=== PATIENT | male | born 1965 | race African-American/Black ===

== ENCOUNTER 2017-10-30 14:23 | Inpatient (IN) | payer OTHER ==
[2017-10-30 15:54] VITALS: BMI 25.0
--- NOTE | 2017-10-30 17:48 | HP ---
CIWA Score - CIWA Score Nausea/Vomitin-Mild Nausea/No Vomiting Muscle Tremors: 3 Anxiety: 3 Agitation: 1-Slight > Activity Paroxysmal Sweats: 1-Minimal Palms Moist Orientation: 1-Uncertain about Date Tacttile Disturbances: 1-Very Mild Itch/Numbness Auditory Disturbances: 0-None Visual Disturbances: 0-None Headache: 1-Very Mild CIWA-Ar Total Score: 12 Admission ROS BHS - HPI Chief Complaint: WITHDRAWAL SYMPTOMS Allergies/Adverse Reactions: Allergies Allergy/AdvReac Type Severity Reaction Status Date / Time No Known Allergies Allergy Verified 10/30/17 17:16 History of Present Illness: 52 Y.O. MAN WITH A HISTORY OF ALCOHOL AND PCP DEPENDENCE IS HERE SEEKING HIS FIRST ADMISSION TO DETOX. SELF-REFERRED. DOES NOT HAVE A SIGNIFICANT PERIOD OF SOBRIETY. Exam Limitations: No Limitations - Ebola screening Have you traveled outside of the country in the last 21 days: No Have you had contact with anyone from an Ebola affected area: No Have you been sick,other than usual withdrawal symptoms: No Do you have a fever: No - Review of Systems Constitutional: Loss of Appetite, Unintentional Wgt. Loss EENT: reports: Blurred Vision, Nose Congestion Respiratory: reports: No Symptoms reported Cardiac: reports: No Symptoms Reported GI: reports: No Symptoms Reported : reports: Other (Hesitancy) Musculoskeletal: reports: No Symptoms Reported Integumentary: reports: No Symptoms Reported Neuro: reports: Headache Endocrine: reports: No Symptoms Reported Hematology: reports: No Symptoms Reported Psychiatric: reports: Judgement Intact, Mood/Affect Appropiate, Depressed Other Systems: Reviewed and Negative Patient History - Patient Medical History Hx Anemia: No Hx Asthma: No Hx Chronic Obstructive Pulmonary Disease (COPD): No Hx Cancer: No Hx Cardiac Disorders: No Hx Congestive Heart Failure: No Hx Hypertension: Yes Hx Hypercholesterolemia: Yes Hx Pacemaker: No HX Cerebrovascular Accident: No Hx Seizures: No Hx Dementia: No Hx Diabetes: Yes (Type II: uncontrolled) Hx Gastrointestinal Disorders: No Hx Liver Disease: No Hx Genitourinary Disorders: No Hx Sexually Transmitted Disorders: No Hx Renal Disease (ESRD): No Hx Thyroid Disease: No Hx Human Immunodeficiency Virus (HIV): No Hx Hepatitis C: No Hx Depression: No Hx Suicide Attempt: No Hx Bipolar Disorder: Yes Hx Schizophrenia: No - Patient Surgical History Past Surgical History: No Hx Neurologic Surgery: No Hx Cataract Extraction: No Hx Cardiac Surgery: No Hx Lung Surgery: No Hx Breast Surgery: No Hx Breast Biopsy: No Hx Abdominal Surgery: No Hx Appendectomy: No Hx Cholecystectomy: No Hx Genitourinary Surgery: No Hx Section: No Hx Orthopedic Surgery: No Anesthesia Reaction: No - PPD History Previous Implant?: Yes Documented Results: Negative w/o proof PPD to be Administered?: Yes - Reproductive History Patient is a Female of Child Bearing Age (11 -55 yrs old): No - Smoking Cessation Smoking history: Current every day smoker Have you smoked in the past 12 months: Yes Aproximately how many cigarettes per day: 5 Hx Chewing Tobacco Use: No Initiated information on smoking cessation: Yes 'Breaking Loose' booklet given: 10/30/17 - Substance & Tx. History Hx Alcohol Use: Yes Hx Substance Use: Yes (PCP ) Hx Substance Use Treatment: No - Substances Abused Alcohol Route: Oral Frequency: Daily Amount used: liquor- 2 pints, beer- 3, 40 oz Age of first use: 18 Date of Last Use: 10/29/17 PCP Route: Smoking Frequency: Daily Amount used: 3 bags Age of first use: 18 Date of Last Use: 10/29/17 Family Disease History - Family Disease History Family Disease History: Diabetes: Mother Admission Physical Exam S - Vital Signs Vital Signs: Vital Signs - 24 hr 10/30/17 15:51 Temperature 97.9 F Pulse Rate 82 Respiratory 18 Rate Blood Pressure 154/109 - Physical General Appearance: Yes: Disheveled, Anxious HEENTM: Yes: Hearing grossly Normal, Normocephalic, Normal Voice Respiratory: Yes: Chest Non-Tender, Lungs Clear, Normal Breath Sounds, No Respiratory Distress, No Accessory Muscle Use Neck: Yes: No masses,lesions,Nodules, Trachea in good position Breast: Yes: Breast Exam Deferred Cardiology: Yes: Regular Rhythm, Regular Rate Abdominal: Yes: Normal Bowel Sounds, Non Tender Genitourinary: Yes: Hesitency, Other Back: Yes: Normal Inspection Musculoskeletal: Yes: Gait Steady, Pelvis Stable Extremities: Yes: Normal Capillary Refill, Normal Inspection Neurological: Yes: Alert, Motor Strength 5/5, Normal Mood/Affect, Normal Response Integumentary: Yes: Normal Color, Dry, Warm Lymphatic: Yes: Within Normal Limits - Diagnostic (1) Alcohol dependence, uncomplicated Current Visit: Yes Status: Chronic (2) Diabetes type 2, uncontrolled Current Visit: Yes Status: Chronic (3) Nicotine dependence Current Visit: Yes Status: Chronic (4) Hyperlipidemia Current Visit: Yes Status: Chronic (5) PCP dependence Current Visit: Yes Status: Chronic Cleared for Admission [facility] - Detox or Rehab [facility] Level of Care: Medically Managed Detox Regimen/Protocol: Librium BHS Breath Alcohol Content Breath Alcohol Content: 0 Urine Drug Screen - Results Drug Screen Negative: No Urine Drug Screen Results: PCP-Phencyclidine
[2017-10-30] MEDS ORDERED: P-EPHED 60MG/TRIPROLIDI 2.5MG TABLET PO PRN (18:15)
[2017-10-30] MEDS ORDERED: MENTHOL/PHENOL 1 EACH UD MM PRN (18:15)
[2017-10-30] MEDS ORDERED: LOPERAMIDE HCL 2 MG CAPSULE PO PRN (18:15)
[2017-10-30] MEDS ORDERED: MAGNESIUM HYDROX 2400MG/30ML ORAL SUSPENSION 30 ML CUP PO PRN (18:15)
[2017-10-30] MEDS ORDERED: hydrOXYzine PAMOATE 50 MG CAPSULE (FP) PO PRN (18:15)
[2017-10-30] MEDS ORDERED: IBUPROFEN 400 MG TABLET (FP) PO PRN (18:15)
[2017-10-30] MEDS ORDERED: MAGNESIUM CITRATE 300 ML BOTTLE PO PRN (18:15)
[2017-10-30] MEDS ORDERED: chlordiazePOXIDE HCL 25 MG CAPSULE PO PRN (18:15)
[2017-10-30] MEDS ORDERED: MAG HYDROX/AL HYDROX/SIMETH 30 ML UNIT-DOSE CUP PO PRN (18:15)
[2017-10-30] MEDS ORDERED: guaiFENesin/D-METHORPHAN HB 10 ML UNIT-DOSE CUPS PO PRN (18:15)
[2017-10-30] MEDS ORDERED: chlordiazePOXIDE HCL 25 MG CAPSULE PO ONE (19:15)
[2017-10-30] MEDS: amLODIPine BESYLATE 10 MG TABLET (FP) PO SCH (19:42)
--- NOTE | 2017-10-30 19:52 | PN ---
BHS Progress Note Note: Patient with asymptomatic BP 180/111. One time order clonidine 0.1 mg STAT increase fluids continue to monitor
[2017-10-30] MEDS ORDERED: cloNIDine HCL 0.1 MG TABLET PO ONE (20:15)
[2017-10-30] MEDS: INSULIN (LEVEMIR) 100 UNITS/ML UNITS SQ SCH (21:15)
[2017-10-30] MEDS ORDERED: INSULIN (NOVOLOG) ASPART 100 UNITS/ML 10ML VIAL ONE (21:32)
[2017-10-30] MEDS: INSULIN SLIDING SCALE (NOVOLOG) 1 VIAL SQ SCH (21:38)
[2017-10-30] MEDS ORDERED: MELATONIN 5 MG TABLETS PO PRN (22:00)
[2017-10-30] MEDS: THIAMINE HCL 100 MG TABLET (FP) PO SCH (22:29)
[2017-10-30] MEDS: chlordiazePOXIDE HCL 25 MG CAPSULE PO SCH (22:37)
[2017-10-30] MEDS: ATORVASTATIN CA 20 MG TABLET (FP) PO SCH (22:38)
[2017-10-31] MEDS: chlordiazePOXIDE HCL 25 MG CAPSULE PO SCH ×4 (05:49→22:24)
[2017-10-31] MEDS: ACETAMINOPHEN 325 MG TABLET (FP) PO PRN (05:49)
[2017-10-31] MEDS ORDERED: INSULIN (NOVOLOG) ASPART 100 UNITS/ML 10ML VIAL ONE ×4 (06:18→21:06)
[2017-10-31] MEDS ORDERED: INSULIN SLIDING SCALE (NOVOLOG) 1 VIAL SQ SCH (07:00)
[2017-10-31 07:25] LABS: URINE APPEARANCE CLEAR; URINE BILIRUBIN NEGATIVE (<2.0 mg/dL); URINE COLOR STRAW; URINE GLUCOSE (UA) 3+ (NEGATIVE); URINE KETONE TRACE (NEGATIVE); URINE LEUK ESTERASE NEGATIVE (NEGATIVE); URINE NITRITE NEGATIVE (NEGATIVE); URINE PROTEIN NEGATIVE (NEGATIVE); URINE UROBILINOGEN NEGATIVE mg/dL (0.2-1.0)
[2017-10-31] MEDS: INSULIN SLIDING SCALE (NOVOLOG) 1 VIAL SQ SCH ×4 (07:40→21:08)
[2017-10-31] MEDS: metFORMIN HCL 500 MG TABLET (FP) PO SCH ×2 (07:40→17:15)
[2017-10-31] MEDS: amLODIPine BESYLATE 10 MG TABLET (FP) PO SCH (10:11)
[2017-10-31] MEDS: PRENATAL VITAMINS W/ FOLIC ACID TABLET (FP) PO SCH (10:11)
[2017-10-31] MEDS: LISINOPRIL 10 MG TABLET (FP) PO SCH (10:11)
--- NOTE | 2017-10-31 10:47 | EKG ---
Test Reason : Blood Pressure : / mmHG Vent. Rate : 073 BPM Atrial Rate : 073 BPM P-R Int : 156 ms QRS Dur : 072 ms QT Int : 386 ms P-R-T Axes : 072 067 055 degrees QTc Int : 425 ms NORMAL SINUS RHYTHM SEPTAL INFARCT , AGE UNDETERMINED ABNORMAL ECG NO PREVIOUS ECGS AVAILABLE Confirmed by STACI GUY MD ([id number]) on 10/31/2017 10:47:01 AM Referred By: Confirmed By:STACI GUY MD
--- NOTE | 2017-10-31 10:48 | PN ---
[facility] CIWA - CIWA Score Nausea/Vomitin-No Nausea/No Vomiting Muscle Tremors: 4-Moderate,w/Arms Extend Anxiety: 4-Mod. Anxious/Guarded Agitation: 3 Paroxysmal Sweats: 1-Minimal Palms Moist Orientation: 0-Oriented Tacttile Disturbances: 3-Moderate Itch/Numb/Burn Auditory Disturbances: 0-None Visual Disturbances: 0-None Headache: 0-None Present CIWA-Ar Total Score: 15 BHS Progress Note (SOAP) Subjective: ANXIETY,SWEATS,FATIGUE. Objective: 10/31/17 10:48 Vital Signs 10/31/17 10/31/17 10/31/17 03:30 06:24 09:19 Temperature 96.1 F L 97.9 F Pulse Rate 76 89 Respiratory 18 18 18 Rate Blood Pressure 124/88 144/93 Laboratory Tests 10/30/17 10/30/17 10/30/17 16:54 18:52 20:40 POC Glucometer > 600 > 600 Urine Color Straw Urine Appearance Clear Urine pH 5.0 Ur Specific [place] 1.030 Urine Protein Negative Urine Glucose (UA) 3+ H Urine Ketones Trace H Urine Blood Negative Urine Nitrite Negative Urine Bilirubin Negative Urine Urobilinogen Negative Ur Leukocyte Esterase Negative 10/31/17 05:51 POC Glucometer 278 Urine Color Urine Appearance Urine pH Ur Specific [place] Urine Protein Urine Glucose (UA) Urine Ketones Urine Blood Urine Nitrite Urine Bilirubin Urine Urobilinogen Ur Leukocyte Esterase Assessment: 10/31/17 10:49 WITHDRAWAL SX Plan: CONTINUE DETOX
--- NOTE | 2017-10-31 11:00 | CONSULT ---
[facility] Psychiatric Consult - Data Date of interview: 10/31/17 Admission source: [facility] Identifying data: Patient is a 52 year old single male, father of two, unemployed, homeless (living in a intermediate in [facility] [place]), and supported by [facility] benefits. Patient admitted for alcohol and PCP dependence. Substance Abuse History: Smoking Cessation. Smoking history: Current every day smoker. Have you smoked in the past 12 months: Yes. Aproximately how many cigarettes per day: 5. Hx Chewing Tobacco Use: No. Initiated information on smoking cessation: Yes. 'Breaking Loose' booklet given: 10/30/17. - Substance & Tx. History. Hx Alcohol Use: Yes. Hx Substance Use: Yes (PCP ). Hx Substance Use Treatment: No. - Substances Abused. Alcohol. Route: Oral. Frequency: Daily. Amount used: liquor- 2 pints, beer- 3, 40 oz. Age of first use: 18. Date of Last Use: 10/29/17. PCP. Route: Smoking. Frequency: Daily. Amount used: 3 bags. Age of first use: 18. Date of Last Use: 10/29/17 Medical History: hypertension, hypercholesterolemia, diabetes Psychiatric History: Patient denies h/o psychiatric hospitalization and suicide attempt. Pt. reports seeing a psychiatrist at 13 years of age but is unable to recall the medications he was prescribed. Pt. denies OPD as an adult. Pt. currently denies suicidal and homicidal ideation. Physical/Sexual Abuse/Trauma History: Denies. Mental Status Exam - Mental Status Exam Alert and Oriented to: Time, Place, Person Cognitive Function: Good Patient Appearance: Well Groomed Mood: Hopeful, Euthymic Affect: Mood Congruent Patient Behavior: Cooperative Speech Pattern: Appropriate Voice Loudness: Normal Thought Process: Intact, Goal Oriented Thought Disorder: Not Present Hallucinations: Denies Suicidal Ideation: Denies Homicidal Ideation: Denies Insight/Judgement: Poor Sleep: Fair Appetite: Fair Muscle strength/Tone: Normal Gait/Station: Normal Psychiatric Findings - Problem List ([place] 1, 2,3) (1) Nicotine dependence Current Visit: Yes Status: Acute Qualifiers: Nicotine product type: cigarettes Substance use status: in withdrawal Qualified Code(s): F17.213 - Nicotine dependence, cigarettes, with withdrawal (2) PCP dependence Current Visit: Yes Status: Acute (3) Alcohol dependence, uncomplicated Current Visit: Yes Status: Chronic (4) Diabetes type 2, uncontrolled Current Visit: Yes Status: Chronic (5) Hyperlipidemia Current Visit: Yes Status: Chronic (6) Substance induced mood disorder Current Visit: Yes Status: Suspected - Initial Treatment Plan Initial Treatment Plan: Psychoeducation provided. Detoxification in progress. Observation.
[2017-10-31 11:12] LABS: HEMATOCRIT 39.9 % (35.4-49); MCH 32.8 pg (25.7-33.7); MCHC 35.2 g/dl (32.0-35.9); MEAN CELL VOLUME 93.2 fl (80-96); MEAN PLT VOLUME 8.6 fl (7.5-11.1); PLATELET COUNT 197 K/MM3 (134-434); RBC 4.28 M/mm3 (4.00-5.60); WHITE BLOOD COUNT 6.1 K/mm3 (4.0-10.0)
[2017-10-31 11:40] LABS: ALBUMIN 3.8 g/dl (3.4-5.0); ALK PHOS 137 U/L (45-117); ANION GAP 8 (8-16); BILIRUBIN,TOTAL 0.6 mg/dL (0.2-1.0); BLOOD UREA NITROGEN 11 mg/dL (7-18); CHLORIDE 94 mmol/L (98-107); CO2 31 mmol/L (21-32); GLUCOSE,RANDOM 366 mg/dL (74-106); POTASSIUM 3.8 mmol/L (3.5-5.1); SGOT/AST 35 U/L (15-37); SGPT/ALT 44 U/L (12-78); SODIUM 133 mmol/L (136-145)
[2017-10-31] MEDS: INSULIN (LEVEMIR) 100 UNITS/ML UNITS SQ SCH (21:08)
[2017-10-31] MEDS: ATORVASTATIN CA 20 MG TABLET (FP) PO SCH (22:23)
[2017-10-31] MEDS: THIAMINE HCL 100 MG TABLET (FP) PO SCH (22:24)
[2017-11-01] MEDS: chlordiazePOXIDE HCL 25 MG CAPSULE PO SCH ×3 (05:46→17:33)
[2017-11-01] MEDS: INSULIN SLIDING SCALE (NOVOLOG) 1 VIAL SQ SCH ×4 (07:15→22:13)
[2017-11-01] MEDS ORDERED: INSULIN (NOVOLOG) ASPART 100 UNITS/ML 10ML VIAL ONE ×4 (07:17→21:19)
[2017-11-01] MEDS: metFORMIN HCL 500 MG TABLET (FP) PO SCH ×2 (07:18→17:33)
[2017-11-01] MEDS: ACETAMINOPHEN 325 MG TABLET (FP) PO PRN (08:45)
--- NOTE | 2017-11-01 10:12 | PN ---
[facility] CIWA - CIWA Score Nausea/Vomitin-No Nausea/No Vomiting Muscle Tremors: 4-Moderate,w/Arms Extend Anxiety: 4-Mod. Anxious/Guarded Agitation: 4-Moderately Restless Paroxysmal Sweats: 1-Minimal Palms Moist Orientation: 0-Oriented Tacttile Disturbances: 0-None Auditory Disturbances: 0-None Visual Disturbances: 0-None Headache: 0-None Present CIWA-Ar Total Score: 13 S Progress Note (SOAP) Subjective: ANXIETY,SWEATS,FATIGUE/SLIGHTLY SLUGGISH. ALERT O X 3. DENIES ACUTE DISTRESS. Objective: 11/01/17 10:10 Vital Signs 11/01/17 11/01/17 11/01/17 03:30 06:20 09:30 Temperature 97.9 F 97.2 F L Pulse Rate 67 88 Respiratory 16 18 18 Rate Blood Pressure 120/78 127/85 Laboratory Tests 10/30/17 10/30/17 10/30/17 16:54 18:52 20:40 WBC RBC Hgb Hct MCV MCH MCHC RDW Plt Count MPV Sodium Potassium Chloride Carbon Dioxide Anion Gap BUN Creatinine Creat Clearance w eGFR POC Glucometer > 600 > 600 Random Glucose Calcium Total Bilirubin AST ALT Alkaline Phosphatase Total Protein Albumin Urine Color Straw Urine Appearance Clear Urine pH 5.0 Ur Specific [place] 1.030 Urine Protein Negative Urine Glucose (UA) 3+ H Urine Ketones Trace H Urine Blood Negative Urine Nitrite Negative Urine Bilirubin Negative Urine Urobilinogen Negative Ur Leukocyte Esterase Negative RPR Titer 10/31/17 10/31/17 10/31/17 05:51 07:00 07:00 WBC 6.1 RBC 4.28 Hgb 14.0 Hct 39.9 MCV 93.2 MCH 32.8 MCHC 35.2 RDW 13.0 Plt Count 197 MPV 8.6 Sodium 133 L Potassium 3.8 Chloride 94 L Carbon Dioxide 31 Anion Gap 8 BUN 11 Creatinine 1.0 Creat Clearance w eGFR > 60 POC Glucometer 278 Random Glucose 366 H* Calcium 9.0 Total Bilirubin 0.6 AST 35 ALT 44 Alkaline Phosphatase 137 H Total Protein 7.0 Albumin 3.8 Urine Color Urine Appearance Urine pH Ur Specific [place] Urine Protein Urine Glucose (UA) Urine Ketones Urine Blood Urine Nitrite Urine Bilirubin Urine Urobilinogen Ur Leukocyte Esterase RPR Titer 10/31/17 10/31/17 10/31/17 07:00 11:26 16:21 WBC RBC Hgb Hct MCV MCH MCHC RDW Plt Count MPV Sodium Potassium Chloride Carbon Dioxide Anion Gap BUN Creatinine Creat Clearance w eGFR POC Glucometer 422 336 Random Glucose Calcium Total Bilirubin AST ALT Alkaline Phosphatase Total Protein Albumin Urine Color Urine Appearance Urine pH Ur Specific [place] Urine Protein Urine Glucose (UA) Urine Ketones Urine Blood Urine Nitrite Urine Bilirubin Urine Urobilinogen Ur Leukocyte Esterase RPR Titer Nonreactive 10/31/17 11/01/17 20:45 05:45 WBC RBC Hgb Hct MCV MCH MCHC RDW Plt Count MPV Sodium Potassium Chloride Carbon Dioxide Anion Gap BUN Creatinine Creat Clearance w eGFR POC Glucometer 426 262 Random Glucose Calcium Total Bilirubin AST ALT Alkaline Phosphatase Total Protein Albumin Urine Color Urine Appearance Urine pH Ur Specific [place] Urine Protein Urine Glucose (UA) Urine Ketones Urine Blood Urine Nitrite Urine Bilirubin Urine Urobilinogen Ur Leukocyte Esterase RPR Titer Assessment: 11/01/17 10:11 WITHDRAWAL SX Plan: CONTINUE DETOX INCREASE PO FLUIDS
[2017-11-01] MEDS: amLODIPine BESYLATE 10 MG TABLET (FP) PO SCH (10:14)
[2017-11-01] MEDS: PRENATAL VITAMINS W/ FOLIC ACID TABLET (FP) PO SCH (10:14)
[2017-11-01] MEDS: LISINOPRIL 10 MG TABLET (FP) PO SCH (10:14)
--- NOTE | 2017-11-01 12:01 | EKG ---
Test Reason : Blood Pressure : / mmHG Vent. Rate : 087 BPM Atrial Rate : 087 BPM P-R Int : 158 ms QRS Dur : 082 ms QT Int : 358 ms P-R-T Axes : 061 061 034 degrees QTc Int : 430 ms NORMAL SINUS RHYTHM NORMAL ECG WHEN COMPARED WITH ECG OF 30-OCT-2017 19:31, NO SIGNIFICANT CHANGE WAS FOUND Confirmed by MAYRA BOWEN MD ([id number]) on 11/01/2017 12:01:21 PM Referred By: Confirmed By:MAYRA BOWEN MD
[2017-11-01] MEDS ORDERED: INSULIN (NOVOLOG) ASPART 100 UNITS/ML 10ML VIAL SQ ONE (12:03)
[2017-11-01] MEDS: chlordiazePOXIDE 5 MG CAPSULE PO SCH (22:13)
[2017-11-01] MEDS: INSULIN (LEVEMIR) 100 UNITS/ML UNITS SQ SCH (22:13)
[2017-11-01] MEDS: ATORVASTATIN CA 20 MG TABLET (FP) PO SCH (22:13)
[2017-11-01] MEDS: THIAMINE HCL 100 MG TABLET (FP) PO SCH (22:13)
[2017-11-02] MEDS: chlordiazePOXIDE 5 MG CAPSULE PO SCH ×3 (07:12→17:37)
[2017-11-02] MEDS ORDERED: INSULIN (NOVOLOG) ASPART 100 UNITS/ML 10ML VIAL ONE ×4 (07:35→21:48)
[2017-11-02] MEDS: metFORMIN HCL 500 MG TABLET (FP) PO SCH ×2 (07:38→17:36)
[2017-11-02] MEDS: INSULIN SLIDING SCALE (NOVOLOG) 1 VIAL SQ SCH ×4 (07:52→22:33)
[2017-11-02] MEDS: amLODIPine BESYLATE 10 MG TABLET (FP) PO SCH (10:22)
[2017-11-02] MEDS: LISINOPRIL 10 MG TABLET (FP) PO SCH (10:22)
[2017-11-02] MEDS: PRENATAL VITAMINS W/ FOLIC ACID TABLET (FP) PO SCH (10:22)
--- NOTE | 2017-11-02 17:13 | PN ---
S Progress Note (SOAP) Subjective: Tremors, Constipation, Body Aches, Interrupted Sleep. Objective: PATIENT A & O X 2 (UNCERTAIN ABOUT CURRENT DAY / DATE). PATIENT OBSERVED AMBULATING ON UNIT. NO ACUTE DISTRESS. 11/02/17 17:10 Vital Signs Temperature 97.5 F L 11/02/17 13:50 Pulse Rate 92 H 11/02/17 13:50 Respiratory Rate 18 11/02/17 13:50 Blood Pressure 139/90 11/02/17 13:50 O2 Sat by Pulse Oximetry (%) Laboratory Tests 10/30/17 10/30/17 10/30/17 16:54 18:52 20:40 WBC RBC Hgb Hct MCV MCH MCHC RDW Plt Count MPV Sodium Potassium Chloride Carbon Dioxide Anion Gap BUN Creatinine Creat Clearance w eGFR POC Glucometer > 600 > 600 Random Glucose Calcium Total Bilirubin AST ALT Alkaline Phosphatase Total Protein Albumin Urine Color Straw Urine Appearance Clear Urine pH 5.0 Ur Specific [place] 1.030 Urine Protein Negative Urine Glucose (UA) 3+ H Urine Ketones Trace H Urine Blood Negative Urine Nitrite Negative Urine Bilirubin Negative Urine Urobilinogen Negative Ur Leukocyte Esterase Negative RPR Titer 10/31/17 10/31/17 10/31/17 05:51 07:00 07:00 WBC 6.1 RBC 4.28 Hgb 14.0 Hct 39.9 MCV 93.2 MCH 32.8 MCHC 35.2 RDW 13.0 Plt Count 197 MPV 8.6 Sodium 133 L Potassium 3.8 Chloride 94 L Carbon Dioxide 31 Anion Gap 8 BUN 11 Creatinine 1.0 Creat Clearance w eGFR > 60 POC Glucometer 278 Random Glucose 366 H* Calcium 9.0 Total Bilirubin 0.6 AST 35 ALT 44 Alkaline Phosphatase 137 H Total Protein 7.0 Albumin 3.8 Urine Color Urine Appearance Urine pH Ur Specific [place] Urine Protein Urine Glucose (UA) Urine Ketones Urine Blood Urine Nitrite Urine Bilirubin Urine Urobilinogen Ur Leukocyte Esterase RPR Titer 10/31/17 10/31/17 10/31/17 07:00 11:26 16:21 WBC RBC Hgb Hct MCV MCH MCHC RDW Plt Count MPV Sodium Potassium Chloride Carbon Dioxide Anion Gap BUN Creatinine Creat Clearance w eGFR POC Glucometer 422 336 Random Glucose Calcium Total Bilirubin AST ALT Alkaline Phosphatase Total Protein Albumin Urine Color Urine Appearance Urine pH Ur Specific [place] Urine Protein Urine Glucose (UA) Urine Ketones Urine Blood Urine Nitrite Urine Bilirubin Urine Urobilinogen Ur Leukocyte Esterase RPR Titer Nonreactive 10/31/17 11/01/17 11/01/17 20:45 05:45 11:52 WBC RBC Hgb Hct MCV MCH MCHC RDW Plt Count MPV Sodium Potassium Chloride Carbon Dioxide Anion Gap BUN Creatinine Creat Clearance w eGFR POC Glucometer 426 262 511 Random Glucose Calcium Total Bilirubin AST ALT Alkaline Phosphatase Total Protein Albumin Urine Color Urine Appearance Urine pH Ur Specific [place] Urine Protein Urine Glucose (UA) Urine Ketones Urine Blood Urine Nitrite Urine Bilirubin Urine Urobilinogen Ur Leukocyte Esterase RPR Titer 11/01/17 11/01/17 11/01/17 12:00 16:29 20:19 WBC RBC Hgb Hct MCV MCH MCHC RDW Plt Count MPV Sodium Potassium Chloride Carbon Dioxide Anion Gap BUN Creatinine Creat Clearance w eGFR POC Glucometer 335 280 Random Glucose 407 H* Calcium Total Bilirubin AST ALT Alkaline Phosphatase Total Protein Albumin Urine Color Urine Appearance Urine pH Ur Specific [place] Urine Protein Urine Glucose (UA) Urine Ketones Urine Blood Urine Nitrite Urine Bilirubin Urine Urobilinogen Ur Leukocyte Esterase RPR Titer 11/02/17 11/02/17 11/02/17 07:30 11:37 16:34 WBC RBC Hgb Hct MCV MCH MCHC RDW Plt Count MPV Sodium Potassium Chloride Carbon Dioxide Anion Gap BUN Creatinine Creat Clearance w eGFR POC Glucometer 353 346 311 Random Glucose Calcium Total Bilirubin AST ALT Alkaline Phosphatase Total Protein Albumin Urine Color Urine Appearance Urine pH Ur Specific [place] Urine Protein Urine Glucose (UA) Urine Ketones Urine Blood Urine Nitrite Urine Bilirubin Urine Urobilinogen Ur Leukocyte Esterase RPR Titer LABS NOTED. Assessment: 11/02/17 17:11 WITHDRAWAL SYMPTOMS. Plan: CONTINUE DETOX. INCREASE DAILY PO FLUID INTAKE. PRN MOM FOR CONSTIPATION. PATIENT SCHEDULED FOR D/C TOMORROW.
[2017-11-02] MEDS: ATORVASTATIN CA 20 MG TABLET (FP) PO SCH (22:29)
[2017-11-02] MEDS: THIAMINE HCL 100 MG TABLET (FP) PO SCH (22:29)
[2017-11-02] MEDS: chlordiazePOXIDE HCL 10 MG CAPSULE PO SCH (22:29)
[2017-11-02] MEDS: INSULIN (LEVEMIR) 100 UNITS/ML UNITS SQ SCH (22:35)
[2017-11-03] MEDS: metFORMIN HCL 500 MG TABLET (FP) PO SCH (06:15)
[2017-11-03] MEDS: chlordiazePOXIDE HCL 10 MG CAPSULE PO SCH ×2 (06:15→11:04)
[2017-11-03] MEDS ORDERED: INSULIN (NOVOLOG) ASPART 100 UNITS/ML 10ML VIAL ONE (06:17)
[2017-11-03 06:25] VITALS: BP 131/82; PULSE 82; TEMP 97.7
[2017-11-03] MEDS: INSULIN SLIDING SCALE (NOVOLOG) 1 VIAL SQ SCH ×2 (06:38→11:04)
[2017-11-03] MEDS: amLODIPine BESYLATE 10 MG TABLET (FP) PO SCH (11:04)
[2017-11-03] MEDS: LISINOPRIL 10 MG TABLET (FP) PO SCH (11:05)
[2017-11-03] MEDS: PRENATAL VITAMINS W/ FOLIC ACID TABLET (FP) PO SCH (11:05)
--- NOTE | 2017-11-03 18:33 | PN ---
S Progress Note (SOAP) Subjective: Patient denies current Detox symptoms and reports that he feels well overall. Objective: PATIENT A & O X 3, OBSERVED AMBULATING ON UNIT. NO ACUTE DISTRESS. 11/03/17 18:33 Vital Signs Temperature 97.7 F 11/03/17 06:25 Pulse Rate 82 11/03/17 06:25 Respiratory Rate 18 11/03/17 06:25 Blood Pressure 131/82 11/03/17 06:25 O2 Sat by Pulse Oximetry (%) Laboratory Tests 10/30/17 10/30/17 10/30/17 16:54 18:52 20:40 WBC RBC Hgb Hct MCV MCH MCHC RDW Plt Count MPV Sodium Potassium Chloride Carbon Dioxide Anion Gap BUN Creatinine Creat Clearance w eGFR POC Glucometer > 600 > 600 Random Glucose Calcium Total Bilirubin AST ALT Alkaline Phosphatase Total Protein Albumin Urine Color Straw Urine Appearance Clear Urine pH 5.0 Ur Specific [place] 1.030 Urine Protein Negative Urine Glucose (UA) 3+ H Urine Ketones Trace H Urine Blood Negative Urine Nitrite Negative Urine Bilirubin Negative Urine Urobilinogen Negative Ur Leukocyte Esterase Negative RPR Titer 10/31/17 10/31/17 10/31/17 05:51 07:00 07:00 WBC 6.1 RBC 4.28 Hgb 14.0 Hct 39.9 MCV 93.2 MCH 32.8 MCHC 35.2 RDW 13.0 Plt Count 197 MPV 8.6 Sodium 133 L Potassium 3.8 Chloride 94 L Carbon Dioxide 31 Anion Gap 8 BUN 11 Creatinine 1.0 Creat Clearance w eGFR > 60 POC Glucometer 278 Random Glucose 366 H* Calcium 9.0 Total Bilirubin 0.6 AST 35 ALT 44 Alkaline Phosphatase 137 H Total Protein 7.0 Albumin 3.8 Urine Color Urine Appearance Urine pH Ur Specific [place] Urine Protein Urine Glucose (UA) Urine Ketones Urine Blood Urine Nitrite Urine Bilirubin Urine Urobilinogen Ur Leukocyte Esterase RPR Titer 10/31/17 10/31/17 10/31/17 07:00 11:26 16:21 WBC RBC Hgb Hct MCV MCH MCHC RDW Plt Count MPV Sodium Potassium Chloride Carbon Dioxide Anion Gap BUN Creatinine Creat Clearance w eGFR POC Glucometer 422 336 Random Glucose Calcium Total Bilirubin AST ALT Alkaline Phosphatase Total Protein Albumin Urine Color Urine Appearance Urine pH Ur Specific [place] Urine Protein Urine Glucose (UA) Urine Ketones Urine Blood Urine Nitrite Urine Bilirubin Urine Urobilinogen Ur Leukocyte Esterase RPR Titer Nonreactive 10/31/17 11/01/17 11/01/17 20:45 05:45 11:52 WBC RBC Hgb Hct MCV MCH MCHC RDW Plt Count MPV Sodium Potassium Chloride Carbon Dioxide Anion Gap BUN Creatinine Creat Clearance w eGFR POC Glucometer 426 262 511 Random Glucose Calcium Total Bilirubin AST ALT Alkaline Phosphatase Total Protein Albumin Urine Color Urine Appearance Urine pH Ur Specific [place] Urine Protein Urine Glucose (UA) Urine Ketones Urine Blood Urine Nitrite Urine Bilirubin Urine Urobilinogen Ur Leukocyte Esterase RPR Titer 11/01/17 11/01/17 11/01/17 12:00 16:29 20:19 WBC RBC Hgb Hct MCV MCH MCHC RDW Plt Count MPV Sodium Potassium Chloride Carbon Dioxide Anion Gap BUN Creatinine Creat Clearance w eGFR POC Glucometer 335 280 Random Glucose 407 H* Calcium Total Bilirubin AST ALT Alkaline Phosphatase Total Protein Albumin Urine Color Urine Appearance Urine pH Ur Specific [place] Urine Protein Urine Glucose (UA) Urine Ketones Urine Blood Urine Nitrite Urine Bilirubin Urine Urobilinogen Ur Leukocyte Esterase RPR Titer 11/02/17 11/02/17 11/02/17 07:30 11:37 16:34 WBC RBC Hgb Hct MCV MCH MCHC RDW Plt Count MPV Sodium Potassium Chloride Carbon Dioxide Anion Gap BUN Creatinine Creat Clearance w eGFR POC Glucometer 353 346 311 Random Glucose Calcium Total Bilirubin AST ALT Alkaline Phosphatase Total Protein Albumin Urine Color Urine Appearance Urine pH Ur Specific [place] Urine Protein Urine Glucose (UA) Urine Ketones Urine Blood Urine Nitrite Urine Bilirubin Urine Urobilinogen Ur Leukocyte Esterase RPR Titer 11/02/17 11/03/17 21:15 06:14 WBC RBC Hgb Hct MCV MCH MCHC RDW Plt Count MPV Sodium Potassium Chloride Carbon Dioxide Anion Gap BUN Creatinine Creat Clearance w eGFR POC Glucometer 315 208 Random Glucose Calcium Total Bilirubin AST ALT Alkaline Phosphatase Total Protein Albumin Urine Color Urine Appearance Urine pH Ur Specific [place] Urine Protein Urine Glucose (UA) Urine Ketones Urine Blood Urine Nitrite Urine Bilirubin Urine Urobilinogen Ur Leukocyte Esterase RPR Titer LABS NOTED. Assessment: 11/03/17 18:33 COMPLETION OF DETOX REGIMEN. Plan: PATIENT SCHEDULED FOR DISCHARGE FROM DETOX UNIT TODAY.
--- NOTE | 2017-11-03 18:39 | DS ---
[facility] Detox Discharge Summary Admission Date: 10/30/17 Discharge Date: 11/03/17 - History Present History: Alcohol Dependence, Pcp Dependence Additional Comments: PATIENT GOING TO [facility] ([facility] – [place] FOR AFTERCARE. PATIENT ADVISED TO FOLLOW-UP WITH FUNDING SPECIALIST AT [facility] FOR GENERAL MEDICAL ASSESSMENT AND FOR HISTORY OF HTN AND OF TYPE II DM AFTER DISCHARGE FROM DETOX. PATIENT WAS DISCHARGED FROM DETOX UNIT IN STABLE MEDICAL CONDITION. Pertinent Past History: HTN, Hyperlipidemia, Type II DM, Nicotine Dependence. - Physical Exam Results Vital Signs: Vital Signs Temperature 97.7 F 11/03/17 06:25 Pulse Rate 82 11/03/17 06:25 Respiratory Rate 18 11/03/17 06:25 Blood Pressure 131/82 11/03/17 06:25 O2 Sat by Pulse Oximetry (%) Pertinent Admission Physical Exam Findings: WITHDRAWAL SYMPTOMS. Laboratory Tests 10/30/17 10/30/17 10/30/17 16:54 18:52 20:40 WBC RBC Hgb Hct MCV MCH MCHC RDW Plt Count MPV Sodium Potassium Chloride Carbon Dioxide Anion Gap BUN Creatinine Creat Clearance w eGFR POC Glucometer > 600 > 600 Random Glucose Calcium Total Bilirubin AST ALT Alkaline Phosphatase Total Protein Albumin Urine Color Straw Urine Appearance Clear Urine pH 5.0 Ur Specific Howes 1.030 Urine Protein Negative Urine Glucose (UA) 3+ H Urine Ketones Trace H Urine Blood Negative Urine Nitrite Negative Urine Bilirubin Negative Urine Urobilinogen Negative Ur Leukocyte Esterase Negative RPR Titer 10/31/17 10/31/17 10/31/17 05:51 07:00 07:00 WBC 6.1 RBC 4.28 Hgb 14.0 Hct 39.9 MCV 93.2 MCH 32.8 MCHC 35.2 RDW 13.0 Plt Count 197 MPV 8.6 Sodium 133 L Potassium 3.8 Chloride 94 L Carbon Dioxide 31 Anion Gap 8 BUN 11 Creatinine 1.0 Creat Clearance w eGFR > 60 POC Glucometer 278 Random Glucose 366 H* Calcium 9.0 Total Bilirubin 0.6 AST 35 ALT 44 Alkaline Phosphatase 137 H Total Protein 7.0 Albumin 3.8 Urine Color Urine Appearance Urine pH Ur Specific Howes Urine Protein Urine Glucose (UA) Urine Ketones Urine Blood Urine Nitrite Urine Bilirubin Urine Urobilinogen Ur Leukocyte Esterase RPR Titer 10/31/17 10/31/17 10/31/17 07:00 11:26 16:21 WBC RBC Hgb Hct MCV MCH MCHC RDW Plt Count MPV Sodium Potassium Chloride Carbon Dioxide Anion Gap BUN Creatinine Creat Clearance w eGFR POC Glucometer 422 336 Random Glucose Calcium Total Bilirubin AST ALT Alkaline Phosphatase Total Protein Albumin Urine Color Urine Appearance Urine pH Ur Specific Howes Urine Protein Urine Glucose (UA) Urine Ketones Urine Blood Urine Nitrite Urine Bilirubin Urine Urobilinogen Ur Leukocyte Esterase RPR Titer Nonreactive 10/31/17 11/01/17 11/01/17 20:45 05:45 11:52 WBC RBC Hgb Hct MCV MCH MCHC RDW Plt Count MPV Sodium Potassium Chloride Carbon Dioxide Anion Gap BUN Creatinine Creat Clearance w eGFR POC Glucometer 426 262 511 Random Glucose Calcium Total Bilirubin AST ALT Alkaline Phosphatase Total Protein Albumin Urine Color Urine Appearance Urine pH Ur Specific Howes Urine Protein Urine Glucose (UA) Urine Ketones Urine Blood Urine Nitrite Urine Bilirubin Urine Urobilinogen Ur Leukocyte Esterase RPR Titer 11/01/17 11/01/17 11/01/17 12:00 16:29 20:19 WBC RBC Hgb Hct MCV MCH MCHC RDW Plt Count MPV Sodium Potassium Chloride Carbon Dioxide Anion Gap BUN Creatinine Creat Clearance w eGFR POC Glucometer 335 280 Random Glucose 407 H* Calcium Total Bilirubin AST ALT Alkaline Phosphatase Total Protein Albumin Urine Color Urine Appearance Urine pH Ur Specific Howes Urine Protein Urine Glucose (UA) Urine Ketones Urine Blood Urine Nitrite Urine Bilirubin Urine Urobilinogen Ur Leukocyte Esterase RPR Titer 11/02/17 11/02/17 11/02/17 07:30 11:37 16:34 WBC RBC Hgb Hct MCV MCH MCHC RDW Plt Count MPV Sodium Potassium Chloride Carbon Dioxide Anion Gap BUN Creatinine Creat Clearance w eGFR POC Glucometer 353 346 311 Random Glucose Calcium Total Bilirubin AST ALT Alkaline Phosphatase Total Protein Albumin Urine Color Urine Appearance Urine pH Ur Specific Howes Urine Protein Urine Glucose (UA) Urine Ketones Urine Blood Urine Nitrite Urine Bilirubin Urine Urobilinogen Ur Leukocyte Esterase RPR Titer 11/02/17 11/03/17 21:15 06:14 WBC RBC Hgb Hct MCV MCH MCHC RDW Plt Count MPV Sodium Potassium Chloride Carbon Dioxide Anion Gap BUN Creatinine Creat Clearance w eGFR POC Glucometer 315 208 Random Glucose Calcium Total Bilirubin AST ALT Alkaline Phosphatase Total Protein Albumin Urine Color Urine Appearance Urine pH Ur Specific Howes Urine Protein Urine Glucose (UA) Urine Ketones Urine Blood Urine Nitrite Urine Bilirubin Urine Urobilinogen Ur Leukocyte Esterase RPR Titer LABS NOTED. - Treatment Hospital Course: Detox Protocol Followed, Detoxed Safely, Responded well, Discharged Condition Good Patient has Accepted a Rehab Referral to: SUE ALVARADO TO [facility] ( [facility] [place] FOR [place]CARE. - Medication Discharge Medications: Ambulatory Orders Amlodipine Besylate [Norvasc -] 10 mg PO DAILY 10/30/17 Atorvastatin Ca [Lipitor] 20 mg PO HS 10/30/17 Insulin (Novolog) [Novolog] 10 units SQ TID 10/30/17 Insulin Glargine,Hum.rec.anlog [Lantus Solostar PEN (NF)] 20 units SQ HS Lisinopril [Prinivil -] 10 mg PO DAILY 10/30/17 metFORMIN HCL [Glucophage -] 500 mg PO BID 10/30/17 - Diagnosis (1) Nicotine dependence Status: Acute Qualifiers: Nicotine product type: cigarettes Substance use status: in withdrawal Qualified Code(s): F17.213 - Nicotine dependence, cigarettes, with withdrawal (2) PCP dependence Status: Acute (3) Alcohol dependence, uncomplicated Status: Acute (4) Diabetes type 2, uncontrolled Status: Chronic Qualifiers: Diabetes mellitus termite technician insulin use: with termite technician use Diabetes mellitus complication status: with unspecified complications Qualified Code(s) : E11.8 - Type 2 diabetes mellitus with unspecified complications; E11.65 - Type 2 diabetes mellitus with hyperglycemia; Z79.4 - jail (current) use of insulin (5) Hyperlipidemia Status: Chronic Qualifiers: Hyperlipidemia type: unspecified Qualified Code(s): E78.5 - Hyperlipidemia , unspecified (6) Substance induced mood disorder Status: Suspected - AMA Did Patient Leave Against Medical Advice: No
== END 2017-11-03 11:05 | disposition home or self-care (01) | DRG 775 ==
LOC: YASAS 14:23 → Y3N 18:41
PROVIDERS: ADMIT Family Medicine Addiction Medicine; ATTEND Family Medicine Addiction Medicine
PROC: HZ2ZZZZ Detoxification Services for Substance Abuse Treatment (ICD-10-PCS; principal; 2017-10-30)
DX: F10.20 Alcohol dependence, uncomplicated (principal); F16.20 Hallucinogen dependence, uncomplicated; F17.213 Nicotine dependence, cigarettes, with withdrawal; F19.24 Other psychoactive substance dependence with psychoactive substance-induced mood disorder; F31.9 Bipolar disorder, unspecified; E11.9 Type 2 diabetes mellitus without complications; E11.65 Type 2 diabetes mellitus with hyperglycemia; Z79.4 Long term (current) use of insulin; E78.00 Pure hypercholesterolemia, unspecified
CPT/HCPCS: 36415; 80053; 81003; 82947; 82962; 85027; 86593; 93005; 93010; J0735

== ENCOUNTER 2018-11-08 19:43 | Inpatient (IN) | payer OTHER ==
[2018-11-08 23:34] VITALS: BMI 21.9
--- NOTE | 2018-11-09 01:52 | HP ---
CIWA Score Nausea/Vomitin Muscle Tremors: 1-None Visible, but [place] Anxiety: 1-Mildly Anxious Agitation: 1-Slight > Activity Paroxysmal Sweats: 3 Orientation: 1-Uncertain about Date Tacttile Disturbances: 3-Moderate Itch/Numb/Burn Auditory Disturbances: 0-None Visual Disturbances: 2-Mild Sensitivity Headache: 0-None Present CIWA-Ar Total Score: 17 - Admission Criteria OASAS Guidelines: Admission for Medically Managed Detox: Requires at least one of the followin. CIWA greater than 12 2. Seizures within the past 24 hours 3. Delirium tremens within the past 24 hours 4. Hallucinations within the past 24 hours 5. Acute intervention needed for co occurring medical disorder 6. Acute intervention needed for co occurring psychiatric disorder 7. Severe withdrawal that cannot be handled at a lower level of care (continued vomiting, continued diarrhea, abnormal vital signs) requiring intravenous medication and/or fluids 8. Admission ROS [facility] - [facility] Chief Complaint: SEEKING DETOX W/ C/O WITHDRAWAL SX'S Allergies/Adverse Reactions: Allergies Allergy/AdvReac Type Severity Reaction Status Date / Time No Known Allergies Allergy Verified 11/08/18 23:24 History of Present Illness: 53 Y.O. MALE WITH ALCOHOLISM HERE FOR DETOX. CLIENT IS SELF REFERRED. LAST ADMIT 1 YEAR AGO. PRESENTS WITH C/O WITHDRAWAL SX'S. CIWA 17. HE REPORTS DRINK BEER DAILY. LAST USE EARLIER TODAY. DENIES ANY SIGNIFICANT PERIOD OF CLEAN TIME IN THE PAST 1 YEAR. DENIES HX/O SZ. DENIES BLACKOUTS. HOMELESS, UNEMPLOYED, DENIES LEGALS Exam Limitations: No Limitations - Ebola screening Have you traveled outside of the country in the last 21 days: No (N) Have you had contact with anyone from an Ebola affected area: No Do you have a fever: No - Review of Systems Constitutional: Chills, Loss of Appetite, Malaise, Night Sweats, Changes in sleep EENT: reports: Dental Problems (MISSING TEETH) Respiratory: reports: No Symptoms reported Cardiac: reports: No Symptoms Reported GI: reports: Nausea, Poor Appetite, Poor Fluid Intake : reports: Dysuria Musculoskeletal: reports: No Symptoms Reported Integumentary: reports: No Symptoms Reported Neuro: reports: Numbness Endocrine: reports: Other (HX/O DM) Hematology: reports: No Symptoms Reported Psychiatric: reports: Orientated x3, Agitated (IRRITABLE), Depressed (DENIES SI) Other Systems: Reviewed and Negative Patient History - Patient Medical History Hx Anemia: No Hx Asthma: No Hx Chronic Obstructive Pulmonary Disease (COPD): No Hx Cancer: No Hx Cardiac Disorders: No Hx Congestive Heart Failure: No Hx Hypertension: Yes Hx Hypercholesterolemia: Yes Hx Pacemaker: No HX Cerebrovascular Accident: No Hx Seizures: No Hx Dementia: No Hx Diabetes: Yes (Type II: uncontrolled) Hx Gastrointestinal Disorders: No Hx Liver Disease: No Hx Genitourinary Disorders: No Hx Sexually Transmitted Disorders: No Hx Renal Disease (ESRD): No Hx Thyroid Disease: No Hx Human Immunodeficiency Virus (HIV): No Hx Hepatitis C: No Hx Depression: No Hx Suicide Attempt: No Hx Bipolar Disorder: Yes Hx Schizophrenia: No - Patient Surgical History Past Surgical History: No Hx Neurologic Surgery: No Hx Cataract Extraction: No Hx Cardiac Surgery: No Hx Lung Surgery: No Hx Breast Surgery: No Hx Breast Biopsy: No Hx Abdominal Surgery: No Hx Appendectomy: No Hx Cholecystectomy: No Hx Genitourinary Surgery: No Hx Section: No Hx Orthopedic Surgery: No Anesthesia Reaction: No - PPD History Previous Implant?: Yes Documented Results: Negative w/proof Implanted On Prior [facility] Admission?: Yes Date: 11/01/17 Results: 0MM PPD to be Administered?: Yes - Smoking Cessation Smoking history: Current every day smoker Have you smoked in the past 12 months: Yes Aproximately how many cigarettes per day: 5 Cigars Per Day: 0 Hx Chewing Tobacco Use: No Initiated information on smoking cessation: Yes 'Breaking Loose' booklet given: 11/09/18 - Substance & Tx. History Hx Alcohol Use: Yes Hx Substance Use: Yes Substance Use Type: Alcohol Hx Substance Use Treatment: Yes ([facility]) - Substances abused Alcohol Substance route: Oral Frequency: Daily Amount used: 4 cans of beer/ 24 OZ Age of first use: 13 Date of last use: 11/08/18 Family Disease History - Family Disease History Family Disease History: Diabetes: Mother Admission Physical Exam BHS - Vital Signs Vital Signs: Vital Signs - 24 hr 11/08/18 23:21 Temperature 98.9 F Pulse Rate 102 H Respiratory 18 Rate Blood Pressure 165/116 H - Physical General Appearance: Yes: Mild Distress, Tremorous (felt), Irritable, Sweating, Anxious HEENTM: Yes: EOMI, Normocephalic, Normal Voice, CHRISTINE, Pharynx Normal, Other ( missing teeth) Respiratory: Yes: Chest Non-Tender, Lungs Clear, Normal Breath Sounds, No Respiratory Distress, No Accessory Muscle Use Neck: Yes: No masses,lesions,Nodules, Supple, Trachea in good position Breast: Yes: Breast Exam Deferred Cardiology: Yes: Regular Rhythm, Regular Rate, S1, S2 Abdominal: Yes: Normal Bowel Sounds, Non Tender, Soft Genitourinary: Yes: Within Normal Limits Musculoskeletal: Yes: Within Normal Limits Extremities: Yes: Normal Capillary Refill, Normal Range of Motion, Non-Tender, Tremors Neurological: Yes: Fully Oriented, Alert, Motor Strength 5/5, Depressed Affect ( denies si) Integumentary: Yes: Cold, Clammy Lymphatic: Yes: Within Normal Limits - Diagnostic (1) Hypertension Current Visit: Yes Status: Chronic Qualifiers: Hypertension type: essential hypertension Qualified Code(s): I10 - Essential (primary) hypertension (2) Nicotine dependence Current Visit: Yes Status: Chronic Qualifiers: Nicotine product type: cigarettes Substance use status: in withdrawal Qualified Code(s): F17.213 - Nicotine dependence, cigarettes, with withdrawal (3) Diabetes type 2, uncontrolled Current Visit: Yes Status: Chronic (4) Hyperlipidemia Current Visit: Yes Status: Chronic Qualifiers: Hyperlipidemia type: unspecified Qualified Code(s): E78.5 - Hyperlipidemia , unspecified (5) Substance induced mood disorder Current Visit: Yes Status: Suspected Cleared for Admission [facility] - Detox or Rehab [facility] Level of Care: Medically Managed Detox Regimen/Protocol: Librium Claeared for Rehab Admission: No Breathalyzer - Breathalyzer Breathalyzer: 0 Urine Drug Screen - Test Device Lot number: [id number] Expiration date: 07/11/20 - Control Is test valid?: Yes - Results Drug screen NEGATIVE: Yes Inpatient Rehab Admission - Rehab Decision to Admit Inpatient rehab admission?: No
[2018-11-09] MEDS ORDERED: INSULIN (LEVEMIR) 100 UNITS/ML UNITS SQ ONE (02:02)
[2018-11-09] MEDS ORDERED: ONDANSETRON *ODT* 4 MG TABLET SL PRN (02:05)
[2018-11-09] MEDS ORDERED: MAGNESIUM CITRATE 300 ML BOTTLE PO PRN (02:05)
[2018-11-09] MEDS ORDERED: MAG HYDROX/AL HYDROX/SIMETH 30 ML UNIT-DOSE CUP PO PRN (02:05)
[2018-11-09] MEDS ORDERED: hydrOXYzine PAMOATE 25 MG CAPSULE (FP) PO PRN (02:05)
[2018-11-09] MEDS ORDERED: METHOCARBAMOL 500 MG TABLET PO PRN (02:05)
[2018-11-09] MEDS ORDERED: chlordiazePOXIDE HCL 25 MG CAPSULE PO PRN (02:05)
[2018-11-09] MEDS ORDERED: ACETAMINOPHEN 325 MG TABLET (FP) PO PRN ×2 (02:05)
[2018-11-09] MEDS ORDERED: DICYCLOMINE HCL 10 MG CAPSULE PO PRN (02:05)
[2018-11-09] MEDS ORDERED: guaiFENesin 200 MG/10 ML 10 ML UNIT-DOSE CUPS PO PRN (02:05)
[2018-11-09] MEDS ORDERED: MENTHOL/PHENOL 1 EACH UD MM PRN (02:05)
[2018-11-09] MEDS ORDERED: P-EPHED 60MG/TRIPROLIDI 2.5MG TABLET PO PRN (02:05)
[2018-11-09] MEDS ORDERED: BISMUTH SUBSALICYLATE 524 MG/30 ML UD PO PRN (02:05)
[2018-11-09] MEDS ORDERED: chlordiazePOXIDE HCL 25 MG CAPSULE PO ONE (02:05)
[2018-11-09] MEDS ORDERED: MAGNESIUM HYDROX 2400MG/30ML ORAL SUSPENSION 30 ML CUP PO PRN (02:05)
[2018-11-09] MEDS: chlordiazePOXIDE HCL 25 MG CAPSULE PO SCH ×4 (06:32→22:26)
[2018-11-09] MEDS: INSULIN SLIDING SCALE (NOVOLOG) 1 VIAL SQ SCH ×3 (06:34→18:09)
[2018-11-09] MEDS: metFORMIN HCL 500 MG TABLET (FP) PO SCH ×2 (08:11→18:05)
[2018-11-09] MEDS ORDERED: LISINOPRIL 10 MG TABLET (FP) PO SCH (10:00)
[2018-11-09 10:29] LABS: HEMATOCRIT 40.2 % (35.4-49); MCH 32.7 pg (25.7-33.7); MCHC 34.8 g/dl (32.0-35.9); MEAN CELL VOLUME 93.9 fl (80-96); MEAN PLT VOLUME 7.9 fl (7.5-11.1); RBC 4.28 M/mm3 (4.00-5.60); RDW 14.2 % (11.9-15.9); WHITE BLOOD COUNT 8.1 K/mm3 (4.0-10.0)
[2018-11-09 10:30] LABS: ALBUMIN 3.8 g/dl (3.4-5.0); BILIRUBIN,TOTAL 0.8 mg/dL (0.2-1); BLOOD UREA NITROGEN 17.1 mg/dL (7-18); CALCIUM 9.6 mg/dL (8.5-10.1); POTASSIUM 3.9 mmol/L (3.5-5.1); TOT PROT 7.7 g/dl (6.4-8.2)
[2018-11-09] MEDS: amLODIPine BESYLATE 10 MG TABLET (FP) PO SCH (10:37)
[2018-11-09] MEDS: PRENATAL VITAMINS W/ FOLIC ACID TABLET (FP) PO SCH (10:37)
[2018-11-09 11:21] LABS: PLATELET COUNT 305 K/MM3 (134-434)
[2018-11-09] MEDS ORDERED: LISINOPRIL 10 MG TABLET (FP) PO ONE (14:42)
--- NOTE | 2018-11-09 14:45 | PN ---
S CIWA - CIWA Score Nausea/Vomitin-Int. Nausea w/Dry Heave Muscle Tremors: None Anxiety: 2 Agitation: 1-Slight > Activity Paroxysmal Sweats: No Perspiration Orientation: 2-Disoriented Date<2 days Tacttile Disturbances: 2-Mild Itch/Numbness/Burn Auditory Disturbances: 0-None Visual Disturbances: 2-Mild Sensitivity Headache: 0-None Present CIWA-Ar Total Score: 13 S Progress Note (SOAP) Subjective: Anxious, Fatigue, Nausea. Objective: PATIENT A & O X 2 (UNCERTAIN ABOUT CURRENT DAY / DATE). PATIENT OBSERVED AMBULATING ON UNIT UNASSISTED. IN NO ACUTE DISTRESS. 11/09/18 14:41 Vital Signs Temperature 96.7 F L 11/09/18 13:29 Pulse Rate 107 H 11/09/18 13:29 Respiratory Rate 18 11/09/18 13:29 Blood Pressure 155/101 H 11/09/18 13:29 O2 Sat by Pulse Oximetry (%) Laboratory Tests 11/09/18 11/09/18 11/09/18 00:14 03:09 06:18 WBC RBC Hgb Hct MCV MCH MCHC RDW Plt Count MPV Sodium Potassium Chloride Carbon Dioxide Anion Gap BUN Creatinine Est GFR (CKD-EPI)AfAm Est GFR (CKD-EPI)NonAf POC Glucometer 335 296 128 Random Glucose Calcium Total Bilirubin AST ALT Alkaline Phosphatase Total Protein Albumin RPR Titer 11/09/18 11/09/18 11/09/18 06:31 07:50 07:50 WBC 8.1 RBC 4.28 Hgb 14.0 Hct 40.2 MCV 93.9 MCH 32.7 MCHC 34.8 RDW 14.2 Plt Count 305 D MPV 7.9 Sodium 133 L Potassium 3.9 Chloride 96 L Carbon Dioxide 29 Anion Gap 7 L BUN 17.1 Creatinine 1.0 Est GFR (CKD-EPI)AfAm 99.15 Est GFR (CKD-EPI)NonAf 85.55 POC Glucometer 307 Random Glucose 298 H Calcium 9.6 Total Bilirubin 0.8 AST 13 L ALT 18 Alkaline Phosphatase 138 H Total Protein 7.7 Albumin 3.8 RPR Titer 11/09/18 11/09/18 07:50 11:16 WBC RBC Hgb Hct MCV MCH MCHC RDW Plt Count MPV Sodium Potassium Chloride Carbon Dioxide Anion Gap BUN Creatinine Est GFR (CKD-EPI)AfAm Est GFR (CKD-EPI)NonAf POC Glucometer 146 Random Glucose Calcium Total Bilirubin AST ALT Alkaline Phosphatase Total Protein Albumin RPR Titer Nonreactive LABS NOTED. Assessment: 11/09/18 14:44 WITHDRAWAL SYMPTOMS. HYPERTENSION. ELEVATED ALKALINE PHOSPHATASE LEVEL. Plan: CONTINUE DETOX. INCREASE DAILY DOSE OF LISINOPRIL TO 20 MG PO DAILY FOR PERSISTENTLY ELEVATED BP DESPITE TREATMENT.
[2018-11-09] MEDS: THIAMINE HCL 100 MG TABLET (FP) PO SCH (22:26)
[2018-11-09] MEDS: ATORVASTATIN CA 20 MG TABLET (FP) PO SCH (22:26)
[2018-11-09] MEDS: INSULIN (LEVEMIR) 100 UNITS/ML UNITS SQ SCH (22:31)
[2018-11-09] MEDS: MELATONIN 5 MG TABLETS PO PRN (23:17)
[2018-11-09] MEDS: IBUPROFEN 400 MG TABLET (FP) PO PRN (23:18)
[2018-11-10] MEDS: chlordiazePOXIDE HCL 25 MG CAPSULE PO SCH ×4 (06:14→22:15)
[2018-11-10] MEDS: metFORMIN HCL 500 MG TABLET (FP) PO SCH ×2 (06:14→17:41)
[2018-11-10] MEDS: INSULIN SLIDING SCALE (NOVOLOG) 1 VIAL SQ SCH ×3 (06:15→16:57)
[2018-11-10] MEDS: LISINOPRIL 20 MG TABLET (FP) PO SCH (10:29)
[2018-11-10] MEDS: amLODIPine BESYLATE 10 MG TABLET (FP) PO SCH (10:29)
[2018-11-10] MEDS: PRENATAL VITAMINS W/ FOLIC ACID TABLET (FP) PO SCH (10:29)
--- NOTE | 2018-11-10 11:47 | PN ---
S CIWA - CIWA Score Nausea/Vomitin-No Nausea/No Vomiting Muscle Tremors: 3 Anxiety: 3 Agitation: 3 Paroxysmal Sweats: 1-Minimal Palms Moist Orientation: 0-Oriented Tacttile Disturbances: 0-None Auditory Disturbances: 0-None Visual Disturbances: 0-None Headache: 0-None Present CIWA-Ar Total Score: 10 S Progress Note (SOAP) Subjective: reports detox proceeding well per protocol. Slight anxiety,fatigue. Objective: 11/10/18 11:46 Vital Signs - 24 hr 11/09/18 11/09/18 11/09/18 13:29 18:07 23:08 Temperature 96.7 F L 98.5 F 97.1 F L Pulse Rate 107 H 98 H 97 H Respiratory 18 18 16 Rate Blood Pressure 155/101 H 124/77 111/74 11/10/18 11/10/18 11/10/18 00:30 03:30 06:16 Temperature 96.9 F L Pulse Rate 83 Respiratory 18 18 18 Rate Blood Pressure 122/80 11/10/18 09:39 Temperature 96.7 F L Pulse Rate 105 H Respiratory 20 Rate Blood Pressure 109/75 Laboratory Tests 11/09/18 11/09/18 11/09/18 00:14 03:09 06:18 WBC RBC Hgb Hct MCV MCH MCHC RDW Plt Count MPV Sodium Potassium Chloride Carbon Dioxide Anion Gap BUN Creatinine Est GFR (CKD-EPI)AfAm Est GFR (CKD-EPI)NonAf POC Glucometer 335 296 128 Random Glucose Calcium Total Bilirubin AST ALT Alkaline Phosphatase Total Protein Albumin RPR Titer 11/09/18 11/09/18 11/09/18 06:31 07:50 07:50 WBC 8.1 RBC 4.28 Hgb 14.0 Hct 40.2 MCV 93.9 MCH 32.7 MCHC 34.8 RDW 14.2 Plt Count 305 D MPV 7.9 Sodium 133 L Potassium 3.9 Chloride 96 L Carbon Dioxide 29 Anion Gap 7 L BUN 17.1 Creatinine 1.0 Est GFR (CKD-EPI)AfAm 99.15 Est GFR (CKD-EPI)NonAf 85.55 POC Glucometer 307 Random Glucose 298 H Calcium 9.6 Total Bilirubin 0.8 AST 13 L ALT 18 Alkaline Phosphatase 138 H Total Protein 7.7 Albumin 3.8 RPR Titer 11/09/18 11/09/18 11/09/18 07:50 11:16 16:56 WBC RBC Hgb Hct MCV MCH MCHC RDW Plt Count MPV Sodium Potassium Chloride Carbon Dioxide Anion Gap BUN Creatinine Est GFR (CKD-EPI)AfAm Est GFR (CKD-EPI)NonAf POC Glucometer 146 374 Random Glucose Calcium Total Bilirubin AST ALT Alkaline Phosphatase Total Protein Albumin RPR Titer Nonreactive 11/09/18 11/10/18 11/10/18 20:55 06:14 11:36 WBC RBC Hgb Hct MCV MCH MCHC RDW Plt Count MPV Sodium Potassium Chloride Carbon Dioxide Anion Gap BUN Creatinine Est GFR (CKD-EPI)AfAm Est GFR (CKD-EPI)NonAf POC Glucometer 129 174 484 Random Glucose Calcium Total Bilirubin AST ALT Alkaline Phosphatase Total Protein Albumin RPR Titer Assessment: 11/10/18 11:47 withdrawal sx Plan: continue detox
[2018-11-10] MEDS: IBUPROFEN 400 MG TABLET (FP) PO PRN (12:34)
[2018-11-10] MEDS: LIDOCAINE VISCOUS 2% ORAL/TOP 20 ML UNIT-DOSE CUP MM PRN (14:35)
[2018-11-10] MEDS: INSULIN (LEVEMIR) 100 UNITS/ML UNITS SQ SCH (22:15)
[2018-11-10] MEDS: THIAMINE HCL 100 MG TABLET (FP) PO SCH (22:15)
[2018-11-10] MEDS: ATORVASTATIN CA 20 MG TABLET (FP) PO SCH (22:15)
[2018-11-10] MEDS: MELATONIN 5 MG TABLETS PO PRN (22:15)
[2018-11-11] MEDS ORDERED: chlordiazePOXIDE HCL 10 MG CAPSULE PO PRN (05:00)
[2018-11-11] MEDS: metFORMIN HCL 500 MG TABLET (FP) PO SCH ×2 (06:08→17:17)
[2018-11-11] MEDS: chlordiazePOXIDE HCL 10 MG CAPSULE PO SCH ×4 (06:09→22:35)
[2018-11-11] MEDS: INSULIN SLIDING SCALE (NOVOLOG) 1 VIAL SQ SCH ×3 (06:43→16:46)
[2018-11-11] MEDS ORDERED: INSULIN (NOVOLOG) ASPART 100 UNITS/ML 10ML VIAL ONE (06:55)
[2018-11-11] MEDS: LIDOCAINE VISCOUS 2% ORAL/TOP 20 ML UNIT-DOSE CUP MM PRN (09:39)
[2018-11-11] MEDS: IBUPROFEN 400 MG TABLET (FP) PO PRN ×2 (10:25→22:23)
[2018-11-11] MEDS: LISINOPRIL 20 MG TABLET (FP) PO SCH (10:25)
[2018-11-11] MEDS: PRENATAL VITAMINS W/ FOLIC ACID TABLET (FP) PO SCH (10:25)
[2018-11-11] MEDS: amLODIPine BESYLATE 10 MG TABLET (FP) PO SCH (10:25)
--- NOTE | 2018-11-11 13:47 | PN ---
S CIWA - CIWA Score Nausea/Vomitin-No Nausea/No Vomiting Muscle Tremors: None Anxiety: 3 Agitation: 1-Slight > Activity Paroxysmal Sweats: No Perspiration Orientation: 2-Disoriented Date<2 days Tacttile Disturbances: 0-None Auditory Disturbances: 0-None Visual Disturbances: 0-None Headache: 3-Moderate CIWA-Ar Total Score: 9 BHS Progress Note (SOAP) Subjective: Fatigue, Headache, Anxious. Objective: PATIENT A & O X 2 (DISORIENTED ABOUT CURRENT DAY / DATE). PATIENT OBSERVED AMBULATING ON DETOX UNIT IN NO ACUTE DISTRESS. 11/11/18 13:45 Vital Signs Temperature 97.0 F L 11/11/18 13:14 Pulse Rate 62 11/11/18 13:14 Respiratory Rate 18 11/11/18 13:14 Blood Pressure 133/86 11/11/18 13:14 O2 Sat by Pulse Oximetry (%) Laboratory Tests 11/09/18 11/09/18 11/09/18 00:14 03:09 06:18 WBC RBC Hgb Hct MCV MCH MCHC RDW Plt Count MPV Sodium Potassium Chloride Carbon Dioxide Anion Gap BUN Creatinine Est GFR (CKD-EPI)AfAm Est GFR (CKD-EPI)NonAf POC Glucometer 335 296 128 Random Glucose Calcium Total Bilirubin AST ALT Alkaline Phosphatase Total Protein Albumin RPR Titer 11/09/18 11/09/18 11/09/18 06:31 07:50 07:50 WBC 8.1 RBC 4.28 Hgb 14.0 Hct 40.2 MCV 93.9 MCH 32.7 MCHC 34.8 RDW 14.2 Plt Count 305 D MPV 7.9 Sodium 133 L Potassium 3.9 Chloride 96 L Carbon Dioxide 29 Anion Gap 7 L BUN 17.1 Creatinine 1.0 Est GFR (CKD-EPI)AfAm 99.15 Est GFR (CKD-EPI)NonAf 85.55 POC Glucometer 307 Random Glucose 298 H Calcium 9.6 Total Bilirubin 0.8 AST 13 L ALT 18 Alkaline Phosphatase 138 H Total Protein 7.7 Albumin 3.8 RPR Titer 11/09/18 11/09/18 11/09/18 07:50 11:16 16:56 WBC RBC Hgb Hct MCV MCH MCHC RDW Plt Count MPV Sodium Potassium Chloride Carbon Dioxide Anion Gap BUN Creatinine Est GFR (CKD-EPI)AfAm Est GFR (CKD-EPI)NonAf POC Glucometer 146 374 Random Glucose Calcium Total Bilirubin AST ALT Alkaline Phosphatase Total Protein Albumin RPR Titer Nonreactive 11/09/18 11/10/18 11/10/18 20:55 06:14 11:36 WBC RBC Hgb Hct MCV MCH MCHC RDW Plt Count MPV Sodium Potassium Chloride Carbon Dioxide Anion Gap BUN Creatinine Est GFR (CKD-EPI)AfAm Est GFR (CKD-EPI)NonAf POC Glucometer 129 174 484 Random Glucose Calcium Total Bilirubin AST ALT Alkaline Phosphatase Total Protein Albumin RPR Titer 11/10/18 11/10/18 11/11/18 16:46 22:13 06:07 WBC RBC Hgb Hct MCV MCH MCHC RDW Plt Count MPV Sodium Potassium Chloride Carbon Dioxide Anion Gap BUN Creatinine Est GFR (CKD-EPI)AfAm Est GFR (CKD-EPI)NonAf POC Glucometer 158 314 209 Random Glucose Calcium Total Bilirubin AST ALT Alkaline Phosphatase Total Protein Albumin RPR Titer 11/11/18 11:57 WBC RBC Hgb Hct MCV MCH MCHC RDW Plt Count MPV Sodium Potassium Chloride Carbon Dioxide Anion Gap BUN Creatinine Est GFR (CKD-EPI)AfAm Est GFR (CKD-EPI)NonAf POC Glucometer 312 Random Glucose Calcium Total Bilirubin AST ALT Alkaline Phosphatase Total Protein Albumin RPR Titer LABS NOTED. Assessment: 11/11/18 13:46 WITHDRAWAL SYMPTOMS. ELEVATED ALKALINE PHOSPHATASE LEVEL. Plan: CONTINUE DETOX.
[2018-11-11] MEDS: INSULIN (LEVEMIR) 100 UNITS/ML UNITS SQ SCH (22:21)
[2018-11-11] MEDS: ATORVASTATIN CA 20 MG TABLET (FP) PO SCH (22:26)
[2018-11-11] MEDS: BENZOCAINE 20 % GEL TUBE MM PRN (22:26)
[2018-11-11] MEDS: MELATONIN 5 MG TABLETS PO PRN (22:26)
[2018-11-11] MEDS: THIAMINE HCL 100 MG TABLET (FP) PO SCH (22:27)
[2018-11-12] MEDS ORDERED: chlordiazePOXIDE HCL 10 MG CAPSULE PO SCH (05:00)
[2018-11-12] MEDS: metFORMIN HCL 500 MG TABLET (FP) PO SCH (06:12)
[2018-11-12] MEDS: INSULIN SLIDING SCALE (NOVOLOG) 1 VIAL SQ SCH ×2 (06:19→11:39)
--- NOTE | 2018-11-12 09:03 | PN ---
[facility] CIWA - CIWA Score Nausea/Vomitin-Mild Nausea/No Vomiting Muscle Tremors: 1-None Visible, but [place] Anxiety: 1-Mildly Anxious Agitation: 1-Slight > Activity Paroxysmal Sweats: No Perspiration Orientation: 0-Oriented Tacttile Disturbances: 0-None Auditory Disturbances: 0-None Visual Disturbances: 0-None Headache: 1-Very Mild CIWA-Ar Total Score: 5 BHS Progress Note (SOAP) Subjective: alert,pain in the right lower gum gingivitis Objective: 11/12/18 09:01 Vital Signs Temperature 96.7 F L 11/12/18 05:59 Pulse Rate 90 11/12/18 05:59 Respiratory Rate 18 11/12/18 05:59 Blood Pressure 142/92 11/12/18 05:59 O2 Sat by Pulse Oximetry (%) Assessment: 11/12/18 09:01 detox completed,no withdrawal symptom Plan: stable to be discharged to go to rehab today,amoxicillin 500 mgs po tid f or 7 days,to rehab as arrangement
--- NOTE | 2018-11-12 09:09 | DS ---
[facility] Detox Discharge Summary Admission Date: 11/09/18 Discharge Date: 11/12/18 - History Present History: Alcohol Dependence Additional Comments: follow up with rehab as protocol Pertinent Past History: hypertension hypercholesterolemia type 2 dm gingivitis right lower gum - Physical Exam Results Vital Signs: Vital Signs Temperature 96.7 F L 11/12/18 05:59 Pulse Rate 90 11/12/18 05:59 Respiratory Rate 18 11/12/18 05:59 Blood Pressure 142/92 11/12/18 05:59 O2 Sat by Pulse Oximetry (%) Pertinent Admission Physical Exam Findings: withdrawal signs and symptom Laboratory Last Values WBC 8.1 K/mm3 (4.0-10.0) 11/09/18 07:50 RBC 4.28 M/mm3 (4.00-5.60) 11/09/18 07:50 Hgb 14.0 GM/dL (11.7-16.9) 11/09/18 07:50 Hct 40.2 % (35.4-49) 11/09/18 07:50 MCV 93.9 fl (80-96) 11/09/18 07:50 MCH 32.7 pg (25.7-33.7) 11/09/18 07:50 MCHC 34.8 g/dl (32.0-35.9) 11/09/18 07:50 RDW 14.2 % (11.9-15.9) 11/09/18 07:50 Plt Count 305 K/MM3 (134-434) D 11/09/18 07:50 MPV 7.9 fl (7.5-11.1) 11/09/18 07:50 Sodium 133 mmol/L (136-145) L 11/09/18 07:50 Potassium 3.9 mmol/L (3.5-5.1) 11/09/18 07:50 Chloride 96 mmol/L (98-107) L 11/09/18 07:50 Carbon Dioxide 29 mmol/L (21-32) 11/09/18 07:50 Anion Gap 7 MMOL/L (8-16) L 11/09/18 07:50 BUN 17.1 mg/dL (7-18) 11/09/18 07:50 Creatinine 1.0 mg/dL (0.55-1.3) 11/09/18 07:50 Est GFR (CKD-EPI)AfAm 99.15 11/09/18 07:50 Est GFR (CKD-EPI)NonAf 85.55 11/09/18 07:50 POC Glucometer 227 UNITS (80-120) 11/12/18 06:11 Random Glucose 298 mg/dL (74-106) H 11/09/18 07:50 Calcium 9.6 mg/dL (8.5-10.1) 11/09/18 07:50 Total Bilirubin 0.8 mg/dL (0.2-1) 11/09/18 07:50 AST 13 U/L (15-37) L 11/09/18 07:50 ALT 18 U/L (13-61) 11/09/18 07:50 Alkaline Phosphatase 138 U/L (45-117) H 11/09/18 07:50 Total Protein 7.7 g/dl (6.4-8.2) 11/09/18 07:50 Albumin 3.8 g/dl (3.4-5.0) 11/09/18 07:50 RPR Titer Nonreactive (NONREACTIVE) 11/09/18 07:50 Vital Signs Temperature 96.7 F L 11/12/18 05:59 Pulse Rate 90 11/12/18 05:59 Respiratory Rate 18 11/12/18 05:59 Blood Pressure 142/92 11/12/18 05:59 O2 Sat by Pulse Oximetry (%) - Treatment Hospital Course: Detox Protocol Followed, Detoxed Safely, Responded well, Discharged Condition Good, Rehab Referral Accepted Patient has Accepted [facility] - Medication Discharge Medications: Ambulatory Orders Amlodipine Besylate [Norvasc -] 10 mg PO DAILY 10/30/17 Atorvastatin Ca [Lipitor] 20 mg PO HS 10/30/17 Insulin (Novolog) [Novolog] 10 units SQ TID 10/30/17 Insulin Glargine,Hum.rec.anlog [Lantus Solostar PEN -] 20 units SQ HS 10/30/17 metFORMIN HCL [Glucophage -] 500 mg PO BID 10/30/17 Lisinopril [Prinivil] 10 mg PO DAILY 11/08/18 Amoxicillin - [Amoxicillin 500mg Capsule -] 500 mg PO TID capsule 11/12/18 Ibuprofen [Motrin -] 400 mg PO Q6H PRN tablet 11/12/18 Insulin (Levemir) [Levemir Vial] 20 units SQ HS units 11/12/18 - AMA Did Patient Leave Against Medical Advice: No
[2018-11-12 09:12] VITALS: BP 141/100; PULSE 101; TEMP 99
[2018-11-12] MEDS: PRENATAL VITAMINS W/ FOLIC ACID TABLET (FP) PO SCH (10:09)
[2018-11-12] MEDS: amLODIPine BESYLATE 10 MG TABLET (FP) PO SCH (10:10)
[2018-11-12] MEDS: LISINOPRIL 20 MG TABLET (FP) PO SCH (10:10)
[2018-11-12] MEDS: BENZOCAINE 20 % GEL TUBE MM PRN (10:11)
[2018-11-12] MEDS ORDERED: AMOXICILLIN 500 MG CAPSULE (FP) PO SCH (14:00)
[2018-11-12] MEDS ORDERED: ACETAMINOPHEN 325 MG TABLET (FP) PO PRN (14:11)
[2018-11-12] MEDS ORDERED: IBUPROFEN 400 MG TABLET (FP) PO PRN (14:11)
[2018-11-12] MEDS ORDERED: hydrOXYzine PAMOATE 50 MG CAPSULE (FP) PO PRN (14:11)
[2018-11-12] MEDS ORDERED: MAG HYDROX/AL HYDROX/SIMETH 30 ML UNIT-DOSE CUP PO PRN (14:11)
[2018-11-12] MEDS ORDERED: guaiFENesin 200 MG/10 ML 10 ML UNIT-DOSE CUPS PO PRN (14:11)
[2018-11-12] MEDS ORDERED: MAGNESIUM HYDROX 2400MG/30ML ORAL SUSPENSION 30 ML CUP PO PRN (14:11)
[2018-11-12] MEDS ORDERED: MENTHOL/PHENOL 1 EACH UD MM PRN (14:11)
[2018-11-12] MEDS ORDERED: P-EPHED 60MG/TRIPROLIDI 2.5MG TABLET PO PRN (14:11)
[2018-11-12] MEDS ORDERED: MAGNESIUM CITRATE 300 ML BOTTLE PO PRN (14:11)
[2018-11-12] MEDS ORDERED: LOPERAMIDE HCL 2 MG CAPSULE PO PRN (14:11)
--- NOTE | 2018-11-12 14:11 | HP ---
STE[facility] GARCIA Rehab Assess/Revision - Admission History Admitted to Rehab from: [facility] [place] - Vital signs Vital Signs: Vital Signs Period Temp Pulse Resp BP Sys/Mcdowell Pulse Ox Last 24 Hr 96.7 F-99.6 F 90-101 18-20 130-142/90-100 - Findings Detox History & Physical reviewed: Yes Concur with findings: Yes Inpatient Rehab Admission - Rehab Decision to Admit Inpatient rehab admission?: Yes - Initial Determination Are CD services needed?: Yes Free of communicable disease: Yes Not in need of hospitalization: Yes - Rehab Admission Criteria Previous failed treatment: Yes Poor recovery environment: Yes Comorbidities: Yes Lacks judgement: Yes Patient is meeting Inpatient Rehab admission criteria:: Yes (pt here for alcohol detox/rehab, multiple med problems)
[2018-11-12] MEDS ORDERED: MELATONIN 5 MG TABLETS PO PRN (22:00)
[2018-11-12] MEDS ORDERED: THIAMINE HCL 100 MG TABLET (FP) PO SCH (22:00)
[2018-11-13] MEDS ORDERED: PRENATAL VITAMINS W/ FOLIC ACID TABLET (FP) PO SCH (10:00)
[2018-11-13] MEDS ORDERED: NICOTINE 14 MG/24 HOURS TOPICAL PATCH TD SCH (10:00)
== END 2018-11-12 01:00 | disposition other institution (70) | DRG 775 ==
LOC: YASAS 19:43 → Y3N 11-09 02:21
PROVIDERS: ADMIT Surgery; ATTEND Surgery
PROC: HZ2ZZZZ Detoxification Services for Substance Abuse Treatment (ICD-10-PCS; principal; 2018-11-09)
DX: F10.230 Alcohol dependence with withdrawal, uncomplicated (principal); F17.210 Nicotine dependence, cigarettes, uncomplicated; F19.24 Other psychoactive substance dependence with psychoactive substance-induced mood disorder; I10 Essential (primary) hypertension; E11.65 Type 2 diabetes mellitus with hyperglycemia; Z79.4 Long term (current) use of insulin; E78.5 Hyperlipidemia, unspecified; E78.00 Pure hypercholesterolemia, unspecified
CPT/HCPCS: 36415; 80053; 82962; 85027; 86593

== ENCOUNTER 2018-11-12 13:23 | Inpatient (IN) | payer OTHER ==
[2018-11-12] MEDS ORDERED: MAGNESIUM HYDROX 2400MG/30ML ORAL SUSPENSION 30 ML CUP PO PRN (14:31)
[2018-11-12] MEDS ORDERED: MENTHOL/PHENOL 1 EACH UD MM PRN (14:31)
[2018-11-12] MEDS ORDERED: P-EPHED 60MG/TRIPROLIDI 2.5MG TABLET PO PRN (14:31)
[2018-11-12] MEDS ORDERED: MAG HYDROX/AL HYDROX/SIMETH 30 ML UNIT-DOSE CUP PO PRN (14:31)
[2018-11-12] MEDS ORDERED: MAGNESIUM CITRATE 300 ML BOTTLE PO PRN (14:31)
[2018-11-12] MEDS ORDERED: LOPERAMIDE HCL 2 MG CAPSULE PO PRN (14:31)
[2018-11-12] MEDS ORDERED: guaiFENesin 200 MG/10 ML 10 ML UNIT-DOSE CUPS PO PRN (14:31)
--- NOTE | 2018-11-12 14:31 | HP ---
STEPHY GARCIA Rehab Assess/Revision - Admission History Admitted to Rehab from: [facility] Date of Admission to Rehab: 11/12/18 - Findings Detox History & Physical reviewed: Yes Concur with findings: Yes Comments/Additional Findings: for rehab as protocol Inpatient Rehab Admission - Rehab Decision to Admit Inpatient rehab admission?: Yes - Initial Determination Are CD services needed?: Yes Free of communicable disease: Yes Not in need of hospitalization: Yes - Rehab Admission Criteria Previous failed treatment: Yes Poor recovery environment: Yes Comorbidities: Yes Lacks judgement: No Patient is meeting Inpatient Rehab admission criteria:: Yes
[2018-11-12] MEDS: IBUPROFEN 400 MG TABLET (FP) PO PRN (15:49)
[2018-11-12] MEDS: metFORMIN HCL 500 MG TABLET (FP) PO SCH (16:58)
[2018-11-12] MEDS: INSULIN (NOVOLOG) ASPART 100 UNITS/ML 10ML VIAL SQ SCH ×2 (18:00→21:32)
[2018-11-12] MEDS: INSULIN (LEVEMIR) 100 UNITS/ML UNITS SQ SCH (21:29)
[2018-11-12] MEDS: AMOXICILLIN 500 MG CAPSULE (FP) PO SCH (21:30)
[2018-11-12] MEDS: MELATONIN 5 MG TABLETS PO PRN (21:30)
[2018-11-12] MEDS: ACETAMINOPHEN 325 MG TABLET (FP) PO PRN (21:30)
[2018-11-12] MEDS: ATORVASTATIN CA 20 MG TABLET (FP) PO SCH (21:30)
[2018-11-12] MEDS: THIAMINE HCL 100 MG TABLET (FP) PO SCH (21:31)
[2018-11-12] MEDS ORDERED: INSULIN (NOVOLOG) ASPART 100 UNITS/ML 10ML VIAL ONE (21:55)
[2018-11-13] MEDS: AMOXICILLIN 500 MG CAPSULE (FP) PO SCH ×3 (06:31→21:05)
[2018-11-13] MEDS: metFORMIN HCL 500 MG TABLET (FP) PO SCH ×2 (06:31→16:58)
[2018-11-13] MEDS: IBUPROFEN 400 MG TABLET (FP) PO PRN ×2 (06:35→12:01)
[2018-11-13] MEDS: INSULIN (NOVOLOG) ASPART 100 UNITS/ML 10ML VIAL SQ SCH ×4 (07:03→21:01)
[2018-11-13] MEDS ORDERED: INSULIN (NOVOLOG) ASPART 100 UNITS/ML 10ML VIAL ONE ×4 (07:04→21:02)
[2018-11-13] MEDS: LISINOPRIL 10 MG TABLET (FP) PO SCH (09:49)
[2018-11-13] MEDS: PRENATAL VITAMINS W/ FOLIC ACID TABLET (FP) PO SCH (09:49)
[2018-11-13] MEDS: amLODIPine BESYLATE 10 MG TABLET (FP) PO SCH (09:50)
[2018-11-13] MEDS: BENZOCAINE 20 % GEL TUBE MM PRN ×2 (09:50→17:00)
[2018-11-13] MEDS: ACETAMINOPHEN 325 MG TABLET (FP) PO PRN (09:51)
[2018-11-13] MEDS: INSULIN (LEVEMIR) 100 UNITS/ML UNITS SQ SCH (21:03)
[2018-11-13] MEDS: THIAMINE HCL 100 MG TABLET (FP) PO SCH (21:05)
[2018-11-13] MEDS: ATORVASTATIN CA 20 MG TABLET (FP) PO SCH (21:05)
[2018-11-13] MEDS: MELATONIN 5 MG TABLETS PO PRN (21:06)
[2018-11-14] MEDS: AMOXICILLIN 500 MG CAPSULE (FP) PO SCH ×3 (06:26→21:13)
[2018-11-14] MEDS: metFORMIN HCL 500 MG TABLET (FP) PO SCH ×2 (06:26→16:46)
[2018-11-14] MEDS: INSULIN (NOVOLOG) ASPART 100 UNITS/ML 10ML VIAL SQ SCH ×4 (06:27→21:12)
[2018-11-14] MEDS: BENZOCAINE 20 % GEL TUBE MM PRN ×2 (06:30→13:08)
[2018-11-14] MEDS: IBUPROFEN 400 MG TABLET (FP) PO PRN (07:29)
[2018-11-14] MEDS: amLODIPine BESYLATE 10 MG TABLET (FP) PO SCH (09:35)
[2018-11-14] MEDS: PRENATAL VITAMINS W/ FOLIC ACID TABLET (FP) PO SCH (09:35)
[2018-11-14] MEDS: LISINOPRIL 10 MG TABLET (FP) PO SCH (09:35)
[2018-11-14] MEDS: ACETAMINOPHEN 325 MG TABLET (FP) PO PRN ×2 (09:36→21:13)
[2018-11-14] MEDS: hydrOXYzine PAMOATE 50 MG CAPSULE (FP) PO PRN (09:37)
[2018-11-14] MEDS ORDERED: INSULIN (NOVOLOG) ASPART 100 UNITS/ML 10ML VIAL ONE ×3 (11:56→21:48)
[2018-11-14] MEDS: IBUPROFEN 600 MG TABLET (FP) PO PRN ×2 (13:04→17:38)
[2018-11-14] MEDS ORDERED: HYDROCHLOROTHIAZIDE 25 MG TABLET (FP) PO ONE (13:47)
--- NOTE | 2018-11-14 13:50 | PN ---
[facility] Progress Note (SOAP) Subjective: Patient hypertensive. Denies headache, dizziness, or other s/s of hypertension Objective: A+O x3, heart rate regular, lungs clear, 11/14/18 13:49 Assessment: Hypertension 11/14/18 13:49 Plan: HCTZ 25 mg ordered, will continue to monitor.
[2018-11-14] MEDS ORDERED: PT OWN MED DRAWER 7, Y5N ONE (14:15)
[2018-11-14] MEDS: INSULIN (LEVEMIR) 100 UNITS/ML UNITS SQ SCH (21:12)
[2018-11-14] MEDS: THIAMINE HCL 100 MG TABLET (FP) PO SCH (21:13)
[2018-11-14] MEDS: ATORVASTATIN CA 20 MG TABLET (FP) PO SCH (21:13)
[2018-11-14] MEDS: MELATONIN 5 MG TABLETS PO PRN (21:13)
[2018-11-15] MEDS: AMOXICILLIN 500 MG CAPSULE (FP) PO SCH ×3 (06:48→21:47)
[2018-11-15] MEDS: IBUPROFEN 600 MG TABLET (FP) PO PRN ×4 (06:48→21:47)
[2018-11-15] MEDS: INSULIN (NOVOLOG) ASPART 100 UNITS/ML 10ML VIAL SQ SCH ×4 (06:54→21:49)
[2018-11-15] MEDS: metFORMIN HCL 500 MG TABLET (FP) PO SCH ×2 (07:38→17:03)
[2018-11-15] MEDS: LISINOPRIL 10 MG TABLET (FP) PO SCH (10:06)
[2018-11-15] MEDS: PRENATAL VITAMINS W/ FOLIC ACID TABLET (FP) PO SCH (10:06)
[2018-11-15] MEDS: amLODIPine BESYLATE 10 MG TABLET (FP) PO SCH (10:06)
[2018-11-15] MEDS ORDERED: PT OWN MED DRAWER 7, Y5N ONE (10:11)
[2018-11-15] MEDS: BENZOCAINE 20 % GEL TUBE MM PRN ×2 (10:11→17:06)
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
[2018-11-15] MEDS ORDERED: INSULIN (NOVOLOG) ASPART 100 UNITS/ML 10ML VIAL ONE ×3 (11:56→22:15)
[2018-11-15] MEDS: hydrOXYzine PAMOATE 50 MG CAPSULE (FP) PO PRN (21:47)
[2018-11-15] MEDS: ATORVASTATIN CA 20 MG TABLET (FP) PO SCH (21:47)
[2018-11-15] MEDS: MELATONIN 5 MG TABLETS PO PRN (21:47)
[2018-11-15] MEDS: THIAMINE HCL 100 MG TABLET (FP) PO SCH (21:48)
[2018-11-15] MEDS: INSULIN (LEVEMIR) 100 UNITS/ML UNITS SQ SCH (21:49)
[2018-11-16] MEDS: IBUPROFEN 600 MG TABLET (FP) PO PRN ×4 (06:17→21:16)
[2018-11-16] MEDS: AMOXICILLIN 500 MG CAPSULE (FP) PO SCH ×3 (06:18→21:16)
[2018-11-16] MEDS: LISINOPRIL 10 MG TABLET (FP) PO SCH (06:18)
[2018-11-16] MEDS: amLODIPine BESYLATE 10 MG TABLET (FP) PO SCH (06:18)
[2018-11-16] MEDS: INSULIN (NOVOLOG) ASPART 100 UNITS/ML 10ML VIAL SQ SCH ×4 (07:09→21:21)
[2018-11-16] MEDS: metFORMIN HCL 500 MG TABLET (FP) PO SCH ×2 (07:12→17:05)
[2018-11-16] MEDS: PRENATAL VITAMINS W/ FOLIC ACID TABLET (FP) PO SCH (09:52)
[2018-11-16] MEDS ORDERED: INSULIN (NOVOLOG) ASPART 100 UNITS/ML 10ML VIAL ONE ×3 (12:06→22:03)
[2018-11-16] MEDS: BENZOCAINE 20 % GEL TUBE MM PRN (21:16)
[2018-11-16] MEDS: THIAMINE HCL 100 MG TABLET (FP) PO SCH (21:16)
[2018-11-16] MEDS: hydrOXYzine PAMOATE 50 MG CAPSULE (FP) PO PRN (21:16)
[2018-11-16] MEDS: ATORVASTATIN CA 20 MG TABLET (FP) PO SCH (21:17)
[2018-11-16] MEDS: MELATONIN 5 MG TABLETS PO PRN (21:17)
[2018-11-16] MEDS: INSULIN (LEVEMIR) 100 UNITS/ML UNITS SQ SCH (21:20)
[2018-11-17] MEDS: IBUPROFEN 600 MG TABLET (FP) PO PRN ×3 (06:17→21:43)
[2018-11-17] MEDS: amLODIPine BESYLATE 10 MG TABLET (FP) PO SCH (06:18)
[2018-11-17] MEDS: AMOXICILLIN 500 MG CAPSULE (FP) PO SCH ×3 (06:18→21:44)
[2018-11-17] MEDS: LISINOPRIL 10 MG TABLET (FP) PO SCH (06:18)
[2018-11-17] MEDS: metFORMIN HCL 500 MG TABLET (FP) PO SCH ×2 (07:28→16:57)
[2018-11-17] MEDS: INSULIN (NOVOLOG) ASPART 100 UNITS/ML 10ML VIAL SQ SCH ×4 (07:28→21:46)
[2018-11-17] MEDS ORDERED: INSULIN (NOVOLOG) ASPART 100 UNITS/ML 10ML VIAL ONE ×3 (09:30→22:01)
[2018-11-17] MEDS: PRENATAL VITAMINS W/ FOLIC ACID TABLET (FP) PO SCH (10:31)
[2018-11-17] MEDS: ACETAMINOPHEN 325 MG TABLET (FP) PO PRN (10:36)
[2018-11-17] MEDS: BENZOCAINE 20 % GEL TUBE MM PRN (10:37)
[2018-11-17] MEDS: MELATONIN 5 MG TABLETS PO PRN (21:44)
[2018-11-17] MEDS: THIAMINE HCL 100 MG TABLET (FP) PO SCH (21:44)
[2018-11-17] MEDS: hydrOXYzine PAMOATE 50 MG CAPSULE (FP) PO PRN (21:44)
[2018-11-17] MEDS: ATORVASTATIN CA 20 MG TABLET (FP) PO SCH (21:44)
[2018-11-17] MEDS: INSULIN (LEVEMIR) 100 UNITS/ML UNITS SQ SCH (21:46)
[2018-11-18] MEDS: LISINOPRIL 10 MG TABLET (FP) PO SCH (06:29)
[2018-11-18] MEDS: amLODIPine BESYLATE 10 MG TABLET (FP) PO SCH (06:29)
[2018-11-18] MEDS: AMOXICILLIN 500 MG CAPSULE (FP) PO SCH ×3 (06:29→21:47)
[2018-11-18] MEDS: INSULIN (NOVOLOG) ASPART 100 UNITS/ML 10ML VIAL SQ SCH ×4 (06:36→21:46)
[2018-11-18] MEDS: metFORMIN HCL 500 MG TABLET (FP) PO SCH ×2 (07:40→17:18)
[2018-11-18] MEDS: PRENATAL VITAMINS W/ FOLIC ACID TABLET (FP) PO SCH (09:45)
[2018-11-18] MEDS: IBUPROFEN 600 MG TABLET (FP) PO PRN ×2 (09:46→13:51)
[2018-11-18] MEDS ORDERED: INSULIN (NOVOLOG) ASPART 100 UNITS/ML 10ML VIAL ONE ×2 (12:02→21:46)
[2018-11-18] MEDS: BENZOCAINE 20 % GEL TUBE MM PRN (17:21)
[2018-11-18] MEDS: hydrOXYzine PAMOATE 50 MG CAPSULE (FP) PO PRN (21:47)
[2018-11-18] MEDS: THIAMINE HCL 100 MG TABLET (FP) PO SCH (21:47)
[2018-11-18] MEDS: INSULIN (LEVEMIR) 100 UNITS/ML UNITS SQ SCH (21:47)
[2018-11-18] MEDS: ATORVASTATIN CA 20 MG TABLET (FP) PO SCH (21:47)
[2018-11-18] MEDS: MELATONIN 5 MG TABLETS PO PRN (21:47)
[2018-11-19] MEDS: AMOXICILLIN 500 MG CAPSULE (FP) PO SCH ×2 (06:13→13:55)
[2018-11-19] MEDS: amLODIPine BESYLATE 10 MG TABLET (FP) PO SCH (06:13)
[2018-11-19] MEDS: LISINOPRIL 10 MG TABLET (FP) PO SCH (06:13)
[2018-11-19] MEDS: IBUPROFEN 600 MG TABLET (FP) PO PRN ×2 (06:14→21:41)
[2018-11-19] MEDS: INSULIN (NOVOLOG) ASPART 100 UNITS/ML 10ML VIAL SQ SCH ×4 (06:28→21:43)
[2018-11-19] MEDS: metFORMIN HCL 500 MG TABLET (FP) PO SCH ×2 (06:28→16:52)
[2018-11-19] MEDS: PRENATAL VITAMINS W/ FOLIC ACID TABLET (FP) PO SCH (10:10)
[2018-11-19] MEDS: BENZOCAINE 20 % GEL TUBE MM PRN ×2 (10:11→17:03)
[2018-11-19] MEDS ORDERED: INSULIN (NOVOLOG) ASPART 100 UNITS/ML 10ML VIAL ONE (12:02)
[2018-11-19] MEDS: ACETAMINOPHEN 325 MG TABLET (FP) PO PRN (17:05)
[2018-11-19] MEDS: MELATONIN 5 MG TABLETS PO PRN (21:40)
[2018-11-19] MEDS: ATORVASTATIN CA 20 MG TABLET (FP) PO SCH (21:40)
[2018-11-19] MEDS: THIAMINE HCL 100 MG TABLET (FP) PO SCH (21:40)
[2018-11-19] MEDS: INSULIN (LEVEMIR) 100 UNITS/ML UNITS SQ SCH (21:45)
[2018-11-20] MEDS: IBUPROFEN 600 MG TABLET (FP) PO PRN (06:24)
[2018-11-20] MEDS: LISINOPRIL 10 MG TABLET (FP) PO SCH (06:24)
[2018-11-20] MEDS: amLODIPine BESYLATE 10 MG TABLET (FP) PO SCH (06:24)
[2018-11-20] MEDS: metFORMIN HCL 500 MG TABLET (FP) PO SCH ×2 (06:24→17:03)
[2018-11-20] MEDS: INSULIN (NOVOLOG) ASPART 100 UNITS/ML 10ML VIAL SQ SCH ×4 (06:32→21:30)
[2018-11-20] MEDS: PRENATAL VITAMINS W/ FOLIC ACID TABLET (FP) PO SCH (10:10)
[2018-11-20] MEDS: BENZOCAINE 20 % GEL TUBE MM PRN ×2 (10:11→21:31)
[2018-11-20] MEDS ORDERED: INSULIN (NOVOLOG) ASPART 100 UNITS/ML 10ML VIAL ONE ×4 (11:53→22:36)
[2018-11-20] MEDS: INSULIN (LEVEMIR) 100 UNITS/ML UNITS SQ SCH (21:31)
[2018-11-20] MEDS: hydrOXYzine PAMOATE 50 MG CAPSULE (FP) PO PRN (21:32)
[2018-11-20] MEDS: ATORVASTATIN CA 20 MG TABLET (FP) PO SCH (21:32)
[2018-11-20] MEDS: THIAMINE HCL 100 MG TABLET (FP) PO SCH (21:32)
[2018-11-21] MEDS: LISINOPRIL 10 MG TABLET (FP) PO SCH ×2 (06:32→21:55)
[2018-11-21] MEDS: amLODIPine BESYLATE 10 MG TABLET (FP) PO SCH (06:32)
[2018-11-21] MEDS: INSULIN (NOVOLOG) ASPART 100 UNITS/ML 10ML VIAL SQ SCH ×4 (06:59→21:55)
[2018-11-21] MEDS: metFORMIN HCL 500 MG TABLET (FP) PO SCH ×2 (06:59→16:58)
--- NOTE | 2018-11-21 10:13 | PN ---
[facility] Progress Note (SOAP) Subjective: Elevated BP, but denies s/s- no headaches, dizziness. States he always has high BP that he has difficulty controlling. BP appears to be elevated more often in the AM. Objective: A+O x3, no neurological deficits noted, PERRLA, heart sounds regular, lungs clear. BP taken during this examination: 135/78, one hour after medication administration, 11/21/18 10:09 Vital Signs (72 hours) 11/18/18 11/19/18 11/19/18 20:52 00:30 03:30 Temperature Pulse Rate 102 H Respiratory 18 18 18 Rate Blood Pressure 153/96 11/19/18 11/20/18 11/20/18 06:46 00:30 03:30 Temperature 98.4 F Pulse Rate 99 H Respiratory 18 18 18 Rate Blood Pressure 159/112 H 11/20/18 11/20/18 11/21/18 06:40 20:19 00:30 Temperature 97.2 F L Pulse Rate 101 H 99 H Respiratory 16 18 18 Rate Blood Pressure 159/104 H 133/89 11/21/18 11/21/18 03:30 06:41 Temperature 98.6 F Pulse Rate 103 H Respiratory 18 18 Rate Blood Pressure 170/112 H 11/21/18 10:11 Assessment: HTN 11/21/18 10:10 Plan: Increased dosing of lisinopril from 10 mg once a day to 10 mg twice a day. Will continue to monitor.
[2018-11-21] MEDS: PRENATAL VITAMINS W/ FOLIC ACID TABLET (FP) PO SCH (10:18)
[2018-11-21] MEDS: IBUPROFEN 600 MG TABLET (FP) PO PRN (10:19)
[2018-11-21] MEDS: THIAMINE HCL 100 MG TABLET (FP) PO SCH (21:55)
[2018-11-21] MEDS: hydrOXYzine PAMOATE 50 MG CAPSULE (FP) PO PRN (21:55)
[2018-11-21] MEDS: ATORVASTATIN CA 20 MG TABLET (FP) PO SCH (21:55)
[2018-11-21] MEDS: BENZOCAINE 20 % GEL TUBE MM PRN (21:56)
[2018-11-21] MEDS: MELATONIN 5 MG TABLETS PO PRN (21:56)
[2018-11-21] MEDS: INSULIN (LEVEMIR) 100 UNITS/ML UNITS SQ SCH (21:56)
[2018-11-22] MEDS: amLODIPine BESYLATE 10 MG TABLET (FP) PO SCH (06:33)
[2018-11-22] MEDS: INSULIN (NOVOLOG) ASPART 100 UNITS/ML 10ML VIAL SQ SCH ×4 (06:34→21:27)
[2018-11-22] MEDS: metFORMIN HCL 500 MG TABLET (FP) PO SCH ×2 (08:08→17:33)
[2018-11-22] MEDS: PRENATAL VITAMINS W/ FOLIC ACID TABLET (FP) PO SCH (10:08)
[2018-11-22] MEDS: LISINOPRIL 10 MG TABLET (FP) PO SCH ×2 (10:08→21:24)
[2018-11-22] MEDS ORDERED: INSULIN (NOVOLOG) ASPART 100 UNITS/ML 10ML VIAL ONE ×2 (12:38→19:25)
[2018-11-22] MEDS ORDERED: PT OWN MED DRAWER 7, Y5N ONE (12:54)
[2018-11-22] MEDS: THIAMINE HCL 100 MG TABLET (FP) PO SCH (21:24)
[2018-11-22] MEDS: ATORVASTATIN CA 20 MG TABLET (FP) PO SCH (21:24)
[2018-11-22] MEDS: MELATONIN 5 MG TABLETS PO PRN (21:27)
[2018-11-22] MEDS: INSULIN (LEVEMIR) 100 UNITS/ML UNITS SQ SCH (21:27)
[2018-11-22] MEDS: IBUPROFEN 600 MG TABLET (FP) PO PRN (21:28)
[2018-11-23] MEDS: amLODIPine BESYLATE 10 MG TABLET (FP) PO SCH (06:18)
[2018-11-23] MEDS: INSULIN (NOVOLOG) ASPART 100 UNITS/ML 10ML VIAL SQ SCH ×4 (06:18→22:23)
[2018-11-23] MEDS: metFORMIN HCL 500 MG TABLET (FP) PO SCH ×2 (06:18→17:13)
[2018-11-23] MEDS: LISINOPRIL 10 MG TABLET (FP) PO SCH ×2 (10:03→22:19)
[2018-11-23] MEDS: PRENATAL VITAMINS W/ FOLIC ACID TABLET (FP) PO SCH (10:03)
[2018-11-23] MEDS ORDERED: INSULIN (NOVOLOG) ASPART 100 UNITS/ML 10ML VIAL ONE ×3 (12:08→22:23)
[2018-11-23] MEDS: THIAMINE HCL 100 MG TABLET (FP) PO SCH (22:19)
[2018-11-23] MEDS: ATORVASTATIN CA 20 MG TABLET (FP) PO SCH (22:19)
[2018-11-23] MEDS: INSULIN (LEVEMIR) 100 UNITS/ML UNITS SQ SCH (22:21)
[2018-11-23] MEDS: TOLNAFTATE 1% CREAM 15 GM TUBE TP SCH (22:24)
[2018-11-23] MEDS: hydrOXYzine PAMOATE 50 MG CAPSULE (FP) PO PRN (22:24)
[2018-11-24] MEDS: amLODIPine BESYLATE 10 MG TABLET (FP) PO SCH (06:25)
[2018-11-24] MEDS: metFORMIN HCL 500 MG TABLET (FP) PO SCH ×2 (06:26→16:50)
[2018-11-24] MEDS: INSULIN (NOVOLOG) ASPART 100 UNITS/ML 10ML VIAL SQ SCH ×4 (06:26→21:27)
[2018-11-24] MEDS: PRENATAL VITAMINS W/ FOLIC ACID TABLET (FP) PO SCH (10:07)
[2018-11-24] MEDS: LISINOPRIL 10 MG TABLET (FP) PO SCH ×2 (10:08→21:27)
[2018-11-24] MEDS: TOLNAFTATE 1% CREAM 15 GM TUBE TP SCH ×2 (10:08→21:28)
[2018-11-24] MEDS ORDERED: INSULIN (NOVOLOG) ASPART 100 UNITS/ML 10ML VIAL ONE (17:36)
[2018-11-24] MEDS: BENZOCAINE 20 % GEL TUBE MM PRN (17:39)
[2018-11-24] MEDS: INSULIN (LEVEMIR) 100 UNITS/ML UNITS SQ SCH (21:25)
[2018-11-24] MEDS: ATORVASTATIN CA 20 MG TABLET (FP) PO SCH (21:27)
[2018-11-24] MEDS: IBUPROFEN 600 MG TABLET (FP) PO PRN (21:30)
[2018-11-24] MEDS: THIAMINE HCL 100 MG TABLET (FP) PO SCH (22:56)
[2018-11-25] MEDS: amLODIPine BESYLATE 10 MG TABLET (FP) PO SCH (06:39)
[2018-11-25] MEDS: metFORMIN HCL 500 MG TABLET (FP) PO SCH ×2 (06:39→17:08)
[2018-11-25] MEDS: INSULIN (NOVOLOG) ASPART 100 UNITS/ML 10ML VIAL SQ SCH ×4 (06:40→23:59)
[2018-11-25] MEDS: TOLNAFTATE 1% CREAM 15 GM TUBE TP SCH ×2 (09:56→22:04)
[2018-11-25] MEDS: PRENATAL VITAMINS W/ FOLIC ACID TABLET (FP) PO SCH (09:56)
[2018-11-25] MEDS: LISINOPRIL 10 MG TABLET (FP) PO SCH ×2 (09:56→22:00)
[2018-11-25] MEDS: IBUPROFEN 600 MG TABLET (FP) PO PRN ×2 (09:57→22:02)
[2018-11-25] MEDS ORDERED: INSULIN (NOVOLOG) ASPART 100 UNITS/ML 10ML VIAL ONE ×2 (12:04→17:08)
[2018-11-25] MEDS: ATORVASTATIN CA 20 MG TABLET (FP) PO SCH (22:00)
[2018-11-25] MEDS: THIAMINE HCL 100 MG TABLET (FP) PO SCH (22:00)
[2018-11-25] MEDS: MELATONIN 5 MG TABLETS PO PRN (22:02)
[2018-11-25] MEDS: INSULIN (LEVEMIR) 100 UNITS/ML UNITS SQ SCH (23:58)
[2018-11-26] MEDS: amLODIPine BESYLATE 10 MG TABLET (FP) PO SCH (06:48)
[2018-11-26] MEDS: metFORMIN HCL 500 MG TABLET (FP) PO SCH ×2 (07:00→17:16)
[2018-11-26] MEDS: INSULIN (NOVOLOG) ASPART 100 UNITS/ML 10ML VIAL SQ SCH ×4 (07:02→21:27)
[2018-11-26] MEDS: LISINOPRIL 10 MG TABLET (FP) PO SCH ×2 (10:20→21:27)
[2018-11-26] MEDS: PRENATAL VITAMINS W/ FOLIC ACID TABLET (FP) PO SCH (10:20)
[2018-11-26] MEDS: TOLNAFTATE 1% CREAM 15 GM TUBE TP SCH ×2 (10:21→23:01)
[2018-11-26] MEDS: IBUPROFEN 600 MG TABLET (FP) PO PRN (10:21)
[2018-11-26] MEDS ORDERED: INSULIN (NOVOLOG) ASPART 100 UNITS/ML 10ML VIAL ONE (12:02)
--- NOTE | 2018-11-26 14:06 | PN ---
[facility] Progress Note Note: Admission staff at [facility] requested to speak to a medical provider about the patient's prescriptions. This provider called and left a message at 9: 30 AM. At 1:50 Pm called again and was placed on hold for 10 minutes and disconnected. Will continue to attempt to reach the [facility]
[2018-11-26] MEDS: INSULIN (LEVEMIR) 100 UNITS/ML UNITS SQ SCH (21:22)
[2018-11-26] MEDS: MELATONIN 5 MG TABLETS PO PRN (21:27)
[2018-11-26] MEDS: ATORVASTATIN CA 20 MG TABLET (FP) PO SCH (21:27)
[2018-11-26] MEDS: THIAMINE HCL 100 MG TABLET (FP) PO SCH (21:28)
[2018-11-27] MEDS: IBUPROFEN 600 MG TABLET (FP) PO PRN ×2 (01:03→22:09)
[2018-11-27] MEDS: BENZOCAINE 20 % GEL TUBE MM PRN (01:04)
[2018-11-27] MEDS: amLODIPine BESYLATE 10 MG TABLET (FP) PO SCH (06:40)
[2018-11-27] MEDS: INSULIN (NOVOLOG) ASPART 100 UNITS/ML 10ML VIAL SQ SCH ×4 (06:40→22:07)
[2018-11-27] MEDS: metFORMIN HCL 500 MG TABLET (FP) PO SCH ×2 (07:09→16:53)
[2018-11-27] MEDS: LISINOPRIL 10 MG TABLET (FP) PO SCH ×2 (09:59→22:06)
[2018-11-27] MEDS: PRENATAL VITAMINS W/ FOLIC ACID TABLET (FP) PO SCH (09:59)
[2018-11-27] MEDS: TOLNAFTATE 1% CREAM 15 GM TUBE TP SCH ×2 (10:00→22:09)
[2018-11-27] MEDS ORDERED: INSULIN (NOVOLOG) ASPART 100 UNITS/ML 10ML VIAL ONE ×2 (11:35→16:55)
[2018-11-27] MEDS: INSULIN (LEVEMIR) 100 UNITS/ML UNITS SQ SCH (22:06)
[2018-11-27] MEDS: ATORVASTATIN CA 20 MG TABLET (FP) PO SCH (22:06)
[2018-11-27] MEDS: THIAMINE HCL 100 MG TABLET (FP) PO SCH (22:06)
[2018-11-27] MEDS: MELATONIN 5 MG TABLETS PO PRN (22:08)
[2018-11-28] MEDS: metFORMIN HCL 500 MG TABLET (FP) PO SCH ×2 (06:38→17:06)
[2018-11-28] MEDS: amLODIPine BESYLATE 10 MG TABLET (FP) PO SCH (06:38)
[2018-11-28] MEDS: INSULIN (NOVOLOG) ASPART 100 UNITS/ML 10ML VIAL SQ SCH ×4 (06:40→22:42)
[2018-11-28] MEDS: PRENATAL VITAMINS W/ FOLIC ACID TABLET (FP) PO SCH (10:21)
[2018-11-28] MEDS: LISINOPRIL 10 MG TABLET (FP) PO SCH ×2 (10:21→21:26)
[2018-11-28] MEDS: TOLNAFTATE 1% CREAM 15 GM TUBE TP SCH ×2 (10:22→22:42)
[2018-11-28] MEDS: IBUPROFEN 600 MG TABLET (FP) PO PRN ×2 (10:23→21:28)
--- NOTE | 2018-11-28 11:43 | PN ---
[facility] Progress Note (SOAP) Subjective: Patient to be discharged tomorrow. Hospital Course: Attended groups as appropriate, had one session with the psychiatrist, and several 1:1 sessions with counselor. Was hypertensive during his stay in rehab and medications were adjusted with good effect; also had a tooth infection treated with amoxicillin and resolved. Adherent to treatment plan and medication regimen. Objective: - Physical General Appearance: appropriate, resting comfortably HEENTM: Normocephalic, PERRLA, missing teeth, poor dentition Respiratory: Lungs Clear, No Respiratory Distress, No Accessory Muscle Use Neck: Trachea midline Cardiology: Regular Rate, S1, S2 Abdominal: +Bowel Sounds, Non Tender, Soft Musculoskeletal: Full Range of Motion, weight bearing, gait steady Neurological: Fully Oriented, Alert, Motor Strength 5/5 Integumentary: dry, clear, Lymphatic: non palpable 11/28/18 11:44 Assessment: medically stable for discharge Discharge Dx HTN ETOH dependence DM2 PCP dependence 11/28/18 11:58 Plan: On-going continuation of care: patient will go to [facility] and receive aftercare and medical care. Prescriptions were transmitted to patient's pharmacy for a 30 day supply of medications for inpatient rehab care.
[2018-11-28] MEDS ORDERED: INSULIN (NOVOLOG) ASPART 100 UNITS/ML 10ML VIAL ONE (21:24)
[2018-11-28] MEDS: THIAMINE HCL 100 MG TABLET (FP) PO SCH (21:26)
[2018-11-28] MEDS: ATORVASTATIN CA 20 MG TABLET (FP) PO SCH (21:26)
[2018-11-28] MEDS: INSULIN (LEVEMIR) 100 UNITS/ML UNITS SQ SCH (21:29)
[2018-11-29] MEDS: MELATONIN 5 MG TABLETS PO PRN (01:52)
[2018-11-29] MEDS: amLODIPine BESYLATE 10 MG TABLET (FP) PO SCH (06:58)
[2018-11-29 07:02] VITALS: TEMP 97
[2018-11-29] MEDS: metFORMIN HCL 500 MG TABLET (FP) PO SCH (07:06)
[2018-11-29] MEDS: INSULIN (NOVOLOG) ASPART 100 UNITS/ML 10ML VIAL SQ SCH ×2 (07:06→07:23)
[2018-11-29] MEDS: LISINOPRIL 10 MG TABLET (FP) PO SCH (09:17)
[2018-11-29] MEDS: PRENATAL VITAMINS W/ FOLIC ACID TABLET (FP) PO SCH (09:17)
[2018-11-29 09:18] VITALS: BP 152/80; PULSE 109
[2018-11-29] MEDS: IBUPROFEN 600 MG TABLET (FP) PO PRN (09:19)
== END 2018-11-29 09:20 | disposition home or self-care (01) | DRG 772 ==
LOC: YASAS 13:23 → Y3W 13:27
PROVIDERS: ADMIT Neuromusculoskeletal Medicine & OMM; ATTEND Neuromusculoskeletal Medicine & OMM
PROC: HZ42ZZZ Group Counseling for Substance Abuse Treatment, Cognitive-Behavioral (ICD-10-PCS; principal; 2018-11-12)
DX: F10.20 Alcohol dependence, uncomplicated (principal); F16.20 Hallucinogen dependence, uncomplicated; F10.24 Alcohol dependence with alcohol-induced mood disorder; F10.982 Alcohol use, unspecified with alcohol-induced sleep disorder; I10 Essential (primary) hypertension; E78.5 Hyperlipidemia, unspecified; E11.9 Type 2 diabetes mellitus without complications; Z79.4 Long term (current) use of insulin
CPT/HCPCS: 82962

== ENCOUNTER 2020-02-24 08:54 | Inpatient (IN) | payer OTHER ==
--- OUTSIDE RECORDS SUMMARY | 2020-02-24 09:01 | XMS ---
:1965 Author Organization [facility] Care Team Providers Name Role Phone Jet El Unavailable Unavailable ED STAFF PHYSICIAN, STAFF Unavailable Unavailable Michael Jacobs Unavailable Unavailable ED STAFF PHYSICIANMARIAH Unavailable Unavailable Other, Doctor Unavailable Unavailable Lila Cordova MD Unavailable Unavailable Re-disclosure Warning The records that you are about to access may contain information from federally- assisted alcohol or drug abuse programs. If such information is present, then the following federally mandated warning applies: This information has been disclosed to you from records protected by federal confidentiality rules (42 CFR part 2). The federal rules prohibit you from making any further disclosure of this information unless further disclosure is expressly permitted by the written consent of the person to whom it pertains or as otherwise permitted by 42 CFR part 2. A general authorization for the release of medical or other information is NOT sufficient for this purpose. The Federal rules restrict any use of the information to criminally investigate or prosecute any alcohol or drug abuse patient.The records that you are about to access may contain highly sensitive health information, the redisclosure of which is protected by Article 27-F of the [facility] Public Health law. If you continue you may haveaccess to information: Regarding HIV / AIDS; Provided by facilities licensed or operated by the [facility] Office of Mental Health; or Provided by the [facility] Office for People With Developmental Disabilities. If such information is present, then the following [facility] mandated warning applies: This information has been disclosed to you from confidential records which are protected by state law. State law prohibits you from making any further disclosure of this information without the specific written consent of the person to whom it pertains, or as otherwise permitted by law. Any unauthorized further disclosure in violation of state law may result in a fine or detention sentence or both. A general authorization for the release of medical or other information is NOT sufficient authorization for further disclosure. Encounters Encounter Providers Location Date Indications Data Source(s ) Emergency Attender: Michael 5T-EMERG 02/17/2020 INTOX [facility] Jim DysonAttender: 01:30:00 AM EDT Hospi steve Doctor Other - 02/17/2020 06:57:00 AM EDT INTOX Patient discharged. Emergency Attender: El 5T-EMERG 01/15/2020 SUBSTANCE ABUSE S - [facility] RuvoAttender: Doctor 05:13:00 PM EDT - Jim Other 01/15/2020 Hospital 08:24:00 PM EDT SUBSTANCE ABUSE Patient discharged. Emergency Attender: MARIAH ED STAFF H 12/30/2019 04:53:00 PM [facility] PHYSICIANAttender: STAFF ED EDT - 12/30/2019 [facility] STAFF PHYSICIANAdmitter: MARIAH 10:09:00 PM EDT ED STAFF PHYSICIAN Patient discharged. Inpatient Attender: Lila Cordova [id number] 12/10/2019 06:14:00 [facility] MDAttender: STAFF ED STAFF AM EDT - 12/15/2019 [facility] PHYSICIANAdmitter: Lila 06:30:00 PM EDT Art MDReferrer: Lila Cordova MD Patient discharged. Insurance Providers Payer name Policy type Policy ID Covered Covered republican's Policy P azalea / Coverage republican ID relationship to [place] ormation type mcdonnell BEACON [id number] SP [id number] [employer] [id number] 1 [id number] Medicaid [place] W [id number] 01 [id number] [employer] W [id number] 01 [id number] [place] W [id number] 01 [id number] W [id number] 01 [id number] [facility] [id number] 01 [id number] ACUTE Problems, Conditions, and Diagnoses Code Display Name Description Problem Type Effective Data Sour ce(s) Dates F10.10 Alcohol abuse Alcohol abuse 57643-8 02/17/2020 [facility] re 12:00:00 AM [facility] EDT 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 PCP abuse 75309-6 01/15/2020 [place] 12:00:00 AM [facility] EDT R73.9 Hyperglycemia Hyperglycemia 33522-2 01/15/2020 [facility] re 12:00:00 AM [facility] EDT I95.9 Hypotension, Hypotension, 27879-8 [facility] hypotension type hypotension type EDT INTOX INTOX Diagnosis 02/17/2020 [facility] - [facility] 01:30:00 AM [facility] F10.10 Alcohol abuse, Alcohol abuse Diagnosis 02/17/2020 S - [facility] uncomplicated 01:30:00 AM [facility] E11.65 Type 2 diabetes Type 2 diabetes Diagnosis 01/15/2020 [facility] mellitus with mellitus with 05:13:00 PM [facility] hyperglycemia hyperglycemia EDT Hospital SUBSTANCE ABUSE SUBSTANCE ABUSE Diagnosis 01/15/2020 S - [facility] 05:13:00 PM [facility] I95.9 Hypotension, Hypotension, Diagnosis 01/15/2020 [facility] - M[facility] t unspecified unspecified 05:13:00 PM [facility] hypotension type T Hospital R73.9 Hyperglycemia, Hyperglycemia Diagnosis 01/15/2020 S - [facility] unspecified 05:13:00 PM [facility] 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 0 [place] [facility] substance abuse, SUBSTANCE ABUSE, 04:53:00 PM edical Center uncomplicated UNCOMPLICATED EDT F16.129 Hallucinogen abuse HALLUCINOGEN ABUSE Diagnosis 0 [place] with intoxication, WITH INTOXICATION, 06:30:00 PM Medical Center unspecified UNSPECIFIED EDT I10 Essential ESSENTIAL Diagnosis 12/15/2019 [place] (primary) (PRIMARY) 06:30:00 PM Medical [facility] nathalia hypertension HYPERTENSION EDT K21.9 Gastro-esophageal GASTRO-ESOPHAGEAL Diagnosis 12/15/2019 [place] reflux disease REFLUX DISEASE 06:30:00 PM Medic al Center without WITHOUT EDT esophagitis ESOPHAGITIS N17.9 Acute kidney ACUTE KIDNEY Diagnosis 12/15/2019 [facility] failure, FAILURE, [facility]30:[facility] UNSPEC[facility]IED EDT J69.0 Pneumonitis due to PNEUMONITIS DUE TO Diagnosis 0 [place] inhalation of food INHALATION OF FOOD 06:30:00 PM Medical Center and vomit AND VOMIT EDT Z91.14 Patient's other PATIENT'S OTHER Diagnosis 12/15/2019 [place] [facility] noncompliance with NONCOMPLIANCE WITH 06:30:00 PM Medical Center medication regimen MEDICATION REGIMEN EDT E11.10 Type 2 diabetes TYPE 2 DIABETES Diagnosis 12/10/2019 [facility] mellitus with MELLITUS WITH 06:14:00 AM Medical Center ketoacidosis KETOACIDOSIS EDT without coma WITHOUT COMA Surgeries/Procedures Procedure Description Date Indications Data Source(s) XR Chest Single AP view XR 01/15/2020 [facility] Chest Single AP view 06:04:00 PM System EDT - 01/15/2020 06:04:00 PM EDT Electrocardiographic 01/15/2020 [facility] procedure (procedure) 05:39:10 PM System EDT - 01/15/2020 06:11:00 PM EDT Salicylate Level, Serum 01/15/2020 [facility] 05:39:10 PM System EDT - 01/15/2020 06:03:00 PM EDT Acetaminophen Level, Serum 01/15/2020 [facility] 05:39:10 PM System EDT - 01/15/2020 06:03:00 PM EDT Results ID Date Data Source [id number] 02/19/2020 12:00:00 AM EDT [facility] Name Value Range Interpretation Code Description Data Kamala rce(s) Supporting Document(s ) 2019-nCoV [facility] RNA XXX CINDY+probe- Imp This lab was ordered by PRISCA victoria nd reported by [facility]. ID Date Data Source [id number] 09/11/2013 12:07:17 AM EDT [facility] System Name Value Range Interpretation Description Data Sup porting Code Source(s) Document(s ) Barbiturates Negative Normal (applies Barbiturate [facility] [Mass/volume] to non-numeric Screen, Urine Health in Urine by results) System Screen method Cut-off = 200 ng/mL Amphetamine Negative Normal (applies to Amphetamine Level, [facility] [Mass/volume] in non-numeric Urine Health Syst em Urine results) Cut-off = 1000 ng/mL Methadone Negative Normal (applies to Methadone Level, [facility] [Mass/volume] in non-numeric Urine System Urine results) Cut-off = 300 ng/mL Cocaine Negative Normal (applies Cocaine [facility] metabolites.other to non-numeric Met[facility]ite [facility] System [Mass/volume] in Urine results) Screen, Urine Cut-off = 300 ng/mL Benzodiazepines Negative Normal (applies Benzodiazepines, [facility] [Mass/volume] in to non-numeric Urine Health S ystem Urine results) Cut-off = 200 ng/mL [id number],Urine Negative Normal (applies to Opiate 300, [facility] non-numeric results) Urine System Cut-off = 300 ng/mL Phencyclidine Positive Abnormal (applies Phencyclidine, Uri ne [facility] [Mass/volume] in to non-numeric Health S ystem Urine results) Cut-off = 25 ng/mL THC Positive Abnormal (applies to non-numeric THC [facility] results) These results are for medical treatment only. The positive findings are unconfirmed. Request confirmatory/quantitative test i f needed. ID Date Data Source [id number] 09/11/2013 10:19:45 PM EDT [facility] System Name Value Range Interpretation Description Data Sup porting Code Source(s) Document(s ) Leukocytes 7.6 Normal (applies WBC Count [facility] [#/volume] in {10^3_uL to non-numeric Health Unspecified } results) System specimen by Automated count Hemoglobin 14.7 Normal (applies Hemoglobin, [facility] [Mass/volume] in {gm/dL} to non-numeric Whole Blood Health Blood results) System Erythrocytes 4.58 Normal (applies RBC Count [facility] [#/volume] in {10^6_uL to non-numeric Health Blood by } results) System Automated count Erythrocyte mean 87.8 fl Normal (applies MCV [facility] corpuscular to non-numeric Health volume [Entitic results) System volume] by Automated count Hematocrit 40.2 % Below low normal Hematocrit, [facility] [Volume Whole Blood Health Fraction] of System Blood Erythrocyte mean 32.1 pg Normal (applies MCH [facility] corpuscular to non-numeric Health hemoglobin results) System [Entitic mass] by Automated count Erythrocyte 13.4 % Normal (applies RDW [facility] distribution to non-numeric Health width [Entitic results) System volume] by Automated count Erythrocyte mean 36.6 Normal (applies MCHC [facility] corpuscular {gm/dL} to non-numeric Health hemoglobin results) System concentration [Mass/volume] by Automated count Platelets 236 Normal (applies Platelet [facility] [#/volume] in {10^3_uL to non-numeric Count Health Plasma by } results) System Automated count Platelet mean 9.9 fl Normal (applies MPV [facility] volume [Entitic to non-numeric Health volume] in Blood results) System by Automated count Basophils 0.0 Normal (applies Basophil [facility] [#/volume] in {10^3_uL to non-numeric Count Health Blood by } results) System Automated count Eosinophils 0.1 Normal (applies Eosinophil [facility] [#/volume] in {10^3_uL to non-numeric Count Blood Health Blood } results) System Monocytes 0.5 Normal (applies Monocyte [facility] [#/volume] in {10^3_uL to non-numeric Count Health Blood by Manual } results) System count Neutrophils/100 64.0 % Normal (applies Neutrophil % [facility] leukocytes in to non-numeric Health Blood by results) System Automated count Lymphocyte 2.1 Normal (applies Lymphocyte [facility] percent {10^3_uL to non-numeric Absolute Health differential } results) System count (procedure) Neutrophils 4.9 Normal (applies Absolute [facility] [#/volume] in {10^3_uL to non-numeric Neutrophil Health Body fluid } results) Count System Monocytes/100 6.1 % Normal (applies Monocyte % [facility] leukocytes in to non-numeric Health Blood results) System Eosinophils/100 1.6 % Normal (applies Eosinophil % [facility] leukocytes in to non-numeric Health Unspecified results) System specimen Basophils/100 0.4 % Normal (applies Basophil % [facility] leukocytes in to non-numeric Health Unspecified results) System specimen by Manual count Lymphocytes 27.9 % Normal (applies Lymphocyte % [facility] [#/volume] in to non-numeric Health Blood by results) System Automated count ID Date Data Source [id number] 09/11/2013 10:19:45 PM EDT [facility] Name Value Range Interpretation Description Data Sup porting Code Source(s) Document(s ) Potassium 4.2 Normal (applies Potassium, [facility] [Mass/volume] in mmol/L to non-numeric Serum Health Serum or Plasma results) System Sodium 143 Normal (applies Sodium, Serum [facility] [Moles/volume] in mmol/L to non-numeric Health Serum or Plasma results) System Carbon dioxide, 24.0 Normal (applies CO2, Serum [facility] total mmol/L to non-numeric Health [Moles/volume] in results) System Serum or Plasma Chloride 108 Above high Chloride, [facility] [Moles/volume] in mmol/L normal Serum Health Serum or Plasma System Glucose 198 Above high Glucose, [facility] [Mass/volume] in mg/dL normal Serum Health Serum or Plasma System TotalProtein 7.0 Normal (applies Total Protein [facility] mg/dl to non-numeric Health results) System Creatinine 1.40 Normal (applies Creatinine, [facility] [Mass/volume] in mg/dl to non-numeric Serum Health Serum or Plasma results) System Alkaline 100 Normal (applies Alkaline [facility] phosphatase {IU/L} to non-numeric Phosphatase, Health isoenzymes results) Serum System [Enzymatic activity/volume] in Serum or Plasma by Heat stability Urea nitrogen 9 mg/dl Normal (applies Blood Urea [facility] [Mass/volume] in to non-numeric Nitrogen, Health Serum or Plasma results) Serum System Bilirubin.total 0.6 Normal (applies Bilirubin, [facility] [Mass/volume] in mg/dl to non-numeric Serum Total Health Serum or Plasma results) System Aspartate 37 Normal (applies Aspartate [facility] aminotransferase {IU/L} to non-numeric Transaminase, Heal th [Enzymatic results) Serum System activity/volume] in Serum or Plasma by With P-5'-P Albumin 4.2 Normal (applies Albumin, [facility] [Mass/volume] in {gm/dl} to non-numeric Serum Health Serum or Plasma results) System I.Phosphorus 3.4 Normal (applies I. Phosphorus [facility] mg/dl to non-numeric Health results) System Alanine 73 Above high Alanine [facility] aminotransferase {IU/L} normal Aminotransfer Health [Enzymatic ase, Serum System activity/volume] in Serum or Plasma A/GRatio 1.50 Normal (applies A/G Ratio [facility] to non-numeric Health results) System Calcium 9.5 Normal (applies Calcium, [facility] [Mass/volume] in mg/dl to non-numeric Total Serum Health Serum or Plasma results) System Glomerular 54.00 Normal (applies GFR [facility] filtration to non-numeric Health rate/1.73 sq results) System M.predicted [Volume Rate/Area] in Serum or Plasma by Creatinine-based formula (CKD-EPI) eGFR will provide clinicians with a more accurate indicator of renal function then the serum creatinine. The eGFR is automa tically calculated from an empiric formula (endorsed by the National Kid[employer] ion) which incorporates age, sex, and race.Clinicians may notice surprisingly low GFR's with serum creatinine valueswithin normal range- particularly in elderly wo men (with low muscle mass).In the hospital setting, the eGFR should add an element of safety in drug dosing, in assessing the risk of IV contrast administration, and in assessing vascular risk.The NKF staging system is as follows:Normal: eGFR >90 with no kidney markersStage 1: eGFR >90 with kidney markers*Stage 2: eGFR 60- 89Stage 3: eGFR 30-59Stage 4: eGFR 15-29Stage 5: eGFR <15 (usually requir ing dialysis)*Markers include: Proteinuria, Hematuria, abnormal imaging-studies, or other blood or urine test abnormalities Anion gap in 11.00 mmol/L Normal (applies to Anion Gap [facility] Serum or Plasma non-numeric results) Sys tem Urate 6.8 mg/dl Normal (applies to Uric Acid, [facility] [Mass/volume] non-numeric results) Serum Syste m in Serum or Plasma ID Date Data Source [id number] 09/11/2013 10:19:45 PM EDT [facility] Name Value Range Interpretation Description Data Sup porting Code Source(s) Document(s ) AlcoholE non detected Normal (applies to Alcohol Ethyl, [facility] thyl,Blo None non-numeric Blood Health System od Detected results) ID Date Data Source [id number] 04/26/2018 05:34:00 PM EST [facility] Name Value Range Interpretation Description Data Sup porting Code Source(s) Document(s ) Leukocytes 8.4 Normal (applies WBC Count [facility] [#/volume] in {10^3_uL to non-numeric Health Unspecified } results) System specimen by Automated count Erythrocytes 4.34 Below low normal RBC Count [facility] [#/volume] in {10^6_uL Health Blood by } System Automated count Hemoglobin 13.4 Below low normal Hemoglobin [facility] [Mass/volume] in {gm/dL} Health Blood System Erythrocyte mean 87.8 fl Normal (applies MCV [facility] corpuscular to non-numeric Health volume [Entitic results) System volume] by Automated count Hematocrit 38.1 % Below low normal Hematocrit [facility] [Volume Health Fraction] of System Blood Erythrocyte mean 30.9 pg Normal (applies MCH [facility] [facility] corpuscular to non-numeric Health hemoglobin results) System [Entitic mass] by Automated count Erythrocyte mean 35.2 Normal (applies MCHC [facility] [facility] corpuscular {gm/dL} to non-numeric Health hemoglobin results) System concentration [Mass/volume] by Automated count Erythrocyte 13.5 % Normal (applies RDW-CV [facility] distribution to non-numeric Health width [Entitic results) System volume] by Automated count Platelet mean 9.6 fl Normal (applies MPV [facility] volume [Entitic to non-numeric Health volume] in Blood results) System by Automated count Platelets 229 Normal (applies Platelet Count [facility] [#/volume] in {10^3_uL to non-numeric Health Plasma by } results) System Automated count Monocytes 0.6 Normal (applies Monocyte # [facility] [#/volume] in {10^3_uL to non-numeric Health Blood by Manual } results) System count Eosinophils 0.12 Normal (applies Eosinophil # [facility] [#/volume] in {10^3_uL to non-numeric Health Blood } results) System Neutrophils 4.6 Normal (applies Neutrophil # [facility] [#/volume] in {10^3_uL to non-numeric Health Body fluid } results) System Lymphocyte 3.0 Normal (applies Lymphocyte # [facility] percent {10^3_uL to non-numeric Health differential } results) System count (procedure) Basophils 0.05 Normal (applies Basophil # [facility] [#/volume] in {10^3_uL to non-numeric Health Blood by } results) System Automated count Neutrophils/100 55.4 % Normal (applies Neutrophil % [facility] leukocytes in to non-numeric Health Blood by results) System Automated count Monocytes/100 7.2 % Normal (applies Monocyte % [facility] leukocytes in to non-numeric Health Blood results) System Eosinophils/100 1.4 % Normal (applies Eosinophil % [facility] leukocytes in to non-numeric Health Unspecified results) System specimen Basophils/100 0.6 % Normal (applies Basophil % [facility] leukocytes in to non-numeric Health Unspecified results) System specimen by Manual count Lymphocytes 35.2 % Normal (applies Lymphocyte % [facility] [#/volume] in to non-numeric Health Blood by results) System Automated count ImmatureGranuloc 0.2 % Normal (applies Immature [facility] ytes% to non-numeric Granulocytes % Health results) System NRBC# 0.00 Below low normal NRBC # [facility] {10^3_uL Health } System Nucleated 0.0 Normal (applies NRBC % [facility] erythrocytes {/100_WB to non-numeric Health [#/volume] in C} results) System Body fluid ImmatureGranuloc 0.02 Normal (applies Immature [facility] ytes# {10^3_uL to non-numeric Granulocytes # Health } results) System ID Date Data Source [id number] 04/26/2018 05:34:00 PM EST [facility] Name Value Range Interpretation Description Data Sup porting Code Source(s) Document(s ) Sodium 141 Normal (applies Sodium, Serum [facility] [Moles/volume mmol/L to non-numeric Health Syst em ] in Serum or results) Plasma Potassium 5.4 Above high normal Potassium, [facility] [Mass/volume] mmol/L Serum Health System in Serum or Plasma No hemolysis Chloride [Moles/volume] 108 mmol/L Above high Chloride, Seru m [facility] in Serum or Plasma normal Health Syst em Glucose [Mass/volume] 322 mg/dL Above high Glucose, Serum [facility] in Serum or Plasma normal Health Syst em TotalProtein 7.7 mg/dl Normal Total Protein [facility] (applies to Health System non-numeric results) Carbon dioxide, total 16.0 mmol/L Below low CO2, Serum [facility] [Moles/volume] in Serum normal Health System or Plasma Urea nitrogen 10 mg/dl Normal Blood Urea [facility] [Mass/volume] in Serum (applies to Nitrogen, Serum Health System or Plasma non-numeric results) Creatinine 1.10 mg/dl Normal Creatinine, [facility] [Mass/volume] in Serum (applies to Serum [facility] or Plasma non-numeric results) DirectBilirubin 0.1 mg/dl Normal Direct Bilirubin [facility] (applies to Health System non-numeric results) Alkaline phosphatase 106 {IU/L} Normal Alkaline [facility] isoenzymes [Enzymatic (applies to Phosphatase, [facility] activity/volume] in non-numeric Serum Serum or Plasma by Heat results) stability Bilirubin.total 0.3 mg/dl Normal Bilirubin, Serum [facility] [Mass/volume] in Serum (applies to Total [facility] System or Plasma non-numeric results) Albumin [Mass/volume] 4.5 {gm/dl} Normal Albumin, Serum [facility] in Serum or Plasma (applies to Health stem non-numeric results) Aspartate 33 {IU/L} Normal Aspartate [facility] aminotransferase (applies to Transaminase, [facility] [Enzymatic non-numeric Serum activity/volume] in results) Serum or Plasma by With P-5'-P Alanine 44 {IU/L} Normal Alanine [facility] aminotransferase (applies to Aminotransferase [facility] [Enzymatic non-numeric , Serum activity/volume] in results) Serum or Plasma I.Phosphorus 3.7 mg/dl Normal I. Phosphorus [facility] (applies to Health System non-numeric results) A/GRatio 1.41 Normal A/G Ratio [facility] (applies to Health System non-numeric results) Calcium [Mass/volume] 9.7 mg/dl Normal Calcium, Total [facility] in Serum or Plasma (applies to Serum [facility] stem non-numeric results) Urate [Mass/volume] in 5.0 mg/dl Normal Uric Acid, Serum [facility] Serum or Plasma (applies to Health Syste m non-numeric results) Anion gap in Serum or 17.00 mmol/L Above high Anion Gap [facility] Plasma normal Health System Glomerular filtration 70.00 Normal GFR [facility] rate/1.73 sq (applies to Health System M.predicted [Volume non-numeric Rate/Area] in Serum or results) Plasma by Creatinine-based formula (CKD-EPI) eGFR will provide clinicians with a more accurate indicator of renal function then the serum creatinine. The eGFR is automa tically calculated from an empiric formula (endorsed by the National Kid[employer] ion) which incorporates age, sex, and race.Clinicians may notice surprisingly low GFR's with serum creatinine valueswithin normal range- particularly in elderly wo men (with low muscle mass).In the hospital setting, the eGFR should add an element of safety in drug dosing, in assessing the risk of IV contrast administration, and in assessing vascular risk.The NKF staging system is as follows:Normal: eGFR >90 with no kidney markersStage 1: eGFR >90 with kidney markers*Stage 2: eGFR 60- 89Stage 3: eGFR 30-59Stage 4: eGFR 15-29Stage 5: eGFR <15 (usually requir ing dialysis)*Markers include: Proteinuria, Hematuria, abnormal imaging-studies, or other blood or urine test abnormalities ID Date Data Source [id number] 04/26/2018 05:34:00 PM EST Chris Pinedo alth System Name Value Range Interpretation Description Data Source(s ) Supporting Code Document(s ) AlcoholE 217.7 Normal (applies to Alcohol Ethyl, [facility] thyl,Blo mg/dl non-numeric Blood Health System od results) None Detected ID Date Data Source [id number] 05/13/2018 06:18:00 PM EST [facility] Name Value Range Interpretation Description Data Sup porting Code Source(s) Document(s ) Leukocytes 6.1 Normal (applies WBC Count [facility] [#/volume] in {10^3_uL to non-numeric Health Unspecified } results) System specimen by Automated count Erythrocytes 4.39 Below low normal RBC Count [facility] [#/volume] in {10^6_uL Health Blood by } System Automated count Hematocrit 37.8 % Below low normal Hematocrit [facility] [Volume Health Fraction] of System Blood Hemoglobin 13.8 Below low normal Hemoglobin [facility] [Mass/volume] in {gm/dL} Health Blood System Erythrocyte mean 86.1 fl Normal (applies MCV [facility] corpuscular to non-numeric Health volume [Entitic results) System volume] by Automated count Erythrocyte mean 31.4 pg Normal (applies MCH [facility] corpuscular to non-numeric Health hemoglobin results) System [Entitic mass] by Automated count Erythrocyte 12.6 % Normal (applies RDW-CV [facility] distribution to non-numeric Health width [Entitic results) System volume] by Automated count Erythrocyte mean 36.5 Normal (applies MCHC [facility] corpuscular {gm/dL} to non-numeric Health hemoglobin results) System concentration [Mass/volume] by Automated count Monocytes 0.5 Normal (applies Monocyte # [facility] [#/volume] in {10^3_uL to non-numeric Health Blood by Manual } results) System count Platelets 237 Normal (applies Platelet Count [facility] [#/volume] in {10^3_uL to non-numeric Health Plasma by } results) System Automated count Platelet mean 10.0 fl Normal (applies MPV [facility] volume [Entitic to non-numeric Health volume] in Blood results) System by Automated count Neutrophils 3.5 Normal (applies Neutrophil # [facility] [#/volume] in {10^3_uL to non-numeric Health Body fluid } results) System Eosinophils 0.06 Normal (applies Eosinophil # [facility] [#/volume] in {10^3_uL to non-numeric Health Blood } results) System Basophils 0.06 Normal (applies Basophil # [facility] [#/volume] in {10^3_uL to non-numeric Health Blood by } results) System Automated count Lymphocyte 2.0 Normal (applies Lymphocyte # [facility] percent {10^3_uL to non-numeric Health differential } results) System count (procedure) Neutrophils/100 57.1 % Normal (applies Neutrophil % [facility] leukocytes in to non-numeric Health Blood by results) System Automated count Monocytes/100 7.5 % Normal (applies Monocyte % [facility] leukocytes in to non-numeric Health Blood results) System Eosinophils/100 1.0 % Normal (applies Eosinophil % [facility] leukocytes in to non-numeric Health Unspecified results) System specimen Basophils/100 1.0 % Normal (applies Basophil % [facility] leukocytes in to non-numeric Health Unspecified results) System specimen by Manual count Lymphocytes 33.2 % Normal (applies Lymphocyte % [facility] [#/volume] in to non-numeric Health Blood by results) System Automated count ImmatureGranuloc 0.2 % Normal (applies Immature [facility] ytes% to non-numeric Granulocytes % Health results) System Nucleated 0.0 Normal (applies NRBC % [facility] erythrocytes {/100_WB to non-numeric Health [#/volume] in C} results) System Body fluid ImmatureGranuloc 0.01 Normal (applies Immature [facility] ytes# {10^3_uL to non-numeric Granulocytes # Health } results) System NRBC# 0.00 Below low normal NRBC # [facility] {10^3_uL Health } System ID Date Data Source [id number] 05/13/2018 06:18:00 PM EST [facility] Name Value Range Interpretation Description Data Sup porting Code Source(s) Document(s ) Potassium 4.0 Normal (applies Potassium, [facility] [Mass/volume] mmol/L to non-numeric Serum Health in Serum or results) System Plasma Sodium 138 Normal (applies Sodium, Serum [facility] [Moles/volume] mmol/L to non-numeric Health in Serum or results) System Plasma Chloride 102 Normal (applies Chloride, [facility] [Moles/volume] mmol/L to non-numeric Serum Health in Serum or results) System Plasma Carbon dioxide, 19.0 Below low normal CO2, Serum [facility] total mmol/L Health [Moles/volume] System in Serum or Plasma TotalProtein 7.2 Normal (applies Total Protein [facility] mg/dl to non-numeric Health results) System Glucose 519 Above upper panic Glucose, Serum [facility] [Mass/volume] mg/dL limits Health in Serum or System Plasma Result Reporting|Telephone|MARCIE MENESES|04/15 at 8:03 PMCalled to:MARCIE Hutchinson Name:TBReadback by:MARCIE MENESES05/13/2018 / 8:03 PM Creatinine 1.30 mg/dl Normal (applies Creatinine, [facility] [Mass/volume] in Serum to non-numeric Serum He alth System or Plasma results) Urea nitrogen 8 mg/dl Below low normal Blood Urea [facility] [Mass/volume] in Serum Nitrogen, Serum H ealt System or Plasma Alkaline phosphatase 108 {IU/L} Normal (applies Alkaline [facility] isoenzymes [Enzymatic to non-numeric Phosphatase, [facility] System activity/volume] in results) Serum Serum or Plasma by Heat stability Bilirubin.total 0.4 mg/dl Normal (applies Bilirubin, Serum [facility] [Mass/volume] in Serum to non-numeric Total [facility] System or Plasma results) DirectBilirubin 0.2 mg/dl Normal (applies Direct Bilirubin [facility] to non-numeric Health System results) Aspartate 17 {IU/L} Normal (applies Aspartate [facility] aminotransferase to non-numeric Transaminase, [facility] System [Enzymatic results) Serum activity/volume] in Serum or Plasma by With P-5'-P I.Phosphorus 3.4 mg/dl Normal (applies I. Phosphorus [facility] to non-numeric Health System results) Albumin [Mass/volume] 4.5 {gm/dl} Normal (applies Albumin, S ruben [facility] in Serum or Plasma to non-numeric Health System results) Calcium [Mass/volume] 9.8 mg/dl Normal (applies Calcium, Tot al [facility] in Serum or Plasma to non-numeric Serum Health System results) Alanine 28 {IU/L} Normal (applies Alanine [facility] aminotransferase to non-numeric Aminotransferase [facility] System [Enzymatic results) , Serum activity/volume] in Serum or Plasma A/GRatio 1.67 Normal (applies A/G Ratio [facility] to non-numeric Health System results) Urate [Mass/volume] in 6.4 mg/dl Normal (applies Uric Acid, Serum [facility] Serum or Plasma to non-numeric Health Sy stem results) Anion gap in Serum or 17.00 Above high normal Anion Gap [facility] Plasma mmol/L [facility] System Glomerular filtration 58.00 Normal (applies GFR [facility] rate/1.73 sq to non-numeric Health Syste m M.predicted [Volume results) Rate/Area] in Serum or Plasma by Creatinine-based formula (CKD-EPI) eGFR will provide clinicians with a more accurate indicator of renal function then the serum creatinine. The eGFR is automa tically calculated from an empiric formula (endorsed by the National Kid[employer] ion) which incorporates age, sex, and race.Clinicians may notice surprisingly low GFR's with serum creatinine valueswithin normal range- particularly in elderly wo men (with low muscle mass).In the hospital setting, the eGFR should add an element of safety in drug dosing, in assessing the risk of IV contrast administration, and in assessing vascular risk.The NKF staging system is as follows:Normal: eGFR >90 with no kidney markersStage 1: eGFR >90 with kidney markers*Stage 2: eGFR 60- 89Stage 3: eGFR 30-59Stage 4: eGFR 15-29Stage 5: eGFR <15 (usually requir ing dialysis)*Markers include: Proteinuria, Hematuria, abnormal imaging-studies, or other blood or urine test abnormalities ID Date Data Source [id number] 05/13/2018 06:18:00 PM EST [facility] System Name Value Range Interpretation Description Data Source(s ) Supporting Code Document(s ) AlcoholE 234.8 Normal (applies to Alcohol Ethyl, [facility] thyl,Blo mg/dl non-numeric Blood Health System od results) None Detected ID Date Data Source [id number] 05/13/2018 06:18:00 PM EST [facility] System Name Value Range Interpretation Description Data Sup porting Code Source(s) Document(s ) Acetaminophen < 4 Below low normal Acetaminophen [facility] [Mass/volume] in Level, Serum Health Serum or Plasma System ID Date Data Source [id number] 05/13/2018 06:18:00 PM EST [facility] Name Value Range Interpretation Description Data Sup porting Code Source(s) Document(s ) Acetylsalicylate < 4.0 Normal (applies Salicylate [facility] [Mass/volume] in to non-numeric Level, Serum Healt h Serum or Plasma results) System ID Date Data Source [id number] 05/13/2018 08:05:00 PM EST [facility] Name Value Range Interpretation Description Data Source(s ) Supporting Code Document(s ) PH* 7.316 Normal (applies to PH* [facility] {pH_units} non-numeric Health System results) PCO2* 52.2 Above high normal PCO2* [facility] {mm_Hg} Health System BaseExces 0.50 Normal (applies to Base Excess* [facility] s* {mEq/L} non-numeric Health System results) HCO3* 26.6 Normal (applies to HCO3* [facility] mmol/L non-numeric Health System results) Chloride, 103 mmol/L Normal (applies to Chloride, VB [facility] VB non-numeric Health System results) Lactate. 3.5 mmol/L Above upper panic Lactate. [facility] limits Health System Result Reporting|Telephone|MARCIE MENESES|04/15 at 8:57 PMCalled to:MARCIE MENESESTech Name:TBReadback by:MARCIE MENESES05/13/2018 / 8:56 PM Glucose,VB 359 mg/dL Above high Glucose, VB [facility] normal System Potassium,VB 4.2 mmol/L Normal (applies Potassium, VB [facility] to non-numeric System results) Sodium,VB 141 mmol/L Normal (applies Sodium, VB [facility] H ealth to non-numeric System results) IonizedCalcium,VB 1.24 mmol/L Normal (applies Ionized Calc ium, [facility] to non-numeric VB System results) [id number]* 54.90 % Normal (applies O2 Saturation* [facility] to non-numeric System results) ID Date Data Source [id number] 05/22/2018 08:44:00 PM EST [facility] Name Value Range Interpretation Description Data Sup porting Code Source(s) Document(s ) BetaHydroxybutyrate 0.37 Above high Beta [facility] mg/dL normal Hydroxybutyrate Health System ID Date Data Source [id number] 05/22/2018 08:44:00 PM EST [facility] Name Value Range Interpretation Description Data Sup porting Code Source(s) Document(s ) Leukocytes 6.3 Normal (applies WBC Count [facility] [#/volume] in {10^3_uL to non-numeric Health Unspecified } results) System specimen by Automated count Erythrocytes 4.66 Normal (applies RBC Count [facility] [#/volume] in {10^6_uL to non-numeric Health Blood by } results) System Automated count Hemoglobin 14.6 Normal (applies Hemoglobin [facility] [Mass/volume] in {gm/dL} to non-numeric Health Blood results) System Hematocrit 40.2 % Below low normal Hematocrit [facility] [Volume Health Fraction] of System Blood Erythrocyte mean 86.3 fl Normal (applies MCV [facility] corpuscular to non-numeric Health volume [Entitic results) System volume] by Automated count Erythrocyte mean 31.3 pg Normal (applies MCH [facility] corpuscular to non-numeric Health hemoglobin results) System [Entitic mass] by Automated count Erythrocyte mean 36.3 Normal (applies MCHC [facility] corpuscular {gm/dL} to non-numeric Health hemoglobin results) System concentration [Mass/volume] by Automated count Erythrocyte 12.3 % Normal (applies RDW-CV [facility] distribution to non-numeric Health width [Entitic results) System volume] by Automated count Platelets 284 Normal (applies Platelet Count [facility] [#/volume] in {10^3_uL to non-numeric Health Plasma by } results) System Automated count Platelet mean 10.2 fl Normal (applies MPV [facility] volume [Entitic to non-numeric Health volume] in Blood results) System by Automated count Monocytes 0.3 Normal (applies Monocyte # [facility] [#/volume] in {10^3_uL to non-numeric Health Blood by Manual } results) System count Eosinophils 0.05 Normal (applies Eosinophil # [facility] [#/volume] in {10^3_uL to non-numeric Health Blood } results) System Neutrophils 4.3 Normal (applies Neutrophil # [facility] [#/volume] in {10^3_uL to non-numeric Health Body fluid } results) System Basophils 0.06 Normal (applies Basophil # [facility] [#/volume] in {10^3_uL to non-numeric Health Blood by } results) System Automated count Lymphocyte 1.5 Normal (applies Lymphocyte # [facility] percent {10^3_uL to non-numeric Health differential } results) System count (procedure) Neutrophils/100 69.1 % Normal (applies Neutrophil % [facility] leukocytes in to non-numeric Health Blood by results) System Automated count Monocytes/100 5.0 % Below low normal Monocyte % [facility] leukocytes in Health Blood System Eosinophils/100 0.8 % Normal (applies Eosinophil % [facility] leukocytes in to non-numeric Health Unspecified results) System specimen Basophils/100 1.0 % Normal (applies Basophil % [facility] leukocytes in to non-numeric Health Unspecified results) System specimen by Manual count Lymphocytes 23.8 % Normal (applies Lymphocyte % [facility] [#/volume] in to non-numeric Health Blood by results) System Automated count ImmatureGranuloc 0.3 % Normal (applies Immature [facility] ytes% to non-numeric Granulocytes % Health results) System Nucleated 0.0 Normal (applies NRBC % [facility] erythrocytes {/100_WB to non-numeric Health [#/volume] in C} results) System Body fluid ImmatureGranuloc 0.02 Normal (applies Immature [facility] ytes# {10^3_uL to non-numeric Granulocytes # Health } results) System NRBC# 0.00 Below low normal NRBC # [facility] {10^3_uL Health } System ID Date Data Source [id number] 05/22/2018 08:44:00 PM EST [facility] Name Value Range Interpretation Description Data Sup porting Code Source(s) Document(s ) Sodium 138 Normal (applies Sodium, Serum [facility] [Moles/volume] mmol/L to non-numeric Health in Serum or results) System Plasma Potassium 4.2 Normal (applies Potassium, [facility] [Mass/volume] mmol/L to non-numeric Serum Health in Serum or results) System Plasma Chloride 98 Normal (applies Chloride, [facility] [Moles/volume] mmol/L to non-numeric Serum Health in Serum or results) System Plasma Carbon dioxide, 25.0 Normal (applies CO2, Serum [facility] total mmol/L to non-numeric Health [Moles/volume] results) System in Serum or Plasma TotalProtein 8.0 Normal (applies Total Protein [facility] mg/dl to non-numeric Health results) System Glucose 649 Above upper panic Glucose, Serum [facility] [Mass/volume] mg/dL limits Health in Serum or System Plasma Result Reporting|Telephone|CALL & READ B ACK BY [place]| 05/22/2018 at 9:20 PMCalled to:Tech Name:Readback by: 2018 / 9:20 PM Urea nitrogen 13 mg/dl Normal (applies Blood Urea [facility] [Mass/volume] in Serum to non-numeric Nitrogen, Se rum Health System or Plasma results) Creatinine 1.70 mg/dl Above high normal Creatinine, [facility] [Mass/volume] in Serum Serum Health System or Plasma Alkaline phosphatase 123 {IU/L} Normal (applies Alkaline [facility] isoenzymes [Enzymatic to non-numeric Phosphatase, Health System activity/volume] in results) Serum Serum or Plasma by Heat stability Bilirubin.total 0.4 mg/dl Normal (applies Bilirubin, Serum [facility] [Mass/volume] in Serum to non-numeric Total He alth System or Plasma results) DirectBilirubin 0.2 mg/dl Normal (applies Direct Bilirubin [facility] to non-numeric Health System results) Aspartate 17 {IU/L} Normal (applies Aspartate [facility] aminotransferase to non-numeric Transaminase, [facility] System [Enzymatic results) Serum activity/volume] in Serum or Plasma by With P-5'-P Albumin [Mass/volume] 5.1 {gm/dl} Above high normal Albumin, Serum [facility] in Serum or Plasma Health Syst em I.Phosphorus 3.8 mg/dl Normal (applies I. Phosphorus [facility] to non-numeric Health System results) Alanine 21 {IU/L} Normal (applies Alanine [facility] aminotransferase to non-numeric [facility] [Enzymatic results) , Serum activity/volume] in Serum or Plasma Calcium [Mass/volume] 10.7 mg/dl Above high normal Calcium, Total [facility] in Serum or Plasma Serum Health Syst em A/GRatio 1.76 Normal (applies A/G Ratio [facility] to non-numeric Health System results) Urate [Mass/volume] in 4.8 mg/dl Normal (applies Uric Acid, Serum [facility] Serum or Plasma to non-numeric Health Sy stem results) Anion gap in Serum or 15.00 Above high normal Anion Gap [facility] Plasma mmol/L Health System Glomerular filtration 42.00 Normal (applies GFR [facility] rate/1.73 sq to non-numeric Health Syste m M.predicted [Volume results) Rate/Area] in Serum or Plasma by Creatinine-based formula (CKD-EPI) eGFR will provide clinicians with a more accurate indicator of renal function then the serum creatinine. The eGFR is automa tically calculated from an empiric formula (endorsed by the National Kidney [employer] ion) which incorporates age, sex, and race.Clinicians may notice surprisingly low GFR's with serum creatinine valueswithin normal range- particularly in elderly wo men (with low muscle mass).In the hospital setting, the eGFR should add an element of safety in drug dosing, in assessing the risk of IV contrast administration, and in assessing vascular risk.The NKF staging system is as follows:Normal: eGFR >90 with no kidney markersStage 1: eGFR >90 with kidney markers*Stage 2: eGFR 60- 89Stage 3: eGFR 30-59Stage 4: eGFR 15-29Stage 5: eGFR <15 (usually requir ing dialysis)*Markers include: Proteinuria, Hematuria, abnormal imaging-studies, or other blood or urine test abnormalities ID Date Data Source [id number] 05/22/2018 08:44:00 PM EST [facility] Name Value Range Interpretation Description Data Source(s ) Supporting Code Document(s ) PH* 7.319 Normal (applies to PH* [facility] {pH_units} non-numeric Health System results) PCO2* 53.9 Above high normal PCO2* [facility] {mm_Hg} Health System BaseExces 1.60 Normal (applies to Base Excess* [facility]* {mEq/L} non-numeric Health System results) HCO3* 27.7 Above high normal HCO3* [facility] mmol/L Health System Chloride, 99 mmol/L Normal (applies to Chloride, VB [facility] VB non-numeric Health System results) Lactate. 3.2 mmol/L Above upper panic Lactate. [facility] limits Health System Result Reporting|Telephone|CALL & READ B ACK BY DR LEVY| 05/22/2018 at 9:07 PMCalled to:Tech Name:Readback by: 2018 / 9:07 PM Glucose,VB 594 mg/dL Above upper panic Glucose, VB [facility] limits Result Reporting|Telephone|CALL & READ B ACK BY DR LEVY| 05/22/2018 at 9:07 PMCalled to:Tech Name:Readback by: 2018 / 9:07 PM Potassium,VB 4.0 mmol/L Normal (applies to Potassium, VB [facility] non-numeric [facility] System results) Sodium,VB 142 mmol/L Normal (applies to Sodium, VB [facility] non-numeric [facility] System results) IonizedCalcium,VB 1.29 mmol/L Normal (applies to Ionized [place] cium, [facility] non-numeric Health System results) [id number]* 49.20 % Normal (applies to O2 Saturation* [facility] non-numeric Health System results) ID Date Data Source [id number] 02/17/2020 07:58:53 AM EDT [facility] alth System Name Value Range Interpretation Description Data Source(s ) Supporting Code Document(s ) PH* 7.384 Normal (applies to PH* [facility] {pH_units} non-numeric Health System results) PCO2* 38.1 Below low normal PCO2* [facility] {mm_Hg} Health System BaseExces -2.30 Normal (applies to Base Excess* [facility]* {mEq/L} non-numeric Health System results) HCO3* 22.7 Normal (applies to HCO3* [facility] mmol/L non-numeric Health System results) Chloride, 105 mmol/L Normal (applies to Chloride, VB [facility] VB non-numeric Health System results) Lactate. 5.8 mmol/L Above upper panic [facility]. [facility] Result Reporting|Telephone|ALEKSANDR MENESES| 01/15/2020 at 6:44 PMCalled to:ALEKSANDR MENESES Name:DAYAN Hu ck by:ALEKSANDR MENESES 01/15/2020 / 6:44 PM Glucose,VB 368 mg/dL Above high Glucose, VB [facility] normal System Potassium,VB 3.6 mmol/L Normal (applies Potassium, VB [facility] to non-numeric System results) Sodium,VB 141 mmol/L Normal (applies Sodium, VB [facility] e[facility] to non-numeric System results) IonizedCalcium,VB 1.21 mmol/L Normal (applies Ionized [facility]c ium, [facility] to non-numeric VB System results) [id number]* 87.00 % Normal (applies O2 Saturation* [facility] to non-numeric System results) ID Date Data Source [id number] 02/17/2020 07:58:53 AM EDT [facility] System Name Value Range Interpretation Description Data Sup porting Code Source(s) Document(s ) Leukocytes 6.9 Normal (applies WBC Count [facility] [#/volume] in {10^3_uL to non-numeric Health Unspecified } results) System specimen by Automated count Erythrocytes 3.92 Below low normal RBC Count [facility] [#/volume] in {10^6_uL Health Blood by } System Automated count Hemoglobin 11.7 Below low normal Hemoglobin [facility] [Mass/volume] in {gm/dL} Health Blood System Hematocrit 33.2 % Below low normal Hematocrit [facility] [Volume Health Fraction] of System Blood Erythrocyte mean 84.7 fl Normal (applies MCV [facility] corpuscular to non-numeric Health volume [Entitic results) System volume] by Automated count Erythrocyte mean 29.8 pg Normal (applies MCH [facility] corpuscular to non-numeric Health hemoglobin results) System [Entitic mass] by Automated count Erythrocyte mean 35.2 Normal (applies MCHC [facility] corpuscular {gm/dL} to non-numeric Health hemoglobin results) System concentration [Mass/volume] by Automated count Erythrocyte 13.5 % Normal (applies RDW-CV [facility] distribution to non-numeric Health width [Entitic results) System volume] by Automated count Platelets 268 Normal (applies Platelet Count [facility] [#/volume] in {10^3_uL to non-numeric Health Plasma by } results) System Automated count Platelet mean 10.0 fl Normal (applies MPV [facility] volume [Entitic to non-numeric Health volume] in Blood results) System by Automated count Monocytes 0.4 Normal (applies Monocyte # [facility] [#/volume] in {10^3_uL to non-numeric Health Blood by Manual } results) System count Eosinophils 0.03 Below low normal Eosinophil # [facility] [#/volume] in {10^3_uL Health Blood } System Neutrophils 5.4 Normal (applies Neutrophil # [facility] [#/volume] in {10^3_uL to non-numeric Health Body fluid } results) System Basophils 0.03 Normal (applies Basophil # [facility] [#/volume] in {10^3_uL to non-numeric Health Blood by } results) System Automated count Lymphocyte 1.0 Below low normal Lymphocyte # [facility] percent {10^3_uL Health differential } System count (procedure) Neutrophils/100 78.8 % Above high Neutrophil % [facility] leukocytes in normal Health Blood by System Automated count Eosinophils/100 0.4 % Normal (applies Eosinophil % [facility] leukocytes in to non-numeric Health Unspecified results) System specimen Monocytes/100 5.8 % Below low normal Monocyte % [facility] leukocytes in Health Blood System Basophils/100 0.4 % Normal (applies Basophil % [facility] leukocytes in to non-numeric Health Unspecified results) System specimen by Manual count ImmatureGranuloc 0.3 % Normal (applies Immature [facility] ytes% to non-numeric Granulocytes % Health results) System Lymphocytes 14.3 % Below low normal Lymphocyte % [facility] [#/volume] in Health Blood by System Automated count Nucleated 0.0 Normal (applies NRBC % [facility] erythrocytes {/100_WB to non-numeric Health [#/volume] in C} results) System Body fluid ImmatureGranuloc 0.02 Normal (applies Immature [facility] ytes# {10^3_uL to non-numeric Granulocytes # Health } results) System NRBC# 0.00 Below low normal NRBC # [facility] {10^3_uL Health } System ID Date Data Source [id number] 02/17/2020 07:58:53 AM EDT [facility] System Name Value Range Interpretation Description Data Source(s ) Supporting Code Document(s ) Lipase 30 U/L Normal (applies to Lipase, Serum [place] [Enzymatic non-numeric Health System activity/vo results) lume] in Serum or Plasma ID Date Data Source [id number] 02/17/2020 07:58:53 AM EDT [facility] Name Value Range Interpretation Description Data Sup porting Code Source(s) Document(s ) Alcohol NONDETECTED Normal (applies Alcohol Ethyl, [place] Ethyl,B None Detected to non-numeric Blood Health Syst em lood results) ID Date Data Source [id number] 02/17/2020 07:58:53 AM EDT [facility] Name Value Range Interpretation Description Data Sup porting Code Source(s) Document(s ) Sodium 139 Normal (applies Sodium, Serum [facility] [Moles/volume] in mmol/L to non-numeric Health Serum or Plasma results) System Potassium 4.0 Normal (applies Potassium, [facility] [Mass/volume] in mmol/L to non-numeric Serum Health Serum or Plasma results) System Chloride 105 Normal (applies Chloride, [facility] [Moles/volume] in mmol/L to non-numeric Serum Health Serum or Plasma results) System Carbon dioxide, 20.0 Below low normal CO2, Serum [place] total mmol/L [facility] [Moles/volume] in System Serum or Plasma TotalProtein 6.1 Below low normal Total Protein [place] mg/dl [facility] Glucose 394 Above high Glucose, [facility] [Mass/volume] in mg/dL normal Serum Health Serum or Plasma System Urea nitrogen 9 mg/dl Normal (applies Blood Urea [place] [Mass/volume] in to non-numeric Nitrogen, Health Serum or Plasma results) Serum System Creatinine 1.50 Normal (applies Creatinine, [facility] [Mass/volume] in mg/dl to non-numeric Serum Health Serum or Plasma results) System Alkaline 139 Above high Alkaline [facility] phosphatase {IU/L} normal Phosphatase, Health isoenzymes Serum System [Enzymatic activity/volume] in Serum or Plasma by Heat stability Bilirubin.total 0.4 Normal (applies Bilirubin, [place] [Mass/volume] in mg/dl to non-numeric Serum Total Health Serum or Plasma results) System DirectBilirubin 0.2 Normal (applies Direct [place] mg/dl to non-numeric Bilirubin Health results) System Aspartate 34 Normal (applies Aspartate [facility] aminotransferase {IU/L} to non-numeric Transaminase, Heal th [Enzymatic results) Serum System activity/volume] in Serum or Plasma by With P-5'-P Albumin 3.8 Below low normal Albumin, [facility] [Mass/volume] in {gm/dl} Serum Health Serum or Plasma System I.Phosphorus 2.7 Normal (applies I. Phosphorus [place] mg/dl to non-numeric Health results) System Alanine 57 Above high Alanine [facility] aminotransferase {IU/L} normal Aminotransfer [facility] [Enzymatic ase, Serum System activity/volume] in Serum or Plasma Calcium 9.3 Normal (applies Calcium, [facility] [Mass/volume] in mg/dl to non-numeric Total Serum Health Serum or Plasma results) System A/GRatio 1.65 Normal (applies A/G Ratio [facility] to non-numeric Health results) System Urate 5.0 Normal (applies Uric Acid, [facility] [Mass/volume] in mg/dl to non-numeric Serum Health Serum or Plasma results) System Anion gap in Serum 14.00 Above high Anion Gap [place] or Plasma mmol/L normal Health System Glomerular 49.00 Normal (applies GFR [place] filtration to non-numeric Health rate/1.73 sq results) System M.predicted [Volume Rate/Area] in Serum or Plasma by Creatinine-based formula (CKD-EPI) eGFR will provide clinicians with a more accurate indicator of renal function then the serum creatinine. The eGFR is automa tically calculated from an empiric formula (endorsed by the National [employer] ion) which incorporates age, sex, and race.Clinicians may notice surprisingly low GFR's with serum creatinine valueswithin normal range- particularly in elderly wo men (with low muscle mass).In the hospital setting, the eGFR should add an element of safety in drug dosing, in assessing the risk of IV contrast administration, and in assessing vascular risk.The NKF staging system is as follows:Normal: eGFR >90 with no kidney markersStage 1: eGFR >90 with kidney markers*Stage 2: eGFR 60- 89Stage 3: eGFR 30-59Stage 4: eGFR 15-29Stage 5: eGFR <15 (usually requir ing dialysis)*Markers include: Proteinuria, Hematuria, abnormal imaging-studies, or other blood or urine test abnormalities ID Date Data Source [id number] 02/17/2020 07:58:53 AM EDT [facility] Name Value Range Interpretation Description Data Source(s ) Supporting Code Document(s ) Troponin 0.02 Normal (applies to Troponin I [facility] IQuantit ng/mL non-numeric Quantitative - Health System ative-MV results) MV Only Only ID Date Data Source [id number] 01/15/2020 06:04:00 PM EDT [facility] - [facility] HISTORY: Drug Over Dose;Chest X-ray:Comp arison: None available at this timeTechnique: Portable AP view is provided.Findings: T he heart and pulmonary vessels are normal in size.The mediastinalcontour is normal. T he lungs are clear. Noeffusion or pneumothorax. No healing or displaced fr acture ofthevisualized ribs.IMPRESSION:1. Negative chest exam. Electronically Si gned by Kiko Betancourt M.D. on 01/15/2020 at 0824 Reported and signed by: Kiko Betancourt M.D.[facility]SN[facility] [phone] nically Signed:Kiko Betancourt MD at 18:23 EDTT , Service sup port , [phone] Name Value Range Interpretation Code Description Data Kamala rce(s) Supporting Document(s ) ID Date Data Source Liver 12/15/2019 06:55:00 AM EDT [facility] Profile.[id number] Name Value Range Interpretation Description Data Sup porting Code Source(s) Document(s ) Aspartate 17-59 <content [facility] aminotransferase styleCode="Bold"> [place] [facility] [Enzymatic Aspartate Medical activity/volume] Aminotransferase Center in Serum or Plasma (AST) </content>29 IU/L<content styleCode="Italic s"> (17-59 IU/L)</content> Alanine 7-50 <content [facility] aminotransferase styleCode="Bold"> [place] [facility] [Enzymatic Alanine Medical activity/volume] Aminotransferase Center in Serum or Plasma (ALT) </content>25 IU/L<content styleCode="Italic s"> (7-50 IU/L)</content> Bilirubin.total 0.2-1.3 <content [facility] [Mass/volume] in styleCode="Bold"> [place] [facility] Serum or Plasma Bilirubin Total Medical </content>0.3 Center MG/DL<content styleCode="Italic s"> (0.2-1.3 MG/DL)</content> Albumin 3.5-5.0 Below low <content [facility] [Mass/volume] in normal styleCode="Bold"> [place] hs Serum or Plasma Albumin Medical </content>2.8 Center G/DL L<content styleCode="Italic s"> (3.5-5.0 G/DL)</content> Alkaline 38-126 <content [facility] phosphatase styleCode="Bold"> Jil [Enzymatic Alkaline Medical activity/volume] Phosphatase (ALP) Cente r in Serum or Plasma </content>91 IU/L<content styleCode="Italic s"> (38-126 IU/L)</content> ID Date Data Source HematologyRou.[id number] 12/15/2019 06:55:00 AM EDT [facility] 0400 Name Value Range Interpretation Description Data Sup porting Code Source(s) Document(s ) Leukocytes 4.4-11.0 <content [facility] [#/volume] in styleCode="Bold Jil Blood by ">White Blood Medical Automated count Cell Count Center </content>6.12 KCUMM<content styleCode="Ital ics"> (4.4-11.0 KCUMM)</content > Erythrocytes 4.4-5.9 Below low normal <content [facility] [#/volume] in styleCode="Bold Jil Blood by ">Red Blood Medical Automated count Cell Count Center </content>3.87 MCUMM L<content styleCode="Ital ics"> (4.4-5.9 MCUMM)</content > Hemoglobin 13.5-17. Below low normal <content [facility] [Mass/volume] in 5 styleCode="Bold Jil Blood ">Hemoglobin Medical </content>11.6 Center G/DL L<content styleCode="Ital ics"> (13.5-17.5 G/DL)</content> Hematocrit 41.0-53. Below low normal <content [facility] [Volume 0 styleCode="Bold Jil Fraction] of ">Hematocrit Medical Blood by </content>32.5 Center Automated count % L<content styleCode="Ital ics"> (41.0-53.0 %)</content> Erythrocyte mean 80.0-100 <content [facility] corpuscular .0 styleCode="Bold Jil volume [Entitic ">Mean Medical volume] by Corpuscular Center Automated count Volume </content>84.0 FL<content styleCode="Ital ics"> (80.0-100.0 FL)</content> Erythrocyte mean 32.0-37. <content [facility] corpuscular 0 styleCode="Bold Jil hemoglobin ">Mean Corpus. Medical concentration Hgb Center [Mass/volume] by Concentration Automated count (MCHC) </content>35.7 G/DL<content styleCode="Ital ics"> (32.0-37.0 G/DL)</content> Erythrocyte mean 26.0-34. <content [facility] corpuscular 0 styleCode="Bold Jil hemoglobin ">Mean Medical [Entitic mass] Corposcular Center by Automated Hemoglobin count </content>30.0 PG<content styleCode="Ital ics"> (26.0-34.0 PG)</content> Platelet mean 8.0-11.0 <content [facility] volume [Entitic styleCode="Bold Jil volume] in Blood ">Mean Platelet Medical by Automated Volume Center count </content>10.1 FL<content styleCode="Ital ics"> (8.0-11.0 FL)</content> Erythrocyte 11.5-14. <content [facility] distribution 5 styleCode="Bold Jil width [Ratio] by ">Red Cell Medical Automated count Distribution Center Width </content>13.1 %<content styleCode="Ital ics"> (11.5-14.5 %)</content> Platelets 130-400 <content [facility] [#/volume] in styleCode="Bold Jil Blood by ">Platelet Medical Automated count Count Center </content>255 KCUMM<content styleCode="Ital ics"> (130-400 KCUMM)</content > UNK 1.6-7.3 <content [facility] styleCode="Bold Jil ">Neutrophil Medical Count Center </content>3.34 KCUMM<content styleCode="Ital ics"> (1.6-7.3 KCUMM)</content > Neutrophils 36-66 <content [facility] [#/volume] in styleCode="Bold Jil Blood by ">Neutrophil Medical Automated count </content>54.5 Center %<content styleCode="Ital ics"> (36-66 %)</content> Lymphocytes 24.0-44. <content [facility] [#/volume] in 0 styleCode="Bold Jil Blood by ">Lymphocyte Medical Automated count </content>26.0 Center %<content styleCode="Ital ics"> (24.0-44.0 %)</content> UNK 1.0-4.8 <content [facility] styleCode="Bold Jil ">Lymphocyte Medical Count Center </content>1.59 KCUMM<content styleCode="Ital ics"> (1.0-4.8 KCUMM)</content > Monocytes 3.0-10.0 Above high <content [facility] [#/volume] in normal styleCode="Bold Jil Blood by ">Monocyte Medical Automated count </content>14.4 Center % H<content styleCode="Ital ics"> (3.0-10.0 %)</content> UNK 0.2-0.9 <content Saint styleCode="Bold Jil ">Monocyte Medical Count Center </content>0.88 KCUMM<content styleCode="Ital ics"> (0.2-0.9 KCUMM)</content > Basophils 0.0-1.0 <content [facility] [#/volume] in styleCode="Bold Jil Blood by ">Basophil Medical Automated count </content>0.5 Center %<content styleCode="Ital ics"> (0.0-1.0 %)</content> UNK 0.0-0.6 <content [facility] styleCode="Bold Jil ">Eosinophil Medical Count Center </content>0.24 KCUMM<content styleCode="Ital ics"> (0.0-0.6 KCUMM)</content > Eosinophils 0-5.0 <content [facility] [#/volume] in styleCode="Bold Jil Blood by ">Eosinophil Medical Automated count </content>3.9 Center %<content styleCode="Ital ics"> (0-5.0 %)</content> UNK 0 <content Saint styleCode="Bold Jil ">Nucleated Red Medical Blood Cell Center </content>0.0 /100<content styleCode="Ital ics"> (0 /100)</content> UNK 0.0 <content Saint styleCode="Bold Jil ">Nucleated Red Medical Blood Cell Center Count </content>0.00 KCUMM<content styleCode="Ital ics"> (0.0 KCUMM)</content > UNK 0.0-0.3 <content Saint styleCode="Bold Jil ">Basophil Medical Count Center </content>0.03 KCUMM<content styleCode="Ital ics"> (0.0-0.3 KCUMM)</content > UNK 0-0.1 <content [facility] styleCode="Bold Jil ">Immature Medical Granulocyte Center Count </content>0.04 KCUMM<content styleCode="Ital ics"> (0-0.1 KCUMM)</content > UNK < 1 <content Saint styleCode="Bold Jil ">Immature Medical Granulocyte Center Ratio </content>0.7 %<content styleCode="Ital ics"> (< 1 %)</content> ID Date Data Source GFR(Creatinine).[id number] 12/15/2019 06:55:00 AM EDT [facility] 0-0400 Name Value Range Interpretation Code Description Data Kamala rce(s) Supporting Document(s ) UNK > 60 <content [facility] styleCode="Bold"> Medical Cent er EGFR </content>100 GFR<content styleCode="Italic s"> (> 60 GFR)</content> ID Date Data Source Coagulation 12/15/2019 06:55:00 AM [facility] ical Center Rout.[id number] EDT Name Value Range Interpretation Description Data Sup porting Code Source(s) Document(s ) UNK 9.0-13.0 <content [facility] styleCode="Bold" Jil >Protime Medical </content>11.9 Center SEC<content styleCode="Itali cs"> (9.0-13.0 SEC)</content> aPTT in 25.1-36. <content [facility] Platelet poor 5 styleCode="Bold" Jil plasma by >Partial Medical Coagulation Thromboplastin Center assay Time </content>29.3 SEC<content styleCode="Itali cs"> (25.1-36.5 SEC)</content> INR in 0.80-1.2 <content [facility] Platelet poor 0 styleCode="Bold" Jil plasma by >INR Medical Coagulation </content>1.07 Center assay #<content styleCode="Itali cs"> (0.80-1.20 #)</content> ID Date Data Source CHMROUTINECCDA.[id number] 12/15/2019 06:55:00 AM EDT [facility] -0400 Name Value Range Interpretation Description Data Sup porting Code Source(s) Document(s ) Magnesium 1.6-2.3 <content [facility] [Mass/volume] styleCode="Freddy Jil in Serum or d">Magnesium Medical Plasma </content>1.6 Center MG/DL<content styleCode="Lia lics"> (1.6-2.3 MG/DL)</conten t> UNK 2.3-3.5 <content [facility] styleCode="Freddy Jil d">Globulin Medical </content>2.6 Center G/DL<content styleCode="Lia lics"> (2.3-3.5 G/DL)</content > Phosphate 2.5-4.5 <content [facility] [Mass/volume] styleCode="Freddy Jil in Serum or d">Phosphorus Medical Plasma </content>3.5 Center MG/DL<content styleCode="Lia lics"> (2.5-4.5 MG/DL)</conten t> UNK >= 1.0 <content [facility] styleCode="Freddy Jil d">AG Ratio Medical </content>1.1 Center <content styleCode="Lia lics"> (>= 1.0 )</content> Protein 6.3-8.2 Below low normal <content [facility] [Mass/volume] styleCode="Freddy Jil in Serum or d">Total Medical Plasma Protein Center </content>5.4 G/DL L<content styleCode="Lia lics"> (6.3-8.2 G/DL)</content > ID Date Data Source CardiacMarkers.[id number] 12/15/2019 06:55:00 AM EDT [facility] -0400 Name Value Range Interpretation Description Data Sup porting Code Source(s) Document(s ) Creatine 55-170 <content [facility] kinase styleCode="Bold Medical [Enzymatic ">CK Center activity/vol </content>68 ume] in IU/L<content Serum or styleCode="Ital Plasma ics"> (55-170 IU/L)</content> ID Date Data Source BMP.[id number] 12/15/2019 06:55:00 AM EDT [place] [facility] Name Value Range Interpretation Description Data Sup porting Code Source(s) Document(s ) Sodium 137-145 Below low <content [facility] [Moles/volume] in normal styleCode="Bold"> Jose Alejandro phs Serum or Plasma Sodium Medical </content>135 Center MEQ/L L<content styleCode="Italic s"> (137-145 MEQ/L)</content> Potassium 3.5-5.3 <content [facility] [Moles/volume] in styleCode="Bold"> Jose Alejandro phs Serum or Plasma Potassium Medical </content>4.0 Center MEQ/L<content styleCode="Italic s"> (3.5-5.3 MEQ/L)</content> Chloride 98-107 <content [facility] [Moles/volume] in styleCode="Bold"> Jose Alejandro phs Serum or Plasma Chloride Medical </content>103 Center MEQ/L<content styleCode="Italic s"> (98-107 MEQ/L)</content> UNK 9-20 Below low <content [facility] normal styleCode="Bold"> Jil BUN </content>6 Medical MG/DL L<content Center styleCode="Italic s"> (9-20 MG/DL)</content> Carbon dioxide, 22-30 <content [facility] total styleCode="Bold"> Jil [Moles/volume] in Carbon Dioxide Medical Serum or Plasma </content>25 Center MEQ/L<content styleCode="Italic s"> (22-30 MEQ/L)</content> Creatinine 0.5-1.3 <content [facility] [Mass/volume] in styleCode="Bold"> [place] hs Serum or Plasma Creatinine Medical </content>1.0 Center MG/DL<content styleCode="Italic s"> (0.5-1.3 MG/DL)</content> Glucose 74-106 Above high <content [facility] [Mass/volume] in normal styleCode="Bold"> [place] [facility] Serum or Plasma Glucose Medical </content>214 Center MG/DL H<content styleCode="Italic s"> (74-106 MG/DL)</content> Aspartate 17-59 <content [facility] aminotransferase styleCode="Bold"> [place] [facility] [Enzymatic Aspartate Medical activity/volume] Aminotransferase Center in Serum or Plasma (AST) </content>29 IU/L<content styleCode="Italic s"> (17-59 IU/L)</content> UNK > 60 <content [facility] styleCode="Bold"> Jil EGFR Medical </content>100 Center GFR<content styleCode="Italic s"> (> 60 GFR)</content> Calcium 8.4-10. <content [facility] [Mass/volume] in 2 styleCode="Bold"> [place] [facility] Serum or Plasma Calcium Medical </content>9.1 Center MG/DL<content styleCode="Italic s"> (8.4-10.2 MG/DL)</content> Alanine 7-50 <content [facility] aminotransferase styleCode="Bold"> [place] [facility] [Enzymatic Alanine Medical activity/volume] Aminotransferase Center in Serum or Plasma (ALT) </content>25 IU/L<content styleCode="Italic s"> (7-50 IU/L)</content> Albumin 3.5-5.0 Below low <content [facility] [Mass/volume] in normal styleCode="Bold"> [place] [facility] Serum or Plasma Albumin Medical </content>2.8 Center G/DL L<content styleCode="Italic s"> (3.5-5.0 G/DL)</content> Alkaline 38-126 <content [facility] phosphatase styleCode="Bold"> [facility] [Enzymatic Alkaline Medical activity/volume] Phosphatase (ALP) Cente r in Serum or Plasma </content>91 IU/L<content styleCode="Italic s"> (38-126 IU/L)</content> Bilirubin.total 0.2-1.3 <content [facility] [Mass/volume] in styleCode="Bold"> [place] [facility] Serum or Plasma Bilirubin Total Medical </content>0.3 Center MG/DL<content styleCode="Italic s"> (0.2-1.3 MG/DL)</content> ID Date Data Source Liver 12/14/2019 06:14:00 AM EDT [facility] Profile.[id number] Name Value Range Interpretation Description Data Sup porting Code Source(s) Document(s ) Aspartate 17-59 <content [facility] aminotransferase styleCode="Bold"> [place] [facility] [Enzymatic Aspartate Medical activity/volume] Aminotransferase Center in Serum or Plasma (AST) </content>24 IU/L<content styleCode="Italic s"> (17-59 IU/L)</content> Alanine 7-50 <content [facility] aminotransferase styleCode="Bold"> [place] [facility] [Enzymatic Alanine Medical activity/volume] Aminotransferase Center in Serum or Plasma (ALT) </content>20 IU/L<content styleCode="Italic s"> (7-50 IU/L)</content> Bilirubin.total 0.2-1.3 <content [facility] [Mass/volume] in styleCode="Bold"> [place] [facility] Serum or Plasma Bilirubin Total Medical </content>0.4 Center MG/DL<content styleCode="Italic s"> (0.2-1.3 MG/DL)</content> Alkaline 38-126 <content [facility] phosphatase styleCode="Bold"> [facility] [Enzymatic Alkaline Medical activity/volume] Phosphatase (ALP) Cente r in Serum or Plasma </content>106 IU/L<content styleCode="Italic s"> (38-126 IU/L)</content> Albumin 3.5-5.0 Below low <content [facility] [Mass/volume] in normal styleCode="Bold"> [place] [facility] Serum or Plasma Albumin Medical </content>3.0 Center G/DL L<content styleCode="Italic s"> (3.5-5.0 G/DL)</content> ID Date Data Source LIPID.[id number] 12/14/2019 06:14:00 AM EDT [facility] Name Value Range Interpretation Description Data Sup porting Code Source(s) Document(s ) Triglyceride < 150 <content [facility] [Mass/volume] in styleCode="Freddy Jil Serum or Plasma d">Triglycerid Medical Center </content>126 MG/DL<content styleCode="Lia lics"> (< 150 MG/DL)</conten t> Cholesterol -<200 <content [facility] [Mass/volume] in styleCode="Freddy Jil Serum or Plasma d">Cholesterol Medical </content>116 Center MG/DL<content styleCode="Lia lics"> (-<200 MG/DL)</conten t> UNK > 60 Below low normal <content Saint styleCode="[facility] d">HDL- Medical Cholesterol Center </content>36 MG/DL L<content styleCode="Lia lics"> (> 60 MG/DL)</conten t> UNK < 100 <content [facility] styleCode="Freddy Jil d">LDL-Cholest Medical rabia Center </content>55 MG/DL<content styleCode="Lia lics"> (< 100 MG/DL)</conten t> ID Date Data Source HematologyRou.[id number] 12/14/2019 06:14:00 AM EDT [facility] 0400 Name Value Range Interpretation Description Data Sup porting Code Source(s) Document(s ) Leukocytes 4.4-11.0 <content [facility] [#/volume] in styleCode="Bold Jil Blood by ">White Blood Medical Automated count Cell Count Center </content>5.74 KCUMM<content styleCode="Ital ics"> (4.4-11.0 KCUMM)</content > Erythrocytes 4.4-5.9 Below low normal <content [facility] [#/volume] in styleCode="Bold Jil Blood by ">Red Blood Medical Automated count Cell Count Center </content>3.94 MCUMM L<content styleCode="Ital ics"> (4.4-5.9 MCUMM)</content > Hematocrit 41.0-53. Below low normal <content [facility] [Volume 0 styleCode="Bold Jil Fraction] of ">Hematocrit Medical Blood by </content>32.9 Center Automated count % L<content styleCode="Ital ics"> (41.0-53.0 %)</content> Hemoglobin 13.5-17. Below low normal <content [facility] [Mass/volume] in 5 styleCode="Bold Jil Blood ">Hemoglobin Medical </content>11.8 Center G/DL L<content styleCode="Ital ics"> (13.5-17.5 G/DL)</content> Erythrocyte mean 32.0-37. <content [facility] corpuscular 0 styleCode="Bold Jil hemoglobin ">Mean Corpus. Medical concentration Hgb Center [Mass/volume] by Concentration Automated count (MCHC) </content>35.9 G/DL<content styleCode="Ital ics"> (32.0-37.0 G/DL)</content> Erythrocyte mean 26.0-34. <content [facility] corpuscular 0 styleCode="Bold Jil hemoglobin ">Mean Medical [Entitic mass] Corposcular Center by Automated Hemoglobin count </content>29.9 PG<content styleCode="Ital ics"> (26.0-34.0 PG)</content> Erythrocyte mean 80.0-100 <content [facility] corpuscular .0 styleCode="Bold Jil volume [Entitic ">Mean Medical volume] by Corpuscular Center Automated count Volume </content>83.5 FL<content styleCode="Ital ics"> (80.0-100.0 FL)</content> Erythrocyte 11.5-14. <content [facility] distribution 5 styleCode="Bold Jil width [Ratio] by ">Red Cell Medical Automated count Distribution Center Width </content>13.0 %<content styleCode="Ital ics"> (11.5-14.5 %)</content> Platelets 130-400 <content [facility] [#/volume] in styleCode="Bold Jil Blood by ">Platelet Medical Automated count Count Center </content>233 KCUMM<content styleCode="Ital ics"> (130-400 KCUMM)</content > Platelet mean 8.0-11.0 <content [facility] volume [Entitic styleCode="Bold Jil volume] in Blood ">Mean Platelet Medical by Automated Volume Center count </content>10.4 FL<content styleCode="Ital ics"> (8.0-11.0 FL)</content> UNK 1.6-7.3 <content [facility] styleCode="Bold Jil ">Neutrophil Medical Count Center </content>3.16 KCUMM<content styleCode="Ital ics"> (1.6-7.3 KCUMM)</content > Lymphocytes 24.0-44. <content [facility] [#/volume] in 0 styleCode="Bold Jil Blood by ">Lymphocyte Medical Automated count </content>29.1 Center %<content styleCode="Ital ics"> (24.0-44.0 %)</content> Neutrophils 36-66 <content [facility] [#/volume] in styleCode="Bold Jil Blood by ">Neutrophil Medical Automated count </content>55.0 Center %<content styleCode="Ital ics"> (36-66 %)</content> UNK 0.2-0.9 <content [facility] styleCode="Bold Jil ">Monocyte Medical Count Center </content>0.67 KCUMM<content styleCode="Ital ics"> (0.2-0.9 KCUMM)</content > UNK 1.0-4.8 <content [facility] styleCode="Bold Jil ">Lymphocyte Medical Count Center </content>1.67 KCUMM<content styleCode="Ital ics"> (1.0-4.8 KCUMM)</content > Monocytes 3.0-10.0 Above high <content [facility] [#/volume] in normal styleCode="Bold Jil Blood by ">Monocyte Medical Automated count </content>11.7 Center % H<content styleCode="Ital ics"> (3.0-10.0 %)</content> Basophils 0.0-1.0 <content [facility] [#/volume] in styleCode="Bold Jil Blood by ">Basophil Medical Automated count </content>0.5 Center %<content styleCode="Ital ics"> (0.0-1.0 %)</content> Eosinophils 0-5.0 <content [facility] [#/volume] in styleCode="Bold Jil Blood by ">Eosinophil Medical Automated count </content>3.0 Center %<content styleCode="Ital ics"> (0-5.0 %)</content> UNK 0.0-0.6 <content [facility] styleCode="Bold Jil ">Eosinophil Medical Count Center </content>0.17 KCUMM<content styleCode="Ital ics"> (0.0-0.6 KCUMM)</content > UNK 0.0 <content Saint styleCode="Bold Jil ">Nucleated Red Medical Blood Cell Center Count </content>0.00 KCUMM<content styleCode="Ital ics"> (0.0 KCUMM)</content > UNK 0.0-0.3 <content [facility] styleCode="Bold Jil ">Basophil Medical Count Center </content>0.03 KCUMM<content styleCode="Ital ics"> (0.0-0.3 KCUMM)</content > UNK 0 <content Saint styleCode="Bold Jil ">Nucleated Red Medical Blood Cell Center </content>0.0 /100<content styleCode="Ital ics"> (0 /100)</content> UNK < 1 <content [facility] styleCode="Bold Jil ">[facility] Granulocyte Center Ratio </content>0.7 %<content styleCode="Ital ics"> (< 1 %)</content> UNK 0-0.1 <content [facility] styleCode="Bold Jil ">Immature Medical Granulocyte Center Count </content>0.04 KCUMM<content styleCode="Ital ics"> (0-0.1 KCUMM)</content > ID Date Data Source GFR(Creatinine).[id number] 12/14/2019 06:14:00 AM EDT [facility] 0-0400 Name Value Range Interpretation Code Description Data Kamala rce(s) Supporting Document(s ) UNK > 60 <content [facility] styleCode="Bold"> Medical Cent er EGFR </content>113 GFR<content styleCode="Italic s"> (> 60 GFR)</content> ID Date Data Source Coagulation 12/14/2019 06:14:00 AM [facility] Rout.[id number] EDT Name Value Range Interpretation Description Data Sup porting Code Source(s) Document(s ) UNK 9.0-13.0 <content [facility] styleCode="Bold" Jil >Protime Medical </content>11.3 Center SEC<content styleCode="Itali cs"> (9.0-13.0 SEC)</content> INR in 0.80-1.2 <content [facility] Platelet poor 0 styleCode="Bold" Jil plasma by >INR Medical Coagulation </content>1.02 Center assay #<content styleCode="Itali cs"> (0.80-1.20 #)</content> aPTT in 25.1-36. <content [facility] Platelet poor 5 styleCode="Bold" Jil plasma by >Partial Medical Coagulation Thromboplastin Center assay Time </content>29.0 SEC<content styleCode="Itali cs"> (25.1-36.5 SEC)</content> ID Date Data Source CHMROUTINECCDA.[id number] 12/14/2019 06:14:00 AM EDT [facility] -0400 Name Value Range Interpretation Description Data Sup porting Code Source(s) Document(s ) UNK >= 1.0 <content [facility] styleCode="Freddy Jil d">AG Ratio Medical </content>1.2 Center <content styleCode="Lia lics"> (>= 1.0 )</content> UNK 2.3-3.5 <content [facility] styleCode="Freddy Jil d">Globulin Medical </content>2.6 Center G/DL<content styleCode="Lia lics"> (2.3-3.5 G/DL)</content > Magnesium 1.6-2.3 <content [facility] [Mass/volume] styleCode="Freddy Jil in Serum or d">Magnesium Medical Plasma </content>1.8 Center MG/DL<content styleCode="Lia lics"> (1.6-2.3 MG/DL)</conten t> Phosphate 2.5-4.5 <content [facility] [Mass/volume] styleCode="Freddy Jil in Serum or d">Phosphorus Medical Plasma </content>3.0 Center MG/DL<content styleCode="Lia lics"> (2.5-4.5 MG/DL)</conten t> Protein 6.3-8.2 Below low normal <content [facility] [Mass/volume] styleCode="Freddy Jil in Serum or d">Total Medical Plasma Protein Center </content>5.6 G/DL L<content styleCode="Lia lics"> (6.3-8.2 G/DL)</content > ID Date Data Source CardiacMarkers.[id number] 12/14/2019 06:14:00 AM EDT [facility] -0400 Name Value Range Interpretation Description Data Sup porting Code Source(s) Document(s ) Troponin < 0.034 <content [facility] I.cardiac styleCode="Bold Jil [Mass/volume ">Troponin I Medical ] in Serum </content>< Center or Plasma 0.012 NG/ML<content styleCode="Ital ics"> (< 0.034 NG/ML)</content > ID Date Data Source BMP.[id number] 12/14/2019 06:14:00 AM EDT [facility] Name Value Range Interpretation Description Data Sup porting Code Source(s) Document(s ) Sodium 137-145 Below low <content [facility] [Moles/volume] in normal styleCode="Bold"> Jose Alejandro phs Serum or Plasma Sodium Medical </content>133 Center MEQ/L L<content styleCode="Italic s"> (137-145 MEQ/L)</content> Potassium 3.5-5.3 <content [facility] [Moles/volume] in styleCode="Bold"> Jose Alejandro phs Serum or Plasma Potassium Medical </content>3.8 Center MEQ/L<content styleCode="Italic s"> (3.5-5.3 MEQ/L)</content> Carbon dioxide, 22-30 <content [facility] total styleCode="Bold"> Jil [Moles/volume] in Carbon Dioxide Medical Serum or Plasma </content>23 Center MEQ/L<content styleCode="Italic s"> (22-30 MEQ/L)</content> Creatinine 0.5-1.3 <content [facility] [Mass/volume] in styleCode="Bold"> Chilo hs Serum or Plasma Creatinine Medical </content>0.9 Center MG/DL<content styleCode="Italic s"> (0.5-1.3 MG/DL)</content> Chloride 98-107 <content [facility] [Moles/volume] in styleCode="Bold"> Jose Alejandro phs Serum or Plasma Chloride Medical </content>102 Center MEQ/L<content styleCode="Italic s"> (98-107 MEQ/L)</content> UNK 9-20 Below low <content [facility] normal styleCode="Bold"> Jil BUN </content>7 Medical MG/DL L<content Center styleCode="Italic s"> (9-20 MG/DL)</content> Glucose 74-106 Above high <content [facility] [Mass/volume] in normal styleCode="Bold"> Chilo hs Serum or Plasma Glucose Medical </content>193 Center MG/DL H<content styleCode="Italic s"> (74-106 MG/DL)</content> Calcium 8.4-10. <content [facility] [Mass/volume] in 2 styleCode="Bold"> Chilo hs Serum or Plasma Calcium Medical </content>9.0 Center MG/DL<content styleCode="Italic s"> (8.4-10.2 MG/DL)</content> UNK > 60 <content [facility] styleCode="Bold"> Jil EGFR Medical </content>113 Center GFR<content styleCode="Italic s"> (> 60 GFR)</content> Alkaline 38-126 <content [facility] phosphatase styleCode="Bold"> Jil [Enzymatic Alkaline Medical activity/volume] Phosphatase (ALP) Cente r in Serum or Plasma </content>106 IU/L<content styleCode="Italic s"> (38-126 IU/L)</content> Aspartate 17-59 <content [facility] aminotransferase styleCode="Bold"> Chilo hs [Enzymatic Aspartate Medical activity/volume] Aminotransferase Center in Serum or Plasma (AST) </content>24 IU/L<content styleCode="Italic s"> (17-59 IU/L)</content> Alanine 7-50 <content [facility] aminotransferase styleCode="Bold"> [facility]ilo hs [Enzymatic Alanine Medical activity/volume] Aminotransferase Center in Serum or Plasma (ALT) </content>20 IU/L<content styleCode="Italic s"> (7-50 IU/L)</content> Albumin 3.5-5.0 Below low <content [facility] [Mass/volume] in normal styleCode="Bold"> Chilo hs Serum or Plasma Albumin Medical </content>3.0 Center G/DL L<content styleCode="Italic s"> (3.5-5.0 G/DL)</content> Bilirubin.total 0.2-1.3 <content [facility] [Mass/volume] in styleCode="Bold"> Chilo hs Serum or Plasma Bilirubin Total Medical </content>0.4 Center MG/DL<content styleCode="Italic s"> (0.2-1.3 MG/DL)</content> ID Date Data Source Liver 12/13/2019 06:50:00 AM EDT [facility] Profile.[id number] Name Value Range Interpretation Description Data Sup porting Code Source(s) Document(s ) Aspartate 17-59 <content [facility] aminotransferase styleCode="Bold"> Chilo hs [Enzymatic Aspartate Medical activity/volume] Aminotransferase Center in Serum or Plasma (AST) </content>22 IU/L<content styleCode="Italic s"> (17-59 IU/L)</content> Alanine 7-50 <content [facility] aminotransferase styleCode="Bold"> Chilo hs [Enzymatic Alanine Medical activity/volume] Aminotransferase Center in Serum or Plasma (ALT) </content>19 IU/L<content styleCode="Italic s"> (7-50 IU/L)</content> Alkaline 38-126 <content [facility] phosphatase styleCode="Bold"> [facility] [Enzymatic Alkaline Medical activity/volume] Phosphatase (ALP) Cente r in Serum or Plasma </content>104 IU/L<content styleCode="Italic s"> (38-126 IU/L)</content> Bilirubin.total 0.2-1.3 <content [facility] [Mass/volume] in styleCode="Bold"> Chilo hs Serum or Plasma Bilirubin Total Medical </content>0.4 Center MG/DL<content styleCode="Italic s"> (0.2-1.3 MG/DL)</content> Albumin 3.5-5.0 Below low <content [facility] [Mass/volume] in normal styleCode="Bold"> Chilo hs Serum or Plasma Albumin Medical </content>2.8 Center G/DL L<content styleCode="Italic s"> (3.5-5.0 G/DL)</content> ID Date Data Source HematologyRou.[id number] 12/13/2019 06:50:00 AM EDT [facility] 0400 Name Value Range Interpretation Description Data Sup porting Code Source(s) Document(s ) Leukocytes 4.4-11.0 <content [facility] [#/volume] in styleCode="Bold Jil Blood by ">White Blood Medical Automated count Cell Count Center </content>6.23 KCUMM<content styleCode="Ital ics"> (4.4-11.0 KCUMM)</content > Erythrocytes 4.4-5.9 Below low normal <content [facility] [#/volume] in styleCode="Bold Jil Blood by ">Red Blood Medical Automated count Cell Count Center </content>3.61 MCUMM L<content styleCode="Ital ics"> (4.4-5.9 MCUMM)</content > Hemoglobin 13.5-17. Below low normal <content [facility] [Mass/volume] in 5 styleCode="Bold Jil Blood ">Hemoglobin Medical </content>10.8 Center G/DL L<content styleCode="Ital ics"> (13.5-17.5 G/DL)</content> Hematocrit 41.0-53. Below low normal <content [facility] [Volume 0 styleCode="Bold [facility] Fraction] of ">Hematocrit Medical Blood by </content>30.1 Center Automated count % L<content styleCode="Ital ics"> (41.0-53.0 %)</content> Erythrocyte mean 26.0-34. <content [facility] corpuscular 0 styleCode="Bold Jil hemoglobin ">Mean Medical [Entitic mass] Corposcular Center by Automated Hemoglobin count </content>29.9 PG<content styleCode="Ital ics"> (26.0-34.0 PG)</content> Erythrocyte mean 32.0-37. <content [facility] corpuscular 0 styleCode="Bold Jil hemoglobin ">Mean Corpus. Medical concentration Hgb Center [Mass/volume] by Concentration Automated count (MCHC) </content>35.9 G/DL<content styleCode="Ital ics"> (32.0-37.0 G/DL)</content> Erythrocyte mean 80.0-100 <content [facility] corpuscular .0 styleCode="Bold Jil volume [Entitic ">Mean Medical volume] by Corpuscular Center Automated count Volume </content>83.4 FL<content styleCode="Ital ics"> (80.0-100.0 FL)</content> Erythrocyte 11.5-14. <content [facility] distribution 5 styleCode="Bold Jil width [Ratio] by ">Red Cell Medical Automated count Distribution Center Width </content>13.2 %<content styleCode="Ital ics"> (11.5-14.5 %)</content> Platelet mean 8.0-11.0 <content [facility] volume [Entitic styleCode="Bold Jil volume] in Blood ">Mean Platelet Medical by Automated Volume Center count </content>9.8 FL<content styleCode="Ital ics"> (8.0-11.0 FL)</content> Platelets 130-400 <content [facility] [#/volume] in styleCode="Bold Jil Blood by ">Platelet Medical Automated count Count Center </content>185 KCUMM<content styleCode="Ital ics"> (130-400 KCUMM)</content > Neutrophils 36-66 <content [facility] [#/volume] in styleCode="Bold Jil Blood by ">Neutrophil Medical Automated count </content>60.3 Center %<content styleCode="Ital ics"> (36-66 %)</content> UNK 1.6-7.3 <content [facility] styleCode="Bold Jil ">Neutrophil Medical Count Center </content>3.75 KCUMM<content styleCode="Ital ics"> (1.6-7.3 KCUMM)</content > UNK 1.0-4.8 <content [facility] styleCode="Bold Jil ">Lymphocyte Medical Count Center </content>1.62 KCUMM<content styleCode="Ital ics"> (1.0-4.8 KCUMM)</content > Lymphocytes 24.0-44. <content [facility] [#/volume] in 0 styleCode="Bold Jil Blood by ">Lymphocyte Medical Automated count </content>26.0 Center %<content styleCode="Ital ics"> (24.0-44.0 %)</content> Monocytes 3.0-10.0 Above high <content [facility] [#/volume] in normal styleCode="Bold Jil Blood by ">Monocyte Medical Automated count </content>10.4 Center % H<content styleCode="Ital ics"> (3.0-10.0 %)</content> UNK 0.0-0.6 <content [facility] styleCode="Bold Jil ">Eosinophil Medical Count Center </content>0.17 KCUMM<content styleCode="Ital ics"> (0.0-0.6 KCUMM)</content > Eosinophils 0-5.0 <content [facility] [#/volume] in styleCode="Bold Jil Blood by ">Eosinophil Medical Automated count </content>2.7 Center %<content styleCode="Ital ics"> (0-5.0 %)</content> UNK 0.2-0.9 <content [facility] styleCode="Bold Jil ">Monocyte Medical Count Center </content>0.65 KCUMM<content styleCode="Ital ics"> (0.2-0.9 KCUMM)</content > UNK 0.0-0.3 <content [facility] styleCode="Bold Jil ">Basophil Medical Count Center </content>0.02 KCUMM<content styleCode="Ital ics"> (0.0-0.3 KCUMM)</content > Basophils 0.0-1.0 <content [facility] [#/volume] in styleCode="Bold Jil Blood by ">Basophil Medical Automated count </content>0.3 Center %<content styleCode="Ital ics"> (0.0-1.0 %)</content> UNK 0 <content [facility] styleCode="Bold Jil ">Nucleated Red Medical Blood Cell Center </content>0.0 /100<content styleCode="Ital ics"> (0 /100)</content> UNK 0-0.1 <content [facility] styleCode="Bold Jil ">Immature Medical Granulocyte Center Count </content>0.02 KCUMM<content styleCode="Ital ics"> (0-0.1 KCUMM)</content > UNK < 1 <content [facility] styleCode="Bold Jil ">Immature Medical Granulocyte Center Ratio </content>0.3 %<content styleCode="Ital ics"> (< 1 %)</content> UNK 0.0 <content [facility] styleCode="Bold Jil ">Nucleated Red Medical Blood Cell Center Count </content>0.00 KCUMM<content styleCode="Ital ics"> (0.0 KCUMM)</content > ID Date Data Source GFR(Creatinine).[id number] 12/13/2019 06:50:00 AM EDT [facility] 0-0400 Name Value Range Interpretation Code Description Data Kamala rce(s) Supporting Document(s ) UNK > 60 <content [facility] styleCode="Bold"> Medical Cent er EGFR </content>130 GFR<content styleCode="Italic s"> (> 60 GFR)</content> ID Date Data Source Coagulation 12/13/2019 06:50:00 AM [facility] ical Center Rout.[id number] EDT Name Value Range Interpretation Description Data Sup porting Code Source(s) Document(s ) UNK 9.0-13.0 <content [facility] styleCode="Bold" Jil >Protime Medical </content>11.1 Center SEC<content styleCode="Itali cs"> (9.0-13.0 SEC)</content> aPTT in 25.1-36. <content [facility] Platelet poor 5 styleCode="Bold" Jil plasma by >Partial Medical Coagulation Thromboplastin Center assay Time </content>26.0 SEC<content styleCode="Itali cs"> (25.1-36.5 SEC)</content> INR in 0.80-1.2 <content [facility] Platelet poor 0 styleCode="Bold" Jil plasma by >INR Medical Coagulation </content>1.00 Center assay #<content styleCode="Itali cs"> (0.80-1.20 #)</content> ID Date Data Source CHMROUTINECCDA.[id number] 12/13/2019 06:50:00 AM EDT [facility] -0400 Name Value Range Interpretation Description Data Sup porting Code Source(s) Document(s ) UNK 2.3-3.5 <content [facility] styleCode="Freddy Jil d">Globulin Medical </content>2.6 Center G/DL<content styleCode="Lia lics"> (2.3-3.5 G/DL)</content > UNK >= 1.0 <content [facility] styleCode="Freddy Jil d">AG Ratio Medical </content>1.1 Center <content styleCode="Lia lics"> (>= 1.0 )</content> Magnesium 1.6-2.3 <content [facility] [Mass/volume] styleCode="Freddy Jil in Serum or d">Magnesium Medical Plasma </content>1.9 Center MG/DL<content styleCode="Lia lics"> (1.6-2.3 MG/DL)</conten t> Phosphate 2.5-4.5 Below low normal <content [facility] [Mass/volume] styleCode="Freddy Jil in Serum or d">Phosphorus Medical Plasma </content>2.2 Center MG/DL L<content styleCode="Lia lics"> (2.5-4.5 MG/DL)</conten t> Protein 6.3-8.2 Below low normal <content [facility] [Mass/volume] styleCode="Freddy Jil in Serum or d">Total Medical Plasma Protein Center </content>5.4 G/DL L<content styleCode="Lia lics"> (6.3-8.2 G/DL)</content > ID Date Data Source CardiacMarkers.[id number] 12/13/2019 06:50:00 AM EDT [facility] -0400 Name Value Range Interpretation Description Data Sup porting Code Source(s) Document(s ) Troponin < 0.034 <content [facility] I.cardiac styleCode="Bold Jil [Mass/volume ">Troponin I Medical ] in Serum </content>0.017 Center or Plasma NG/ML<content styleCode="Ital ics"> (< 0.034 NG/ML)</content > ID Date Data Source BMP.[id number] 12/13/2019 06:50:00 AM EDT [facility] Name Value Range Interpretation Description Data Sup porting Code Source(s) Document(s ) Sodium 137-145 Below low <content [facility] [Moles/volume] in normal styleCode="Bold"> Jose Alejandro phs Serum or Plasma Sodium Medical </content>133 Center MEQ/L L<content styleCode="Italic s"> (137-145 MEQ/L)</content> Potassium 3.5-5.3 <content [facility] [Moles/volume] in styleCode="Bold"> Jose Alejandro phs Serum or Plasma Potassium Medical </content>3.6 Center MEQ/L<content styleCode="Italic s"> (3.5-5.3 MEQ/L)</content> Chloride 98-107 <content [facility] [Moles/volume] in styleCode="Bold"> Jose Alejandro phs Serum or Plasma Chloride Medical </content>104 Center MEQ/L<content styleCode="Italic s"> (98-107 MEQ/L)</content> Glucose 74-106 Above high <content [facility] [Mass/volume] in normal styleCode="Bold"> Chilo hs Serum or Plasma Glucose Medical </content>199 Center MG/DL H<content styleCode="Italic s"> (74-106 MG/DL)</content> Carbon dioxide, 22-30 <content [facility] total styleCode="Bold"> Jil [Moles/volume] in Carbon Dioxide Medical Serum or Plasma </content>22 Center MEQ/L<content styleCode="Italic s"> (22-30 MEQ/L)</content> UNK 9-20 Below low <content [facility] normal styleCode="Bold"> Jil BUN </content>7 Medical MG/DL L<content Center styleCode="Italic s"> (9-20 MG/DL)</content> Creatinine 0.5-1.3 <content [facility] [Mass/volume] in styleCode="Bold"> Chilo hs Serum or Plasma Creatinine Medical </content>0.8 Center MG/DL<content styleCode="Italic s"> (0.5-1.3 MG/DL)</content> UNK > 60 <content [facility] styleCode="Bold"> Jil EGFR Medical </content>130 Center GFR<content styleCode="Italic s"> (> 60 GFR)</content> Aspartate 17-59 <content [facility] aminotransferase styleCode="Bold"> Chilo hs [Enzymatic Aspartate Medical activity/volume] Aminotransferase Center in Serum or Plasma (AST) </content>22 IU/L<content styleCode="Italic s"> (17-59 IU/L)</content> Calcium 8.4-10. <content [facility] [Mass/volume] in 2 styleCode="Bold"> Chilo hs Serum or Plasma Calcium Medical </content>8.7 Center MG/DL<content styleCode="Italic s"> (8.4-10.2 MG/DL)</content> Albumin 3.5-5.0 Below low <content [facility] [Mass/volume] in normal styleCode="Bold"> Chilo hs Serum or Plasma Albumin Medical </content>2.8 Center G/DL L<content styleCode="Italic s"> (3.5-5.0 G/DL)</content> Alkaline 38-126 <content [facility] phosphatase styleCode="Bold"> Jil [Enzymatic Alkaline Medical activity/volume] Phosphatase (ALP) Cente r in Serum or Plasma </content>104 IU/L<content styleCode="Italic s"> (38-126 IU/L)</content> Alanine 7-50 <content [facility] aminotransferase styleCode="Bold"> [place]ilo hs [Enzymatic Alanine Medical activity/volume] Aminotransferase Center in Serum or Plasma (ALT) </content>19 IU/L<content styleCode="Italic s"> (7-50 IU/L)</content> Bilirubin.total 0.2-1.3 <content [facility] [Mass/volume] in styleCode="Bold"> Chilo hs Serum or Plasma Bilirubin Total Medical </content>0.4 Center MG/DL<content styleCode="Italic s"> (0.2-1.3 MG/DL)</content> ID Date Data Source CardiacMarkers.[id number] 12/12/2019 01:50:00 PM EDT [facility] -0400 Name Value Range Interpretation Description Data Sup porting Code Source(s) Document(s ) Troponin < 0.034 <content [facility] I.cardiac styleCode="Bold Jil [Mass/volume ">Troponin I Medical ] in Serum </content>0.030 Center or Plasma NG/ML<content styleCode="Ital ics"> (< 0.034 NG/ML)</content > ID Date Data Source Liver 12/12/2019 06:25:00 AM EDT [facility] Profile.[id number] Name Value Range Interpretation Description Data Sup porting Code Source(s) Document(s ) Aspartate 17-59 <content [facility] aminotransferase styleCode="Bold"> Chilo hs [Enzymatic Aspartate Medical activity/volume] Aminotransferase Center in Serum or Plasma (AST) </content>28 IU/L<content styleCode="Italic s"> (17-59 IU/L)</content> Alanine 7-50 <content [facility] aminotransferase styleCode="Bold"> [place] hs [Enzymatic Alanine Medical activity/volume] Aminotransferase Center in Serum or Plasma (ALT) </content>21 IU/L<content styleCode="Italic s"> (7-50 IU/L)</content> Bilirubin.total 0.2-1.3 <content [facility] [Mass/volume] in styleCode="Bold"> Chilo hs Serum or Plasma Bilirubin Total Medical </content>0.6 Center MG/DL<content styleCode="Italic s"> (0.2-1.3 MG/DL)</content> Alkaline 38-126 <content [facility] phosphatase styleCode="Bold"> Jil [Enzymatic Alkaline Medical activity/volume] Phosphatase (ALP) Cente r in Serum or Plasma </content>116 IU/L<content styleCode="Italic s"> (38-126 IU/L)</content> Albumin 3.5-5.0 Below low <content [facility] [Mass/volume] in normal styleCode="Bold"> Chilo hs Serum or Plasma Albumin Medical </content>3.0 Center G/DL L<content styleCode="Italic s"> (3.5-5.0 G/DL)</content> ID Date Data Source HematologyRou.[id number] 12/12/2019 06:25:00 AM EDT [facility] 0400 Name Value Range Interpretation Description Data Sup porting Code Source(s) Document(s ) Leukocytes 4.4-11.0 <content [facility] [#/volume] in styleCode="Bold Jil Blood by ">White Blood Medical Automated count Cell Count Center </content>8.36 KCUMM<content styleCode="Ital ics"> (4.4-11.0 KCUMM)</content > Hemoglobin 13.5-17. Below low normal <content [facility] [Mass/volume] in 5 styleCode="Bold Jil Blood ">Hemoglobin Medical </content>10.9 Center G/DL L<content styleCode="Ital ics"> (13.5-17.5 G/DL)</content> Erythrocytes 4.4-5.9 Below low normal <content [facility] [#/volume] in styleCode="Bold Jil Blood by ">Red Blood Medical Automated count Cell Count Center </content>3.58 MCUMM L<content styleCode="Ital ics"> (4.4-5.9 MCUMM)</content > Erythrocyte mean 80.0-100 <content [facility] corpuscular .0 styleCode="Bold Jil volume [Entitic ">Mean Medical volume] by Corpuscular Center Automated count Volume </content>83.5 FL<content styleCode="Ital ics"> (80.0-100.0 FL)</content> Hematocrit 41.0-53. Below low normal <content [facility] [Volume 0 styleCode="Bold Jil Fraction] of ">Hematocrit Medical Blood by </content>29.9 Center Automated count % L<content styleCode="Ital ics"> (41.0-53.0 %)</content> Erythrocyte mean 26.0-34. <content [facility] corpuscular 0 styleCode="Bold Jil hemoglobin ">Mean Medical [Entitic mass] Corposcular Center by Automated Hemoglobin count </content>30.4 PG<content styleCode="Ital ics"> (26.0-34.0 PG)</content> Erythrocyte 11.5-14. <content [facility] distribution 5 styleCode="Bold Jil width [Ratio] by ">Red Cell Medical Automated count Distribution Center Width </content>13.4 %<content styleCode="Ital ics"> (11.5-14.5 %)</content> Erythrocyte mean 32.0-37. <content [facility] corpuscular 0 styleCode="Bold Jil hemoglobin ">Mean Corpus. Medical concentration Hgb Center [Mass/volume] by Concentration Automated count (MCHC) </content>36.5 G/DL<content styleCode="Ital ics"> (32.0-37.0 G/DL)</content> Platelets 130-400 <content [facility] [#/volume] in styleCode="Bold Jil Blood by ">Platelet Medical Automated count Count Center </content>190 KCUMM<content styleCode="Ital ics"> (130-400 KCUMM)</content > Neutrophils 36-66 Above high <content [facility] [#/volume] in normal styleCode="Bold Jil Blood by ">Neutrophil Medical Automated count </content>68.2 Center % H<content styleCode="Ital ics"> (36-66 %)</content> Platelet mean 8.0-11.0 <content [facility] volume [Entitic styleCode="Bold Jil volume] in Blood ">Mean Platelet Medical by Automated Volume Center count </content>10.9 FL<content styleCode="Ital ics"> (8.0-11.0 FL)</content> UNK 1.0-4.8 <content [facility] styleCode="Bold Jil ">Lymphocyte Medical Count Center </content>1.73 KCUMM<content styleCode="Ital ics"> (1.0-4.8 KCUMM)</content > Lymphocytes 24.0-44. Below low normal <content [facility] [#/volume] in 0 styleCode="Bold Jil Blood by ">Lymphocyte Medical Automated count </content>20.7 Center % L<content styleCode="Ital ics"> (24.0-44.0 %)</content> UNK 1.6-7.3 <content [facility] styleCode="Bold Jil ">Neutrophil Medical Count Center </content>5.69 KCUMM<content styleCode="Ital ics"> (1.6-7.3 KCUMM)</content > Monocytes 3.0-10.0 <content [facility] [#/volume] in styleCode="Bold Jil Blood by ">Monocyte Medical Automated count </content>9.4 Center %<content styleCode="Ital ics"> (3.0-10.0 %)</content> Eosinophils 0-5.0 <content [facility] [#/volume] in styleCode="Bold Jil Blood by ">Eosinophil Medical Automated count </content>1.3 Center %<content styleCode="Ital ics"> (0-5.0 %)</content> UNK 0.2-0.9 <content [facility] styleCode="Bold Jil ">Monocyte Medical Count Center </content>0.79 KCUMM<content styleCode="Ital ics"> (0.2-0.9 KCUMM)</content > Basophils 0.0-1.0 <content [facility] [#/volume] in styleCode="Bold Jil Blood by ">Basophil Medical Automated count </content>0.2 Center %<content styleCode="Ital ics"> (0.0-1.0 %)</content> UNK 0.0-0.6 <content [facility] styleCode="Bold Jil ">Eosinophil Medical Count Center </content>0.11 KCUMM<content styleCode="Ital ics"> (0.0-0.6 KCUMM)</content > UNK 0 <content [facility] styleCode="Bold Jil ">Nucleated Red Medical Blood Cell Center </content>0.0 /100<content styleCode="Ital ics"> (0 /100)</content> UNK 0.0 <content [facility] styleCode="Bold Jil ">Nucleated Red Medical Blood Cell Center Count </content>0.00 KCUMM<content styleCode="Ital ics"> (0.0 KCUMM)</content > UNK 0.0-0.3 <content [facility] styleCode="Bold Jil ">[facility] </content>0.02 KCUMM<content styleCode="Ital ics"> (0.0-0.3 KCUMM)</content > UNK 0-0.1 <content [facility] styleCode="Bold Jil ">Immature Medical Granulocyte Center Count </content>0.02 KCUMM<content styleCode="Ital ics"> (0-0.1 KCUMM)</content > UNK < 1 <content [facility] styleCode="Bold Jli ">Immature Medical Granulocyte Center Ratio </content>0.2 %<content styleCode="Ital ics"> (< 1 %)</content> ID Date Data Source GFR(Creatinine).[id number] 12/12/2019 06:25:00 AM EDT [facility] 0-0400 Name Value Range Interpretation Code Description Data Kamala rce(s) Supporting Document(s ) UNK > 60 <content [facility] styleCode="Bold"> Medical Cent er EGFR </content>130 GFR<content styleCode="Italic s"> (> 60 GFR)</content> ID Date Data Source Coagulation 12/12/2019 06:25:00 AM [facility] Rout.[id number] EDT Name Value Range Interpretation Description Data Sup porting Code Source(s) Document(s ) INR in 0.80-1.2 <content [facility] Platelet poor 0 styleCode="Bold" [facility] plasma by >INR Medical Coagulation </content>1.04 Center assay #<content styleCode="Itali cs"> (0.80-1.20 #)</content> UNK 9.0-13.0 <content [facility] styleCode="Bold" Jil >Protime Medical </content>11.5 Center SEC<content styleCode="Itali cs"> (9.0-13.0 SEC)</content> aPTT in 25.1-36. <content [facility] Platelet poor 5 styleCode="Bold" Jil plasma by >Partial Medical Coagulation Thromboplastin Center assay Time </content>26.0 SEC<content styleCode="Itali cs"> (25.1-36.5 SEC)</content> ID Date Data Source CHMROUTINECCDA.[id number] 12/12/2019 06:25:00 AM [facility] Name Value Range Interpretation Description Data Sup porting Code Source(s) Document(s ) Magnesium 1.6-2.3 <content [facility] [Mass/volume] styleCode="Freddy Chaos in Serum or d">Magnesium Medical Plasma </content>2.2 Center MG/DL<content styleCode="Lia lics"> (1.6-2.3 MG/DL)</conten t> UNK >= 1.0 <content [facility] styleCode="Freddy Jil d">AG Ratio Medical </content>1.1 Center <content styleCode="Lia lics"> (>= 1.0 )</content> UNK 2.3-3.5 <content [facility] styleCode="Freddy Jil d">Globulin Medical </content>2.7 Center G/DL<content styleCode="Lia lics"> (2.3-3.5 G/DL)</content > Protein 6.3-8.2 Below low normal <content [facility] [Mass/volume] styleCode="Freddy Chaos in Serum or d">Total Medical Plasma Protein Center </content>5.7 G/DL L<content styleCode="Lia lics"> (6.3-8.2 G/DL)</content > Phosphate 2.5-4.5 Below low normal <content [facility] [Mass/volume] styleCode="Freddy Jil in Serum or d">Phosphorus Medical Plasma </content>1.4 Center MG/DL L<content styleCode="Lia lics"> (2.5-4.5 MG/DL)</conten t> ID Date Data Source CardiacMarkers.[id number] 12/12/2019 06:25:00 AM [facility] Name Value Range Interpretation Description Data Sup porting Code Source(s) Document(s ) Troponin < 0.034 Above upper panic <content [facility] I.cardiac limits styleCode="Bold Jil [Mass/volume ">Troponin I Medical ] in Serum </content><cont Center or Plasma ent styleCode="Bold ">0.055 NG/ML HH</content><co ntent styleCode="Ital ics"> (< 0.034 NG/ML)</content > ID Date Data Source [facility].[id number] 12/12/2019 06:25:00 AM EDT [facility] Name Value Range Interpretation Description Data Sup porting Code Source(s) Document(s ) Potassium 3.5-5.3 <content [facility] [Moles/volume] in styleCode="Bold"> Jose Alej[facility] Serum or Plasma Potassium Medical </content>3.8 Center MEQ/L<content styleCode="Italic s"> (3.5-5.3 MEQ/L)</content> Sodium 137-145 Below low <content [facility] [Moles/volume] in normal styleCode="Bold"> Jose Alejandro phs Serum or Plasma Sodium Medical </content>135 Center MEQ/L L<content styleCode="Italic s"> (137-145 MEQ/L)</content> Chloride 98-107 <content [facility] [Moles/volume] in styleCode="Bold"> Jose Alej[facility] Serum or Plasma Chloride Medical </content>104 Center MEQ/L<content styleCode="Italic s"> (98-107 MEQ/L)</content> UNK 9-20 <content [facility] styleCode="Bold"> Jil BUN </content>12 Medical MG/DL<content Center styleCode="Italic s"> (9-20 MG/DL)</content> Carbon dioxide, 22-30 <content [facility] total styleCode="Bold"> Jil [Moles/volume] in Carbon Dioxide Medical Serum or Plasma </content>22 Center MEQ/L<content styleCode="Italic s"> (22-30 MEQ/L)</content> Glucose 74-106 Above high <content [facility] [Mass/volume] in normal styleCode="Bold"> Chilo hs Serum or Plasma Glucose Medical </content>202 Center MG/DL H<content styleCode="Italic s"> (74-106 MG/DL)</content> Creatinine 0.5-1.3 <content [facility] [Mass/volume] in styleCode="Bold"> Chilo hs Serum or Plasma Creatinine Medical </content>0.8 Center MG/DL<content styleCode="Italic s"> (0.5-1.3 MG/DL)</content> Calcium 8.4-10. <content [facility] [Mass/volume] in 2 styleCode="Bold"> Chilo hs Serum or Plasma Calcium Medical </content>8.4 Center MG/DL<content styleCode="Italic s"> (8.4-10.2 MG/DL)</content> UNK > 60 <content [facility] styleCode="Bold"> Jil EGFR Medical </content>130 Center GFR<content styleCode="Italic s"> (> 60 GFR)</content> Aspartate 17-59 <content [facility] aminotransferase styleCode="Bold"> Chilo hs [Enzymatic Aspartate Medical activity/volume] Aminotransferase Center in Serum or Plasma (AST) </content>28 IU/L<content styleCode="Italic s"> (17-59 IU/L)</content> Alkaline 38-126 <content [facility] phosphatase styleCode="Bold"> Jil [Enzymatic Alkaline Medical activity/volume] Phosphatase (ALP) Cente r in Serum or Plasma </content>116 IU/L<content styleCode="Italic s"> (38-126 IU/L)</content> Alanine 7-50 <content [facility] aminotransferase styleCode="Bold"> Chilo hs [Enzymatic Alanine Medical activity/volume] Aminotransferase Center in Serum or Plasma (ALT) </content>21 IU/L<content styleCode="Italic s"> (7-50 IU/L)</content> Bilirubin.total 0.2-1.3 <content [facility] [Mass/volume] in styleCode="Bold"> Chilo hs Serum or Plasma Bilirubin Total Medical </content>0.6 Center MG/DL<content styleCode="Italic s"> (0.2-1.3 MG/DL)</content> Albumin 3.5-5.0 Below low <content [facility] [Mass/volume] in normal styleCode="Bold"> Chilo hs Serum or Plasma Albumin Medical </content>3.0 Center G/DL L<content styleCode="Italic s"> (3.5-5.0 G/DL)</content> ID Date Data Source Stools.[id number] 12/12/2019 01:54:00 AM EDT [facility] Name Value Range Interpretation Code Description Data Kamala rce(s) Supporting Document(s ) UNK NEGATIVE <content [facility] styleCode="Bold" Medical Cente r >Guaiac, Occult Blood </content>POSITI VE <content styleCode="Itali cs"> (NEGATIVE )</content> ID Date Data Source GFR(Creatinine).[id number] 12/11/2019 04:25:00 PM EDT [facility] 0-0400 Name Value Range Interpretation Code Description Data Kamala rce(s) Supporting Document(s ) UNK > 60 <content [facility] styleCode="Bold"> Medical Cent er EGFR </content>90 GFR<content styleCode="Italic s"> (> 60 GFR)</content> ID Date Data Source BMP.[id number] 12/11/2019 04:25:00 PM EDT [facility] Name Value Range Interpretation Description Data Sup porting Code Source(s) Document(s ) Chloride 98-107 <content [facility] [Moles/volume] styleCode="Freddy Jil in Serum or d">Chloride Medical Plasma </content>103 Center MEQ/L<content styleCode="Lia lics"> (98-107 MEQ/L)</conten t> Potassium 3.5-5.3 <content [facility] [Moles/volume] styleCode="Freddy Jil in Serum or d">Potassium Medical Plasma </content>3.5 Center MEQ/L<content styleCode="Lia lics"> (3.5-5.3 MEQ/L)</conten t> Sodium 137-145 Below low normal <content [facility] [Moles/volume] styleCode="Freddy Jil in Serum or d">Sodium Medical Plasma </content>135 Center MEQ/L L<content styleCode="Lia lics"> (137-145 MEQ/L)</conten t> Glucose 74-106 Above high normal <content [facility] [Mass/volume] styleCode="Freddy Jil in Serum or d">Glucose Medical Plasma </content>202 Center MG/DL H<content styleCode="Lia lics"> (74-106 MG/DL)</conten t> Carbon 22-30 <content [facility] dioxide, total styleCode="Freddy Jil [Moles/volume] d">Carbon Medical in Serum or Dioxide Center Plasma </content>25 MEQ/L<content styleCode="Lia lics"> (22-30 MEQ/L)</conten t> UNK 9-20 <content [facility] styleCode="Freddy Jil d">BUN Medical </content>20 Center MG/DL<content styleCode="Lia lics"> (9-20 MG/DL)</conten t> Creatinine 0.5-1.3 <content [facility] [Mass/volume] styleCode="Freddy Jil in Serum or d">Creatinine Medical Plasma </content>1.1 Center MG/DL<content styleCode="Lia lics"> (0.5-1.3 MG/DL)</conten t> Calcium 8.4-10.2 <content [facility] [Mass/volume] styleCode="Freddy Jil in Serum or d">Calcium Medical Plasma </content>8.7 Center MG/DL<content styleCode="Lia lics"> (8.4-10.2 MG/DL)</conten t> UNK > 60 <content [facility] styleCode="Freddy Jil d">EGFR Medical </content>90 Center GFR<content styleCode="Lia lics"> (> 60 GFR)</content> ID Date Data Source CHANTALMROUTINECCDA.[id number] 12/11/2019 01:55:00 PM EDT [facility] -0400 Name Value Range Interpretation Description Data Sup porting Code Source(s) Document(s ) Lactate 0.7-2.0 <content [facility] [Mass/volum styleCode="Bold Medical e] in Serum ">Lactic Acid Center or Plasma </content>1.2 MMOLL<content styleCode="Ital ics"> (0.7-2.0 MMOLL)</content > ID Date Data Source Stools.[id number] 12/11/2019 10:25:00 AM EDT [facility] Name Value Range Interpretation Code Description Data Kamala rce(s) Supporting Document(s ) UNK <content [facility] styleCode="Bold"> Medical Cent er Guaiac, Occult Blood </content>TNP (Reference Range: not available)
ID Date Data Source Liver 12/11/2019 06:15:00 AM EDT [facility] Profile.[id number] Name Value Range Interpretation Description Data Sup porting Code Source(s) Document(s ) Aspartate 17-59 <content [facility] aminotransferase styleCode="Bold"> Chilo hs [Enzymatic Aspartate Medical activity/volume] Aminotransferase Center in Serum or Plasma (AST) </content>28 IU/L<content styleCode="Italic s"> (17-59 IU/L)</content> Alanine 7-50 <content [facility] aminotransferase styleCode="Bold"> Chilo hs [Enzymatic Alanine Medical activity/volume] Aminotransferase Center in Serum or Plasma (ALT) </content>23 IU/L<content styleCode="Italic s"> (7-50 IU/L)</content> Alkaline 38-126 Above high <content [facility] phosphatase normal styleCode="Bold"> Jil [Enzymatic Alkaline Medical activity/volume] Phosphatase (ALP) Cente r in Serum or Plasma </content>142 IU/L H<content styleCode="Italic s"> (38-126 IU/L)</content> Bilirubin.total 0.2-1.3 <content [facility] [Mass/volume] in styleCode="Bold"> Chilo hs Serum or Plasma Bilirubin Total Medical </content>0.8 Center MG/DL<content styleCode="Italic s"> (0.2-1.3 MG/DL)</content> Albumin 3.5-5.0 Below low <content [facility] [Mass/volume] in normal styleCode="Bold"> Chilo hs Serum or Plasma Albumin Medical </content>3.4 Center G/DL L<content styleCode="Italic s"> (3.5-5.0 G/DL)</content> ID Date Data Source HematologyRou.[id number] 12/11/2019 06:15:00 AM EDT [facility] 0400 Name Value Range Interpretation Description Data Sup porting Code Source(s) Document(s ) Leukocytes 4.4-11.0 Above high <content [facility] [#/volume] in normal styleCode="Bold Jil Blood by ">White Blood Medical Automated count Cell Count Center </content>12.13 KCUMM H<content styleCode="Ital ics"> (4.4-11.0 KCUMM)</content > Erythrocytes 4.4-5.9 Below low normal <content [facility] [#/volume] in styleCode="Bold Jil Blood by ">Red Blood Medical Automated count Cell Count Center </content>3.81 MCUMM L<content styleCode="Ital ics"> (4.4-5.9 MCUMM)</content > Hemoglobin 13.5-17. Below low normal <content [facility] [Mass/volume] in 5 styleCode="Bold Jil Blood ">Hemoglobin Medical </content>11.5 Center G/DL L<content styleCode="Ital ics"> (13.5-17.5 G/DL)</content> Hematocrit 41.0-53. Below low normal <content [facility] [Volume 0 styleCode="Bold Jil Fraction] of ">Hematocrit Medical Blood by </content>31.6 Center Automated count % L<content styleCode="Ital ics"> (41.0-53.0 %)</content> Erythrocyte mean 80.0-100 <content [facility] corpuscular .0 styleCode="Bold Jil volume [Entitic ">Mean Medical volume] by Corpuscular Center Automated count Volume </content>82.9 FL<content styleCode="Ital ics"> (80.0-100.0 FL)</content> Erythrocyte mean 32.0-37. <content [facility] corpuscular 0 styleCode="Bold Jil hemoglobin ">Mean Corpus. Medical concentration Hgb Center [Mass/volume] by Concentration Automated count (MCHC) </content>36.4 G/DL<content styleCode="Ital ics"> (32.0-37.0 G/DL)</content> Erythrocyte mean 26.0-34. <content [facility] corpuscular 0 styleCode="Bold Jil hemoglobin ">Mean Medical [Entitic mass] Corposcular Center by Automated Hemoglobin count </content>30.2 PG<content styleCode="Ital ics"> (26.0-34.0 PG)</content> Erythrocyte 11.5-14. <content [facility] distribution 5 styleCode="Bold Jil width [Ratio] by ">Red Cell Medical Automated count Distribution Center Width </content>13.0 %<content styleCode="Ital ics"> (11.5-14.5 %)</content> Platelets 130-400 <content [facility] [#/volume] in styleCode="Bold Jil Blood by ">Platelet Medical Automated count Count Center </content>203 KCUMM<content styleCode="Ital ics"> (130-400 KCUMM)</content > Platelet mean 8.0-11.0 <content [facility] volume [Entitic styleCode="Bold Jil volume] in Blood ">Mean Platelet Medical by Automated Volume Center count </content>10.4 FL<content styleCode="Ital ics"> (8.0-11.0 FL)</content> Lymphocytes 24.0-44. Below low normal <content [facility] [#/volume] in 0 styleCode="Bold Jil Blood by ">Lymphocyte Medical Automated count </content>9.3 % Center L<content styleCode="Ital ics"> (24.0-44.0 %)</content> Neutrophils 36-66 Above high <content [facility] [#/volume] in normal styleCode="Bold Jil Blood by ">Neutrophil Medical Automated count </content>82.7 Center % H<content styleCode="Ital ics"> (36-66 %)</content> UNK 1.6-7.3 Above high <content [facility] normal styleCode="Bold Jil ">Neutrophil Medical Count Center </content>10.03 KCUMM H<content styleCode="Ital ics"> (1.6-7.3 KCUMM)</content > UNK 1.0-4.8 <content [facility] styleCode="Bold Jil ">Lymphocyte Medical Count Center </content>1.13 KCUMM<content styleCode="Ital ics"> (1.0-4.8 KCUMM)</content > Monocytes 3.0-10.0 <content [facility] [#/volume] in styleCode="Bold Jil Blood by ">Monocyte Medical Automated count </content>7.4 Center %<content styleCode="Ital ics"> (3.0-10.0 %)</content> UNK 0.0-0.6 <content [facility] styleCode="Bold Jil ">Eosinophil Medical Count Center </content>0.01 KCUMM<content styleCode="Ital ics"> (0.0-0.6 KCUMM)</content > UNK 0.2-0.9 <content [facility] styleCode="Bold Jil ">Monocyte Medical Count Center </content>0.90 KCUMM<content styleCode="Ital ics"> (0.2-0.9 KCUMM)</content > Eosinophils 0-5.0 <content [facility] [#/volume] in styleCode="Bold Jil Blood by ">Eosinophil Medical Automated count </content>0.1 Center %<content styleCode="Ital ics"> (0-5.0 %)</content> UNK 0 <content [facility] styleCode="Bold Jil ">Nucleated Red Medical Blood Cell Center </content>0.0 /100<content styleCode="Ital ics"> (0 /100)</content> UNK 0.0-0.3 <content [facility] styleCode="Bold Jil ">Basophil Medical Count Center </content>0.02 KCUMM<content styleCode="Ital ics"> (0.0-0.3 KCUMM)</content > Basophils 0.0-1.0 <content [facility] [#/volume] in styleCode="Bold Jil Blood by ">Basophil Medical Automated count </content>0.2 Center %<content styleCode="Ital ics"> (0.0-1.0 %)</content> UNK 0.0 <content [facility] styleCode="Bold Jil ">Nucleated Red Medical Blood Cell Center Count </content>0.00 KCUMM<content styleCode="Ital ics"> (0.0 KCUMM)</content > UNK < 1 <content [facility] styleCode="Bold Jil ">Immature Medical Granulocyte Center Ratio </content>0.3 %<content styleCode="Ital ics"> (< 1 %)</content> UNK 0-0.1 <content [facility] styleCode="Bold Jil ">Immature Medical Granulocyte Center Count </content>0.04 KCUMM<content styleCode="Ital ics"> (0-0.1 KCUMM)</content > ID Date Data Source Coagulation 12/11/2019 06:15:00 AM [facility] Rout.[id number] EDT Name Value Range Interpretation Description Data Sup porting Code Source(s) Document(s ) UNK 9.0-13.0 <content [facility] styleCode="Bold" Jil >Protime Medical </content>11.2 Center SEC<content styleCode="Itali cs"> (9.0-13.0 SEC)</content> INR in 0.80-1.2 <content [facility] Platelet poor 0 styleCode="Bold" Jil plasma by >INR Medical Coagulation </content>1.01 Center assay #<content styleCode="Itali cs"> (0.80-1.20 #)</content> aPTT in 25.1-36. Below low normal <content [facility] Platelet poor 5 styleCode="Bold" Jil plasma by >Partial Medical Coagulation Thromboplastin Center assay Time </content>23.9 SEC L<content styleCode="Itali cs"> (25.1-36.5 SEC)</content> ID Date Data Source GFR(Creatinine).[id number] 12/10/2019 10:30:00 PM EDT [facility] 0-0400 Name Value Range Interpretation Code Description Data Kamala rce(s) Supporting Document(s ) UNK > 60 <content [facility] styleCode="Bold"> Medical Cent er EGFR </content>74 GFR<content styleCode="Italic s"> (> 60 GFR)</content> ID Date Data Source CardiacMarkers.[id number] 12/10/2019 10:30:00 PM EDT [facility] -0400 Name Value Range Interpretation Description Data Sup porting Code Source(s) Document(s ) Troponin < 0.034 <content [facility] I.cardiac styleCode="Bold Jil [Mass/volume ">Troponin I Medical ] in Serum </content>0.022 Center or Plasma NG/ML<content styleCode="Ital ics"> (< 0.034 NG/ML)</content > ID Date Data Source BMP.[id number] 12/10/2019 10:30:00 PM EDT [facility] Name Value Range Interpretation Description Data Sup porting Code Source(s) Document(s ) Sodium 137-145 <content [facility] [Moles/volume] styleCode="Freddy Jil in Serum or d">Sodium Medical Plasma </content>143 Center MEQ/L<content styleCode="Lia lics"> (137-145 MEQ/L)</conten t> Chloride 98-107 Above high normal <content [facility] [Moles/volume] styleCode="Freddy Jil in Serum or d">Chloride Medical Plasma </content>108 Center MEQ/L H<content styleCode="Lia lics"> (98-107 MEQ/L)</conten t> Potassium 3.5-5.3 <content [facility] [Moles/volume] styleCode="Freddy Jil in Serum or d">Potassium Medical Plasma </content>3.7 Center MEQ/L<content styleCode="Lia lics"> (3.5-5.3 MEQ/L)</conten t> Carbon 22-30 <content [facility] dioxide, total styleCode="Freddy Jil [Moles/volume] d">Carbon Medical in Serum or Dioxide Center Plasma </content>29 MEQ/L<content styleCode="Lia lics"> (22-30 MEQ/L)</conten t> UNK 9-20 Above high normal <content [facility] styleCode="Freddy Jil d">BUN Medical </content>43 Center MG/DL H<content styleCode="Lia lics"> (9-20 MG/DL)</conten t> Glucose 74-106 Above high normal <content [facility] [Mass/volume] styleCode="Freddy Jil in Serum or d">Glucose Medical Plasma </content>132 Center MG/DL H<content styleCode="Lia lics"> (74-106 MG/DL)</conten t> Creatinine 0.5-1.3 <content [facility] [Mass/volume] styleCode="Freddy Jil in Serum or d">Creatinine Medical Plasma </content>1.3 Center MG/DL<content styleCode="Lia lics"> (0.5-1.3 MG/DL)</conten t> Calcium 8.4-10.2 <content [facility] [Mass/volume] styleCode="Freddy Jil in Serum or d">Calcium Medical Plasma </content>9.0 Center MG/DL<content styleCode="Lia lics"> (8.4-10.2 MG/DL)</conten t> UNK > 60 <content [facility] styleCode="Freddy Jil d">EGFR Medical </content>74 Center GFR<content styleCode="Lia lics"> (> 60 GFR)</content> ID Date Data Source GFR(Creatinine).[id number] 12/10/2019 06:25:00 PM EDT [facility] 0-0400 Name Value Range Interpretation Code Description Data Kamala rce(s) Supporting Document(s ) UNK > 60 Below low normal <content [facility] styleCode="Bold"> Medical Cent er EGFR </content>54 GFR L<content styleCode="Italic s"> (> 60 GFR)</content> ID Date Data Source BMP.[id number] 12/10/2019 06:25:00 PM EDT [facility] Name Value Range Interpretation Description Data Sup porting Code Source(s) Document(s ) Carbon 22-30 <content [facility] dioxide, total styleCode="Freddy Jil [Moles/volume] d">Carbon Medical in Serum or Dioxide Center Plasma </content>24 MEQ/L<content styleCode="Lia lics"> (22-30 MEQ/L)</conten t> Chloride 98-107 <content [facility] [Moles/volume] styleCode="Freddy Jil in Serum or d">Chloride Medical Plasma </content>103 Center MEQ/L<content styleCode="Lia lics"> (98-107 MEQ/L)</conten t> Sodium 137-145 <content [facility] [Moles/volume] styleCode="Freddy Jil in Serum or d">Sodium Medical Plasma </content>140 Center MEQ/L<content styleCode="Lia lics"> (137-145 MEQ/L)</conten t> Potassium 3.5-5.3 <content [facility] [Moles/volume] styleCode="Freddy Jil in Serum or d">Potassium Medical Plasma </content>3.6 Center MEQ/L<content styleCode="Lia lics"> (3.5-5.3 MEQ/L)</conten t> Creatinine 0.5-1.3 Above high normal <content [facility] [Mass/volume] styleCode="Freddy Jil in Serum or d">Creatinine Medical Plasma </content>1.7 Center MG/DL H<content styleCode="Lia lics"> (0.5-1.3 MG/DL)</conten t> UNK 9-20 Above high normal <content [facility] styleCode="Freddy Chaos d">BUN Medical </content>46 Center MG/DL H<content styleCode="Lia lics"> (9-20 MG/DL)</conten t> Glucose 74-106 Above high normal <content [facility] [Mass/volume] styleCode="Freddy Jil in Serum or d">Glucose Medical Plasma </content>297 Center MG/DL H<content styleCode="Lia lics"> (74-106 MG/DL)</conten t> Calcium 8.4-10.2 <content [facility] [Mass/volume] styleCode="Freddy Jil in Serum or d">Calcium Medical Plasma </content>8.7 Center MG/DL<content styleCode="Lia lics"> (8.4-10.2 MG/DL)</conten t> UNK > 60 Below low normal <content [facility] styleCode="Freddy Chaos d">EGFR Medical </content>54 Center GFR L<content styleCode="Lia lics"> (> 60 GFR)</content> ID Date Data Source GFR(Creatinine).[id number] 12/10/2019 04:15:00 PM EDT [facility] 0-0400 Name Value Range Interpretation Code Description Data Kamala rce(s) Supporting Document(s ) UNK > 60 Below low normal <content [facility] styleCode="Bold"> Medical Cent er EGFR </content>48 GFR L<content styleCode="Italic s"> (> 60 GFR)</content> ID Date Data Source BMP.[id number] 12/10/2019 04:15:00 PM EDT [facility] Name Value Range Interpretation Description Data Sup porting Code Source(s) Document(s ) Chloride 98-107 <content [facility] [Moles/volume] styleCode="Freddy Chaos in Serum or d">Chloride Medical Plasma </content>101 Center MEQ/L<content styleCode="Lia lics"> (98-107 MEQ/L)</conten t> Potassium 3.5-5.3 <content [facility] [Moles/volume] styleCode="Freddy Jil in Serum or d">Potassium Medical Plasma </content>4.0 Center MEQ/L<content styleCode="Lia lics"> (3.5-5.3 MEQ/L)</conten t> Sodium 137-145 <content [facility] [Moles/volume] styleCode="Freddy Jil in Serum or d">Sodium Medical Plasma </content>138 Center MEQ/L<content styleCode="Lia lics"> (137-145 MEQ/L)</conten t> Glucose 74-106 Above upper panic <content [facility] [Mass/volume] limits styleCode="Freddy Jil in Serum or d">Glucose Medical Plasma </content><con Center tent styleCode="Freddy d">411 MG/DL HH</content><c ontent styleCode="Lia lics"> (74-106 MG/DL)</conten t> Creatinine 0.5-1.3 Above high normal <content [facility] [Mass/volume] styleCode="Freddy Jil in Serum or d">Creatinine Medical Plasma </content>1.9 Center MG/DL H<content styleCode="Lia lics"> (0.5-1.3 MG/DL)</conten t> Carbon 22-30 Below low normal <content [facility] dioxide, total styleCode="Freddy Jil [Moles/volume] d">Carbon Medical in Serum or Dioxide Center Plasma </content>20 MEQ/L L<content styleCode="Lia lics"> (22-30 MEQ/L)</conten t> UNK 9-20 Above high normal <content [facility] styleCode="Freddy Jil d">BUN Medical </content>51 Center MG/DL H<content styleCode="Lia lics"> (9-20 MG/DL)</conten t> Calcium 8.4-10.2 <content [facility] [Mass/volume] styleCode="Freddy Jil in Serum or d">Calcium Medical Plasma </content>8.7 Center MG/DL<content styleCode="Lia lics"> (8.4-10.2 MG/DL)</conten t> UNK > 60 Below low normal <content [facility] styleCode="Freddy Jil d">EGFR Medical </content>48 Center GFR L<content styleCode="Lia lics"> (> 60 GFR)</content> ID Date Data Source GFR(Creatinine).[id number] 12/10/2019 01:58:00 PM EDT [facility] 0-0400 Name Value Range Interpretation Code Description Data Kamala rce(s) Supporting Document(s ) UNK > 60 Below low normal <content [facility] styleCode="Bold"> Medical Cent er EGFR </content>45 GFR L<content styleCode="Italic s"> (> 60 GFR)</content> ID Date Data Source CHMROUTINECCDA.[id number] 12/10/2019 01:58:00 PM EDT [facility] -0400 Name Value Range Interpretation Code Description Data Kamala rce(s) Supporting Document(s ) UNK 0.7-2.0 Above upper panic <content [place] [facility] limits styleCode="Bold" Medical Cente r >Lactic Acid 4hr </content><magdy nt styleCode="Bold" >3.2 MMOLL HH</content><con tent styleCode="Itali cs"> (0.7-2.0 MMOLL)</content> ID Date Data Source BMP.[id number] 12/10/2019 01:58:00 PM EDT [facility] Name Value Range Interpretation Description Data Sup porting Code Source(s) Document(s ) Sodium 137-145 <content [facility] [Moles/volume] styleCode="Freddy Jil in Serum or d">Sodium Medical Plasma </content>141 Center MEQ/L<content styleCode="Lia lics"> (137-145 MEQ/L)</conten t> Chloride 98-107 <content [facility] [Moles/volume] styleCode="Freddy Jil in Serum or d">Chloride Medical Plasma </content>100 Center MEQ/L<content styleCode="Lia lics"> (98-107 MEQ/L)</conten t> Potassium <content [facility] [Moles/volume] styleCode="Freddy Chaos in Serum or d">Potassium Medical Plasma </content>Test Center not performed. MEQ/L (Reference Range: not available)<br/ > Glucose 74-106 Above upper panic <content [facility] [Mass/volume] limits styleCode="Freddy Jil in Serum or d">Glucose Medical Plasma </content><con Center tent styleCode="Freddy d">591 MG/DL HH</content><c ontent styleCode="Lia lics"> (74-106 MG/DL)</conten t> Carbon 22-30 Below low normal <content [facility] dioxide, total styleCode="Freddy Jil [Moles/volume] d">Carbon Medical in Serum or Dioxide Center Plasma </content>15 MEQ/L L<content styleCode="Lia lics"> (22-30 MEQ/L)</conten t> UNK 9-20 Above high normal <content [facility] styleCode="Freddy Jil d">BUN Medical </content>53 Center MG/DL H<content styleCode="Lia lics"> (9-20 MG/DL)</conten t> Creatinine 0.5-1.3 Above high normal <content [facility] [Mass/volume] styleCode="Freddy Jil in Serum or d">Creatinine Medical Plasma </content>2.0 Center MG/DL H<content styleCode="Lia lics"> (0.5-1.3 MG/DL)</conten t> UNK > 60 Below low normal <content [facility] styleCode="Freddy Jil d">EGFR Medical </content>45 Center GFR L<content styleCode="Lia lics"> (> 60 GFR)</content> Calcium 8.4-10.2 <content [facility] [Mass/volume] styleCode="Freddy Jil in Serum or d">Calcium Medical Plasma </content>8.7 Center MG/DL<content styleCode="Lia lics"> (8.4-10.2 MG/DL)</conten t> ID Date Data Source Liver 12/10/2019 11:00:00 AM EDT [facility] Profile.[id number] Name Value Range Interpretation Description Data Sup porting Code Source(s) Document(s ) Aspartate 17-59 <content [facility] aminotransferase styleCode="Bold"> [facility] hs [Enzymatic Aspartate Medical activity/volume] Aminotransferase Center in Serum or Plasma (AST) </content>27 IU/L<content styleCode="Italic s"> (17-59 IU/L)</content> Bilirubin.total 0.2-1.3 <content [facility] [Mass/volume] in styleCode="Bold"> Chilo hs Serum or Plasma Bilirubin Total Medical </content>0.8 Center MG/DL<content styleCode="Italic s"> (0.2-1.3 MG/DL)</content> Alkaline 38-126 Above high <content [facility] phosphatase normal styleCode="Bold"> Jil [Enzymatic Alkaline Medical activity/volume] Phosphatase (ALP) Cente r in Serum or Plasma </content>209 IU/L H<content styleCode="Italic s"> (38-126 IU/L)</content> Alanine 7-50 <content [facility] aminotransferase styleCode="Bold"> [place]ilo hs [Enzymatic Alanine Medical activity/volume] Aminotransferase Center in Serum or Plasma (ALT) </content>30 IU/L<content styleCode="Italic s"> (7-50 IU/L)</content> Albumin 3.5-5.0 <content [facility] [Mass/volume] in styleCode="Bold"> Chilo hs Serum or Plasma Albumin Medical </content>4.8 Center G/DL<content styleCode="Italic s"> (3.5-5.0 G/DL)</content> ID Date Data Source GFR(Creatinine).[id number] 12/10/2019 11:00:00 AM EDT [facility] 0-0400 Name Value Range Interpretation Code Description Data Kamala rce(s) Supporting Document(s ) UNK > 60 Below low normal <content [facility] styleCode="Bold"> Medical Cent er EGFR </content>36 GFR L<content styleCode="Italic s"> (> 60 GFR)</content> ID Date Data Source CHMROUTINECCDA.[id number] 12/10/2019 11:00:00 AM EDT [facility] -0400 Name Value Range Interpretation Description Data Sup porting Code Source(s) Document(s ) UNK 2.3-3.5 <content [facility] styleCode="Bold Medical ">Globulin Center </content>2.7 G/DL<content styleCode="Ital ics"> (2.3-3.5 G/DL)</content> UNK >= 1.0 <content [facility] styleCode="Bold Medical ">AG Ratio Center </content>1.8 <content styleCode="Ital ics"> (>= 1.0 )</content> Protein 6.3-8.2 <content [facility] [Mass/volum styleCode="Bold Medical e] in Serum ">Total Protein Center or Plasma </content>7.5 G/DL<content styleCode="Ital ics"> (6.3-8.2 G/DL)</content> ID Date Data Source [facility].[id number] 12/10/2019 11:00:00 AM EDT [facility] Name Value Range Interpretation Description Data Sup porting Code Source(s) Document(s ) Potassium 3.5-5.3 <content [facility] [Moles/volume] in styleCode="Bold"> [facility] Serum or Plasma Potassium Medical </content>4.7 Center MEQ/L<content styleCode="Italic s"> (3.5-5.3 MEQ/L)</content> Sodium 137-145 Below low <content [facility] [Moles/volume] in normal styleCode="Bold"> [facility] Serum or Plasma Sodium Medical </content>136 Center MEQ/L L<content styleCode="Italic s"> (137-145 MEQ/L)</content> Chloride 98-107 Below low <content [facility] [Moles/volume] in normal styleCode="Bold"> Jose [facility] Serum or Plasma Chloride Medical </content>88 Center MEQ/L L<content styleCode="Italic s"> (98-107 MEQ/L)</content> Carbon dioxide, 22-30 Below low <content [facility] total normal styleCode="Bold"> Jil [Moles/volume] in Carbon Dioxide Medical Serum or Plasma </content>11 Center MEQ/L L<content styleCode="Italic s"> (22-30 MEQ/L)</content> Creatinine 0.5-1.3 Above high <content [facility] [Mass/volume] in normal styleCode="Bold"> Chilo hs Serum or Plasma Creatinine Medical </content>2.4 Center MG/DL H<content styleCode="Italic s"> (0.5-1.3 MG/DL)</content> UNK 9-20 Above high <content [facility] normal styleCode="Bold"> Jil BUN </content>53 Medical MG/DL H<content Center styleCode="Italic s"> (9-20 MG/DL)</content> Glucose 74-106 Above upper <content [facility] [Mass/volume] in panic limits styleCode="Bold"> Isi sephs Serum or Plasma Glucose Medical </content><conten Center t styleCode="Bold"> 885 MG/DL HH</content><cont ent styleCode="Italic s"> (74-106 MG/DL)</content> Calcium 8.4-10. <content [facility] [Mass/volume] in 2 styleCode="Bold"> Chilo hs Serum or Plasma Calcium Medical </content>8.8 Center MG/DL<content styleCode="Italic s"> (8.4-10.2 MG/DL)</content> Aspartate 17-59 <content [facility] aminotransferase styleCode="Bold"> [place]ilo hs [Enzymatic Aspartate Medical activity/volume] Aminotransferase Center in Serum or Plasma (AST) </content>27 IU/L<content styleCode="Italic s"> (17-59 IU/L)</content> UNK > 60 Below low <content [facility] normal styleCode="Bold"> Jil EGFR </content>36 Medical GFR L<content Center styleCode="Italic s"> (> 60 GFR)</content> Alkaline 38-126 Above high <content [facility] phosphatase normal styleCode="Bold"> [facility] [Enzymatic Alkaline Medical activity/volume] Phosphatase (ALP) Cente r in Serum or Plasma </content>209 IU/L H<content styleCode="Italic s"> (38-126 IU/L)</content> Albumin 3.5-5.0 <content [facility] [Mass/volume] in styleCode="Bold"> Chilo hs Serum or Plasma Albumin Medical </content>4.8 Center G/DL<content styleCode="Italic s"> (3.5-5.0 G/DL)</content> Bilirubin.total 0.2-1.3 <content [facility] [Mass/volume] in styleCode="Bold"> Chilo hs Serum or Plasma Bilirubin Total Medical </content>0.8 Center MG/DL<content styleCode="Italic s"> (0.2-1.3 MG/DL)</content> Alanine 7-50 <content [facility] aminotransferase styleCode="Bold"> [place] hs [Enzymatic Alanine Medical activity/volume] Aminotransferase Center in Serum or Plasma (ALT) </content>30 IU/L<content styleCode="Italic s"> (7-50 IU/L)</content> ID Date Data Source Microbiology.[id number] 12/10/2019 08:02:00 AM EDT [facility] nt [facility] 400 Name Value Range Interpretation Code Description Data Kamala rce(s) Supporting Document(s ) UNK <item><content [facility] styleCode="Bold"> Medical Cent er Culture Report </content>
<t able><tbody><tr>< td>Specimen Number:</td><td>[id number]</td></tr ><tr><td>Sample Collection Date/Time: </td><td> 0 8:02 AM</td></tr><tr>< td>Specimen Source:</td><td>B LOOD</td></tr><tr ><td>Culture Report:</td><td>N O GROWTH 5 DAYS </td></tr><tr><td >Blood Culture:</td><td> Collection Plate Date: 12/10/2019 08:16 </td></tr><tr><td >Culture Status:</td><td>F inal </td></tr></tbody ></table></item> UNK <item><content [facility] styleCode="Bold"> Medical [facility] er Culture Report </content>
<t able><tbody><tr>< td>Specimen Number:</td><td>[id number]</td></tr ><tr><td>Sample Collection Date/Time: </td><td> 0 8:02 AM</td></tr><tr>< td>Specimen Source:</td><td>B LOOD</td></tr><tr ><td>Blood Culture:</td><td> Collection Plate Date: 12/10/2019 08:17 </td></tr><tr><td >Culture Status:</td><td>F inal </td></tr><tr><td >Culture Report:</td><td>N O GROWTH 5 DAYS </td></tr></tbody ></table></item> UNK <item><content [facility] styleCode="Bold"> Medical [facility] er Culture Status </content>
<t able><tbody><tr>< td>Specimen Number:</td><td>[id number]</td></tr ><tr><td>Sample Collection Date/Time: </td><td> 0 8:02 AM</td></tr><tr>< td>Specimen Source:</td><td>B LOOD</td></tr><tr ><td>Culture Report:</td><td>N O GROWTH 5 DAYS </td></tr><tr><td >Culture Status:</td><td>F inal </td></tr><tr><td >Blood Culture:</td><td> Collection Plate Date: 12/10/2019 08:16 </td></tr></tbody ></table></item> UNK <item><content [facility] styleCode="Bold"> Medical Cent er Culture Status </content>
<t able><tbody><tr>< td>Specimen Number:</td><td>[id number]</td></tr ><tr><td>Sample Collection Date/Time: </td><td> 0 8:02 AM</td></tr><tr>< td>Specimen Source:</td><td>B LOOD</td></tr><tr ><td>Blood Culture:</td><td> Collection Plate Date: 12/10/2019 08:17 </td></tr><tr><td >Culture Report:</td><td>N O GROWTH 5 DAYS </td></tr><tr><td >Culture Status:</td><td>F inal </td></tr></tbody ></table></item> ID Date Data Source CHMROUTINECCDA.[id number] 12/10/2019 08:01:00 AM EDT [facility] -0400 Name Value Range Interpretation Code Description Data Kamala rce(s) Supporting Document(s ) UNK NEGATIVE <content [facility] styleCode="Bold" Medical Cente r >Acetone </content>SMALL <content styleCode="Itali cs"> (NEGATIVE )</content> ID Date Data Source Urinalysis.[id number] 12/10/2019 07:45:00 AM EDT [facility] 0 Name Value Range Interpretation Description Data Sup porting Code Source(s) Document(s ) Color of Urine YELLOW <content [facility] styleCode="Freddy Jil d">Color, [facility] Urine Center </content>YELL OW <content styleCode="Lia lics"> (YELLOW )</content> UNK CLEAR <content [facility] styleCode="Freddy Jil d">Urine Medical Clarity Center </content>CELINA R <content styleCode="Lia lics"> (CLEAR )</content> Glucose NEGATIVE <content [facility] [Mass/volume] styleCode="Freddy Chaos in Urine by d">Urine Medical Test strip Glucose Center </content>>=10 00 MG/DL<content styleCode="Ila lics"> (NEGATIVE MG/DL)</conten t> UNK NEGATIVE <content [facility] styleCode="Freddy Jil d">Urine Medical Bilirubin Center </content>SMAL L <content styleCode="Lia lics"> (NEGATIVE )</content> Ketones NEGATIVE <content [facility] [Mass/volume] styleCode="Freddy Chaos in Urine by d">Urine Medical Test strip Ketone Center </content>40 MG/DL<content styleCode="Lia lics"> (NEGATIVE MG/DL)</conten t> Hemoglobin NEGATIVE <content [facility] [Presence] in styleCode="Freddy Chaos Urine by Test d">Urine Blood Medical strip </content>NEGA Center TIVE <content styleCode="Lia lics"> (NEGATIVE )</content> pH of Urine by 4.5-8.0 <content [facility] Test strip styleCode="Freddy Jil d">Urine pH Medical </content>5.5 Center <content styleCode="Lia lics"> (4.5-8.0 )</content> Specific 1.015-1.02 <content [facility] gravity of 5 styleCode="Freddy Chaos Urine by Test d">Urine Medical strip Specific Center [place] </content>1.02 0 <content styleCode="Lia lics"> (1.015-1.025 )</content> Protein NEGATIVE <content [facility] [Mass/volume] styleCode="Freddy Chaos in Urine by d">Urine Medical Test strip Protein Center </content>NEGA TIVE MG/DL<content styleCode="Lia lics"> (NEGATIVE MG/DL)</conten t> Urobilinogen 0.2-1.0 <content [facility] [Units/volume] styleCode="Freddy Ley in Urine by d">Urine Medical Test strip Urobilinogen Center </content>0.2 MG/DL<content styleCode="Lia lics"> (0.2-1.0 MG/DL)</conten t> Leukocyte NEGATIVE <content [facility] esterase styleCode="Freddy Jil [Presence] in d">Urine Medical Urine by Test Leukocyte Center strip </content>NEGA TIVE <content styleCode="Lia lics"> (NEGATIVE )</content> Nitrite NEGATIVE <content [facility] [Presence] in styleCode="Freddy Ley Urine by Test d">Urine Medical strip Nitrite Center </content>NEGA TIVE <content styleCode="Lia lics"> (NEGATIVE )</content> ID Date Data Source CHMROUTINECCDA.[id number] 12/10/2019 07:45:00 AM EDT [facility] -0400 Name Value Range Interpretation Description Data Sup porting Code Source(s) Document(s ) Cannabinoids <content [facility] [Presence] in styleCode="Freddy Ley Urine by Screen d">Cannabinoid Medical method >50 ng/mL s Center </content>NEGA TIVE NG/ML (Reference Range: not available)<br/ > ID Date Data Source Liver 12/10/2019 07:05:00 AM EDT [facility] Profile.[id number] Name Value Range Interpretation Description Data Sup porting Code Source(s) Document(s ) Aspartate 17-59 <content [facility] aminotransferase styleCode="Bold"> [facility] hs [Enzymatic Aspartate Medical activity/volume] Aminotransferase Center in Serum or Plasma (AST) </content>27 IU/L<content styleCode="Italic s"> (17-59 IU/L)</content> Alanine 7-50 <content [facility] aminotransferase styleCode="Bold"> [facility] hs [Enzymatic Alanine Medical activity/volume] Aminotransferase Center in Serum or Plasma (ALT) </content>32 IU/L<content styleCode="Italic s"> (7-50 IU/L)</content> Albumin 3.5-5.0 Above high <content [facility] [Mass/volume] in normal styleCode="Bold"> Chilo hs Serum or Plasma Albumin Medical </content>5.2 Center G/DL H<content styleCode="Italic s"> (3.5-5.0 G/DL)</content> Bilirubin.total 0.2-1.3 <content [facility] [Mass/volume] in styleCode="Bold"> Chilo hs Serum or Plasma Bilirubin Total Medical </content>0.9 Center MG/DL<content styleCode="Italic s"> (0.2-1.3 MG/DL)</content> Alkaline 38-126 Above high <content [facility] phosphatase normal styleCode="Bold"> Jil [Enzymatic Alkaline Medical activity/volume] Phosphatase (ALP) Cente r in Serum or Plasma </content>237 IU/L H<content styleCode="Italic s"> (38-126 IU/L)</content> UNK 0.0-0.3 <content [facility] styleCode="Bold"> Jil Bilirubin, Direct Medical </content>< 0.2 Center MG/DL<content styleCode="Italic s"> (0.0-0.3 MG/DL)</content> ID Date Data Source HematologyRou.[id number] 12/10/2019 07:05:00 AM EDT [facility] nt [facility] 0400 Name Value Range Interpretation Description Data Sup porting Code Source(s) Document(s ) Leukocytes 4.4-11.0 Above high <content [facility] [#/volume] in normal styleCode="Bold Jil Blood by ">White Blood Medical Automated count Cell Count Center </content>15.59 KCUMM H<content styleCode="Ital ics"> (4.4-11.0 KCUMM)</content > Erythrocytes 4.4-5.9 <content Saint [#/volume] in styleCode="Bold Jil Blood by ">Red Blood Medical Automated count Cell Count Center </content>4.92 MCUMM<content styleCode="Ital ics"> (4.4-5.9 MCUMM)</content > Erythrocyte mean 80.0-100 <content [facility] corpuscular .0 styleCode="Bold Jil volume [Entitic ">Mean Medical volume] by Corpuscular Center Automated count Volume </content>84.6 FL<content styleCode="Ital ics"> (80.0-100.0 FL)</content> Hematocrit 41.0-53. <content [facility] [Volume 0 styleCode="Bold Jil Fraction] of ">Hematocrit Medical Blood by </content>41.6 Center Automated count %<content styleCode="Ital ics"> (41.0-53.0 %)</content> Hemoglobin 13.5-17. <content [facility] [Mass/volume] in 5 styleCode="Bold Jil Blood ">Hemoglobin Medical </content>14.9 Center G/DL<content styleCode="Ital ics"> (13.5-17.5 G/DL)</content> Platelets 130-400 <content Saint [#/volume] in styleCode="Bold Jil Blood by ">Platelet Medical Automated count Count Center </content>274 KCUMM<content styleCode="Ital ics"> (130-400 KCUMM)</content > Erythrocyte 11.5-14. <content [facility] distribution 5 styleCode="Bold Jil width [Ratio] by ">Red Cell Medical Automated count Distribution Center Width </content>13.4 %<content styleCode="Ital ics"> (11.5-14.5 %)</content> Erythrocyte mean 32.0-37. <content [facility] corpuscular 0 styleCode="Bold Jil hemoglobin ">Mean Corpus. Medical concentration Hgb Center [Mass/volume] by Concentration Automated count (MCHC) </content>35.8 G/DL<content styleCode="Ital ics"> (32.0-37.0 G/DL)</content> Erythrocyte mean 26.0-34. <content [facility] corpuscular 0 styleCode="Bold Jil hemoglobin ">Mean Medical [Entitic mass] Corposcular Center by Automated Hemoglobin count </content>30.3 PG<content styleCode="Ital ics"> (26.0-34.0 PG)</content> UNK 0 <content [facility] styleCode="Bold Jil ">Nucleated Red Medical Blood Cell Center </content>0.0 /100<content styleCode="Ital ics"> (0 /100)</content> UNK 0.0 <content [facility] styleCode="Bold Jil ">Nucleated Red Medical Blood Cell Center Count </content>0.00 KCUMM<content styleCode="Ital ics"> (0.0 KCUMM)</content > Platelet mean 8.0-11.0 Above high <content [facility] volume [Entitic normal styleCode="Bold Jil volume] in Blood ">Mean Platelet Medical by Automated Volume Center count </content>11.2 FL H<content styleCode="Ital ics"> (8.0-11.0 FL)</content> ID Date Data Source CHMROUTINECCDA.[id number] 12/10/2019 07:05:00 AM EDT [facility] -0400 Name Value Range Interpretation Description Data Sup porting Code Source(s) Document(s ) Lactate 0.7-2.0 Above upper panic <content [facility] [Mass/volume] limits styleCode="Freddy Jil in Serum or d">Lactic Acid Medical Plasma </content><con Center tent styleCode="Freddy d">5.4 MMOLL HH</content><c ontent styleCode="Lia lics"> (0.7-2.0 MMOLL)</conten t> Lipase 23-300 <content [facility] [Enzymatic styleCode="Freddy Jil activity/volu d">Lipase Medical me] in Serum </content>101 Center or Plasma IU/L<content styleCode="Lia lics"> (23-300 IU/L)</content > Magnesium 1.6-2.3 Above high normal <content [facility] [Mass/volume] styleCode="Freddy Jil in Serum or d">Magnesium Medical Plasma </content>3.1 Center MG/DL H<content styleCode="Lia lics"> (1.6-2.3 MG/DL)</conten t> Phosphate 2.5-4.5 Above high normal <content [facility] [Mass/volume] styleCode="Freddy Jil in Serum or d">Phosphorus Medical Plasma </content>9.3 Center MG/DL H<content styleCode="Lia lics"> (2.5-4.5 MG/DL)</conten t> ID Date Data Source [employer].[id number] 12/10/2019 07:05:00 AM EDT [facility]ac[facility] -0400 Name Value Range Interpretation Description Data Sup porting Code Source(s) Document(s ) Troponin < 0.034 <content [facility] I.cardiac styleCode="Bold Jil [Mass/volume ">Troponin I Medical ] in Serum </content>< Center or Plasma 0.012 NG/ML<content styleCode="Ital ics"> (< 0.034 NG/ML)</content > ID Date Data Source [id number] 12/10/2019 12:00:00 AM EDT [facility] Name Value Range Interpretation Code Description Data Kamala rce(s) Supporting Document(s ) 2019-nCoV [facility] RNA XXX CINDY+probe- Imp This lab was ordered by [facility] and reported by [employer]. Procedure Social History Code Duration Value Status Description Data Source(s ) Smoking 12/10/2019 02:35:00 Daily Smoker completed Daily Smoker S [facility] EDT Center Smoking 12/10/2019 11:13:00 Daily Smoker completed Daily Smoker S [facility] AM EDT Center Smoking 12/10/2019 08:37:00 Daily Smoker completed Daily Smoker S [facility] EDT Center Vital Signs ID Date Data Source UNK Name Value Range Interpretation Code Description Data Source(s) Body surface area 1.9 m2 1.9 m2 [place] Derived from [facility] m formula Body mass index 28.1 kg/m2 28.1 kg/m2 [place] (BMI) [Ratio] [facility] em Body weight 81.64 kg 81.64 kg [facility] Body height 170.18 cm 170.18 cm [facility] Body temperature 97.8 [degF] 0 - 200 Normal (applies to 97.8 [degF ] [facility] non-numeric Health System results) Body temperature 36.5 Samantha 0 - 99.9 Normal (applies to 36.5 Samantha [facility] non-numeric Health System results) Diastolic blood 90 mm[Hg] 0 - 999 Above high normal 90 mm[Hg] [facility] pressure Health System Systolic blood 130 mm[Hg] 0 - 999 Normal (applies to 130 mm[Hg] [facility] pressure non-numeric Health System results) Oxygen saturation 96 % 0 - 999 Normal (applies to 96 % [facility] Health System by Pulse oximetry results) Respiratory rate 17 0 - 999 Normal (applies to 17 [facility] non-numeric Health System results) Heart rate 87 0 - 999 Normal (applies to 87 [facility] io non-numeric Health System results) Body temperature 97.5 [degF] 0 - 200 Normal (applies to 97.5 [degF ] [facility] non-numeric Health System results) Body temperature 36.3 Samantha 0 - 99.9 Below low normal 36.3 Samantha [facility] System Diastolic blood 71 mm[Hg] 0 - 999 Normal (applies to 71 mm[Hg] [facility] pressure non-numeric Health System results) Systolic blood 107 mm[Hg] 0 - 999 Below low normal 107 mm[Hg] [facility] System Oxygen saturation 97 % 0 - 999 Normal (applies to 97 % [facility] blood [facility] Health System by Pulse oximetry results) Respiratory rate 18 0 - 999 Above high normal 18 [facility] Heart rate 83 0 - 999 Normal (applies to 83 [facility] non-numeric Health System results) Body surface area 1.9 m2 1.9 m2 [facility] ore Derived from Health Syste m formula Body mass index 29.5 kg/m2 29.5 [facility]m2 [facility] [Ratio] [facility] Syst em Body weight 85.72 kg 85.72 kg [facility] Body height 170.18 cm 170.18 cm [facility] Body temperature 36.353851 36.252189 Samantha [facility] Respiratory rate 20 /min 20 /min [facility] Oxygen saturation 97 % 97 % [facility] osep in Arterial blood [facility] Center by Pulse oximetry Heart rate 102 /min 102 /min [facility] Diastolic blood 80 mm[Hg] 80 mm[Hg] [facility] Center Systolic blood 145 mm[Hg] 145 mm[Hg] [facility] Body temperature 36.293261 [id number] [facility] Respiratory rate 20 /min 20 /min [facility] Heart rate 76 /min 76 /min [facility] Diastolic blood 84 mm[Hg] 84 mm[Hg] [facility] Systolic blood 129 mm[Hg] 129 mm[Hg] [facility] Body weight 77.342176 77.864072 kg [facility] Measured kg Medical Center Body height 170.626292 170.968365 cm [facility] Body mass index 26.62 kg/m2 26.62 kg/m2 [facility] (BMI) [Ratio] Medical [facility] ter Body temperature 36.764565 36.405335 [facility] Respiratory rate 20 /min 20 /min [facility] Heart rate 84 /min 84 /min [facility] Diastolic blood 72 mm[Hg] 72 mm[Hg] [facility] Systolic blood 118 mm[Hg] 118 mm[Hg] [facility] Body temperature 36.886481 [id number] [facility] Respiratory rate 19 /min 19 /min [facility] Heart rate 77 /min 77 /min [facility] Diastolic blood 80 mm[Hg] 80 mm[Hg] [facility] Systolic blood 140 mm[Hg] 140 mm[Hg] [facility] Respiratory rate 20 /min 20 /min [facility] Heart rate 74 /min 74 /min [facility] Diastolic blood 82 mm[Hg] 82 mm[Hg] [facility] Systolic blood 130 mm[Hg] 130 mm[Hg] [facility] Body temperature 37.277676 37.855717 [facility] Respiratory rate 20 /min 20 /min [facility] Heart rate 86 /min 86 /min [facility] Diastolic blood 79 mm[Hg] 79 mm[Hg] [facility] Systolic blood 130 mm[Hg] 130 mm[Hg] [facility] Body temperature 36.372689 36.345611 [facility] Body weight 84.603303 84.738134 kg [facility] Body weight 83.735288 83.206118 kg [facility] Body weight 77.111780 77.555926 kg [facility] Me[facility] Body temperature 36.395372 36.789797 [facility] Respiratory rate 18 /min 18 /min [facility] Heart rate 98 /min 98 /min [facility] Diastolic blood 83 mm[Hg] 83 mm[Hg] [facility] pressure [facility] Systolic blood 125 mm[Hg] 125 mm[Hg] [facility] Respiratory rate 20 /min 20 /min [facility] Heart rate 96 /min 96 /min [facility] Diastolic blood 84 mm[Hg] 84 mm[Hg] [facility] Systolic blood 139 mm[Hg] 139 mm[Hg] [facility] Body temperature 36.098200 [id number] [facility] Respiratory rate 12 /min 12 /min [facility] Heart rate 105 /min 105 /min [facility] Diastolic blood 85 mm[Hg] 85 mm[Hg] [facility] Systolic blood 129 mm[Hg] 129 mm[Hg] [facility] [place] Body temperature 36.437612 [id number] [facility] Respiratory rate 20 /min 20 /min [facility] Heart rate 105 /min 105 /min [facility] Diastolic blood 78 mm[Hg] 78 mm[Hg] [facility] Systolic blood 129 mm[Hg] 129 mm[Hg] [facility] Body temperature 36.955791 36.155232 [facility] Respiratory rate 18 /min 18 /min [facility] Heart rate 108 /min 108 /min [facility] Diastolic blood 78 mm[Hg] 78 mm[Hg] [facility] Systolic blood 122 mm[Hg] 122 mm[Hg] [facility] Body temperature 36.384242 36.449301 [facility] Body weight 77.660441 77.361210 [facility] Body height 170.776376 170.993326 cm [facility] Body mass index 26.90 kg/m2 26.90 kg/m2 [facility] (BMI) [Ratio] [facility] Oxygen saturation 100 % 100 % [facility] in Arterial blood [facility] by Pulse oximetry Oxygen saturation 99 % 99 % [facility] in Arterial blood [facility] by Pulse oximetry Oxygen saturation 98 % 98 % [facility] in Arterial blood [facility] by Pulse oximetry
--- NOTE | 2020-02-24 09:09 | BHS.RME ---
Substance Use & Tx History - Substance Use History Alcohol Substance amount: 3-4 cans of beer 24 ounce each Frequency of use: Daily Substance route: Oral Date of Last Use: 02/23/20 Marijuana/Hashish Substance amount: 3 bags Frequency of use: Daily Substance route: Smoking Date of Last Use: 02/23/20 PCP Substance amount: 2 bags Frequency of use: Daily Substance route: Smoking Date of Last Use: 02/22/20 - Last Treatment Date of last treatment: October to November 2018, detox and rehab here Physical/Psych/Mental Status - Behavior General Behavior: Decreased activity Eye Contact: Normal - Cooperativeness Cooperativeness: Cooperative - Thinking Thought Processes: Tight Thought content: Future oriented - Physical Health Problems Is patient presently having any pain?: No Does patient presently have any injuries (include location): No Does patient currently have a fever: No CIWA Nausea/Vomitin-No Nausea/No Vomiting Muscle Tremors: 3 Anxiety: 3 Agitation: 3 Paroxysmal Sweats: 1-Minimal Palms Moist Orientation: 1-Uncertain about Date Tacttile Disturbances: 0-None Auditory Disturbances: 0-None Visual Disturbances: 0-None Headache: 0-None Present (meets criteria, untreated medical/noncompliant with meds: HTN, DM) CIWA-Ar Total Score: 11
[2020-02-24 09:30] VITALS: BMI 28.1
--- NOTE | 2020-02-24 09:46 | HP ---
CIWA Score Nausea/Vomitin-No Nausea/No Vomiting Muscle Tremors: 3 Anxiety: 3 Agitation: 3 Paroxysmal Sweats: 1-Minimal Palms Moist Orientation: 1-Uncertain about Date Tacttile Disturbances: 0-None Auditory Disturbances: 0-None Visual Disturbances: 0-None Headache: 0-None Present (meets criteria, untreated medical/noncompliant with meds: HTN, DM) CIWA-Ar Total Score: 11 - Admission Criteria OASAS Guidelines: Admission for Medically Managed Detox: Requires at least one of the followin. CIWA greater than 12 2. Seizures within the past 24 hours 3. Delirium tremens within the past 24 hours 4. Hallucinations within the past 24 hours 5. Acute intervention needed for co occurring medical disorder 6. Acute intervention needed for co occurring psychiatric disorder 7. Severe withdrawal that cannot be handled at a lower level of care (continued vomiting, continued diarrhea, abnormal vital signs) requiring intravenous medication and/or fluids 8. Admitting History and Physical - Admission Chief Complaint: Mr. Turner presents to [facility] requesting detox admission for alcohol use disorder. History of Present Illness: Mr. Turner is a 55 yo man who presents to [facility] requesting admission to detox for alcohol use disorder. He completed detox and rehab here in the summer. PMH: HTN and DM, no meds in 2 weeks, on insulin, does not recall name of antihypertensive, HLD PSH; none Psych: none Legal: none SoC: with friends Substance Use History Alcohol Substance amount: 3-4 cans of beer 24 ounce each Frequency of use: Daily Substance route: Oral Date of Last Use: 02/23/20 No seizures Yes blackouts, few mos ago Eye bicycle messenger: yes Marijuana/Hashish Substance amount: 3 bags Frequency of use: Daily Substance route: Smoking Date of Last Use: 02/23/20 PCP Substance amount: 2 bags Frequency of use: Daily Substance route: Smoking Date of Last Use: 02/22/20 - Last Treatment Date of last treatment: October to November 2018, detox and rehab here Pt meets admission critereia: untreated/comorbid medical conditions: HTN, DM, no medication in 2 weeks and currently hypertensive History Source: Patient Limitations to Obtaining History: No Limitations - Smoking History Smoking history: Current every day smoker Have you smoked in the past 12 months: Yes Aproximately how many cigarettes per day: 5 - Alcohol/Substance Use Hx Alcohol Use: Yes Admission ROS BHS - HPI Allergies/Adverse Reactions: Allergies Allergy/AdvReac Type Severity Reaction Status Date / Time No Known Allergies Allergy Verified 02/24/20 09:44 Exam Limitations: No Limitations - Ebola screening Have you traveled outside of the country in the last 21 days: No Have you been sick,other than usual withdrawal symptoms: No Do you have a fever: No - Review of Systems Constitutional: No Symptoms Reported EENT: reports: No Symptoms Reported Respiratory: reports: No Symptoms reported Cardiac: reports: No Symptoms Reported GI: reports: Nausea : reports: No Symptoms Reported Musculoskeletal: reports: No Symptoms Reported Integumentary: reports: No Symptoms Reported Neuro: reports: No Symptoms reported Endocrine: reports: Other (DM, off insulin, none in 2 weeks) Hematology: reports: No Symptoms Reported Psychiatric: reports: No Sypmtoms Reported Patient History - Patient Medical History Hx Anemia: No Hx Asthma: No Hx Chronic Obstructive Pulmonary Disease (COPD): No Hx Cancer: No Hx Cardiac Disorders: No Hx Congestive Heart Failure: No Hx Hypertension: Yes Hx Hypercholesterolemia: Yes Hx Pacemaker: No HX Cerebrovascular Accident: No Hx Seizures: No Hx Dementia: No Hx Diabetes: Yes Hx Gastrointestinal Disorders: No Hx Liver Disease: No Hx Genitourinary Disorders: No Hx Sexually Transmitted Disorders: Yes (completed tx for gonorrhea last 10 yrs ago.) Hx Renal Disease (ESRD): No Hx Thyroid Disease: No Hx Human Immunodeficiency Virus (HIV): No Hx Hepatitis C: No Hx Depression: Yes Hx Suicide Attempt: No Hx Bipolar Disorder: Yes Hx Schizophrenia: No - Patient Surgical History Past Surgical History: No Hx Neurologic Surgery: No Hx Cataract Extraction: No Hx Cardiac Surgery: No Hx Lung Surgery: No Hx Breast Surgery: No Hx Breast Biopsy: No Hx Abdominal Surgery: No Hx Appendectomy: No Hx Cholecystectomy: No Hx Genitourinary Surgery: No Hx Section: No Hx Orthopedic Surgery: No Anesthesia Reaction: No - PPD History Date: 11/14/18 Results: 0MM - Smoking Cessation Smoking history: Current every day smoker Have you smoked in the past 12 months: Yes Aproximately how many cigarettes per day: 5 Cigars Per Day: 0 Hx Chewing Tobacco Use: No Initiated information on smoking cessation: Yes 'Breaking Loose' booklet given: 02/24/20 Admission Physical Exam BHS - Vital Signs Vital Signs: Vital Signs - 24 hr 02/24/20 09:29 Temperature 97.5 F L Pulse Rate 93 H Respiratory 20 Rate Blood Pressure 153/96 - Physical General Appearance: Yes: Nourished, Appropriately Dressed, Anxious HEENTM: Yes: EOMI, Hearing grossly Normal, Normocephalic, Normal Voice, Other ( sallie, hyperpigmented rectangle over right frontal region) Respiratory: Yes: Lungs Clear, No Respiratory Distress, No Accessory Muscle Use Neck: Yes: Within Normal Limits, Supple Breast: Yes: Breast Exam Deferred Cardiology: Yes: Regular Rhythm, Regular Rate Abdominal: Yes: Normal Bowel Sounds, Non Tender, Flat, Soft Genitourinary: Yes: Within Normal Limits Back: Yes: Normal Inspection Musculoskeletal: Yes: full range of Motion, Gait Steady Extremities: Yes: Normal Inspection, Non-Tender Neurological: Yes: Alert, Normal Response Integumentary: Yes: Normal Color, Dry, Warm - Diagnostic (1) Alcohol abuse with withdrawal, uncomplicated Current Visit: Yes Status: Acute (2) Cannabis dependence Current Visit: Yes Status: Acute (3) PCP dependence Current Visit: Yes Status: Acute (4) Diabetes type 2, uncontrolled Current Visit: Yes Status: Chronic (5) Hypertension Current Visit: Yes Status: Chronic Qualifiers: Hypertension type: essential hypertension Qualified Code(s): I10 - Essential (primary) hypertension (6) Nicotine dependence Current Visit: Yes Status: Chronic Qualifiers: Nicotine product type: cigarettes Substance use status: in withdrawal Qualified Code(s): F17.213 - Nicotine dependence, cigarettes, with withdrawal Cleared for Admission S - Detox or Rehab [facility] Level of Care: Medically Managed Detox Regimen/Protocol: Librium Breathalyzer - Breathalyzer Breathalyzer: 0 Urine Drug Screen - Test Device Lot number: [id number] Expiration date: 08/19/21 - Control Is test valid?: Yes - Results Drug screen NEGATIVE: No Urine drug screen results: THC-Marijuana, TALHA-Cocaine Inpatient Rehab Admission - Rehab Decision to Admit Inpatient rehab admission?: No
[2020-02-24] MEDS ORDERED: MAGNESIUM CITRATE 300 ML BOTTLE PO PRN (10:05)
[2020-02-24] MEDS ORDERED: MAGNESIUM HYDROX 2400MG/30ML ORAL SUSPENSION 30 ML CUP PO PRN (10:05)
[2020-02-24] MEDS ORDERED: chlordiazePOXIDE HCL 25 MG CAPSULE PO PRN (10:05)
[2020-02-24] MEDS ORDERED: BISMUTH SUBSALICYLATE 262 MG/15 ML BTL PO PRN (10:05)
[2020-02-24] MEDS ORDERED: MAG HYDROX/AL HYDROX/SIMETH 30 ML UNIT-DOSE CUP PO PRN (10:05)
[2020-02-24] MEDS ORDERED: ACETAMINOPHEN 325 MG TABLET (FP) PO PRN ×2 (10:05)
[2020-02-24] MEDS ORDERED: MENTHOL/PHENOL 1 EACH UD MM PRN (10:05)
[2020-02-24] MEDS ORDERED: METHOCARBAMOL 500 MG TABLET PO PRN (10:05)
[2020-02-24] MEDS ORDERED: NICOTINE POLACRILEX 2 MG GUM BUC PRN (10:05)
[2020-02-24] MEDS ORDERED: ONDANSETRON *ODT* 4 MG TABLET SL PRN (10:05)
--- OUTSIDE RECORDS SUMMARY | 2020-02-24 10:09 | XMS ---
:1965 Author Organization [facility] Care Team Providers Name Role Phone El Chaudhary Unavailable Unavailable ED STAFF PHYSICIAN, STAFF Unavailable Unavailable Michael Jacobs Unavailable Unavailable Other, Doctor Unavailable Unavailable Lila Cordova MD Unavailable Unavailable MARIAH GIBBONS Unavailable Unavailable Re-disclosure Warning The records that [...] is protected by Article 27-F of the [facility] Public Health law. If you continue you may haveaccess to information: Regarding HIV / AIDS; Provided by facilities licensed or operated by the [facility] Office of Mental Health; or Provided by the [facility] Office for People With Developmental Disabilities. If such information is present, then the following [facility] mandated warning applies: This information has been [...] law may result in a fine or half-way sentence or both. A general authorization for [...] El 5T-EMERG 01/15/2020 SUBSTANCE ABUSE S - [facility] RuvoAttender: Doctor 05:13:00 PM EDT - Jim Sykes 01/15/2020 Hospital 08:24:00 PM EDT SUBSTANCE ABUSE Patient discharged. Emergency Attender: MARIAH Elam 12/30/2019 04:53 :00 PM [facility] CAttender: STAFF ED STAFF EDT - 12/30/2019 [facility] PHYSICIANAdmitter: MARIAH 10:09:00 PM EDT SHAYY Landaverde Patient discharged. Inpatient Attender: Lila Cordova [id number] 12/10/2019 06:14:00 [facility] MDAttender: STAFF ED STAFF AM EDT - 12/15/2019 [facility] PHYSICIANAdmitter: Lila 06:30:00 PM EDT Art MDReferrer: Lila Cordova MD Patient discharged. Insurance Providers Payer name Policy type Policy ID Covered Covered democrat's Policy P azalea / Coverage democrat ID relationship to [place] Inf ormation type mcdonnell BEACON [id number] SP [id number] METROPLUS BEACON [id number] SP [id number] METROPLUS [employer] Medicaid [id number] 1 [id number] Medicaid METROPLUS W [id number] 01 [id number] GOBA PLAN INC W [id number] 01 [id number] METROP[place]US W [id number] 01 [id number] W [id number] 01 [id number] [facility] [id number] ACUTE Problems, Conditions, and Diagnoses Code Display Name Description Problem Type Effective Data Sour ce(s) Dates F10.10 Alcohol abuse Alcohol abuse 06438-9 02/17/2020 [facility] 12:00:00 AM [facility] System EDT 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 PCP abuse 44476-6 01/15/2020 [facility] 12:00:00 AM [facility] EDT R73.9 Hyperglycemia Hyperglycemia 88154-0 01/15/2020 [facility] 12:00:00 AM [facility] EDT I95.9 Hypotension, Hypotension, 43865-3 01/15/2020 [facility] unspecified unspecified 12:00:00 AM Health Syst em hypotension type hypotension type EDT INTOX INTOX Diagnosis 02/17/2020 [facility] 01:30:00 AM [facility] F10.10 Alcohol abuse, Alcohol abuse Diagnosis 02/17/2020 [facility] uncomplicated 01:30:00 AM [facility] E11.65 Type 2 diabetes Type 2 diabetes Diagnosis 01/15/2020 [facility] mellitus with mellitus with 05:13:00 PM [place] hyperglycemia hyperglycemia T Hospital SUBSTANCE ABUSE SUBSTANCE ABUSE Diagnosis 01/15/2020 [facility] - [facility] 05:13:00 PM [facility] I95.9 Hypotension, Hypotension, Diagnosis 01/15/2020 [facility] - [facility] t unspecified unspecified 05:13:00 PM [place] hypotension type T Hospital R73.9 Hyperglycemia, Hyperglycemia Diagnosis 01/15/2020 S - [facility] [place] unspecified 05:13:00 PM [facility] 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 01/15/2020 [facility] - [facility] abuse, 05:13:00 PM [place] uncomplicated [facility] I10 Essential Essential Diagnosis 01/15/2020 [facility] - [facility] (primary) hypertension 05:13:00 PM [place] hypertension [facility] Z53.21 Procedure and PROC/TRTMT NOT CRD Diagnosis 12/30/2019 [facility] treatment not OUT D/T PT LV BEF 04:53:00 PM [facility] carried out due to SEEN BY [facility] EDT patient leaving [place] prior to being [...] [place] (primary) (PRIMARY) 06:30:00 PM [facility] [place] [facility] hypertension HYPERTENSION EDT K21.9 Gastro-esophageal GASTRO-ESOPHAGEAL Diagnosis 12/15/2019 [place] reflux disease REFLUX DISEASE 06:30:00 PM [facility] without WITHOUT EDT esophagitis ESOPHAGITIS N17.9 Acute kidney ACUTE KIDNEY Diagnosis 12/15/2019 [place] [facility] failure, FAILURE, 06:30:00 PM [facility] [place] unspecified UNSPECIFIED EDT J69.0 Pneumonitis due to [...] XR Chest Single AP view XR 01/15/2020 [facility] Chest Single AP view 06:04:00 PM System EDT - 01/15/2020 06:04:00 PM EDT Electrocardiographic 01/15/2020 [facility] procedure (procedure) 05:39:10 PM System EDT - 01/15/2020 06:11:00 PM EDT Salicylate Level, Serum 01/15/2020 [facility] 05:39:10 PM System EDT - 01/15/2020 06:03:00 PM EDT Acetaminophen Level, Serum 01/15/2020 [facility] 05:39:10 PM System EDT - 01/15/2020 06:03:00 PM EDT Results ID Date Data Source [id number] 02/19/2020 12:00:00 AM EDT [facility] Name Value Range Interpretation Code Description Data Kamala rce(s) Supporting Document(s ) 2019[facility] XXX CINDY+probe- Imp This lab was ordered by PRISCA victoria nd reported by [facility]. ID Date Data Source [id number] 09/11/2013 12:07:17 AM EDT [facility] Name [...] ystem Urine results) Cut-off = 200 ng/mL [id number],Urine Negative Normal (applies to Opiate 300, Mon [...] i f needed. ID Date Data Source [id number] 09/11/2013 10:19:45 PM EDT [facility]th [...] System Automated count ID Date Data Source [id number] 09/11/2013 10:19:45 PM EDT [facility] Name Value Range Interpretation Description Data [...] Serum or Plasma ID Date Data Source [id number] 09/11/2013 10:19:45 PM EDT [facility] Name Value Range Interpretation Description Data Sup porting Code Source(s) Document(s ) AlcoholE non detected Normal (applies to Alcohol Ethyl, [facility] thyl,Blo None non-numeric Blood Health System od Detected results) ID Date Data Source [id number] 04/26/2018 05:34:00 PM EST [facility]th [...] } results) System ID Date Data Source [id number] 04/26/2018 05:34:00 PM EST [facility]th [...] [facility] [Mass/volume] in Serum (applies to Serum [facility] System or Plasma non-numeric results) DirectBilirubin 0.1 mg/dl Normal Direct Bilirubin [facility] (applies to Health System non-numeric results) Alkaline phosphatase 106 {IU/L} Normal Alkaline [facility] isoenzymes [Enzymatic (applies to Phosphatase, [facility] System activity/volume] in non-numeric Serum Serum or Plasma by Heat results) stability Bilirubin.total 0.3 mg/dl Normal Bilirubin, Serum [facility] [Mass/volume] in Serum (applies to Total [facility] System or Plasma non-numeric results) Albumin [Mass/volume] 4.5 {gm/dl} Normal Albumin, Serum [facility] in Serum or Plasma (applies to Health Sy stem non-numeric results) Aspartate 33 {IU/L} Normal Aspartate [facility] aminotransferase (applies to Transaminase, [facility] System [Enzymatic non-numeric Serum activity/volume] in results) Serum or Plasma by With P-5'-P Alanine 44 {IU/L} Normal Alanine [facility] aminotransferase (applies to Aminotransferase [facility] System [Enzymatic non-numeric , Serum activity/volume] in results) Serum or Plasma I.Phosphorus 3.7 mg/dl Normal I. Phosphorus [facility] (applies to Health System non-numeric results) A/GRatio 1.41 Normal A/G Ratio [facility] (applies to Health System non-numeric results) Calcium [Mass/volume] 9.7 mg/dl Normal Calcium, Total [facility] in Serum or Plasma (applies to Serum Health Sy stem non-numeric results) Urate [Mass/volume] in 5.0 [...] urine test abnormalities ID Date Data Source [id number] 04/26/2018 05:34:00 PM EST Chris [facility]on System Name Value Range Interpretation Description Data Source(s ) Supporting Code Document(s ) AlcoholE 217.7 Normal (applies to Alcohol Ethyl, [facility] thyl,Blo mg/dl non-numeric Blood Health System od results) None Detected ID Date Data Source [id number] 05/13/2018 06:18:00 PM EST [facility] System Name [...] Health } System ID Date Data Source [id number] 05/13/2018 06:18:00 PM EST [facility] He alth [...] re [Mass/volume] in Serum Nitrogen, Serum H ealth System or Plasma Alkaline phosphatase 108 {IU/L} [...] non-numeric Transaminase, [facility] System [Enzymatic results) Serum activity/volume] in Serum [...] Alanine [facility] aminotransferase to non-numeric Aminotransferase [facility] [Enzymatic results) , Serum activity/volume] in Serum or Plasma A/GRatio 1.67 Normal (applies A/G Ratio [facility] to non-numeric Health System results) Urate [Mass/volume] in 6.4 mg/dl Normal (applies Uric Acid, Serum [facility] Serum or Plasma to non-numeric Health Sy stem results) Anion gap in Serum or 17.00 Above high normal Anion Gap [facility] Plasma mmol/L Health System Glomerular filtration 58.00 Normal (applies GFR [...] urine test abnormalities ID Date Data Source [id number] 05/13/2018 06:18:00 PM EST Chris Pinedo alth System Name Value Range Interpretation Description Data Source(s ) Supporting Code Document(s ) AlcoholE 234.8 Normal (applies to Alcohol Ethyl, [facility] thyl,Blo mg/dl non-numeric Blood Health System od results) None Detected ID Date Data Source [id number] 05/13/2018 06:18:00 PM EST Buddyfilukasz Pinedo alth System Name Value Range Interpretation Description Data Sup porting Code Source(s) Document(s ) Acetaminophen < 4 Below low normal Acetaminophen Buddy dmitri [Mass/volume] in Level, Serum Health Serum or Plasma System ID Date Data Source [id number] 05/13/2018 06:18:00 PM EST [facility] System Name Value Range Interpretation Description Data Sup porting Code Source(s) Document(s ) Acetylsalicylate < 4.0 Normal (applies Salicylate [facility] [Mass/volume] in to non-numeric Level, Serum Healt h Serum or Plasma results) System ID Date Data Source [id number] 05/13/2018 08:05:00 PM EST [facility] System Name [...] [facility] to non-numeric VB System results) [id number]* 54.90 % Normal (applies O2 Saturation* Buddy dmitri Health to non-numeric System results) ID Date Data Source [id number] 05/22/2018 08:44:00 PM EST [facility] Name Value Range Interpretation Description Data Sup porting Code Source(s) Document(s ) BetaHydroxybutyrate 0.37 Above high Beta [facility] mg/dL normal Hydroxybutyrate Health System ID Date Data Source [id number] 05/22/2018 08:44:00 PM EST [facility] He alth [...] Health } System ID Date Data Source [id number] 05/22/2018 08:44:00 PM EST [facility] He alth [...] Result Reporting|Telephone|CALL & READ B ACK BY LEONEL| 05/22/2018 at 9:20 PMCalled to:Tech Name:Readback by: [...] non-numeric Transaminase, [facility] System [Enzymatic results) Serum activity/volume] in Serum or Plasma by With P-5'-P Albumin [Mass/volume] 5.1 {gm/dl} Above high normal Albumin, Serum [facility] in Serum or Plasma Health Syst em I.Phosphorus 3.8 mg/dl Normal (applies I. Phosphorus [facility] to non-numeric Health System results) Alanine 21 {IU/L} Normal (applies Alanine [facility] aminotransferase to non-numeric Aminotransferase [facility] [Enzymatic results) , Serum activity/volume] in [...] urine test abnormalities ID Date Data Source [id number] 05/22/2018 08:44:00 PM EST [facility] He alth [...] Kenrick cium, [facility] non-numeric Health System results) [id number]* 49.20 % Normal (applies to O2 Saturation* [facility] non-numeric Health System results) ID Date Data Source [id number] 02/17/2020 07:58:53 AM EDT [facility] alth System Name Value Range Interpretation [...] Lactate. 5.8 mmol/L Above upper panic Lactate. [facility] Health System Result Reporting|Telephone|ALEKSANDR MENESES| 01/15/2020 at 6:44 PMCalled to:ALEKSANDR MENESES Name:DAYAN Fritz ck by:ALEKSANDR MENESES 01/15/2020 / 6:44 PM Glucose,VB 368 mg/dL Above high Glucose, VB [facility]alt [facility] normal System Potassium,VB 3.6 mmol/L Normal (applies Potassium, [facility] to non-numeric System results) Sodium,VB 141 mmol/L Normal (applies Sodium, VB [facility] H ealth to non-numeric System results) IonizedCalcium,VB 1.21 mmol/L Normal (applies Ionized Calc ium, [facility] Health to non-numeric VB System results) [id number]* 87.00 % Normal (applies O2 Saturation* Buddy dmitri Health to non-numeric System results) ID Date Data Source [id number] 02/17/2020 07:58:53 AM EDT [facility] alth System Name Value Range Interpretation [...] Health } System ID Date Data Source [id number] 02/17/2020 07:58:53 AM EDT [facility] Name Value Range Interpretation Description Data Source(s ) Supporting Code Document(s ) Lipase 30 U/L Normal (applies to Lipase, Serum [facility] [Enzymatic non-numeric Health System activity/vo results) lume] in Serum or Plasma ID Date Data Source [id number] 02/17/2020 07:58:53 AM EDT [facility] Name Value Range Interpretation Description Data Sup porting Code Source(s) Document(s ) Alcohol NONDETECTED Normal (applies Alcohol Ethyl, [facility] Ethyl,B None Detected to non-numeric Blood Health Syst em lood results) ID Date Data Source [id number] 02/17/2020 07:58:53 AM EDT [facility] He alth [...] urine test abnormalities ID Date Data Source [id number] 02/17/2020 07:58:[address] [facility] Name Value Range Interpretation Description Data Source(s ) Supporting Code Document(s ) Troponin 0.02 Normal (applies to Troponin I [facility] IQuantit ng/mL non-numeric Quantitative - Health System ative-MV results) MV Only Only ID Date Data Source [id number] 01/15/2020 06:04:00 PM EDT [facility] HISTORY: Drug Over Dose;Chest X-ray:Comp arison: None available at this timeTechnique: Portable AP view is provided.Findings: T he heart and pulmonary vessels are normal in size.The mediastinalcontour is normal. T he lungs are clear. Noeffusion or pneumothorax. No healing or displaced fr acture ofthevisualized ribs.IMPRESSION:1. Negative chest exam. Electronically Si gned by Kiko Betancourt M.D. on 01/15/2020 at 1824 Reported and signed by: Kiko Betancourt M.D.[facility]icianS[facility] [phone] nically Signed:Kiko Betancourt MD2020/01/14 at 18:23 EDTTel , Service sup port , [id number] Name Value Range Interpretation Code Description Data Kamala rce(s) Supporting Document(s ) ID Date Data Source Liver 12/15/2019 06:55:00 AM EDT [facility] Profile.[id number] Name Value Range Interpretation Description Data Sup [...] s"> (38-126 IU/L)</content> ID Date Data Source HematologyRou.[id number]/15/2019 06:55:00 AM EDT [facility] 0400 Name Value Range Interpretation Description [...] (< 1 %)</content> ID Date Data Source GFR(Creatinine).[id number] 12/15/2019 06:55:00 AM EDT [facility] 0-0400 Name Value Range Interpretation Code Description Data Kamala rce(s) Supporting Document(s ) UNK > 60 <content [facility] styleCode="Bold"> Medical Cent er EGFR </content>100 GFR<content styleCode="Italic s"> (> 60 GFR)</content> ID Date Data Source Coagulation 12/15/2019 06:55:00 AM [facility] ical Center Rout.[id number] EDT Name Value Range Interpretation Description Data [...] cs"> (0.80-1.20 #)</content> ID Date Data Source MROUTINECCDA.[id number] 12/15/2019 06:55:00 AM EDT [facility] -0400 Name Value Range Interpretation Description Data [...] (6.3-8.2 G/DL)</content > ID Date Data Source CardiacMarkers.[id number] 12/15/2019 06:55:00 AM EDT [facility] -0400 Name Value Range Interpretation Description Data Sup porting Code Source(s) Document(s ) Creatine 55-170 <content [facility] kinase styleCode="Bold Medical [Enzymatic ">CK Center activity/vol </content>68 ume] in IU/L<content Serum or styleCode="Ital Plasma ics"> (55-170 IU/L)</content> ID Date Data Source [facility].[id number] 12/15/2019 06:55:00 AM EDT [facility] Name Value Range Interpretation Description [...] Data Source Liver 12/14/2019 06:14:00 AM EDT [facility] Profile.[id number] Name Value Range Interpretation Description Data Sup porting Code Source(s) Document(s ) Aspartate 17-59 <content [facility] aminotransferase styleCode="Bold"> [facility] hs [Enzymatic Aspartate Medical activity/volume] Aminotransferase Center in Serum or Plasma (AST) </content>24 IU/L<content styleCode="Italic s"> (17-59 IU/L)</content> Alanine 7-50 <content [facility] aminotransferase styleCode="Bold"> Chiol hs [Enzymatic Alanine Medical activity/volume] Aminotransferase Center [...] s"> (3.5-5.0 G/DL)</content> ID Date Data Source LIPID.[id number] 12/14/2019 06:14:[address] [facility] Name Value Range Interpretation Description Data Sup porting Code Source(s) Document(s ) Triglyceride < 150 <content [facility] [Mass/volume] in styleCode="Freddy [facility] Serum or Plasma d">Triglycerid Medical es Center </content>126 MG/DL<content styleCode="Lia lics"> (< 150 MG/DL)</conten t> Cholesterol -<200 <content [facility] [Mass/volume] in styleCode="Freddy [facility] Serum or Plasma d">Cholesterol Medical </content>116 Center MG/DL<content styleCode="Lia lics"> (-<200 MG/DL)</conten t> UNK > 60 Below low normal <content Saint styleCode="Freddy Chaos d">HDL- Medical Cholesterol Center </content>36 MG/DL L<content styleCode="Lia lics"> (> 60 MG/DL)</conten t> UNK < 100 <content Saint styleCode="Freddy Chaos d">LDL-Cholest Medical rabia Center </content>55 MG/DL<content styleCode="Lia lics"> (< 100 MG/DL)</conten t> ID Date Data Source HematologyRou.[id number] 12/14/2019 06:14:00 AM EDT [facility] 0400 Name Value Range Interpretation Description [...] Below low normal <content [facility] [Volume 0 styleCode="[place] Fraction] of ">Hematocrit Medical Blood by </content>32.9 [...] (0-0.1 KCUMM)</content > ID Date Data Source GFR(Creatinine).[id number] 12/14/2019 06:14:00 AM EDT [facility] 0-0400 Name Value Range Interpretation Code Description Data Kamala rce(s) Supporting Document(s ) UNK > 60 <content [facility] styleCode="Bold"> Medical Cent er EGFR </content>113 GFR<content styleCode="Italic s"> (> 60 GFR)</content> ID Date Data Source Coagulation 12/14/2019 06:14:00 AM [facility] Rout.[id number] EDT Name Value Range Interpretation Description Data [...] cs"> (25.1-36.5 SEC)</content> ID Date Data Source CHMROUTINECCDA.[id number] 12/14/2019 06:14:00 AM EDT [facility] -0400 Name Value Range Interpretation Description Data Sup porting Code Source(s) Document(s ) UNK >= 1.0 <content [facility] styleCode="Freddy Jil d">AG Ratio Medical </content>1.2 Center <content styleCode="Lia lics"> (>= 1.0 )</content> UNK 2.3-3.5 <content [facility] styleCode="Freddy Ijl d">Globulin Medical </content>2.6 Center G/DL<content styleCode="Lia lics"> [...] (6.3-8.2 G/DL)</content > ID Date Data Source CardiacMarkers.[id number] 12/14/2019 06:14:00 AM EDT [facility] -0400 Name Value Range Interpretation Description Data Sup porting Code Source(s) Document(s ) Troponin < 0.034 <content Saint I.cardiac styleCode="Bold Jil [Mass/volume ">Troponin I Medical ] in Serum </content>< Center or Plasma 0.012 NG/ML<content styleCode="Ital ics"> (< 0.034 NG/ML)</content > ID Date Data Source BMP.[id number] 12/14/2019 06:14:00 AM EDT [facility] Name Value Range Interpretation Description Data Sup [...] Data Source Liver 12/13/2019 06:50:00 AM EDT [facility] Profile.[id number] Name Value Range Interpretation Description Data Sup [...] s"> (3.5-5.0 G/DL)</content> ID Date Data Source HematologyRou.[id number] 12/13/2019 06:50:00 AM EDT [facility] 0400 Name Value Range Interpretation Description [...] low normal <content [facility] [Volume 0 styleCode="Bold [facility] Fraction] of ">Hematocrit Medical Blood by </content>30.1 [...] (0.0 KCUMM)</content > ID Date Data Source GFR(Creatinine).[id number] 12/13/2019 06:50:00 AM EDT [facility] 0-0400 Name Value Range Interpretation Code Description Data Kamala rce(s) Supporting Document(s ) UNK > 60 <content [facility] styleCode="Bold"> Medical Cent er EGFR </content>130 GFR<content styleCode="Italic s"> (> 60 GFR)</content> ID Date Data Source Coagulation 12/13/2019 06:50:00 AM [facility] Rout.[id number] EDT Name Value Range Interpretation Description Data Sup porting Code Source(s) Document(s ) UNK 9.0-13.0 <content styleCode="Bold" Jil >Protime Medical </content>11.1 Center SEC<content styleCode="Itali cs"> (9.0-13.0 SEC)</content> aPTT in 25.1-36. <content [facility] Platelet poor 5 styleCode="Bold" Jil plasma by >Partial Medical Coagulation Thromboplastin Center assay Time </content>26.0 SEC<content styleCode="Itali cs"> (25.1-36.5 SEC)</content> INR in 0.80-1.2 <content [facility] Platelet poor 0 styleCode="Bold" Jil plasma by >INR Medical Coagulation </content>1.00 Center assay #<content styleCode="Itali cs"> (0.80-1.20 #)</content> ID Date Data Source CHMROUTINECCDA.[id number] 12/13/2019 06:50:00 AM [facility] Name Value Range Interpretation Description [...] (6.3-8.2 G/DL)</content > ID Date Data Source CardiacMarkers.[id number] 12/13/2019 06:50:00 AM EDT [facility] -0400 Name Value Range Interpretation Description Data Sup porting Code Source(s) Document(s ) Troponin < 0.034 <content [facility] I.cardiac styleCode="Bold Jil [Mass/volume ">Troponin I Medical ] in Serum </content>0.017 Center or Plasma NG/ML<content styleCode="Ital ics"> (< 0.034 NG/ML)</content > ID Date Data Source BMP.[id number] 12/13/2019 06:50:00 AM EDT [facility] Name Value Range Interpretation Description Data Sup porting Code Source(s) Document(s ) Sodium 137-145 Below low <content [facility] [Moles/volume] in normal styleCode="Bold"> Jose Alejandro phs Serum or Plasma Sodium Medical </content>133 Center MEQ/L L<content styleCode="Italic s"> (137-145 MEQ/L)</content> Potassium 3.5-5.3 <content [facility] [Moles/volume] in styleCode="Bold"> Jose Alejandro [facility] Serum or Plasma Potassium Medical </content>3.6 Center [...] s"> (0.2-1.3 MG/DL)</content> ID Date Data Source CardiacMarkers.[id number] 12/12/2019 01:50:00 PM EDT [facility] -0400 Name Value Range Interpretation Description Data Sup porting Code Source(s) Document(s ) Troponin < 0.034 <content [facility] I.cardiac styleCode="Bold Jil [Mass/volume ">Troponin I Medical ] in Serum </content>0.030 Center or Plasma NG/ML<content styleCode="Ital ics"> (< 0.034 NG/ML)</content > ID Date Data Source Liver 12/12/2019 06:25:00 AM EDT [facility] Profile.[id number] Name Value Range Interpretation Description Data Sup [...] s"> (3.5-5.0 G/DL)</content> ID Date Data Source HematologyRou.[id number] 12/12/2019 06:25:00 AM EDT [facility] 0400 Name Value Range Interpretation Description [...] styleCode="Bold Jil ">[facility] Granulocyte [facility] Ratio </content>0.2 %<content styleCode="Ital ics"> (< 1 %)</content> ID Date Data Source GFR(Creatinine).[id number] 12/12/2019 06:25:00 AM EDT [facility] 0-0400 Name Value Range Interpretation Code Description Data Kamala rce(s) Supporting Document(s ) UNK > 60 <content [facility] styleCode="Bold"> Medical Cent er EGFR </content>130 GFR<content styleCode="Italic s"> (> 60 GFR)</content> ID Date Data Source Coagulation 12/12/2019 06:25:00 AM [facility] Rout.[id number] EDT Name Value Range Interpretation Description Data Sup porting Code Source(s) Document(s ) INR in 0.80-1.2 <content [facility] Platelet poor 0 styleCode="Bold" [facility] plasma by >INR Medical Coagulation </content>1.04 Center assay #<content styleCode="Itali cs"> (0.80-1.20 #)</content> UNK 9.0-13.0 <content Saint styleCode="Bold" Jil >Protime Medical </content>11.5 Center SEC<content styleCode="Itali cs"> (9.0-13.0 SEC)</content> aPTT in 25.1-36. <content [facility] Platelet poor 5 styleCode="Bold" Jil plasma by >Partial Medical Coagulation Thromboplastin Center assay Time </content>26.0 SEC<content styleCode="Itali cs"> (25.1-36.5 SEC)</content> ID Date Data Source CHMROUTINECCDA.[id number] 12/12/2019 06:25:00 AM EDT [facility] -0400 Name Value Range Interpretation Description Data Sup porting Code Source(s) Document(s ) Magnesium 1.6-2.3 <content Saint [Mass/volume] styleCode="Freddy Chaos in Serum or d">Magnesium Medical Plasma </content>2.2 Center MG/DL<content styleCode="Lia lics"> (1.6-2.3 MG/DL)</conten t> UNK >= 1.0 <content Saint styleCode="Freddy Jil d">AG Ratio Medical </content>1.1 Center <content styleCode="Lia lics"> (>= 1.0 )</content> UNK 2.3-3.5 <content Saint styleCode="Freddy Jil d">Globulin Medical </content>2.7 Center G/DL<content [...] (2.5-4.5 MG/DL)</conten t> ID Date Data Source CardiacMarkers.[id number] 12/12/2019 06:25:00 AM EDT [facility] -0400 Name Value Range Interpretation Description Data Sup porting Code Source(s) Document(s ) Troponin < 0.034 Above upper panic <content Saint I.cardiac limits styleCode="Bold Jil [Mass/volume ">Troponin I Medical ] in Serum </content><cont Center or Plasma ent styleCode="Bold ">0.055 NG/ML HH</content><co ntent styleCode="Ital ics"> (< 0.034 NG/ML)</content > ID Date Data Source BMP.[id number] 12/12/2019 06:25:00 AM EDT [facility] Name Value Range Interpretation Description Data Sup porting Code Source(s) Document(s ) Potassium 3.5-5.3 <content Saint [Moles/volume] in styleCode="Bold"> Jose Alejandro [facility] Serum or Plasma Potassium Medical </content>3.8 Center MEQ/L<content styleCode="Italic s"> (3.5-5.3 MEQ/L)</content> Sodium 137-145 Below low <content [facility] [Moles/volume] in normal styleCode="Bold"> Jose Alejandro phs Serum or Plasma Sodium Medical </content>135 Center MEQ/L L<content styleCode="Italic s"> (137-145 MEQ/L)</content> Chloride 98-107 <content [facility] [Moles/volume] in styleCode="Bold"> Jose Alejandro [facility] Serum or Plasma Chloride Medical </content>104 Center [...] s"> (3.5-5.0 G/DL)</content> ID Date Data Source Stools.[id number] 12/12/2019 01:54:00 AM EDT [facility] Name Value Range Interpretation Code Description Data Kamala rce(s) Supporting Document(s ) UNK NEGATIVE <content [facility] styleCode="Bold" Medical Cente r >Guaiac, Occult Blood </content>POSITI VE <content styleCode="Itali cs"> (NEGATIVE )</content> ID Date Data Source GFR(Creatinine).[id number] 12/11/2019 04:25:00 PM EDT [facility] 0-0400 Name Value Range Interpretation Code Description Data Kamala rce(s) Supporting Document(s ) UNK > 60 <content [facility] styleCode="Bold"> Medical Cent er EGFR </content>90 GFR<content styleCode="Italic s"> (> 60 GFR)</content> ID Date Data Source BMP.[id number] 12/11/2019 04:25:00 PM EDT [facility] Name Value Range Interpretation Description Data Sup [...] (> 60 GFR)</content> ID Date Data Source BRONSONDA.[id number] 12/11/2019 01:55:00 PM EDT [facility] -0400 Name Value Range Interpretation Description Data Sup porting Code Source(s) Document(s ) Lactate 0.7-2.0 <content [facility] [Mass/volum styleCode="Bold Medical e] in Serum ">Lactic Acid Center or Plasma </content>1.2 MMOLL<content styleCode="Ital ics"> (0.7-2.0 MMOLL)</content > ID Date Data Source Stools.[id number] 12/11/2019 10:25:00 AM EDT [facility] Name Value Range Interpretation Code Description Data Kamala rce(s) Supporting Document(s ) UNK <content [facility] styleCode="Bold"> Medical Cent er Guaiac, Occult Blood </content>TNP (Reference Range: not available)
ID Date Data Source Liver 12/11/2019 06:15:00 AM EDT [facility] Profile.[id number] Name Value Range Interpretation Description Data Sup porting Code Source(s) Document(s ) Aspartate 17-59 <content [facility] aminotransferase styleCode="Bold"> [facility] [Enzymatic Aspartate Medical activity/volume] Aminotransferase Center in Serum or Plasma (AST) </content>28 IU/L<content styleCode="Italic s"> (17-59 IU/L)</content> Alanine 7-50 <content [facility] aminotransferase styleCode="Bold"> [facility] [Enzymatic Alanine Medical activity/volume] Aminotransferase Center in Serum or Plasma (ALT) </content>23 IU/L<content styleCode="Italic s"> (7-50 IU/L)</content> Alkaline 38-126 Above high <content [facility] phosphatase normal styleCode="Bold"> [facility] [Enzymatic Alkaline Medical activity/volume] Phosphatase (ALP) Cente [...] s"> (3.5-5.0 G/DL)</content> ID Date Data Source HematologyRou.[id number] 12/11/2019 06:15:00 AM EDT [facility] 0400 Name Value Range Interpretation Description [...] Date Data Source Coagulation 12/11/2019 06:15:00 AM [facility] Rout.[id number] EDT Name Value Range Interpretation Description Data [...] cs"> (25.1-36.5 SEC)</content> ID Date Data Source GFR(Creatinine).[id number] 12/10/2019 10:30:00 PM EDT [facility] 0-0400 Name Value Range Interpretation Code Description Data Kamala rce(s) Supporting Document(s ) UNK > 60 <content [facility] styleCode="Bold"> Medical Cent er EGFR </content>74 GFR<content styleCode="Italic s"> (> 60 GFR)</content> ID Date Data Source CardiacMarkers.[id number] 12/10/2019 10:30:00 PM EDT [facility] -0400 Name Value Range Interpretation Description Data Sup porting Code Source(s) Document(s ) Troponin < 0.034 <content [facility] I.cardiac styleCode="Bold Jil [Mass/volume ">Troponin I Medical ] in Serum </content>0.022 Center or Plasma NG/ML<content styleCode="Ital ics"> (< 0.034 NG/ML)</content > ID Date Data Source BMP.[id number] 12/10/2019 10:30:00 PM EDT [facility] Name Value Range Interpretation Description Data Sup porting Code Source(s) Document(s ) Sodium 137-145 <content [facility] [Moles/volume] styleCode="Freddy Jil in Serum or d">Sodium Medical Plasma </content>143 Center MEQ/L<content styleCode="Lia lics"> (137-145 MEQ/L)</conten t> Chloride 98-107 Above high normal <content [facility] [Moles/volume] styleCode="Freddy Chaos in Serum or d">Chloride Medical Plasma </content>108 [...] (> 60 GFR)</content> ID Date Data Source GFR(Creatinine).[id number] 12/10/2019 06:25:00 PM EDT [facility] 0-0400 Name Value Range Interpretation Code Description Data Kamala rce(s) Supporting Document(s ) UNK > 60 Below low normal <content [facility] styleCode="Bold"> Medical Cent er EGFR </content>54 GFR L<content styleCode="Italic s"> (> 60 GFR)</content> ID Date Data Source BMP.[id number] 12/10/2019 06:25:00 PM EDT [facility] Name Value Range Interpretation Description Data Sup [...] Above high normal <content [facility] [Mass/volume] styleCode="Freddy Chaos in Serum or d">Glucose Medical Plasma </content>297 Center MG/DL H<content styleCode="Lia lics"> (74-106 MG/DL)</conten t> Calcium 8.4-10.2 <content [facility] [Mass/volume] styleCode="Freddy Chaos in Serum or d">Calcium Medical Plasma </content>8.7 Center MG/DL<content styleCode="Lia lics"> (8.4-10.2 MG/DL)</conten t> UNK > 60 Below low normal <content styleCode="Freddy Chaos d">EGFR Medical </content>54 Center GFR L<content styleCode="Lia lics"> (> 60 GFR)</content> ID Date Data Source GFR(Creatinine).[id number] 12/10/2019 04:15:00 PM EDT [facility] 0-0400 Name Value Range Interpretation Code Description Data Kamala rce(s) Supporting Document(s ) UNK > 60 Below low normal <content [facility] styleCode="Bold"> Medical Cent er EGFR </content>48 GFR L<content styleCode="Italic s"> (> 60 GFR)</content> ID Date Data Source BMP.[id number] 12/10/2019 04:15:00 PM EDT [facility] Name Value Range Interpretation Description Data Sup [...] (> 60 GFR)</content> ID Date Data Source GFR(Creatinine).[id number] 12/10/2019 01:58:00 PM EDT [facility] 0-0400 Name Value Range Interpretation Code Description Data Kamala rce(s) Supporting Document(s ) UNK > 60 Below low normal <content [facility] styleCode="Bold"> Medical Cent er EGFR </content>45 GFR L<content styleCode="Italic s"> (> 60 GFR)</content> ID Date Data Source CHMROUTINECCDA.[id number] 12/10/2019 01:58:00 PM EDT [facility] -0400 Name Value Range Interpretation Code Description Data Kamala rce(s) Supporting Document(s ) UNK 0.7-2.0 Above upper panic <content [place] [facility] limits styleCode="Bold" Medical Cente r >Lactic Acid 4hr </content><magdy nt styleCode="Bold" >3.2 MMOLL HH</content><con tent styleCode="Itali cs"> (0.7-2.0 MMOLL)</content> ID Date Data Source BMP.[id number] 12/10/2019 01:58:00 PM EDT [facility] Name Value Range Interpretation Description Data Sup porting Code Source(s) Document(s ) Sodium 137-145 <content [facility] [Moles/volume] styleCode="Freddy Jil in Serum or d">Sodium Medical Plasma </content>141 Center MEQ/L<content styleCode="Lia lics"> (137-145 MEQ/L)</conten t> Chloride 98-107 <content [facility] [Moles/volume] styleCode="Freddy Jil in Serum or d">Chloride Medical Plasma </content>100 Center MEQ/L<content styleCode="Lia lics"> (98-107 MEQ/L)</conten t> Potassium <content [facility] [Moles/volume] styleCode="Freddy Jil in Serum or d">Potassium Medical Plasma </content>Test Center not performed. MEQ/L (Reference Range: not available)<br/ > Glucose 74-106 Above upper panic <content [facility] [Mass/volume] limits styleCode="Freddy Jil in Serum or d">Glucose Medical Plasma </content><con Center tent styleCode="Freddy d">591 MG/DL HH</content><c ontent styleCode="Lia lics"> (74-106 MG/DL)</conten t> Carbon 22-30 Below low normal <content Saint dioxide, total styleCode="Freddy Chaos [Moles/volume] d">Carbon Medical in Serum or Dioxide Center Plasma </content>15 MEQ/L L<content styleCode="Lia lics"> (22-30 MEQ/L)</conten t> UNK 9-20 Above high normal <content [facility] styleCode="Freddy Chaos d">BUN Medical </content>53 Center MG/DL H<content styleCode="Lia lics"> (9-20 MG/DL)</conten t> Creatinine 0.5-1.3 Above high normal <content [facility] [Mass/volume] styleCode="Freddy Chaos in Serum or d">Creatinine Medical Plasma </content>2.0 Center MG/DL H<content styleCode="Lia lics"> (0.5-1.3 MG/DL)</conten t> UNK > 60 Below low normal <content [facility] styleCode="Freddy Jil d">EGFR Medical </content>45 Center GFR L<content styleCode="Lia lics"> (> 60 GFR)</content> Calcium 8.4-10.2 <content [facility] [Mass/volume] styleCode="Freddy Chaos in Serum or d">Calcium Medical Plasma </content>8.7 Center MG/DL<content styleCode="Lia lics"> (8.4-10.2 MG/DL)</conten t> ID Date Data Source Liver 12/10/2019 11:00:00 AM EDT [facility] Profile.[id number] Name Value Range Interpretation Description Data Sup [...] s"> (3.5-5.0 G/DL)</content> ID Date Data Source GFR(Creatinine).[id number] 12/10/2019 11:00:00 AM EDT [facility] 0-0400 Name Value Range Interpretation Code Description Data Kamala rce(s) Supporting Document(s ) UNK > 60 Below low normal <content [facility] styleCode="Bold"> Medical Cent er EGFR </content>36 GFR L<content styleCode="Italic s"> (> 60 GFR)</content> ID Date Data Source ESME.[id number] 12/10/2019 11:00:00 AM EDT [facility] -0400 Name Value Range Interpretation Description Data Sup porting Code Source(s) Document(s ) UNK 2.3-3.5 <content [facility] styleCode="Bold Medical ">Globulin Center </content>2.7 G/DL<content styleCode="Ital ics"> (2.3-3.5 G/DL)</content> UNK >= 1.0 <content [facility] styleCode="Bold Medical ">AG Ratio Center </content>1.8 <content styleCode="Ital ics"> (>= 1.0 )</content> Protein 6.3-8.2 <content [facility] [Mass/volum styleCode="Bold Medical e] in Serum ">Total Protein Center or Plasma </content>7.5 G/DL<content styleCode="Ital ics"> (6.3-8.2 G/DL)</content> ID Date Data Source [facility].[id number] 12/10/2019 11:00:00 AM EDT [facility] Name Value Range Interpretation Description Data Sup porting Code Source(s) Document(s ) Potassium 3.5-5.3 <content [facility] [Moles/volume] in styleCode="Bold"> Jose Alejandro [facility] Serum or Plasma Potassium Medical </content>4.7 Center MEQ/L<content styleCode="Italic s"> (3.5-5.3 MEQ/L)</content> Sodium 137-145 Below low <content [facility] [Moles/volume] in normal styleCode="Bold"> Jose Alejandro [facility] Serum or Plasma Sodium Medical </content>136 Center MEQ/L L<content styleCode="Italic s"> (137-145 MEQ/L)</content> Chloride 98-107 Below low <content [facility] [Moles/volume] in normal styleCode="Bold"> Jose Alejandro phs Serum or Plasma Chloride Medical </content>88 Center [...] Above high <content [facility] phosphatase normal styleCode="Bold"> [facility] [Enzymatic Alkaline Medical activity/volume] Phosphatase (ALP) Cente [...] s"> (7-50 IU/L)</content> ID Date Data Source Microbiology.[id number] 12/10/2019 08:02:00 AM EDT [facility] 400 Name Value Range Interpretation Code Description Data Kamala rce(s) Supporting Document(s ) UNK <item><content Jil styleCode="Bold"> Medical Cent er Culture Report </content>
<t able><tbody><tr>< td>Specimen Number:</td><td>[id number]</td></tr ><tr><td>Sample Collection Date/Time: </td><td> 0 8:02 AM</td></tr><tr>< td>Specimen Source:</td><td>B LOOD</td></tr><tr ><td>Culture Report:</td><td>N O GROWTH 5 DAYS </td></tr><tr><td >Blood Culture:</td><td> Collection Plate Date: 12/10/2019 08:16 </td></tr><tr><td >Culture Status:</td><td>F inal </td></tr></tbody ></table></item> UNK <item><content [facility] styleCode="Bold"> [facility] er Culture Report </content>
<t able><tbody><tr>< td>Specimen Number:</td><td>[id number]</td></tr ><tr><td>Sample Collection Date/Time: </td><td> 0 8:02 AM</td></tr><tr>< td>Specimen Source:</td><td>B LOOD</td></tr><tr ><td>Blood Culture:</td><td> Collection Plate Date: 12/10/2019 08:17 </td></tr><tr><td >Culture Status:</td><td>F inal </td></tr><tr><td >Culture Report:</td><td>N O GROWTH 5 DAYS </td></tr></tbody ></table></item> UNK <item><content [facility]Bold"> Medical [facility] Culture Status </content>
<t able><tbody><tr>< td>Specimen Number:</td><td>[id number]</td></tr ><tr><td>Sample Collection Date/Time: </td><td> 0 8:02 AM</td></tr><tr>< td>Specimen Source:</td><td>B LOOD</td></tr><tr ><td>Culture Report:</td><td>N O GROWTH 5 DAYS </td></tr><tr><td >Culture Status:</td><td>F inal </td></tr><tr><td >Blood Culture:</td><td> Collection Plate Date: 12/10/2019 08:16 </td></tr></tbody ></table></item> UNK <item><content [facility] styleCode="Bold"> Medical Cent er Culture Status </content>
<t able><tbody><tr>< td>Specimen Number:</td><td>[id number]</td></tr ><tr><td>Sample Collection Date/Time: </td><td> 0 8:02 AM</td></tr><tr>< td>Specimen Source:</td><td>B LOOD</td></tr><tr ><td>Blood Culture:</td><td> Collection Plate Date: 12/10/2019 08:17 </td></tr><tr><td >Culture Report:</td><td>N O GROWTH 5 DAYS </td></tr><tr><td >Culture Status:</td><td>F inal </td></tr></tbody ></table></item> ID Date Data Source CHMROUTINECCDA.[id number] 12/10/2019 08:01:00 AM EDT [facility] -0400 Name Value Range Interpretation Code Description Data Kamala rce(s) Supporting Document(s ) UNK NEGATIVE <content [facility] styleCode="Bold" Medical Cente r >Acetone </content>SMALL <content styleCode="Itali cs"> (NEGATIVE )</content> ID Date Data Source Urinalysis.[id number] 12/10/2019 07:45:00 AM EDT [facility] 0 Name Value Range Interpretation Description Data Sup porting Code Source(s) Document(s ) Color of Urine YELLOW <content Saint styleCode="Freddy Jil d">Color, Medical Urine Center </content>YELL OW <content styleCode="Lia lics"> (YELLOW )</content> UNK CLEAR <content Saint styleCode="Freddy Jil d">Urine Medical Clarity Center </content>CELINA R <content styleCode="Lia lics"> (CLEAR )</content> Glucose NEGATIVE <content [facility] [Mass/volume] styleCode="Freddy Chaos in Urine by d">Urine Medical Test strip Glucose Center </content>>=10 00 MG/DL<content styleCode="Lia lics"> (NEGATIVE MG/DL)</conten t> UNK NEGATIVE <content [facility] styleCode="Freddy Jil d">Urine Medical Bilirubin Center </content>SMAL L <content styleCode="Lia lics"> (NEGATIVE )</content> Ketones NEGATIVE <content [facility] [Mass/volume] styleCode="Freddy Chaos in Urine by d">Urine Medical Test strip Ketone Center </content>40 MG/DL<content styleCode="Lia lics"> (NEGATIVE MG/DL)</conten t> Hemoglobin NEGATIVE <content [facility] [Presence] in styleCode="Freddy Ley Urine by Test d">Urine Blood Medical strip </content>NEGA Center TIVE <content styleCode="Lia lics"> (NEGATIVE )</content> pH of Urine by 4.5-8.0 <content [facility] Test strip styleCode="Freddy Jil d">Urine pH Medical </content>5.5 Center <content styleCode="Lia lics"> (4.5-8.0 )</content> Specific 1.015-1.02 <content [facility] gravity of 5 styleCode="Freddy Chaos Urine by Test d">Urine Medical strip Specific Center [employer] </content>1.02 0 <content styleCode="Lia lics"> (1.015-1.025 )</content> Protein NEGATIVE <content [facility] [Mass/volume] styleCode="Freddy Chaos in Urine by d">Urine Medical Test strip Protein Center </content>NEGA TIVE MG/DL<content styleCode="Lia lics"> (NEGATIVE MG/DL)</conten t> Urobilinogen 0.2-1.0 <content [facility] [Units/volume] styleCode="Freddy Ley in Urine by d">Urine Medical Test strip Urobilinogen Center </content>0.2 MG/DL<content styleCode="Lia lics"> (0.2-1.0 MG/DL)</conten t> Leukocyte NEGATIVE <content [facility] esterase styleCode="Freddy Chaos [Presence] in d">Urine Medical Urine by Test Leukocyte Center strip </content>NEGA TIVE <content styleCode="Lia lics"> (NEGATIVE )</content> Nitrite NEGATIVE <content [facility] [Presence] in styleCode="Freddy Ley Urine by Test d">Urine Medical strip Nitrite Center </content>NEGA TIVE <content styleCode="Lia lics"> (NEGATIVE )</content> ID Date Data Source MROUTINECCDA.[id number] 12/10/2019 07:45:00 AM EDT [facility] -0400 Name Value Range Interpretation Description Data Sup porting Code Source(s) Document(s ) Cannabinoids <content [facility] [Presence] in styleCode="Freddy Ley Urine by Screen d">Cannabinoid Medical method >50 ng/mL s Center </content>NEGA TIVE NG/ML (Reference Range: not available)<br/ > ID Date Data Source Liver 12/10/2019 07:05:00 AM EDT [facility] Profile.[id number] Name Value Range Interpretation Description Data Sup [...] s"> (0.0-0.3 MG/DL)</content> ID Date Data Source HematologyRou.[id number] 12/10/2019 07:05:00 AM EDT [facility] nt [facility] 0400 Name Value Range Interpretation [...] ics"> (8.0-11.0 FL)</content> ID Date Data Source CHMROUTINECCDA.[id number] 12/10/2019 07:05:00 AM EDT [facility] -0400 Name Value Range Interpretation Description Data [...] (2.5-4.5 MG/DL)</conten t> ID Date Data Source CardiacMarkers.[id number] 12/10/2019 07:05:00 AM EDT [facility] -0400 Name Value Range Interpretation Description Data Sup porting Code Source(s) Document(s ) Troponin < 0.034 <content Saint I.cardiac styleCode="Bold Jil [Mass/volume ">Troponin I Medical ] in Serum </content>< Center or Plasma 0.012 NG/ML<content styleCode="Ital ics"> (< 0.034 NG/ML)</content > ID Date Data Source [id number] 12/10/2019 12:00:00 AM EDT [facility] Name Value Range Interpretation Code Description Data Kamala rce(s) Supporting Document(s ) 2019-nCoV [facility] RNA XXX CINDY+probe- Imp This lab was ordered by [facility] and reported by [employer] [facility]. Procedure Social History Code Duration Value Status Description Data Source(s ) Smoking 12/10/2019 02:35:00 Daily Smoker completed Daily Smoker S [facility] EDT Center Smoking 12/10/2019 11:13:00 Daily Smoker completed Daily Smoker S [facility] AM EDT Center Smoking 12/10/2019 08:37:00 Daily Smoker completed Daily Smoker S [facility] EDT Center Vital Signs ID Date Data Source UNK Name Value Range Interpretation Code Description Data Source(s) Body surface area 1.9 m2 1.9 [facility]2 [facility] from [facility] m formula Body mass index 28.1 kg/m2 28.1 kg/m2 [place] (BMI) [Ratio] [facility] Sy[facility] em Body weight 81.64 kg 81.64 kg [facility] YAZUO System Body height 170.18 cm 170.18 cm [facility] System Body temperature 97.8 [degF] 0 - 200 Normal (applies to 97.8 [degF ] [facility] non-numeric Health System results) Body temperature 36.5 Samantha 0 - 99.9 Normal (applies to 36.5 Samantha [facility] non-numeric Health System results) Diastolic blood 90 mm[Hg] 0 - 999 Above high normal 90 mm[Hg] [facility] pressure Health System Systolic blood 130 mm[Hg] 0 - 999 Normal (applies to 130 mm[Hg] [facility] pressure non-numeric Health System results) Oxygen saturation 96 % 0 - 999 Normal (applies to 96 % [facility] Arterial blood non-[facility] Health System by Pulse oximetry results) Respiratory rate 17 0 - 999 Normal (applies to 17 [facility] non-numeric Health System results) Heart rate 87 0 - 999 Normal (applies to 87 [facility] iore non-numeric Health System results) Body temperature 97.5 [degF] 0 - 200 Normal (applies to 97.5 [degF ] [facility] non-numeric Health System results) Body temperature 36.3 Samantha 0 - 99.9 Below low normal 36.3 Samantha [facility] System Diastolic blood 71 mm[Hg] 0 - 999 Normal (applies to 71 mm[Hg] [facility] pressure non-numeric Health System results) Systolic blood 107 mm[Hg] 0 - 999 Below low normal 107 mm[Hg] [facility] Oxygen saturation 97 % 0 - 999 Normal (applies to 97 % [facility] Arterial blood non-[facility] Health System by Pulse oximetry results) Respiratory rate 18 0 - 999 Above high normal 18 M [facility] System Heart rate 83 0 - 999 Normal (applies to 83 [facility] iore non-numeric Health System results) Body surface area 1.9 m2 1.9 m2 [facility] ore Derived from Health Syste m formula Body mass index 29.5 kg/m2 29.5 [facility] em Body weight 85.72 kg 85.72 kg [facility] Body height 170.18 cm 170.18 cm [facility] Body temperature 36.007328 36.206052 [facility] Respiratory rate 20 /min 20 /min [facility] Oxygen saturation 97 % 97 % [facility] Arterial blood [facility] by Pulse oximetry Heart rate 102 /min 102 /min [facility] Diastolic blood 80 mm[Hg] 80 mm[Hg] [facility] Systolic blood 145 mm[Hg] 145 mm[Hg] [facility] Body temperature 36.086706 36.486337 [facility] Respiratory rate 20 /min 20 /min [facility] Heart rate 76 /min 76 /min [facility] Diastolic blood 84 mm[Hg] 84 mm[Hg] [facility] Systolic blood 129 mm[Hg] 129 mm[Hg] [facility] Body weight 77.971430 77.424759 kg [facility] Measured kg [facility] Body height 170.314954 170.665728 cm [facility] Body mass index 26.62 kg/m2 26.62 kg/m2 [facility] (BMI) [Ratio] Medical [facility] ter Body temperature 36.859306 36.251173 [facility] Respiratory rate 20 /min 20 /min [facility] Heart rate 84 /min 84 /min [facility] Diastolic blood 72 mm[Hg] 72 mm[Hg] [facility] Systolic blood 118 mm[Hg] 118 mm[Hg] [facility] Body temperature 36.087451 36.809927 [facility] Respiratory rate 19 /min 19 /min [facility] Heart rate 77 /min 77 /min [facility] Diastolic blood 80 mm[Hg] 80 mm[Hg] [facility] Systolic blood 140 mm[Hg] 140 mm[Hg] [facility] Respiratory rate 20 /min 20 /min [facility] Heart rate 74 /min 74 /min [facility] Diastolic blood 82 mm[Hg] 82 mm[Hg] [facility] Systolic blood 130 mm[Hg] 130 mm[Hg] [facility] Body temperature 37.992091 37.316902 [facility] Respiratory rate 20 /min 20 /min [facility] Heart rate 86 /min 86 /min [facility] Diastolic blood 79 mm[Hg] 79 mm[Hg] [facility] Systolic blood 130 mm[Hg] 130 mm[Hg] [facility] Body temperature 36.990068 36.724422 [facility] Body weight 84.126683 84.469166 kg [facility] Me[facility] kg [facility] Body weight 83.205982 83.016848 kg [facility] Me[facility] kg [facility] Body weight 77.255855 77.669659 kg [facility] Measured kg [facility] Body temperature 36.701551 36.154313 [facility] Respiratory rate 18 /min 18 /min [facility] Heart rate 98 /min 98 /min [facility] Diastolic blood 83 mm[Hg] 83 mm[Hg] [facility] Systolic blood 125 mm[Hg] 125 mm[Hg] [facility] Center Respiratory rate 20 /min 20 /min [facility] Heart rate 96 /min 96 /min [facility] Diastolic blood 84 mm[Hg] 84 mm[Hg] [facility] Systolic blood 139 mm[Hg] 139 mm[Hg] [facility] Body temperature 36.394161 36.131870 [facility] Respiratory rate 12 /min 12 /min [facility] Heart rate 105 /min 105 /min [facility] Diastolic blood 85 mm[Hg] 85 mm[Hg] [facility] Systolic blood 129 mm[Hg] 129 mm[Hg] [facility] Body temperature 36.406004 36.239027 [facility] Respiratory rate 20 /min 20 /min [facility] Heart rate 105 /min 105 /min [facility] Diastolic blood 78 mm[Hg] 78 mm[Hg] [facility] Systolic blood 129 mm[Hg] 129 mm[Hg] [facility] Body temperature 36.899500 36.234586 [facility] Respiratory rate 18 /min 18 /min [facility] Heart rate 108 /min 108 /min [facility] Diastolic blood 78 mm[Hg] 78 mm[Hg] [facility] Systolic blood 122 mm[Hg] 122 mm[Hg] [facility] Body temperature 36.929521 36.379160 [facility] Body weight 77.281219 77.895810 [facility] Body height 170.295025 170.994818 cm [facility] Body mass index 26.90 kg/m2 26.90 kg/m2 [facility] (BMI) [Ratio] Medical [facility] Oxygen saturation 100 % 100 % [facility] in Arterial blood [facility] by Pulse oximetry Oxygen saturation 99 % 99 % [facility] Arterial blood [facility] by Pulse oximetry Oxygen saturation 98 % 98 % [facility] Arterial blood [facility] by Pulse oximetry
[2020-02-24] MEDS: amLODIPine BESYLATE 5 MG TABLET (FP) PO SCH (10:54)
[2020-02-24] MEDS: LISINOPRIL 10 MG TABLET PO SCH (10:55)
[2020-02-24] MEDS: metFORMIN HCL 500 MG TABLET (FP) PO SCH ×2 (10:55→17:15)
[2020-02-24] MEDS: hydrOXYzine PAMOATE 25 MG CAPSULE (FP) PO SCH ×3 (13:21→22:42)
[2020-02-24 14:06] LABS: HEMOGLOBIN 13.3 GM/dL (11.7-16.9); MCH 30.7 pg (25.7-33.7); MCHC 34.1 g/dl (32.0-35.9); MEAN CELL VOLUME 90.1 fl (80-96); MEAN PLT VOLUME 9.1 fl (7.5-11.1); PLATELET COUNT 194 K/MM3 (134-434); RBC 4.34 M/mm3 (4.00-5.60); RDW 14.6 % (11.9-15.9); WHITE BLOOD COUNT 7.8 K/mm3 (4.0-10.0)
[2020-02-24 14:10] LABS: BILIRUBIN,TOTAL 0.8 mg/dL (0.2-1); BLOOD UREA NITROGEN 8.5 mg/dL (7-18); CALCIUM 9.5 mg/dL (8.5-10.1); POTASSIUM 4.1 mmol/L (3.5-5.1); TOT PROT 7.2 g/dl (6.4-8.2)
[2020-02-24] MEDS ORDERED: INSULIN SLIDING SCALE (NOVOLOG) 1 VIAL SQ ONE (17:01)
[2020-02-24] MEDS: chlordiazePOXIDE HCL 25 MG CAPSULE PO SCH ×2 (17:14→22:42)
[2020-02-24] MEDS: Insulin (LOG) Aspart 100 UNITS/ML VIAL SQ SCH (17:16)
[2020-02-24] MEDS: ATORVASTATIN CA 20 MG TABLET (FP) PO SCH (22:42)
[2020-02-24] MEDS: IBUPROFEN 400 MG TABLET (FP) PO PRN (22:43)
[2020-02-24] MEDS: THIAMINE HCL 100 MG TABLET (FP) PO SCH (22:43)
[2020-02-24] MEDS: MELATONIN 5 MG TABLETS PO SCH (22:43)
[2020-02-24] MEDS: INSULIN (LEVEMIR) 100 UNITS/ML UNITS SQ SCH (22:43)
[2020-02-25] MEDS: chlordiazePOXIDE HCL 25 MG CAPSULE PO SCH ×4 (06:54→22:44)
[2020-02-25] MEDS: hydrOXYzine PAMOATE 25 MG CAPSULE (FP) PO SCH ×2 (06:54→10:08)
[2020-02-25] MEDS: metFORMIN HCL 500 MG TABLET (FP) PO SCH ×2 (07:01→16:36)
[2020-02-25] MEDS ORDERED: INSULIN SLIDING SCALE (NOVOLOG) 1 VIAL SQ ONE ×3 (08:41→18:34)
[2020-02-25] MEDS: Insulin (LOG) Aspart 100 UNITS/ML VIAL SQ SCH ×2 (08:44→18:37)
[2020-02-25] MEDS: LISINOPRIL 10 MG TABLET PO SCH (10:08)
[2020-02-25] MEDS: amLODIPine BESYLATE 5 MG TABLET (FP) PO SCH (10:08)
[2020-02-25] MEDS: PRENATAL VITAMINS W/ FOLIC ACID TABLET (FP) PO SCH (10:09)
[2020-02-25] MEDS: IBUPROFEN 400 MG TABLET (FP) PO PRN ×2 (10:10→18:34)
[2020-02-25] MEDS: NICOTINE 7 MG/24 HOURS TOPICAL PATCH TD SCH (10:12)
[2020-02-25] MEDS ORDERED: hydrOXYzine PAMOATE 25 MG CAPSULE (FP) PO PRN (10:21)
--- NOTE | 2020-02-25 12:22 | PN ---
[facility] CIWA - CIWA Score Nausea/Vomitin-No Nausea/No Vomiting Muscle Tremors: 2 Anxiety: 1-Mildly Anxious Agitation: 2 Paroxysmal Sweats: 2 Orientation: 0-Oriented Tacttile Disturbances: 0-None Auditory Disturbances: 0-None Visual Disturbances: 0-None Headache: 0-None Present CIWA-Ar Total Score: 7 BHS Progress Note (SOAP) Subjective: body aches sweats shakes interrupted sleep irritable Objective: 02/25/20 12:02 Vital Signs Temperature 97.7 F 02/25/20 08:22 Pulse Rate 88 02/25/20 08:22 Respiratory Rate 20 02/25/20 08:22 Blood Pressure 125/80 02/25/20 08:22 O2 Sat by Pulse Oximetry (%) 96 02/25/20 08:22 Laboratory Tests 02/24/20 02/24/20 02/24/20 09:43 10:15 10:15 WBC 7.8 RBC 4.34 Hgb 13.3 Hct 39.0 MCV 90.1 MCH 30.7 MCHC 34.1 RDW 14.6 Plt Count 194 D MPV 9.1 D Sodium 139 Potassium 4.1 Chloride 105 Carbon Dioxide 27 Anion Gap 8 BUN 8.5 Creatinine 1.0 Est GFR (CKD-EPI)AfAm 97.77 Est GFR (CKD-EPI)NonAf 84.35 POC Glucometer 146 Random Glucose 132 H Calcium 9.5 Total Bilirubin 0.8 AST 47 H ALT 73 H Alkaline Phosphatase 184 H Total Protein 7.2 Albumin 4.0 Syphilis Serology 02/24/20 02/24/20 02/24/20 10:15 16:37 22:40 WBC RBC Hgb Hct MCV MCH MCHC RDW Plt Count MPV Sodium Potassium Chloride Carbon Dioxide Anion Gap BUN Creatinine Est GFR (CKD-EPI)AfAm Est GFR (CKD-EPI)NonAf POC Glucometer 379 167 Random Glucose Calcium Total Bilirubin AST ALT Alkaline Phosphatase Total Protein Albumin Syphilis Serology Non-reactive 02/25/20 02/25/20 06:58 11:03 WBC RBC Hgb Hct MCV MCH MCHC RDW Plt Count MPV Sodium Potassium Chloride Carbon Dioxide Anion Gap BUN Creatinine Est GFR (CKD-EPI)AfAm Est GFR (CKD-EPI)NonAf POC Glucometer 280 200 Random Glucose Calcium Total Bilirubin AST ALT Alkaline Phosphatase Total Protein Albumin Syphilis Serology labs noted aaox3 ambulating no acute distress Assessment: 02/25/20 12:24 withdrawals Plan: continue detox increase fluids
[2020-02-25] MEDS ORDERED: INSULIN (LEVEMIR) 100 UNITS/ML UNITS SQ ONE (22:16)
[2020-02-25] MEDS: ATORVASTATIN CA 20 MG TABLET (FP) PO SCH (22:44)
[2020-02-25] MEDS: MELATONIN 5 MG TABLETS PO SCH (22:45)
[2020-02-25] MEDS: THIAMINE HCL 100 MG TABLET (FP) PO SCH (22:45)
[2020-02-25] MEDS: INSULIN (LEVEMIR) 100 UNITS/ML UNITS SQ SCH (22:48)
[2020-02-26] MEDS: chlordiazePOXIDE HCL 25 MG CAPSULE PO SCH ×4 (06:22→22:47)
[2020-02-26] MEDS: metFORMIN HCL 500 MG TABLET (FP) PO SCH ×2 (06:25→18:40)
[2020-02-26] MEDS ORDERED: INSULIN SLIDING SCALE (NOVOLOG) 1 VIAL SQ ONE ×2 (06:28→17:16)
[2020-02-26] MEDS: Insulin (LOG) Aspart 100 UNITS/ML VIAL SQ SCH ×2 (06:29→18:41)
[2020-02-26] MEDS: NICOTINE 7 MG/24 HOURS TOPICAL PATCH TD SCH (10:04)
[2020-02-26] MEDS: amLODIPine BESYLATE 5 MG TABLET (FP) PO SCH (10:06)
[2020-02-26] MEDS: LISINOPRIL 10 MG TABLET PO SCH (10:06)
[2020-02-26] MEDS: PRENATAL VITAMINS W/ FOLIC ACID TABLET (FP) PO SCH (10:06)
[2020-02-26] MEDS: IBUPROFEN 400 MG TABLET (FP) PO PRN ×2 (10:08→22:48)
[2020-02-26] MEDS ORDERED: LIDOCAINE VISCOUS 2% ORAL/TOP 20 ML UNIT-DOSE CUP MM PRN (12:56)
--- NOTE | 2020-02-26 12:57 | PN ---
S CIWA - CIWA Score Nausea/Vomitin-No Nausea/No Vomiting Muscle Tremors: 2 Anxiety: 1-Mildly Anxious Agitation: 2 Paroxysmal Sweats: 1-Minimal Palms Moist Orientation: 0-Oriented Tacttile Disturbances: 0-None Auditory Disturbances: 0-None Visual Disturbances: 0-None Headache: 0-None Present CIWA-Ar Total Score: 6 BHS Progress Note (SOAP) Subjective: sweats shakes interrupted sleep tooth ache Objective: 02/26/20 12:54 Vital Signs Temperature 96.4 F L 02/26/20 08:43 Pulse Rate 90 02/26/20 08:43 Respiratory Rate 16 02/26/20 08:43 Blood Pressure 126/87 02/26/20 08:43 O2 Sat by Pulse Oximetry (%) 96 02/26/20 05:50 Laboratory Tests 02/24/20 02/24/20 02/24/20 09:43 10:15 10:15 WBC 7.8 RBC 4.34 Hgb 13.3 Hct 39.0 MCV 90.1 MCH 30.7 MCHC 34.1 RDW 14.6 Plt Count 194 D MPV 9.1 D Sodium 139 Potassium 4.1 Chloride 105 Carbon Dioxide 27 Anion Gap 8 BUN 8.5 Creatinine 1.0 Est GFR (CKD-EPI)AfAm 97.77 Est GFR (CKD-EPI)NonAf 84.35 POC Glucometer 146 Random Glucose 132 H Calcium 9.5 Total Bilirubin 0.8 AST 47 H ALT 73 H Alkaline Phosphatase 184 H Total Protein 7.2 Albumin 4.0 Syphilis Serology COVID-19 (CINDY) 02/24/20 02/24/20 02/24/20 10:15 10:30 16:37 WBC RBC Hgb Hct MCV MCH MCHC RDW Plt Count MPV Sodium Potassium Chloride Carbon Dioxide Anion Gap BUN Creatinine Est GFR (CKD-EPI)AfAm Est GFR (CKD-EPI)NonAf POC Glucometer 379 Random Glucose Calcium Total Bilirubin AST ALT Alkaline Phosphatase Total Protein Albumin Syphilis Serology Non-reactive COVID-19 (CINDY) Not detected 02/24/20 02/25/20 02/25/20 22:40 06:58 11:03 WBC RBC Hgb Hct MCV MCH MCHC RDW Plt Count MPV Sodium Potassium Chloride Carbon Dioxide Anion Gap BUN Creatinine Est GFR (CKD-EPI)AfAm Est GFR (CKD-EPI)NonAf POC Glucometer 167 280 200 Random Glucose Calcium Total Bilirubin AST ALT Alkaline Phosphatase Total Protein Albumin Syphilis Serology COVID-19 (CINDY) 02/25/20 02/25/20 02/26/20 16:50 22:13 06:24 WBC RBC Hgb Hct MCV MCH MCHC RDW Plt Count MPV Sodium Potassium Chloride Carbon Dioxide Anion Gap BUN Creatinine Est GFR (CKD-EPI)AfAm Est GFR (CKD-EPI)NonAf POC Glucometer 246 191 249 Random Glucose Calcium Total Bilirubin AST ALT Alkaline Phosphatase Total Protein Albumin Syphilis Serology COVID-19 (CINDY) labs noted aaox3 ambulating no acute distress Assessment: 02/26/20 12:55 withdrawals Plan: continue detox increase fluids lidocaine s/s motrin 800mg tid prn
[2020-02-26] MEDS: INSULIN (LEVEMIR) 100 UNITS/ML UNITS SQ SCH (22:46)
[2020-02-26] MEDS: ATORVASTATIN CA 20 MG TABLET (FP) PO SCH (22:47)
[2020-02-26] MEDS: THIAMINE HCL 100 MG TABLET (FP) PO SCH (22:47)
[2020-02-26] MEDS: MELATONIN 5 MG TABLETS PO SCH (22:47)
[2020-02-27] MEDS ORDERED: chlordiazePOXIDE HCL 10 MG CAPSULE PO PRN
[2020-02-27] MEDS: chlordiazePOXIDE HCL 10 MG CAPSULE PO SCH ×4 (06:31→22:16)
[2020-02-27] MEDS: metFORMIN HCL 500 MG TABLET (FP) PO SCH ×2 (06:31→16:43)
[2020-02-27] MEDS: Insulin (LOG) Aspart 100 UNITS/ML VIAL SQ SCH ×2 (06:31→16:45)
[2020-02-27] MEDS: NICOTINE 7 MG/24 HOURS TOPICAL PATCH TD SCH (10:26)
[2020-02-27] MEDS: amLODIPine BESYLATE 5 MG TABLET (FP) PO SCH (10:27)
[2020-02-27] MEDS: PRENATAL VITAMINS W/ FOLIC ACID TABLET (FP) PO SCH (10:28)
[2020-02-27] MEDS: LISINOPRIL 10 MG TABLET PO SCH (10:30)
[2020-02-27] MEDS: IBUPROFEN 400 MG TABLET (FP) PO PRN (13:03)
--- NOTE | 2020-02-27 13:29 | PN ---
S CIWA - CIWA Score Nausea/Vomitin-No Nausea/No Vomiting Muscle Tremors: 2 Anxiety: 1-Mildly Anxious Agitation: 1-Slight > Activity Paroxysmal Sweats: No Perspiration Orientation: 0-Oriented Tacttile Disturbances: 0-None Auditory Disturbances: 0-None Visual Disturbances: 0-None Headache: 0-None Present CIWA-Ar Total Score: 4 BHS Progress Note (SOAP) Subjective: tired Objective: 02/27/20 13:27 Vital Signs Temperature 98 F 02/27/20 08:40 Pulse Rate 88 02/27/20 08:40 Respiratory Rate 18 02/27/20 08:40 Blood Pressure 130/89 02/27/20 08:40 O2 Sat by Pulse Oximetry (%) 97 02/27/20 05:42 Laboratory Tests 02/24/20 02/24/20 02/24/20 09:43 10:15 10:15 WBC 7.8 RBC 4.34 Hgb 13.3 Hct 39.0 MCV 90.1 MCH 30.7 MCHC 34.1 RDW 14.6 Plt Count 194 D MPV 9.1 D Sodium 139 Potassium 4.1 Chloride 105 Carbon Dioxide 27 Anion Gap 8 BUN 8.5 Creatinine 1.0 Est GFR (CKD-EPI)AfAm 97.77 Est GFR (CKD-EPI)NonAf 84.35 POC Glucometer 146 Random Glucose 132 H Calcium 9.5 Total Bilirubin 0.8 AST 47 H ALT 73 H Alkaline Phosphatase 184 H Total Protein 7.2 Albumin 4.0 Syphilis Serology COVID-19 (CINDY) 02/24/20 02/24/20 02/24/20 10:15 10:30 16:37 WBC RBC Hgb Hct MCV MCH MCHC RDW Plt Count MPV Sodium Potassium Chloride Carbon Dioxide Anion Gap BUN Creatinine Est GFR (CKD-EPI)AfAm Est GFR (CKD-EPI)NonAf POC Glucometer 379 Random Glucose Calcium Total Bilirubin AST ALT Alkaline Phosphatase Total Protein Albumin Syphilis Serology Non-reactive COVID-19 (CINDY) Not detected 02/24/20 02/25/20 02/25/20 22:40 06:58 11:03 WBC RBC Hgb Hct MCV MCH MCHC RDW Plt Count MPV Sodium Potassium Chloride Carbon Dioxide Anion Gap BUN Creatinine Est GFR (CKD-EPI)AfAm Est GFR (CKD-EPI)NonAf POC Glucometer 167 280 200 Random Glucose Calcium Total Bilirubin AST ALT Alkaline Phosphatase Total Protein Albumin Syphilis Serology COVID-19 (CINDY) 02/25/20 02/25/20 02/26/20 16:50 22:13 06:24 WBC RBC Hgb Hct MCV MCH MCHC RDW Plt Count MPV Sodium Potassium Chloride Carbon Dioxide Anion Gap BUN Creatinine Est GFR (CKD-EPI)AfAm Est GFR (CKD-EPI)NonAf POC Glucometer 246 191 249 Random Glucose Calcium Total Bilirubin AST ALT Alkaline Phosphatase Total Protein Albumin Syphilis Serology COVID-19 (CINDY) 02/26/20 02/27/20 16:47 06:29 WBC RBC Hgb Hct MCV MCH MCHC RDW Plt Count MPV Sodium Potassium Chloride Carbon Dioxide Anion Gap BUN Creatinine Est GFR (CKD-EPI)AfAm Est GFR (CKD-EPI)NonAf POC Glucometer 373 289 Random Glucose Calcium Total Bilirubin AST ALT Alkaline Phosphatase Total Protein Albumin Syphilis Serology COVID-19 (CINDY) labs noted aaox3 ambulating no acute distress Assessment: 02/27/20 13:28 withdrawals Plan: continue detox increase fluids Rx sent to [facility] pharmacy and his counselor will p/u and will be placed with pt nurse to have stored for when pt leaves to [facility] he will have his meds.
[2020-02-27] MEDS: MELATONIN 5 MG TABLETS PO SCH (22:16)
[2020-02-27] MEDS: ATORVASTATIN CA 20 MG TABLET (FP) PO SCH (22:16)
[2020-02-27] MEDS: THIAMINE HCL 100 MG TABLET (FP) PO SCH (22:16)
[2020-02-27] MEDS: INSULIN (LEVEMIR) 100 UNITS/ML UNITS SQ SCH (22:18)
[2020-02-28] MEDS ORDERED: MASKS NR ONE (06:10)
[2020-02-28] MEDS: Insulin (LOG) Aspart 100 UNITS/ML VIAL SQ SCH ×2 (06:17→16:59)
[2020-02-28] MEDS: chlordiazePOXIDE HCL 10 MG CAPSULE PO SCH ×2 (06:19→16:57)
[2020-02-28] MEDS: metFORMIN HCL 500 MG TABLET (FP) PO SCH ×2 (06:19→16:57)
[2020-02-28] MEDS: amLODIPine BESYLATE 5 MG TABLET (FP) PO SCH (10:10)
[2020-02-28] MEDS: LISINOPRIL 10 MG TABLET PO SCH (10:11)
[2020-02-28] MEDS: NICOTINE 7 MG/24 HOURS TOPICAL PATCH TD SCH (10:11)
[2020-02-28] MEDS: PRENATAL VITAMINS W/ FOLIC ACID TABLET (FP) PO SCH (10:11)
[2020-02-28] MEDS ORDERED: INSULIN SLIDING SCALE (NOVOLOG) 1 VIAL SQ ONE (16:55)
--- NOTE | 2020-02-28 19:06 | PN ---
S CIWA - CIWA Score Nausea/Vomitin-No Nausea/No Vomiting Muscle Tremors: None Anxiety: 2 Agitation: 0-Normal Activity Paroxysmal Sweats: No Perspiration Orientation: 2-Disoriented Date<2 days Tacttile Disturbances: 0-None Auditory Disturbances: 0-None Visual Disturbances: 0-None Headache: 0-None Present CIWA-Ar Total Score: 4 BHS Progress Note (SOAP) Subjective: Fatigue, Anxious. Objective: Patient A & O X 2 (Uncertain About Current Day/Date). Patient Observed Ambulating on Detox Unit Unassisted. In No Acute Distress. 02/28/20 19:04 Vital Signs Temperature 97.6 F 02/28/20 16:50 Pulse Rate 94 H 02/28/20 16:50 Respiratory Rate 18 02/28/20 16:50 Blood Pressure 148/96 02/28/20 16:50 O2 Sat by Pulse Oximetry (%) 98 02/28/20 16:50 Laboratory Tests 02/24/20 02/24/20 02/24/20 09:43 10:15 10:15 WBC 7.8 RBC 4.34 Hgb 13.3 Hct 39.0 MCV 90.1 MCH 30.7 MCHC 34.1 RDW 14.6 Plt Count 194 D MPV 9.1 D Sodium 139 Potassium 4.1 Chloride 105 Carbon Dioxide 27 Anion Gap 8 BUN 8.5 Creatinine 1.0 Est GFR (CKD-EPI)AfAm 97.77 Est GFR (CKD-EPI)NonAf 84.35 POC Glucometer 146 Random Glucose 132 H Calcium 9.5 Total Bilirubin 0.8 AST 47 H ALT 73 H Alkaline Phosphatase 184 H Total Protein 7.2 Albumin 4.0 Syphilis Serology COVID-19 (CINDY) 02/24/20 02/24/20 02/24/20 10:15 10:30 16:37 WBC RBC Hgb Hct MCV MCH MCHC RDW Plt Count MPV Sodium Potassium Chloride Carbon Dioxide Anion Gap BUN Creatinine Est GFR (CKD-EPI)AfAm Est GFR (CKD-EPI)NonAf POC Glucometer 379 Random Glucose Calcium Total Bilirubin AST ALT Alkaline Phosphatase Total Protein Albumin Syphilis Serology Non-reactive COVID-19 (CINDY) Not detected 02/24/20 02/25/20 02/25/20 22:40 06:58 11:03 WBC RBC Hgb Hct MCV MCH MCHC RDW Plt Count MPV Sodium Potassium Chloride Carbon Dioxide Anion Gap BUN Creatinine Est GFR (CKD-EPI)AfAm Est GFR (CKD-EPI)NonAf POC Glucometer 167 280 200 Random Glucose Calcium Total Bilirubin AST ALT Alkaline Phosphatase Total Protein Albumin Syphilis Serology COVID-19 (CINDY) 02/25/20 02/25/20 02/26/20 16:50 22:13 06:24 WBC RBC Hgb Hct MCV MCH MCHC RDW Plt Count MPV Sodium Potassium Chloride Carbon Dioxide Anion Gap BUN Creatinine Est GFR (CKD-EPI)AfAm Est GFR (CKD-EPI)NonAf POC Glucometer 246 191 249 Random Glucose Calcium Total Bilirubin AST ALT Alkaline Phosphatase Total Protein Albumin Syphilis Serology COVID-19 (CINDY) 02/26/20 02/27/20 02/27/20 16:47 06:29 16:49 WBC RBC Hgb Hct MCV MCH MCHC RDW Plt Count MPV Sodium Potassium Chloride Carbon Dioxide Anion Gap BUN Creatinine Est GFR (CKD-EPI)AfAm Est GFR (CKD-EPI)NonAf POC Glucometer 373 289 363 Random Glucose Calcium Total Bilirubin AST ALT Alkaline Phosphatase Total Protein Albumin Syphilis Serology COVID-19 (CINDY) 02/27/20 02/28/20 02/28/20 20:57 06:14 16:41 WBC RBC Hgb Hct MCV MCH MCHC RDW Plt Count MPV Sodium Potassium Chloride Carbon Dioxide Anion Gap BUN Creatinine Est GFR (CKD-EPI)AfAm Est GFR (CKD-EPI)NonAf POC Glucometer 279 230 319 Random Glucose Calcium Total Bilirubin AST ALT Alkaline Phosphatase Total Protein Albumin Syphilis Serology COVID-19 (CINDY) Lab results noted. Assessment: 02/28/20 19:05 WITHDRAWAL SYMPTOMS. ELEVATED AST, ALT, AND AP LEVELS. 02/28/20 19:05 Plan: Continue Detox. Increase Daily Oral Water Intake. Patient scheduled for D/C from detox unit tomorrow pending pre-discharge medical evaluation by covering medical provider. Patient likely to go on to [facility] ([place], [place]) for aftercare.
[2020-02-28] MEDS: INSULIN (LEVEMIR) 100 UNITS/ML UNITS SQ SCH (21:45)
[2020-02-28] MEDS: THIAMINE HCL 100 MG TABLET (FP) PO SCH (21:45)
[2020-02-28] MEDS: MELATONIN 5 MG TABLETS PO SCH (21:45)
[2020-02-28] MEDS: ATORVASTATIN CA 20 MG TABLET (FP) PO SCH (21:45)
[2020-02-29] MEDS ORDERED: chlordiazePOXIDE HCL 10 MG CAPSULE PO ONE (05:00)
[2020-02-29] MEDS: metFORMIN HCL 500 MG TABLET (FP) PO SCH (06:32)
[2020-02-29] MEDS ORDERED: INSULIN SLIDING SCALE (NOVOLOG) 1 VIAL SQ ONE (06:38)
[2020-02-29] MEDS: Insulin (LOG) Aspart 100 UNITS/ML VIAL SQ SCH (06:39)
[2020-02-29] MEDS: amLODIPine BESYLATE 5 MG TABLET (FP) PO SCH (09:51)
[2020-02-29] MEDS: NICOTINE 7 MG/24 HOURS TOPICAL PATCH TD SCH (09:51)
[2020-02-29] MEDS: LISINOPRIL 10 MG TABLET PO SCH (09:51)
[2020-02-29] MEDS: PRENATAL VITAMINS W/ FOLIC ACID TABLET (FP) PO SCH (09:51)
--- NOTE | 2020-02-29 09:56 | DS ---
[facility] Detox Discharge Summary Admission Date: 02/24/20 Discharge Date: 02/29/20 - History Present History: Alcohol Dependence, Cannabis Dependence, Pcp Dependence Additional Comments: Detox completed without any adverse effects,patient stable for discharge this morning to [facility] for rehab. Alert and oriented x3, in no acute respiratory distress. Full ROM, ambulating in unit without any assistance. Encouraged to followup with aftercare. Pertinent Past History: History of HLD, HTN, DM, alcohol, PCP,Cannabis and nicotine use disorder. - Physical Exam Results Vital Signs: Vital Signs Temperature 97.5 F L 02/29/20 06:24 Pulse Rate 88 02/29/20 06:24 Respiratory Rate 16 02/29/20 06:24 Blood Pressure 111/70 02/29/20 06:24 O2 Sat by Pulse Oximetry (%) 95 02/29/20 06:24 Vital Signs 02/29/20 02/29/20 06:24 08:55 Temperature 97.5 F L 98.9 F Pulse Rate 88 100 H Respiratory 16 18 Rate Blood Pressure 111/70 142/83 O2 Sat by Pulse 95 95 Oximetry (%) Laboratory Last Values WBC 7.8 K/mm3 (4.0-10.0) 02/24/20 10:15 RBC 4.34 M/mm3 (4.00-5.60) 02/24/20 10:15 Hgb 13.3 GM/dL (11.7-16.9) 02/24/20 10:15 Hct 39.0 % (35.4-49) 02/24/20 10:15 MCV 90.1 fl (80-96) 02/24/20 10:15 MCH 30.7 pg (25.7-33.7) 02/24/20 10:15 MCHC 34.1 g/dl (32.0-35.9) 02/24/20 10:15 RDW 14.6 % (11.9-15.9) 02/24/20 10:15 Plt Count 194 K/MM3 (134-434) D 02/24/20 10:15 MPV 9.1 fl (7.5-11.1) D 02/24/20 10:15 Sodium 139 mmol/L (136-145) 02/24/20 10:15 Potassium 4.1 mmol/L (3.5-5.1) 02/24/20 10:15 Chloride 105 mmol/L (98-107) 02/24/20 10:15 Carbon Dioxide 27 mmol/L (21-32) 02/24/20 10:15 Anion Gap 8 MMOL/L (8-16) 02/24/20 10:15 BUN 8.5 mg/dL (7-18) 02/24/20 10:15 Creatinine 1.0 mg/dL (0.55-1.3) 02/24/20 10:15 Est GFR (CKD-EPI)AfAm 97.77 02/24/20 10:15 Est GFR (CKD-EPI)NonAf 84.35 02/24/20 10:15 POC Glucometer 289 UNITS (80-120) 02/29/20 06:32 Random Glucose 132 mg/dL (74-106) H 02/24/20 10:15 Calcium 9.5 mg/dL (8.5-10.1) 02/24/20 10:15 Total Bilirubin 0.8 mg/dL (0.2-1) 02/24/20 10:15 AST 47 U/L (15-37) H 02/24/20 10:15 ALT 73 U/L (13-61) H 02/24/20 10:15 Alkaline Phosphatase 184 U/L (45-117) H 02/24/20 10:15 Total Protein 7.2 g/dl (6.4-8.2) 02/24/20 10:15 Albumin 4.0 g/dl (3.4-5.0) 02/24/20 10:15 Syphilis Serology Non-reactive (NONREACTIVE) 02/24/20 10:15 COVID-19 (CINDY) Not detected (Not Detected) 02/24/20 10:30 Pertinent Admission Physical Exam Findings: History of HTN, HLD, DM, PCP, Cannabis, alcohol and nicotine use disorder. - Treatment Hospital Course: Detox Protocol Followed, Detoxed Safely, Responded well, Discharged Condition Good, Rehab Referral Accepted Patient has Accepted a Rehab Referral to: [facility] - Medication Discharge Medications: Ambulatory Orders Insulin Lispro [Admelog] 10 unit SQ TID #1 vial 11/29/18 Amlodipine Besylate [Norvasc -] 10 mg PO DAILY #30 tablet 02/27/20 Atorvastatin Ca [Lipitor] 20 mg PO HS #30 tablet 02/27/20 Insulin (LOG) Aspart [NovoLOG -] 10 units SQ BID@0700,1630 #1 vial 02/27/20 Insulin Glargine,Hum.rec.anlog [Basaglar Kwikpen U-100] 20 unit SQ HS #1 insuln.pen 02/27/20 Lisinopril [Prinivil] 10 mg PO DAILY #30 tablet 02/27/20 Syringe and Needle,Insulin,1Ml [Insulin Syringe] 60 each TD ASDIR #1 disp.syrin 02/27/20 metFORMIN HCL [Glucophage -] 500 mg PO BID #60 tablet 02/27/20 - Diagnosis (1) Alcohol abuse with withdrawal, uncomplicated Status: Acute (2) Cannabis dependence Status: Chronic (3) PCP dependence Status: Chronic (4) Diabetes type 2, uncontrolled Status: Chronic (5) Hyperlipidemia Status: Chronic Qualifiers: Hyperlipidemia type: unspecified Qualified Code(s): E78.5 - Hyperlipidemia, unspecified (6) Hypertension Status: Chronic Qualifiers: Hypertension type: essential hypertension Qualified Code(s): I10 - Essential (primary) hypertension (7) Nicotine dependence Status: Chronic Qualifiers: Nicotine product type: cigarettes Substance use status: in withdrawal Qualified Code(s): F17.213 - Nicotine dependence, cigarettes, with withdrawal - AMA Did Patient Leave Against Medical Advice: No
[2020-02-29 10:03] VITALS: BP 142/83; PULSE 100; TEMP 98.9
== END 2020-02-29 11:10 | disposition other institution (70) | DRG 775 ==
LOC: YASAS 08:54 → Y6N 10:02
PROVIDERS: ADMIT Allergy & Immunology; ATTEND Allergy & Immunology
PROC: HZ2ZZZZ Detoxification Services for Substance Abuse Treatment (ICD-10-PCS; principal; 2020-02-24)
DX: F10.230 Alcohol dependence with withdrawal, uncomplicated (principal); F16.20 Hallucinogen dependence, uncomplicated; F12.20 Cannabis dependence, uncomplicated; F17.210 Nicotine dependence, cigarettes, uncomplicated; I10 Essential (primary) hypertension; E78.5 Hyperlipidemia, unspecified; E11.9 Type 2 diabetes mellitus without complications; Z79.4 Long term (current) use of insulin
CPT/HCPCS: 36415; 80053; 82962; 85027; 86780; C9803; U0003

== ENCOUNTER 2020-02-29 12:01 | Inpatient (IN) | payer OTHER ==
[2020-02-29] MEDS ORDERED: MAG HYDROX/AL HYDROX/SIMETH 30 ML UNIT-DOSE CUP PO PRN (12:50)
[2020-02-29] MEDS ORDERED: MENTHOL/PHENOL 1 EACH UD MM PRN (12:50)
[2020-02-29] MEDS ORDERED: LOPERAMIDE HCL 2 MG CAPSULE PO PRN (12:50)
[2020-02-29] MEDS ORDERED: NICOTINE POLACRILEX 2 MG GUM BUC PRN (12:50)
[2020-02-29] MEDS ORDERED: MAGNESIUM CITRATE 300 ML BOTTLE PO PRN (12:50)
[2020-02-29] MEDS ORDERED: ACETAMINOPHEN 325 MG TABLET (FP) PO PRN (12:50)
[2020-02-29] MEDS ORDERED: MAGNESIUM HYDROX 2400MG/30ML ORAL SUSPENSION 30 ML CUP PO PRN (12:50)
[2020-02-29] MEDS ORDERED: IBUPROFEN 400 MG TABLET (FP) PO PRN (12:50)
[2020-02-29] MEDS ORDERED: P-EPHED 60MG/TRIPROLIDI 2.5MG TABLET PO PRN (12:50)
[2020-02-29] MEDS ORDERED: hydrOXYzine PAMOATE 25 MG CAPSULE (FP) PO PRN (12:50)
[2020-02-29] MEDS ORDERED: guaiFENesin 200 MG/10 ML 10 ML UNIT-DOSE CUPS PO PRN (12:50)
[2020-02-29] MEDS: metFORMIN HCL 500 MG TABLET (FP) PO SCH (16:29)
[2020-02-29] MEDS: Insulin (LOG) Aspart 100 UNITS/ML VIAL SQ SCH (16:32)
[2020-02-29] MEDS ORDERED: INSULIN (LEVEMIR) 100 UNITS/ML UNITS SQ ONE (21:00)
[2020-02-29] MEDS: MELATONIN 5 MG TABLETS PO SCH (21:22)
[2020-02-29] MEDS: ATORVASTATIN CA 20 MG TABLET (FP) PO SCH (21:22)
[2020-02-29] MEDS: THIAMINE HCL 100 MG TABLET (FP) PO SCH (21:22)
[2020-02-29] MEDS: INSULIN (LEVEMIR) 100 UNITS/ML UNITS SQ SCH (21:24)
[2020-03-01] MEDS: metFORMIN HCL 500 MG TABLET (FP) PO SCH ×2 (06:53→17:18)
[2020-03-01] MEDS: Insulin (LOG) Aspart 100 UNITS/ML VIAL SQ SCH ×2 (07:05→17:17)
[2020-03-01] MEDS: NICOTINE 7 MG/24 HOURS TOPICAL PATCH TD SCH (10:50)
[2020-03-01] MEDS: PRENATAL VITAMINS W/ FOLIC ACID TABLET (FP) PO SCH (10:51)
[2020-03-01] MEDS: LISINOPRIL 10 MG TABLET PO SCH (10:51)
[2020-03-01] MEDS: amLODIPine BESYLATE 5 MG TABLET (FP) PO SCH (10:51)
[2020-03-01] MEDS ORDERED: INSULIN (NOVOLOG) ASPART 100 UNITS/ML 10ML VIAL ONE (17:16)
[2020-03-01] MEDS: MELATONIN 5 MG TABLETS PO SCH (21:24)
[2020-03-01] MEDS: THIAMINE HCL 100 MG TABLET (FP) PO SCH (21:24)
[2020-03-01] MEDS: ATORVASTATIN CA 20 MG TABLET (FP) PO SCH (21:24)
[2020-03-01] MEDS: INSULIN (LEVEMIR) 100 UNITS/ML UNITS SQ SCH (22:14)
[2020-03-02] MEDS: metFORMIN HCL 500 MG TABLET (FP) PO SCH ×2 (07:10→17:12)
[2020-03-02] MEDS: Insulin (LOG) Aspart 100 UNITS/ML VIAL SQ SCH ×2 (07:32→17:15)
[2020-03-02] MEDS ORDERED: INSULIN (NOVOLOG) ASPART 100 UNITS/ML 10ML VIAL ONE ×3 (08:07→17:07)
[2020-03-02] MEDS: PRENATAL VITAMINS W/ FOLIC ACID TABLET (FP) PO SCH (10:56)
[2020-03-02] MEDS: amLODIPine BESYLATE 5 MG TABLET (FP) PO SCH (10:58)
[2020-03-02] MEDS: LISINOPRIL 10 MG TABLET PO SCH (10:58)
[2020-03-02] MEDS: NICOTINE 7 MG/24 HOURS TOPICAL PATCH TD SCH (11:00)
[2020-03-02] MEDS ORDERED: INSULIN SLIDING SCALE (NOVOLOG) 1 VIAL SQ SCH ×3 (12:21→16:30)
[2020-03-02] MEDS ORDERED: INSULIN (NOVOLOG) ASPART 100 UNITS/ML 10ML VIAL SQ ONE (12:51)
[2020-03-02] MEDS: ATORVASTATIN CA 20 MG TABLET (FP) PO SCH (21:38)
[2020-03-02] MEDS: INSULIN (LEVEMIR) 100 UNITS/ML UNITS SQ SCH (21:38)
[2020-03-02] MEDS: MELATONIN 5 MG TABLETS PO SCH (21:38)
[2020-03-02] MEDS: THIAMINE HCL 100 MG TABLET (FP) PO SCH (21:39)
[2020-03-03] MEDS: metFORMIN HCL 500 MG TABLET (FP) PO SCH ×2 (07:00→16:35)
[2020-03-03] MEDS ORDERED: INSULIN (NOVOLOG) ASPART 100 UNITS/ML 10ML VIAL ONE ×2 (07:01→11:39)
[2020-03-03] MEDS: Insulin (LOG) Aspart 100 UNITS/ML VIAL SQ SCH ×2 (07:03→16:36)
[2020-03-03] MEDS: amLODIPine BESYLATE 5 MG TABLET (FP) PO SCH (11:06)
[2020-03-03] MEDS: LISINOPRIL 10 MG TABLET PO SCH (11:06)
[2020-03-03] MEDS: PRENATAL VITAMINS W/ FOLIC ACID TABLET (FP) PO SCH (11:06)
[2020-03-03] MEDS: NICOTINE 7 MG/24 HOURS TOPICAL PATCH TD SCH (11:06)
[2020-03-03] MEDS ORDERED: PT OWN MED DRAWER 7, Y5N ONE (11:36)
[2020-03-03] MEDS: INSULIN SLIDING SCALE (NOVOLOG) 1 VIAL SQ SCH (11:42)
[2020-03-03] MEDS: MELATONIN 5 MG TABLETS PO SCH (21:17)
[2020-03-03] MEDS: ATORVASTATIN CA 20 MG TABLET (FP) PO SCH (21:18)
[2020-03-03] MEDS: THIAMINE HCL 100 MG TABLET (FP) PO SCH (21:18)
[2020-03-03] MEDS: INSULIN (LEVEMIR) 100 UNITS/ML UNITS SQ SCH (22:18)
[2020-03-04] MEDS: metFORMIN HCL 500 MG TABLET (FP) PO SCH ×2 (06:46→16:47)
[2020-03-04] MEDS: Insulin (LOG) Aspart 100 UNITS/ML VIAL SQ SCH ×2 (06:48→16:46)
[2020-03-04] MEDS: LISINOPRIL 10 MG TABLET PO SCH (09:47)
[2020-03-04] MEDS: amLODIPine BESYLATE 5 MG TABLET (FP) PO SCH (09:47)
[2020-03-04] MEDS: PRENATAL VITAMINS W/ FOLIC ACID TABLET (FP) PO SCH (09:47)
[2020-03-04] MEDS: NICOTINE 7 MG/24 HOURS TOPICAL PATCH TD SCH (09:50)
[2020-03-04] MEDS ORDERED: INSULIN (NOVOLOG) ASPART 100 UNITS/ML 10ML VIAL ONE ×2 (12:03→16:47)
[2020-03-04] MEDS: INSULIN SLIDING SCALE (NOVOLOG) 1 VIAL SQ SCH (12:04)
[2020-03-04] MEDS: MELATONIN 5 MG TABLETS PO SCH (21:39)
[2020-03-04] MEDS: THIAMINE HCL 100 MG TABLET (FP) PO SCH (21:39)
[2020-03-04] MEDS: ATORVASTATIN CA 20 MG TABLET (FP) PO SCH (21:40)
[2020-03-04] MEDS: INSULIN (LEVEMIR) 100 UNITS/ML UNITS SQ SCH (22:18)
[2020-03-05] MEDS: metFORMIN HCL 500 MG TABLET (FP) PO SCH ×2 (07:04→16:40)
[2020-03-05] MEDS: Insulin (LOG) Aspart 100 UNITS/ML VIAL SQ SCH ×2 (07:47→16:41)
[2020-03-05] MEDS ORDERED: INSULIN (NOVOLOG) ASPART 100 UNITS/ML 10ML VIAL ONE ×4 (07:56→21:53)
[2020-03-05] MEDS: PRENATAL VITAMINS W/ FOLIC ACID TABLET (FP) PO SCH (10:45)
[2020-03-05] MEDS: LISINOPRIL 10 MG TABLET PO SCH (10:45)
[2020-03-05] MEDS: amLODIPine BESYLATE 5 MG TABLET (FP) PO SCH (10:45)
[2020-03-05] MEDS: NICOTINE 7 MG/24 HOURS TOPICAL PATCH TD SCH (10:46)
[2020-03-05] MEDS: INSULIN SLIDING SCALE (NOVOLOG) 1 VIAL SQ SCH (12:19)
[2020-03-05] MEDS: THIAMINE HCL 100 MG TABLET (FP) PO SCH (21:10)
[2020-03-05] MEDS: ATORVASTATIN CA 20 MG TABLET (FP) PO SCH (21:10)
[2020-03-05] MEDS: MELATONIN 5 MG TABLETS PO SCH (21:10)
[2020-03-05] MEDS: INSULIN (LEVEMIR) 100 UNITS/ML UNITS SQ SCH (21:12)
[2020-03-06] MEDS: metFORMIN HCL 500 MG TABLET (FP) PO SCH ×2 (07:02→16:53)
[2020-03-06] MEDS ORDERED: INSULIN (NOVOLOG) ASPART 100 UNITS/ML 10ML VIAL ONE ×3 (07:08→16:24)
[2020-03-06] MEDS: Insulin (LOG) Aspart 100 UNITS/ML VIAL SQ SCH ×2 (07:51→16:54)
[2020-03-06] MEDS: LISINOPRIL 10 MG TABLET PO SCH (10:18)
[2020-03-06] MEDS: PRENATAL VITAMINS W/ FOLIC ACID TABLET (FP) PO SCH (10:18)
[2020-03-06] MEDS: amLODIPine BESYLATE 5 MG TABLET (FP) PO SCH (10:18)
[2020-03-06] MEDS: NICOTINE 7 MG/24 HOURS TOPICAL PATCH TD SCH (10:18)
[2020-03-06] MEDS: INSULIN SLIDING SCALE (NOVOLOG) 1 VIAL SQ SCH (11:32)
[2020-03-06] MEDS: THIAMINE HCL 100 MG TABLET (FP) PO SCH (21:37)
[2020-03-06] MEDS: MELATONIN 5 MG TABLETS PO SCH (21:37)
[2020-03-06] MEDS: ATORVASTATIN CA 20 MG TABLET (FP) PO SCH (21:37)
[2020-03-06] MEDS: INSULIN (LEVEMIR) 100 UNITS/ML UNITS SQ SCH (22:49)
[2020-03-07] MEDS: metFORMIN HCL 500 MG TABLET (FP) PO SCH ×2 (07:26→16:55)
[2020-03-07] MEDS ORDERED: INSULIN (NOVOLOG) ASPART 100 UNITS/ML 10ML VIAL ONE ×3 (07:26→16:39)
[2020-03-07] MEDS: Insulin (LOG) Aspart 100 UNITS/ML VIAL SQ SCH ×2 (07:40→16:57)
[2020-03-07] MEDS: NICOTINE 7 MG/24 HOURS TOPICAL PATCH TD SCH (10:26)
[2020-03-07] MEDS: LISINOPRIL 10 MG TABLET PO SCH (10:26)
[2020-03-07] MEDS: amLODIPine BESYLATE 5 MG TABLET (FP) PO SCH (10:26)
[2020-03-07] MEDS: PRENATAL VITAMINS W/ FOLIC ACID TABLET (FP) PO SCH (10:26)
[2020-03-07] MEDS: INSULIN SLIDING SCALE (NOVOLOG) 1 VIAL SQ SCH (12:02)
[2020-03-07] MEDS: MELATONIN 5 MG TABLETS PO SCH (21:25)
[2020-03-07] MEDS: ATORVASTATIN CA 20 MG TABLET (FP) PO SCH (21:26)
[2020-03-07] MEDS: THIAMINE HCL 100 MG TABLET (FP) PO SCH (21:26)
[2020-03-07] MEDS: INSULIN (LEVEMIR) 100 UNITS/ML UNITS SQ SCH (22:10)
[2020-03-08] MEDS ORDERED: INSULIN (NOVOLOG) ASPART 100 UNITS/ML 10ML VIAL ONE ×3 (03:24→16:20)
[2020-03-08] MEDS: metFORMIN HCL 500 MG TABLET (FP) PO SCH ×2 (07:21→16:22)
[2020-03-08] MEDS: Insulin (LOG) Aspart 100 UNITS/ML VIAL SQ SCH ×2 (07:27→16:20)
[2020-03-08] MEDS: PRENATAL VITAMINS W/ FOLIC ACID TABLET (FP) PO SCH (10:03)
[2020-03-08] MEDS: LISINOPRIL 10 MG TABLET PO SCH (10:04)
[2020-03-08] MEDS: amLODIPine BESYLATE 5 MG TABLET (FP) PO SCH (10:04)
[2020-03-08] MEDS: NICOTINE 7 MG/24 HOURS TOPICAL PATCH TD SCH (10:04)
[2020-03-08] MEDS: INSULIN SLIDING SCALE (NOVOLOG) 1 VIAL SQ SCH (11:31)
[2020-03-08] MEDS: MELATONIN 5 MG TABLETS PO SCH (21:20)
[2020-03-08] MEDS: THIAMINE HCL 100 MG TABLET (FP) PO SCH (21:20)
[2020-03-08] MEDS: ATORVASTATIN CA 20 MG TABLET (FP) PO SCH (21:20)
[2020-03-08] MEDS: INSULIN (LEVEMIR) 100 UNITS/ML UNITS SQ SCH (22:03)
[2020-03-09] MEDS: metFORMIN HCL 500 MG TABLET (FP) PO SCH ×2 (07:12→16:40)
[2020-03-09] MEDS: Insulin (LOG) Aspart 100 UNITS/ML VIAL SQ SCH ×2 (07:12→16:41)
[2020-03-09] MEDS: PRENATAL VITAMINS W/ FOLIC ACID TABLET (FP) PO SCH (09:55)
[2020-03-09] MEDS: amLODIPine BESYLATE 5 MG TABLET (FP) PO SCH (09:55)
[2020-03-09] MEDS: LISINOPRIL 10 MG TABLET PO SCH (09:55)
[2020-03-09] MEDS: NICOTINE 7 MG/24 HOURS TOPICAL PATCH TD SCH (09:56)
[2020-03-09] MEDS ORDERED: PT OWN MED DRAWER 7, Y5N ONE (10:36)
[2020-03-09] MEDS ORDERED: INSULIN (NOVOLOG) ASPART 100 UNITS/ML 10ML VIAL ONE ×2 (11:29→16:40)
[2020-03-09] MEDS: INSULIN SLIDING SCALE (NOVOLOG) 1 VIAL SQ SCH (11:29)
[2020-03-09] MEDS: THIAMINE HCL 100 MG TABLET (FP) PO SCH (21:21)
[2020-03-09] MEDS: MELATONIN 5 MG TABLETS PO SCH (21:21)
[2020-03-09] MEDS: ATORVASTATIN CA 20 MG TABLET (FP) PO SCH (21:21)
[2020-03-09] MEDS: INSULIN (LEVEMIR) 100 UNITS/ML UNITS SQ SCH (21:23)
[2020-03-10] MEDS: metFORMIN HCL 500 MG TABLET (FP) PO SCH ×2 (07:03→16:46)
[2020-03-10] MEDS: Insulin (LOG) Aspart 100 UNITS/ML VIAL SQ SCH ×2 (07:46→16:48)
[2020-03-10] MEDS: PRENATAL VITAMINS W/ FOLIC ACID TABLET (FP) PO SCH (11:07)
[2020-03-10] MEDS: LISINOPRIL 10 MG TABLET PO SCH (11:08)
[2020-03-10] MEDS: NICOTINE 7 MG/24 HOURS TOPICAL PATCH TD SCH (11:08)
[2020-03-10] MEDS: amLODIPine BESYLATE 5 MG TABLET (FP) PO SCH (11:08)
[2020-03-10] MEDS: INSULIN SLIDING SCALE (NOVOLOG) 1 VIAL SQ SCH (12:45)
[2020-03-10] MEDS ORDERED: INSULIN (NOVOLOG) ASPART 100 UNITS/ML 10ML VIAL ONE (16:50)
[2020-03-10] MEDS: ATORVASTATIN CA 20 MG TABLET (FP) PO SCH (21:00)
[2020-03-10] MEDS: MELATONIN 5 MG TABLETS PO SCH (21:00)
[2020-03-10] MEDS: THIAMINE HCL 100 MG TABLET (FP) PO SCH (21:00)
[2020-03-10] MEDS: INSULIN (LEVEMIR) 100 UNITS/ML UNITS SQ SCH (21:02)
[2020-03-11] MEDS: metFORMIN HCL 500 MG TABLET (FP) PO SCH ×2 (07:03→17:19)
[2020-03-11] MEDS ORDERED: INSULIN (NOVOLOG) ASPART 100 UNITS/ML 10ML VIAL ONE ×2 (07:06→18:31)
[2020-03-11] MEDS: Insulin (LOG) Aspart 100 UNITS/ML VIAL SQ SCH ×2 (07:39→17:19)
[2020-03-11] MEDS: NICOTINE 7 MG/24 HOURS TOPICAL PATCH TD SCH (10:37)
[2020-03-11] MEDS: amLODIPine BESYLATE 5 MG TABLET (FP) PO SCH (10:37)
[2020-03-11] MEDS: LISINOPRIL 10 MG TABLET PO SCH (10:37)
[2020-03-11] MEDS: PRENATAL VITAMINS W/ FOLIC ACID TABLET (FP) PO SCH (10:37)
[2020-03-11] MEDS: INSULIN SLIDING SCALE (NOVOLOG) 1 VIAL SQ SCH (12:09)
[2020-03-11] MEDS: MELATONIN 5 MG TABLETS PO SCH (21:28)
[2020-03-11] MEDS: THIAMINE HCL 100 MG TABLET (FP) PO SCH (21:28)
[2020-03-11] MEDS: ATORVASTATIN CA 20 MG TABLET (FP) PO SCH (21:28)
[2020-03-11] MEDS: INSULIN (LEVEMIR) 100 UNITS/ML UNITS SQ SCH (22:00)
[2020-03-12] MEDS: metFORMIN HCL 500 MG TABLET (FP) PO SCH ×2 (07:00→16:34)
[2020-03-12] MEDS: Insulin (LOG) Aspart 100 UNITS/ML VIAL SQ SCH ×2 (07:00→16:36)
[2020-03-12] MEDS: amLODIPine BESYLATE 5 MG TABLET (FP) PO SCH (10:33)
[2020-03-12] MEDS: NICOTINE 7 MG/24 HOURS TOPICAL PATCH TD SCH (10:33)
[2020-03-12] MEDS: LISINOPRIL 10 MG TABLET PO SCH (10:33)
[2020-03-12] MEDS: PRENATAL VITAMINS W/ FOLIC ACID TABLET (FP) PO SCH (10:33)
[2020-03-12] MEDS ORDERED: INSULIN (NOVOLOG) ASPART 100 UNITS/ML 10ML VIAL ONE (12:14)
[2020-03-12] MEDS: INSULIN SLIDING SCALE (NOVOLOG) 1 VIAL SQ SCH (12:20)
[2020-03-12] MEDS: THIAMINE HCL 100 MG TABLET (FP) PO SCH (21:15)
[2020-03-12] MEDS: MELATONIN 5 MG TABLETS PO SCH (21:15)
[2020-03-12] MEDS: ATORVASTATIN CA 20 MG TABLET (FP) PO SCH (21:15)
[2020-03-12] MEDS: INSULIN (LEVEMIR) 100 UNITS/ML UNITS SQ SCH (21:16)
[2020-03-13] MEDS: metFORMIN HCL 500 MG TABLET (FP) PO SCH ×2 (07:10→16:32)
[2020-03-13] MEDS: Insulin (LOG) Aspart 100 UNITS/ML VIAL SQ SCH ×2 (07:11→16:33)
[2020-03-13] MEDS: NICOTINE 7 MG/24 HOURS TOPICAL PATCH TD SCH (10:04)
[2020-03-13] MEDS: PRENATAL VITAMINS W/ FOLIC ACID TABLET (FP) PO SCH (10:04)
[2020-03-13] MEDS: LISINOPRIL 10 MG TABLET PO SCH (10:04)
[2020-03-13] MEDS: amLODIPine BESYLATE 5 MG TABLET (FP) PO SCH (10:04)
[2020-03-13] MEDS: INSULIN SLIDING SCALE (NOVOLOG) 1 VIAL SQ SCH (11:41)
[2020-03-13] MEDS ORDERED: INSULIN (NOVOLOG) ASPART 100 UNITS/ML 10ML VIAL ONE (11:43)
[2020-03-13] MEDS: MELATONIN 5 MG TABLETS PO SCH (21:20)
[2020-03-13] MEDS: THIAMINE HCL 100 MG TABLET (FP) PO SCH (21:20)
[2020-03-13] MEDS: ATORVASTATIN CA 20 MG TABLET (FP) PO SCH (21:20)
[2020-03-13] MEDS: INSULIN (LEVEMIR) 100 UNITS/ML UNITS SQ SCH (21:22)
[2020-03-14] MEDS: metFORMIN HCL 500 MG TABLET (FP) PO SCH ×2 (06:48→16:33)
[2020-03-14] MEDS: Insulin (LOG) Aspart 100 UNITS/ML VIAL SQ SCH ×2 (06:51→16:35)
[2020-03-14] MEDS ORDERED: INSULIN (NOVOLOG) ASPART 100 UNITS/ML 10ML VIAL ONE ×2 (07:01→16:33)
[2020-03-14] MEDS: NICOTINE 7 MG/24 HOURS TOPICAL PATCH TD SCH (09:41)
[2020-03-14] MEDS: LISINOPRIL 10 MG TABLET PO SCH (09:41)
[2020-03-14] MEDS: PRENATAL VITAMINS W/ FOLIC ACID TABLET (FP) PO SCH (09:41)
[2020-03-14] MEDS: amLODIPine BESYLATE 5 MG TABLET (FP) PO SCH (09:41)
[2020-03-14] MEDS: INSULIN SLIDING SCALE (NOVOLOG) 1 VIAL SQ SCH (11:54)
[2020-03-14] MEDS: THIAMINE HCL 100 MG TABLET (FP) PO SCH (21:12)
[2020-03-14] MEDS: MELATONIN 5 MG TABLETS PO SCH (21:12)
[2020-03-14] MEDS: ATORVASTATIN CA 20 MG TABLET (FP) PO SCH (21:12)
[2020-03-14] MEDS: INSULIN (LEVEMIR) 100 UNITS/ML UNITS SQ SCH (21:13)
[2020-03-15] MEDS: metFORMIN HCL 500 MG TABLET (FP) PO SCH ×2 (06:37→17:00)
[2020-03-15] MEDS: Insulin (LOG) Aspart 100 UNITS/ML VIAL SQ SCH ×2 (07:55→17:00)
[2020-03-15] MEDS: PRENATAL VITAMINS W/ FOLIC ACID TABLET (FP) PO SCH (09:59)
[2020-03-15] MEDS: amLODIPine BESYLATE 5 MG TABLET (FP) PO SCH (10:00)
[2020-03-15] MEDS: LISINOPRIL 10 MG TABLET PO SCH (10:00)
[2020-03-15] MEDS: NICOTINE 7 MG/24 HOURS TOPICAL PATCH TD SCH (10:01)
[2020-03-15] MEDS ORDERED: INSULIN (NOVOLOG) ASPART 100 UNITS/ML 10ML VIAL ONE ×2 (11:34→16:59)
[2020-03-15] MEDS: INSULIN SLIDING SCALE (NOVOLOG) 1 VIAL SQ SCH (11:39)
[2020-03-15] MEDS: ATORVASTATIN CA 20 MG TABLET (FP) PO SCH (21:31)
[2020-03-15] MEDS: MELATONIN 5 MG TABLETS PO SCH (21:31)
[2020-03-15] MEDS: THIAMINE HCL 100 MG TABLET (FP) PO SCH (21:32)
[2020-03-15] MEDS: INSULIN (LEVEMIR) 100 UNITS/ML UNITS SQ SCH (21:32)
[2020-03-15] MEDS ORDERED: SUVOREXANT 5 MG TABLET PO PRN (22:00)
[2020-03-16] MEDS: metFORMIN HCL 500 MG TABLET (FP) PO SCH ×2 (07:32→16:31)
[2020-03-16] MEDS: Insulin (LOG) Aspart 100 UNITS/ML VIAL SQ SCH ×2 (07:33→16:31)
[2020-03-16] MEDS: LISINOPRIL 10 MG TABLET PO SCH (10:36)
[2020-03-16] MEDS: amLODIPine BESYLATE 5 MG TABLET (FP) PO SCH (10:36)
[2020-03-16] MEDS: NICOTINE 7 MG/24 HOURS TOPICAL PATCH TD SCH (10:37)
[2020-03-16] MEDS: PRENATAL VITAMINS W/ FOLIC ACID TABLET (FP) PO SCH (10:37)
[2020-03-16] MEDS: INSULIN SLIDING SCALE (NOVOLOG) 1 VIAL SQ SCH (12:00)
[2020-03-16] MEDS ORDERED: INSULIN (NOVOLOG) ASPART 100 UNITS/ML 10ML VIAL ONE ×2 (12:03→16:32)
[2020-03-16] MEDS: THIAMINE HCL 100 MG TABLET (FP) PO SCH (21:19)
[2020-03-16] MEDS: ATORVASTATIN CA 20 MG TABLET (FP) PO SCH (21:19)
[2020-03-16] MEDS: MELATONIN 5 MG TABLETS PO SCH (21:19)
[2020-03-16] MEDS: INSULIN (LEVEMIR) 100 UNITS/ML UNITS SQ SCH (22:01)
[2020-03-17] MEDS: metFORMIN HCL 500 MG TABLET (FP) PO SCH ×2 (07:16→16:46)
[2020-03-17] MEDS: Insulin (LOG) Aspart 100 UNITS/ML VIAL SQ SCH ×2 (07:55→16:48)
[2020-03-17] MEDS: amLODIPine BESYLATE 5 MG TABLET (FP) PO SCH (09:52)
[2020-03-17] MEDS: PRENATAL VITAMINS W/ FOLIC ACID TABLET (FP) PO SCH (09:52)
[2020-03-17] MEDS: NICOTINE 7 MG/24 HOURS TOPICAL PATCH TD SCH (09:53)
[2020-03-17] MEDS: LISINOPRIL 10 MG TABLET PO SCH (09:53)
[2020-03-17] MEDS ORDERED: INSULIN (NOVOLOG) ASPART 100 UNITS/ML 10ML VIAL ONE (11:51)
[2020-03-17] MEDS: INSULIN SLIDING SCALE (NOVOLOG) 1 VIAL SQ SCH (11:53)
[2020-03-17] MEDS: ATORVASTATIN CA 20 MG TABLET (FP) PO SCH (21:32)
[2020-03-17] MEDS: MELATONIN 5 MG TABLETS PO SCH (21:33)
[2020-03-17] MEDS: THIAMINE HCL 100 MG TABLET (FP) PO SCH (21:33)
[2020-03-17] MEDS: INSULIN (LEVEMIR) 100 UNITS/ML UNITS SQ SCH (21:35)
[2020-03-18] MEDS ORDERED: INSULIN (NOVOLOG) ASPART 100 UNITS/ML 10ML VIAL ONE ×2 (06:29→12:11)
[2020-03-18] MEDS: metFORMIN HCL 500 MG TABLET (FP) PO SCH ×2 (06:32→16:35)
[2020-03-18] MEDS: Insulin (LOG) Aspart 100 UNITS/ML VIAL SQ SCH ×2 (07:10→16:39)
[2020-03-18] MEDS: amLODIPine BESYLATE 5 MG TABLET (FP) PO SCH (10:10)
[2020-03-18] MEDS: PRENATAL VITAMINS W/ FOLIC ACID TABLET (FP) PO SCH (10:10)
[2020-03-18] MEDS: NICOTINE 7 MG/24 HOURS TOPICAL PATCH TD SCH (10:10)
[2020-03-18] MEDS: LISINOPRIL 10 MG TABLET PO SCH (10:10)
[2020-03-18] MEDS: INSULIN SLIDING SCALE (NOVOLOG) 1 VIAL SQ SCH (12:11)
[2020-03-18] MEDS: ATORVASTATIN CA 20 MG TABLET (FP) PO SCH (21:10)
[2020-03-18] MEDS: THIAMINE HCL 100 MG TABLET (FP) PO SCH (21:10)
[2020-03-18] MEDS: MELATONIN 5 MG TABLETS PO SCH (21:10)
[2020-03-18] MEDS: SUVOREXANT 5 MG TABLET PO PRN (21:13)
[2020-03-18] MEDS: INSULIN (LEVEMIR) 100 UNITS/ML UNITS SQ SCH (21:14)
[2020-03-19] MEDS: metFORMIN HCL 500 MG TABLET (FP) PO SCH ×2 (07:28→16:26)
[2020-03-19] MEDS: Insulin (LOG) Aspart 100 UNITS/ML VIAL SQ SCH ×2 (08:29→16:28)
[2020-03-19] MEDS: amLODIPine BESYLATE 5 MG TABLET (FP) PO SCH (09:59)
[2020-03-19] MEDS: PRENATAL VITAMINS W/ FOLIC ACID TABLET (FP) PO SCH (09:59)
[2020-03-19] MEDS: LISINOPRIL 10 MG TABLET PO SCH (09:59)
[2020-03-19] MEDS: NICOTINE 7 MG/24 HOURS TOPICAL PATCH TD SCH (10:00)
[2020-03-19] MEDS: INSULIN SLIDING SCALE (NOVOLOG) 1 VIAL SQ SCH (11:21)
[2020-03-19] MEDS ORDERED: INSULIN (NOVOLOG) ASPART 100 UNITS/ML 10ML VIAL ONE (16:26)
[2020-03-19] MEDS: THIAMINE HCL 100 MG TABLET (FP) PO SCH (21:29)
[2020-03-19] MEDS: ATORVASTATIN CA 20 MG TABLET (FP) PO SCH (21:29)
[2020-03-19] MEDS: SUVOREXANT 5 MG TABLET PO PRN (21:29)
[2020-03-19] MEDS: INSULIN (LEVEMIR) 100 UNITS/ML UNITS SQ SCH (21:32)
[2020-03-20] MEDS: Insulin (LOG) Aspart 100 UNITS/ML VIAL SQ SCH ×2 (07:03→16:54)
[2020-03-20] MEDS: metFORMIN HCL 500 MG TABLET (FP) PO SCH ×2 (07:03→16:54)
[2020-03-20] MEDS: NICOTINE 7 MG/24 HOURS TOPICAL PATCH TD SCH (10:04)
[2020-03-20] MEDS: PRENATAL VITAMINS W/ FOLIC ACID TABLET (FP) PO SCH (10:28)
[2020-03-20] MEDS: amLODIPine BESYLATE 5 MG TABLET (FP) PO SCH (10:28)
[2020-03-20] MEDS: LISINOPRIL 10 MG TABLET PO SCH (10:28)
[2020-03-20] MEDS: INSULIN SLIDING SCALE (NOVOLOG) 1 VIAL SQ SCH (11:34)
[2020-03-20] MEDS ORDERED: INSULIN (NOVOLOG) ASPART 100 UNITS/ML 10ML VIAL ONE ×2 (11:34→16:37)
[2020-03-20] MEDS: ATORVASTATIN CA 20 MG TABLET (FP) PO SCH (21:20)
[2020-03-20] MEDS: THIAMINE HCL 100 MG TABLET (FP) PO SCH (21:20)
[2020-03-20] MEDS: SUVOREXANT 5 MG TABLET PO PRN (21:21)
[2020-03-20] MEDS: INSULIN (LEVEMIR) 100 UNITS/ML UNITS SQ SCH (22:12)
[2020-03-21] MEDS: metFORMIN HCL 500 MG TABLET (FP) PO SCH ×2 (06:57→16:54)
[2020-03-21] MEDS ORDERED: INSULIN (NOVOLOG) ASPART 100 UNITS/ML 10ML VIAL ONE ×3 (07:54→16:07)
[2020-03-21] MEDS: Insulin (LOG) Aspart 100 UNITS/ML VIAL SQ SCH ×2 (09:47→16:55)
[2020-03-21] MEDS: NICOTINE 7 MG/24 HOURS TOPICAL PATCH TD SCH (09:48)
[2020-03-21] MEDS: LISINOPRIL 10 MG TABLET PO SCH (09:48)
[2020-03-21] MEDS: amLODIPine BESYLATE 5 MG TABLET (FP) PO SCH (09:48)
[2020-03-21] MEDS: PRENATAL VITAMINS W/ FOLIC ACID TABLET (FP) PO SCH (09:48)
[2020-03-21] MEDS: INSULIN SLIDING SCALE (NOVOLOG) 1 VIAL SQ SCH (11:49)
[2020-03-21] MEDS: ATORVASTATIN CA 20 MG TABLET (FP) PO SCH (21:41)
[2020-03-21] MEDS: THIAMINE HCL 100 MG TABLET (FP) PO SCH (21:41)
[2020-03-21] MEDS: INSULIN (LEVEMIR) 100 UNITS/ML UNITS SQ SCH (21:42)
[2020-03-21] MEDS ORDERED: SUVOREXANT 5 MG TABLET PO PRN (22:00)
[2020-03-22] MEDS: metFORMIN HCL 500 MG TABLET (FP) PO SCH ×2 (07:07→16:49)
[2020-03-22] MEDS: Insulin (LOG) Aspart 100 UNITS/ML VIAL SQ SCH ×2 (07:07→16:49)
[2020-03-22] MEDS ORDERED: INSULIN (NOVOLOG) ASPART 100 UNITS/ML 10ML VIAL ONE ×3 (07:18→16:37)
[2020-03-22] MEDS: PRENATAL VITAMINS W/ FOLIC ACID TABLET (FP) PO SCH (10:15)
[2020-03-22] MEDS: amLODIPine BESYLATE 5 MG TABLET (FP) PO SCH (10:16)
[2020-03-22] MEDS: LISINOPRIL 10 MG TABLET PO SCH (10:16)
[2020-03-22] MEDS: NICOTINE 7 MG/24 HOURS TOPICAL PATCH TD SCH (10:16)
[2020-03-22] MEDS: INSULIN SLIDING SCALE (NOVOLOG) 1 VIAL SQ SCH (11:59)
[2020-03-22] MEDS: GABAPENTIN 100 MG CAPSULE PO SCH ×2 (14:55→21:20)
[2020-03-22] MEDS: ATORVASTATIN CA 20 MG TABLET (FP) PO SCH (21:20)
[2020-03-22] MEDS: SUVOREXANT 10 MG TABLET PO PRN (21:21)
[2020-03-22] MEDS: INSULIN (LEVEMIR) 100 UNITS/ML UNITS SQ SCH (21:23)
[2020-03-22] MEDS: THIAMINE HCL 100 MG TABLET (FP) PO SCH (21:23)
[2020-03-23] MEDS: GABAPENTIN 100 MG CAPSULE PO SCH ×3 (06:27→21:20)
[2020-03-23] MEDS: Insulin (LOG) Aspart 100 UNITS/ML VIAL SQ SCH ×2 (06:58→16:29)
[2020-03-23] MEDS: metFORMIN HCL 500 MG TABLET (FP) PO SCH ×2 (06:58→16:27)
[2020-03-23] MEDS: amLODIPine BESYLATE 5 MG TABLET (FP) PO SCH (10:07)
[2020-03-23] MEDS: LISINOPRIL 10 MG TABLET PO SCH (10:07)
[2020-03-23] MEDS: NICOTINE 7 MG/24 HOURS TOPICAL PATCH TD SCH (10:07)
[2020-03-23] MEDS: PRENATAL VITAMINS W/ FOLIC ACID TABLET (FP) PO SCH (10:07)
[2020-03-23] MEDS: INSULIN SLIDING SCALE (NOVOLOG) 1 VIAL SQ SCH (11:51)
[2020-03-23] MEDS ORDERED: INSULIN (NOVOLOG) ASPART 100 UNITS/ML 10ML VIAL ONE (11:52)
[2020-03-23] MEDS: THIAMINE HCL 100 MG TABLET (FP) PO SCH (21:20)
[2020-03-23] MEDS: ATORVASTATIN CA 20 MG TABLET (FP) PO SCH (21:20)
[2020-03-23] MEDS: SUVOREXANT 10 MG TABLET PO PRN (21:22)
[2020-03-23] MEDS: INSULIN (LEVEMIR) 100 UNITS/ML UNITS SQ SCH (21:23)
[2020-03-24] MEDS: GABAPENTIN 100 MG CAPSULE PO SCH ×3 (06:23→21:17)
[2020-03-24] MEDS: metFORMIN HCL 500 MG TABLET (FP) PO SCH ×2 (06:56→17:18)
[2020-03-24] MEDS: Insulin (LOG) Aspart 100 UNITS/ML VIAL SQ SCH ×2 (07:21→17:18)
[2020-03-24] MEDS ORDERED: PT OWN MED DRAWER 7, Y5N ONE (08:48)
[2020-03-24] MEDS: amLODIPine BESYLATE 5 MG TABLET (FP) PO SCH (10:04)
[2020-03-24] MEDS: PRENATAL VITAMINS W/ FOLIC ACID TABLET (FP) PO SCH (10:04)
[2020-03-24] MEDS: LISINOPRIL 10 MG TABLET PO SCH (10:04)
[2020-03-24] MEDS: NICOTINE 7 MG/24 HOURS TOPICAL PATCH TD SCH (10:05)
[2020-03-24] MEDS: INSULIN SLIDING SCALE (NOVOLOG) 1 VIAL SQ SCH (11:55)
[2020-03-24] MEDS ORDERED: INSULIN (NOVOLOG) ASPART 100 UNITS/ML 10ML VIAL ONE ×2 (12:10→16:54)
[2020-03-24] MEDS: SUVOREXANT 10 MG TABLET PO PRN (21:17)
[2020-03-24] MEDS: THIAMINE HCL 100 MG TABLET (FP) PO SCH (21:17)
[2020-03-24] MEDS: ATORVASTATIN CA 20 MG TABLET (FP) PO SCH (21:17)
[2020-03-24] MEDS: INSULIN (LEVEMIR) 100 UNITS/ML UNITS SQ SCH (21:19)
[2020-03-25] MEDS: metFORMIN HCL 500 MG TABLET (FP) PO SCH ×2 (06:21→16:32)
[2020-03-25] MEDS: GABAPENTIN 100 MG CAPSULE PO SCH ×3 (06:21→21:39)
[2020-03-25] MEDS ORDERED: INSULIN (NOVOLOG) ASPART 100 UNITS/ML 10ML VIAL ONE ×3 (07:10→16:30)
[2020-03-25] MEDS: Insulin (LOG) Aspart 100 UNITS/ML VIAL SQ SCH ×2 (07:55→16:32)
[2020-03-25] MEDS: PRENATAL VITAMINS W/ FOLIC ACID TABLET (FP) PO SCH (09:55)
[2020-03-25] MEDS: LISINOPRIL 10 MG TABLET PO SCH (09:56)
[2020-03-25] MEDS: amLODIPine BESYLATE 5 MG TABLET (FP) PO SCH (09:56)
[2020-03-25] MEDS: NICOTINE 7 MG/24 HOURS TOPICAL PATCH TD SCH (09:56)
[2020-03-25] MEDS: INSULIN SLIDING SCALE (NOVOLOG) 1 VIAL SQ SCH (11:14)
[2020-03-25] MEDS: ATORVASTATIN CA 20 MG TABLET (FP) PO SCH (21:39)
[2020-03-25] MEDS: THIAMINE HCL 100 MG TABLET (FP) PO SCH (21:40)
[2020-03-25] MEDS ORDERED: SUVOREXANT 10 MG TABLET PO PRN (22:00)
[2020-03-25] MEDS ORDERED: SUVOREXANT 15 MG TABLET PO PRN (22:00)
[2020-03-25] MEDS: INSULIN (LEVEMIR) 100 UNITS/ML UNITS SQ SCH (22:04)
[2020-03-26] MEDS: metFORMIN HCL 500 MG TABLET (FP) PO SCH (06:43)
[2020-03-26] MEDS: Insulin (LOG) Aspart 100 UNITS/ML VIAL SQ SCH (06:43)
[2020-03-26] MEDS: GABAPENTIN 100 MG CAPSULE PO SCH (06:43)
[2020-03-26] MEDS ORDERED: INSULIN (NOVOLOG) ASPART 100 UNITS/ML 10ML VIAL ONE (06:57)
[2020-03-26 09:13] VITALS: BP 131/77; PULSE 102
[2020-03-26] MEDS: amLODIPine BESYLATE 5 MG TABLET (FP) PO SCH (09:17)
[2020-03-26] MEDS: LISINOPRIL 10 MG TABLET PO SCH (09:17)
[2020-03-26] MEDS: PRENATAL VITAMINS W/ FOLIC ACID TABLET (FP) PO SCH (09:17)
[2020-03-26] MEDS: NICOTINE 7 MG/24 HOURS TOPICAL PATCH TD SCH (09:18)
[2020-03-26 09:19] VITALS: TEMP 97.3
== END 2020-03-26 09:55 | disposition home or self-care (01) | DRG 772 ==
LOC: YASAS 12:01 → Y3W 12:03
PROVIDERS: ADMIT Allergy & Immunology; ATTEND Allergy & Immunology
PROC: HZ42ZZZ Group Counseling for Substance Abuse Treatment, Cognitive-Behavioral (ICD-10-PCS; principal; 2020-02-29)
DX: F10.20 Alcohol dependence, uncomplicated (principal); F16.20 Hallucinogen dependence, uncomplicated; F12.20 Cannabis dependence, uncomplicated; F17.210 Nicotine dependence, cigarettes, uncomplicated; F10.282 Alcohol dependence with alcohol-induced sleep disorder; I10 Essential (primary) hypertension; E78.5 Hyperlipidemia, unspecified; E11.42 Type 2 diabetes mellitus with diabetic polyneuropathy; E11.65 Type 2 diabetes mellitus with hyperglycemia; Z79.4 Long term (current) use of insulin; Z62.810 Personal history of physical and sexual abuse in childhood; Z91.410 Personal history of adult physical and sexual abuse; Z56.0 Unemployment, unspecified; Z59.0 Homelessness
CPT/HCPCS: 82962